=== PATIENT | male | born 1950 | race Caucasian/White ===

== ENCOUNTER 2016-10-25 10:23 | Emergency (ER) | payer BC ==
[~2016-10-25] VITALS: Ht 175.3 cm; Wt 100.0 kg
[~2016-10-25 10:23] MED LIST: ATV1 PO; DILT-119 PO; GABA-112 PO; HYDR25TA4 PO; HYDR5TAB27 PO; LEFL20TA PO; LSN5 PO; MELO7.5T5 PO; PRED-301 PO; RXC5 PO; SILO8CAP PO; TRAM-10 PO
[2016-10-25 10:28] VITALS: TEMP 36.8; Ht 175.3 cm; Wt 100.0 kg
[2016-10-25] MEDS ORDERED: GABA-113 PO (10:49)
[2016-10-25] MEDS ORDERED: TYLOTC500 PO (10:49)
[2016-10-25] MEDS ORDERED: DILT120C68 PO (10:49)
[2016-10-25] MEDS ORDERED: ASPI325T45 PO (10:50)
[2016-10-25] MEDS ORDERED: ONDANSETRON INJ 2 MG/ML 2 ML VIAL IV PRN (11:45)
[2016-10-25] MEDS ORDERED: SODIUM CHLORIDE 0.9% 1000ML 1,000 ML IV ONE (11:45)
[2016-10-25] MEDS ORDERED: MoRPHine SULFATE 10 MG/ML CARP/VIAL IV PRN (11:45)
[2016-10-25 11:56] LABS: HEMATOCRIT 37.1 % (42-52); MEAN CELL VOLUME 91.6 fL (80-100); MEAN CORPUSCULAR HEMOGLOBIN 29.1 pg (25-34); MEAN CORPUSCULAR HGB CONC 31.8 g/dl (32-36); MEAN PLATELET VOLUME 9.1 fL (7.4-10.4); PLATELET COUNT 322 K/uL (130-400); RED BLOOD COUNT 4.05 M/uL (4.7-6.1); WHITE BLOOD COUNT 14.03 K/uL (4.8-10.8)
[2016-10-25 12:04] LABS: ALT/SGPT 20 U/L (12-78); AST/SGOT 10 U/L (15-37); BLOOD UREA NITROGEN 21 mg/dl (7-18); BUN/CREATININE RATIO 22.3 (10-20); CALCIUM 9.4 mg/dl (8.5-10.1); CARBON DIOXIDE 25 mmol/L (21-32); CHLORIDE 108 mmol/L (98-107); CREATININE 0.96 mg/dl (0.60-1.40); GLUCOSE 105 mg/dl (70-99); SODIUM 142 mmol/L (136-145)
[2016-10-25 12:09] LABS: ALB/GLOB RATIO 1.1 (0.9-2); ALKALINE PHOSPHATASE 138 U/L (45-117)
[2016-10-25 12:18] LABS: BASO % 0.3 %; BASO ABS # 0.04 K/uL (0-0.2); COMPLETE YES; EOS % 0.4 %; IG% 0.3 %; LYMPH % 6.1 %; LYMPH ABS # 0.86 K/uL (1.2-3.4); MONO % 4.8 %; NEUT % 88.1 %
--- NOTE | 2016-10-25 12:19 | EMERGENCY ROOM VISIT NOTE ---
History Report prepared by Jes: Sue Carrazna Under the Supervision of: Dr. Clive Case M.D. First contact with patient: 11:38 Chief Complaint: PAIN (GENERALIZED) Stated Complaint: BODY PAIN History of Present Illness The patient is a 66 year old male who presents to the Emergency Room with complaints of worsening pain all over his body starting two days ago. He rates his pain as a 5/10 in severity. He states that he came to the ED because the pain worsened over night. He complains of pain in his legs, lower back, and shoulders. The patient states that he has a history of blood clots and isn't sure if the pain feels the same as before. The patient states that originally he thought he was coming down with the flu. He complains of a cough that produces mucous, chills, and nausea. He denies any fever. The patient states that he has been taking two Tylenol and a Tramadol for pain with no relief. He states that he not currently taking Coumadin or any other blood thinners. He does note that he takes an Aspirin daily. He reports that he had a left knee replacement a month ago and back surgery 11 months ago . He also notes that he has a history of arthritis. Source of History: patient Onset: two days ago Position: other (global) Symptom Intensity: 5/10 Quality: other (global) Timing: worsening Associated Symptoms: + chills, + cough, + nausea, No fevers Review of Systems All systems have been listed, reviewed, and are negative other than those previously mentioned. Please see Additional Medical History Sheet. Past Medical & Surgical Medical Problems: (1) DVT (deep venous thrombosis) (2) Lumbar stenosis with neurogenic claudication (3) Pulmonary embolism Family History Cancer Heart disease Social History Smoking Status: Never Smoker Alcohol Use: none Drug Use: none Marital Status: Housing Status: lives with family Occupation Status: employed Current/Historical Medications Scheduled Diltiazem Hcl Ext Rel (Tiazac), 120 MG PO DAILY Gabapentin (Neurontin), 300 MG PO TID Hydrochlorothiazide (Hctz), 25 MG PO QAM Leflunomide (Arava), 20 MG PO QAM Lisinopril (Lisinopril), 5 MG PO QAM Meloxicam (Mobic), 7.5 MG PO QAM Prednisone (Prednisone), 2.5 MG PO QAM Silodosin (Rapaflo), 8 MG PO QAM Sulfa/Trimethoprim (Bactrim Ds 800MG/160MG), 1 TAB PO BID Scheduled PRN Acetaminophen (Tylenol), 1,000 MG PO UD PRN for Pain Aspirin (Aspirin), 325 MG PO UD PRN for Pain Oxycodone Immediate Rel Tab (Roxicodone Ir), 1-2 TAB PO Q4H PRN for Severe Pain Tramadol (Ultram), 50 MG PO Q4H PRN for Pain Allergies Coded Allergies: No Known Allergies (Unverified , 10/25/16) Physical Exam Vital Signs Date Time Temp Pulse Resp B/P Pulse Ox O2 Delivery O2 Flow Rate FiO2 10/25/16 14:30 101 18 140/70 98 10/25/16 13:52 92 18 157/86 97 Room Air 10/25/16 12:19 88 18 143/90 95 10/25/16 10:28 36.8 81 18 134/77 97 Room Air Physical Exam GENERAL: Patient awake, alert, oriented x 3. Patient follows commands. Patient does not appear toxic. Patient is adequately hydrated and well- nourished. Appears in moderate distress. SKIN: No erythema, pallor, cyanosis or rash HEENT: Normal head, pupils equal, reactive to light and accommodation. Ears normal. Oral cavity and posterior pharynx appear normal. Patient has a small scratch on his nose. Neck: Without adenopathy, no neck vein distention. LUNGS: Clear to auscultation. No wheezes, no rales, no rhonchi. HEART: No murmurs. No gallops. No rubs ABDOMEN: No masses, no rebound, no hepatomegaly or splenomegaly. EXTREMITIES: No signs of trauma. No pedal or pretibial edema. No calf or thigh tenderness. Healing left knee surgery incision without signs of infection , decreased range of motion compared to a few days ago. NEUROLOGIC: Cranial nerves II-XII within normal limits. No gross motor sensory function deficits. Medical Decision & Procedures ER Provider Diagnostic Interpretation: Radiology results as stated below per my review and radiologist interpretation: LEFT LOWER EXTREMITY VENOUS DOPPLER HISTORY: Left leg swelling. COMPARISON STUDY: None. FINDINGS: There is normal compressibility, flow, and augmentation within the left lower extremity deep venous system. A 5.8 x 4.8 x 2.5 cm complex popliteal cyst. IMPRESSION: No DVT within the left lower extremity. Electronically signed by: Kevin Payne M.D. 10/25/2016 1:34 PM Dictated Date/Time: 10/25/2016 1:34 PM CHEST 2 VIEWS ROUTINE HISTORY: cough chills COMPARISON: Chest 12/06/2015. FINDINGS: The lungs are clear. Cardiac silhouette is borderline enlarged. No pleural effusions. No pneumothorax. IMPRESSION: No significant change compared to the prior study. No acute process. Electronically signed by: Kevin Payne M.D. 10/25/2016 12:56 PM Dictated Date/Time: 10/25/2016 12:54 PM Laboratory Results 10/25/16 11:00 Red Blood Count 4.05, Mean Corpuscular Volume 91.6, Mean Corpuscular Hemoglobin 29.1, Mean Corpuscular Hemoglobin Concent 31.8, Mean Platelet Volume 9.1, Neutrophils (%) (Auto) 88.1, Lymphocytes (%) (Auto) 6.1, Monocytes (%) (Auto) 4.8, Eosinophils (%) (Auto) 0.4, Basophils (%) (Auto) 0.3, Neutrophils # (Auto) 12.36, Lymphocytes # (Auto) 0.86, Monocytes # (Auto) 0.67, Eosinophils # (Auto) 0.06, Basophils # (Auto) 0.04 10/25/16 11:00 Test 10/25/16 11:00 10/25/16 11:06 10/25/16 11:55 10/25/16 12:08 White Blood Count 14.03 K/uL (4.8-10.8) Red Blood Count 4.05 M/uL (4.7-6.1) Hemoglobin 11.8 g/dL (14.0-18.0) Hematocrit 37.1 % (42-52) Mean Corpuscular Volume 91.6 fL (80-100) Mean Corpuscular Hemoglobin 29.1 pg (25-34) Mean Corpuscular Hemoglobin Concent 31.8 g/dl (32-36) Platelet Count 322 K/uL (130-400) Mean Platelet Volume 9.1 fL (7.4-10.4) Neutrophils (%) (Auto) 88.1 % Lymphocytes (%) (Auto) 6.1 % Monocytes (%) (Auto) 4.8 % Eosinophils (%) (Auto) 0.4 % Basophils (%) (Auto) 0.3 % Neutrophils # (Auto) 12.36 K/uL (1.4-6.5) Lymphocytes # (Auto) 0.86 K/uL (1.2-3.4) Monocytes # (Auto) 0.67 K/uL (0.11-0.59) Eosinophils # (Auto) 0.06 K/uL (0-0.5) Basophils # (Auto) 0.04 K/uL (0-0.2) RDW Standard Deviation 51.8 fL (36.4-46.3) RDW Coefficient of Variation 15.3 % (11.5-14.5) Immature Granulocyte % (Auto) 0.3 % Immature Granulocyte # (Auto) 0.04 K/uL (0.00-0.02) Anion Gap 9.0 mmol/L (3-11) Est Creatinine Clear Calc Drug Dose 90.6 ml/min Estimated GFR () 96.4 Estimated GFR (Non- 83.2 BUN/Creatinine Ratio 22.3 (10-20) Calcium Level 9.4 mg/dl (8.5-10.1) Total Bilirubin 0.7 mg/dl (0.2-1) Aspartate Amino Transf (AST/SGOT) 10 U/L (15-37) Alanine Aminotransferase (ALT/SGPT) 20 U/L (12-78) Alkaline Phosphatase 138 U/L (45-117) Troponin I < 0.015 ng/ml (0-0.045) Total Protein 7.2 gm/dl (6.4-8.2) Albumin 3.8 gm/dl (3.4-5.0) Globulin 3.4 gm/dl (2.5-4.0) Albumin/Globulin Ratio 1.1 (0.9-2) Influenza Type A Antigen Neg for Influ A (NEG) Influenza Type B Antigen Neg for Influ B (NEG) Bedside D-Dimer > 450 ng/mlFEU (0-450) Bedside Lactic Acid Venous 1.53 mmol/L (0.90-1.70) Test 10/25/16 12:10 Urine Color YELLOW Urine Appearance CLEAR (CLEAR) Urine pH 7.5 (4.5-7.5) Urine Specific Decker 1.020 (1.000-1.030) Urine Protein NEG (NEG) Urine Glucose (UA) NEG (NEG) Urine Ketones TRACE (NEG) Urine Occult Blood NEG (NEG) Urine Nitrite NEG (NEG) Urine Bilirubin NEG (NEG) Urine Urobilinogen NEG (NEG) Urine Leukocyte Esterase MODERATE (NEG) Urine WBC (Auto) >30 /hpf (0-5) Urine RBC (Auto) 0-4 /hpf (0-4) Urine Hyaline Casts (Auto) 10-30 /lpf (0-5) Urine Epithelial Cells (Auto) 0-5 /lpf (0-5) Urine Bacteria (Auto) 1+ (NEG) Laboratory results as stated above per my review. Medications Administered Medications (Trade) Dose Ordered Sig/Alf Route Start Time Stop Time Status Last Admin Dose Admin Ondansetron HCl (Zofran Inj) 4 mg PRN PRN IV 10/25/16 11:45 10/25/16 14:45 DC 10/25/16 12:21 4 MG Morphine Sulfate 8 mg 8 mg Q1H PRN IV 10/25/16 11:45 10/25/16 14:45 DC 10/25/16 12:23 8 MG Sodium Chloride (Nss 1000ml) 1,000 ml @ 1,000 mls/hr Q1H ONCE IV 10/25/16 11:45 10/25/16 12:44 DC 10/25/16 12:21 1,000 MLS/HR ECG Indication: back/shoulder pain Rate (beats per minute): 87 Rhythm: normal sinus Findings: nonspecific-ST abn, PAC ED Course 1139: Past medical records reviewed. The patient was evaluated in room A12B. A complete history and physical examination was performed. 1145: Ordered NSS 1000 ml @ 1000 mls/hr IV, Morphine Sulfate Inj 8 mg PRN IV pain, Zofran Inj 4 mg PRN IV nausea. 1357: Upon reevaluation, the patient appeared to have improvement of his symptoms. I discussed today's findings with the patient. He verbalized agreement of the treatment plan. The patient was discharged home. 1416: Multiple past prescriptions are noted. Medical Decision Differential diagnoses include influenza, other viral infections, pneumonia, sepsis, septic joint, deep vein thrombosis Multiple labs, urinalysis and imaging were obtained. Patient does not appear to have a DVT in his leg. Patient's symptoms are most prominent in his lower extremities. He has no pulmonary symptoms. The patient has had frequent urinary tract infections in the past without being symptomatic. I believe that he has another urinary tract infection now. His white count was also slightly elevated. Lactic acid is not elevated. D-dimer was elevated but he has no pulmonary symptoms. I do not believe he requires a CT of his chest. The patient be started on Bactrim. He is also given a small prescription for hydrocodone. The patient is to follow-up with his family physician and urologist. Impression Primary Impression: Urinary tract infection Scribe Attestation The scribe's documentation has been prepared under my direction and personally reviewed by me in its entirety. I confirm that the note above accurately reflects all work, treatment, procedures, and medical decision making performed by me. Departure Information Dispostion Home / Self-Care Prescriptions Oxycodone Immediate Rel Tab (ROXICODONE IR) 5 Mg Tab 1-2 TAB PO Q4H Y for Severe Pain, #20 TAB Prov: Clive Case M.D. 10/25/16 Sulfa/Trimethoprim (Bactrim Ds 800MG/160MG) Tab 1 TAB PO BID, #20 TAB Prov: Clive Case M.D. 10/25/16 Referrals Dc Chin M.D. (PCP) Kana Story M.D. Forms HOME CARE DOCUMENTATION FORM, IMPORTANT VISIT INFORMATION Patient Instructions My [facility] [place] [employer] Additional Instructions One Bactrim twice a day for 10 days. 1-2 hydrocodone every 4 hours as needed for severe pain. Do not drive or operate machinery while taking hydrocodone. Drink extra fluids. Follow-up with your family physician and urologist within the next 2 weeks. Continue all of your other current medications as prescribed.
[2016-10-25 12:28] LABS: URINE APPEARANCE CLEAR (CLEAR); URINE BILIRUBIN NEG (NEG); URINE COLOR YELLOW; URINE EPITHELIAL CELL AUTO 0-5 /lpf (0-5); URINE NITRITE NEG (NEG); URINE PH 7.5 (4.5-7.5); UROBILINOGEN NEG (NEG); ZZUR CULT IF INDIC CLEAN CATCH YES
[2016-10-25 12:30] LABS: MANUAL MICROSCOPIC REQUIRED? NO; REVIEW REQ? NO; SULFASALICYLIC ACID NEG (NEG)
--- NOTE | 2016-10-25 12:58 | DIAGNOSTIC IMAGING REPORT ---
CHEST 2 VIEWS ROUTINE HISTORY: cough chills COMPARISON: Chest 12/06/2015. FINDINGS: The lungs are clear. Cardiac silhouette is borderline enlarged. No pleural effusions. No pneumothorax. IMPRESSION: No significant change compared to the prior study. No acute process. Electronically signed by: Kevin Payne M.D. 10/25/2016 12:56 PM Dictated Date/Time: 10/25/2016 12:54 PM
--- NOTE | 2016-10-25 13:37 | DIAGNOSTIC IMAGING REPORT ---
LEFT LOWER EXTREMITY VENOUS DOPPLER HISTORY: Left leg swelling. COMPARISON STUDY: None. FINDINGS: There is normal compressibility, flow, and augmentation within the left lower extremity deep venous system. A 5.8 x 4.8 x 2.5 cm complex popliteal cyst. IMPRESSION: No DVT within the left lower extremity. Electronically signed by: Kevin Panye M.D. 10/25/2016 1:34 PM Dictated Date/Time: 10/25/2016 1:34 PM
[2016-10-25] MEDS ORDERED: SULF800T23 PO (14:12)
[2016-10-25] MEDS ORDERED: OXYC1TAB3 PO (14:12)
[2016-10-25 14:30] VITALS: BP 140/70; PULSE 101; O2SAT 98
--- NOTE | 2016-10-27 18:17 | Pharmacy Progress Note ---
ED Pharmacist Culture FollowUp Date of Service: Oct 27, 2016. Called patient regarding urine culture with Enterococcus faecalis. Counseled to stop Bactrim. Prescription for amoxicillin 875 mg po BID x7 days called to [facility] at the patient's request. Case discussed with Dr. Case, who is the prescribing provider.
[2017-02-11] MEDS ORDERED: CIPR1TAB11 PO (15:10)
[2017-02-11] MEDS ORDERED: FERR1TAB61 PO (15:10)
[2017-02-11] MEDS ORDERED: DILT120C68 PO (15:10)
[2017-02-11] MEDS ORDERED: HYDR200T5 PO (15:10)
[2017-02-11] MEDS ORDERED: NF1420 PO (15:10)
[2017-02-11] MEDS ORDERED: ASPI81TA28 PO (15:10)
== END 2016-10-25 14:31 | disposition home or self-care (01) ==
LOC: C.EDB 10:25 → C.EDA 14:31
DX: N39.0 Urinary tract infection, site not specified (principal); M19.90 Unspecified osteoarthritis, unspecified site; Z86.718 Personal history of other venous thrombosis and embolism; M48.06 Spinal stenosis, lumbar region; Z86.711 Personal history of pulmonary embolism; Z96.652 Presence of left artificial knee joint; Z80.9 Family history of malignant neoplasm, unspecified; Z82.49 Family history of ischemic heart disease and other diseases of the circulatory system; Z79.82 Long term (current) use of aspirin; Z79.899 Other long term (current) drug therapy; Z79.52 Long term (current) use of systemic steroids

== ENCOUNTER 2016-10-29 11:17 | Inpatient (IN) | payer BC ==
[~2016-10-29] VITALS: Ht 175.3 cm; Wt 89.9 kg
[~2016-10-29 11:17] MED LIST changes: +ASPI325T45 PO; -ATV1 PO; -DILT-119 PO; +DILT120C68 PO; -GABA-112 PO; +GABA-113 PO; -HYDR5TAB27 PO; +OXYC1TAB3 PO; -RXC5 PO; +SULF800T23 PO; +TYLOTC500 PO
[2016-10-29] MEDS ORDERED: SODIUM CHLORIDE 0.9% 1000ML 1,000 ML IV STA ×2 (12:17→14:19)
[2016-10-29] MEDS ORDERED: MoRPHine SULFATE 4 MG/ML 1 ML CARP\\VIAL IV STA (12:17)
--- NOTE | 2016-10-29 12:21 | EMERGENCY ROOM VISIT NOTE ---
History Report prepared by Jes: Nico Sewell Under the Supervision of: Dr. Val Churchill D.O. First contact with patient: 12:03 Chief Complaint: ILLNESS Stated Complaint: BODY PAIN, TEMP SPIKING, UTI, COUGH History of Present Illness The patient is a 66 year old male who presents to the Emergency Room with complaints of a persistent illness that started 6 days ago. Per the patient's , the patient started having a productive cough last week, with generalized pain. The patient's pain was so bad that he came to the ED here 4 days ago. It was determined that the patient had a UTI, and was put on Bactrim. However, the patient's antibiotic was changed 3 days ago to Amoxicillin after his culture grew out something different. The patient notes that the antibiotic has not been helping. He had a left knee replacement a month ago, and had a UTI before the knee replacement. He has a history of frequent UTI's, and had 2 of them last year. The patient says that his knee surgery rehab was going well until this illness started. He notes that the knee is a bit more red and swollen than normal. The patient, in addition to the productive cough, has been nauseous and dry heaving. His generalized pain goes from his low back, down to his left knee. The patient states that his phlegm does not have much of a color. His generalized pain has gone down a bit this week, but the patient continues to not eat, with minimal appetite. Last night, the patient's states that the patient had a fever of 101.6. The patient continues to occasional urge incontinence, and the urine is noted to be a bit darker than normal. Last night , the patient's adds that last night the patient was not himself, and his color was not right. He denies any shortness of breath, chest pain, runny nose, sore throat, vomiting, or bowel problems. He has a history of kidney stones, but has not had one in a while. He also has a history of a blood clot in his lung. He has no history of pneumonia. The patient does not take any blood thinners. He does not drink alcohol or use tobacco products. Source of History: patient, spouse/significant other Onset: 6 days ago Position: other (global - illness) Timing: other (persistent) Associated Symptoms: + back pain, + cough, + fevers, + nausea, + urinary symptoms (no control of bladder), No SOB, No chest pain, No sorethroat, No vomiting Note: Associated symptoms: Left knee pain, swelling, redness. Dry heaving. Generalized pain. Not himself last night, delirious. Minimal appetite. Denies runny nose, bowel problems. Review of Systems See HPI for pertinent positives & negatives. A total of 10 systems reviewed and were otherwise negative. Past Medical & Surgical Medical Problems: (1) DVT (deep venous thrombosis) (2) Lumbar stenosis with neurogenic claudication (3) Pulmonary embolism Family History Cancer Heart disease Social History Smoking Status: Never Smoker Alcohol Use: none Drug Use: none Marital Status: Housing Status: lives with family Occupation Status: employed Current/Historical Medications Scheduled Diltiazem Hcl Ext Rel (Tiazac), 120 MG PO DAILY Gabapentin (Neurontin), 300 MG PO TID Hydrochlorothiazide (Hctz), 25 MG PO QAM Leflunomide (Arava), 20 MG PO QAM Lisinopril (Lisinopril), 5 MG PO QAM Meloxicam (Mobic), 7.5 MG PO QAM Prednisone (Prednisone), 2.5 MG PO QAM Silodosin (Rapaflo), 8 MG PO QAM Sulfa/Trimethoprim (Bactrim Ds 800MG/160MG), 1 TAB PO BID Scheduled PRN Acetaminophen (Tylenol), 1,000 MG PO UD PRN for Pain Aspirin (Aspirin), 325 MG PO UD PRN for Pain Oxycodone Immediate Rel Tab (Roxicodone Ir), 1-2 TAB PO Q4H PRN for Severe Pain Tramadol (Ultram), 50 MG PO Q4H PRN for Pain Allergies Coded Allergies: No Known Allergies (Unverified , 10/29/16) Physical Exam Vital Signs Date Time Temp Pulse Resp B/P Pulse Ox O2 Delivery O2 Flow Rate FiO2 10/29/16 15:37 77 18 121/74 97 Room Air 10/29/16 14:21 69 14 131/68 96 Room Air 10/29/16 13:37 74 16 105/59 98 Room Air 10/29/16 11:40 36.7 74 18 95/58 99 Room Air Physical Exam GENERAL: alert, well appearing, well nourished, no distress, non-toxic EYE EXAM: normal conjunctiva, PERRL and EOM's grossly intact OROPHARYNX: no exudate, no erythema, lips, buccal mucosa, and tongue normal and mucous membranes are moist NECK: supple, no nuchal rigidity, no adenopathy, non-tender LUNGS: Clear to auscultation. Normal chest wall mechanics HEART: no murmurs, S1 normal and S2 normal ABDOMEN: abdomen soft, non-tender, normo-active bowel sounds, no masses, no rebound or guarding. BACK: Back is symmetrical on inspection and there is no deformity, no midline tenderness, no CVA tenderness. SKIN: no rashes and no bruising UPPER EXTREMITIES: upper extremities are grossly normal. LOWER EXTREMITIES: Mildly edematous left knee, no effusion. Well-healed vertical midline incision left knee with surrounding erythema and warmth, no drainage, no discharge, no bleeding. Slightly decreased range of motion of left knee with pain. NEURO EXAM: Normal sensorium, cranial nerves II-XII grossly intact, normal speech, no gross weakness of arms, no gross weakness of legs. No drift. Oriented. Gross sensation intact. Medical Decision & Procedures ER Provider Diagnostic Interpretation: CT:Per my review, radiologist interpretation. CT SCAN OF THE ABDOMEN AND PELVIS WITHOUT IV CONTRAST CLINICAL HISTORY: Generalized abdominal pain. Urinary tract infection. COMPARISON STUDY: Renal ultrasound dated 11/25/2010. TECHNIQUE: CT scan of the abdomen and pelvis is performed from the lung bases to the proximal femora. Images are reviewed in the axial, sagittal, and coronal planes. IV contrast was not administered for this examination as per the referring clinician. Automated dose control exposure was utilized. FINDINGS: Lung bases: The heart is enlarged and there is trace pericardial effusion. There is diminished attenuation of the cardiac blood pool as compared to the myocardium suggesting anemia. There is bibasilar scarring versus atelectasis. No airspace consolidation or pleural effusion is seen. A small hiatal hernia is identified. Liver: The unenhanced liver is normal in size, contour, and attenuation. There are scattered calcified hepatic granulomas. There is no intrahepatic biliary ductal dilatation. Gallbladder: Unremarkable. Spleen: The spleen is mildly enlarged measuring 14 cm in length. Pancreas: The unenhanced pancreas is moderately atrophic and grossly unremarkable. Adrenal glands: Unremarkable. Kidneys: The unenhanced kidneys demonstrate mild cortical atrophy. Large parapelvic cysts are suggested bilaterally, left greater than right. There is no clear evidence of hydronephrosis. There are numerous bilateral nonobstructing renal calculi. There are at least 10 nonobstructing calculi in the left measuring up to 10 mm. There are at least 6 stones on the right measuring up to 5 mm. Scattered subcentimeter cortical hypodensities also likely represent cysts but are too small for definitive characterization. Abdominal vasculature: The abdominal aorta is normal in course and caliber. Bowel: The small bowel and colon are normal in course and caliber. The appendix is well-visualized and normal. Peritoneum: There is no intraperitoneal free air or abdominal ascites. Lymphadenopathy: None. Pelvic viscera: The prostate gland is enlarged and heterogeneous, measuring 4.7 cm in transverse diameter. There is median lobe hypertrophy. The bladder wall appears mildly thickened and trabeculated suggesting chronic outlet obstruction. Skeletal structures: The skeletal structures are osteopenic. There is moderate to advanced lumbar sacral spondylosis. There are postoperative changes from L2 -S1 spinal fusion with iliac bolt placement. No lytic or blastic lesions are seen. IMPRESSION: 1. There are no acute infectious or inflammatory findings in the abdomen or pelvis. 2. There are numerous bilateral nonobstructing renal calculi. No ureteral stone is seen. 3. Numerous parapelvic cysts are suggested bilaterally, left greater than right. There is no clear evidence of hydronephrosis. 4. Prostatomegaly with evidence of chronic bladder outlet obstruction. 5. Mild hepatomegaly. 6. Cardiomegaly. 7. Additional findings as above. Electronically signed by: Monroe Resendiz M.D. 10/29/2016 3:14 PM Dictated Date/Time: 10/29/2016 3:06 PM CHEST CTA for PULMONARY ARTERIES CT DOSE: 1879.10 mGy.cm HISTORY: Cough. Fever. Postop. TECHNIQUE: Multiaxial CT images of the chest were performed following the intravenous administration of contrast to evaluate the pulmonary arteries. Maximal intensity projection images were also obtained. COMPARISON STUDY: Chest CTA 05/05/2013. FINDINGS: Normal caliber thoracic aorta with no evidence for dissection. The heart is mildly enlarged. No pleural or pericardial effusions. Trace mucoid material within the upper trachea. No pneumothorax. No focal lung consolidations to suggest pneumonia. Linear densities within the right midlung zone favor atelectasis are scarring. No fractures within the visualized osseous structures. Calcifications within the liver, unchanged. Bilateral nephrolithiasis. Multiple peripelvic renal cysts. Normal adrenal glands. No mediastinal or hilar lymphadenopathy. IMPRESSION: 1. No evidence for pulmonary embolus. 2. Mild cardiomegaly. 3. No focal lung consolidations to suggest pneumonia. 4. Bilateral nephrolithiasis. Electronically signed by: Kevin Payne M.D. 10/29/2016 3:14 PM Dictated Date/Time: 10/29/2016 3:05 PM Laboratory Results 10/29/16 12:33 Red Blood Count 3.13, Mean Corpuscular Volume 89.1, Mean Corpuscular Hemoglobin 30.0, Mean Corpuscular Hemoglobin Concent 33.7, Mean Platelet Volume 9.5, Neutrophils (%) (Auto) 85.8, Lymphocytes (%) (Auto) 8.7, Monocytes (%) (Auto) 3.9, Eosinophils (%) (Auto) 0.4, Basophils (%) (Auto) 0.2, Neutrophils # (Auto) 8.99, Lymphocytes # (Auto) 0.91, Monocytes # (Auto) 0.41, Eosinophils # (Auto) 0.04, Basophils # (Auto) 0.02 10/29/16 12:33 Test 10/29/16 12:33 10/29/16 15:05 White Blood Count 10.47 K/uL (4.8-10.8) Red Blood Count 3.13 M/uL (4.7-6.1) Hemoglobin 9.4 g/dL (14.0-18.0) Hematocrit 27.9 % (42-52) Mean Corpuscular Volume 89.1 fL (80-100) Mean Corpuscular Hemoglobin 30.0 pg (25-34) Mean Corpuscular Hemoglobin Concent 33.7 g/dl (32-36) Platelet Count 272 K/uL (130-400) Mean Platelet Volume 9.5 fL (7.4-10.4) Neutrophils (%) (Auto) 85.8 % Lymphocytes (%) (Auto) 8.7 % Monocytes (%) (Auto) 3.9 % Eosinophils (%) (Auto) 0.4 % Basophils (%) (Auto) 0.2 % Neutrophils # (Auto) 8.99 K/uL (1.4-6.5) Lymphocytes # (Auto) 0.91 K/uL (1.2-3.4) Monocytes # (Auto) 0.41 K/uL (0.11-0.59) Eosinophils # (Auto) 0.04 K/uL (0-0.5) Basophils # (Auto) 0.02 K/uL (0-0.2) RDW Standard Deviation 51.6 fL (36.4-46.3) RDW Coefficient of Variation 15.8 % (11.5-14.5) Immature Granulocyte % (Auto) 1.0 % Immature Granulocyte # (Auto) 0.10 K/uL (0.00-0.02) Echinocytes 1+ Erythrocyte Sedimentation Rate 79 mm/hr (0-14) Anion Gap 7.0 mmol/L (3-11) Est Creatinine Clear Calc Drug Dose 43.8 ml/min Estimated GFR () 42.2 Estimated GFR (Non- 36.4 BUN/Creatinine Ratio 21.6 (10-20) Lactic Acid Level 1.5 mmol/L (0.4-2.0) Calcium Level 9.4 mg/dl (8.5-10.1) Total Bilirubin 0.6 mg/dl (0.2-1) Aspartate Amino Transf (AST/SGOT) 33 U/L (15-37) Alanine Aminotransferase (ALT/SGPT) 34 U/L (12-78) Alkaline Phosphatase 165 U/L (45-117) C-Reactive Protein 28.60 mg/dl (0-0.29) Total Protein 7.8 gm/dl (6.4-8.2) Albumin 3.0 gm/dl (3.4-5.0) Globulin 4.8 gm/dl (2.5-4.0) Albumin/Globulin Ratio 0.6 (0.9-2) Lipase 98 U/L (73-393) Chemistry Specimen Hemolysis Urine Color YELLOW Urine Appearance CLOUDY (CLEAR) Urine pH 5.0 (4.5-7.5) Urine Specific [place] 1.018 (1.000-1.030) Urine Protein TRACE (NEG) Urine Glucose (UA) NEG (NEG) Urine Ketones NEG (NEG) Urine Occult Blood 3+ (NEG) Urine Nitrite NEG (NEG) Urine Bilirubin NEG (NEG) Urine Urobilinogen NEG (NEG) Urine Leukocyte Esterase MODERATE (NEG) Laboratory results per my review. Medications Administered Medications (Trade) Dose Ordered Sig/Alf Route Start Time Stop Time Status Last Admin Dose Admin Sodium Chloride (Nss 1000ml) 1,000 ml @ 250 mls/hr Q4H STAT IV 10/29/16 12:17 10/29/16 16:16 DC 10/29/16 12:31 250 MLS/HR Morphine Sulfate (MoRPHine SULFATE INJ) 4 mg NOW STAT IV 10/29/16 12:17 10/29/16 12:19 DC 10/29/16 12:32 4 MG Vancomycin HCl 1 gm 1 gm NOW STAT IV 10/29/16 12:23 10/29/16 12:26 DC 10/29/16 12:45 1 GM Pantoprazole Sodium 40 mg/ Syringe 10 ml @ 5 mls/min NOW ONCE IV 10/29/16 13:15 10/29/16 13:16 DC 10/29/16 13:35 5 MLS/MIN Sodium Chloride (Nss 1000ml) 1,000 ml @ 250 mls/hr Q4H STAT IV 10/29/16 14:19 10/29/16 18:18 10/29/16 14:12 250 MLS/HR ECG Indication: nausea Rate (beats per minute): 71 Rhythm: normal sinus Findings: no acute ischemic change, no ectopy, other (normal axis and normal intervals) ED Course 1204: The patient was evaluated in room C8. A complete history and physical exam was performed. 1217: Ordered Morphine Sulfate Inj 4 mg IV, NSS 1000 ml @ 250 mls/hr IV. 1220: Review of EMR with last visit, urine culture reviewed and sensitive to all antibiotics tested. 1223: Ordered Vancomycin 1gm/270ml Nss 1 gm IV. 1315: Ordered Pantoprazole Sodium 40 mg/Syringe 10 ml @ 5 mls/min IV. 1419: Ordered NSS 1000 ml @ 250 mls/hr IV. 1527: I reevaluated the patient and he is sitting up in bed. The patient verbally expressed understanding and agreement of the treatment plan. The patient will be evaluated for further treatment. 1528: I discussed the patient with Dr. Marty Su customer experience specialist - he will evaluate the patient for further treatment. Medical Decision Differential diagnosis include but is not limited to: cellulitis, septic arthritis, hardware infection, failed outpatient treatment, pyelonephritis or bacteremia, sepsis, kidney failure, electrolyte abnormalities. No fever or significant leukocytosis here, however concern given recent persistence of fevers despite outpatient treatment for UTI. Culture results reviewed and patient pansensitive. Given concurrent appearance of likely cellulitis at recent left knee incision, attempted to utilize a single antibiotic for coverage of both. Patient still able to perform range of motion testing of the left knee, and I have a lower suspicion at this time for a septic arthritis or infected hardware. Patient otherwise with generalized symptoms, and at risk for evolution of bacteremia/sepsis. Patient in for continued monitoring, continued IV hydration given clinical dehydration and elevation of creatinine. Mild anemia also noted, no recent bleeding and none noted on imaging. Patient not anticoagulated at this time. No other findings to suggest infected kidney stone or pyelonephritis. Doubt other cardiac or pulmonary etiology. Patient improved here with IV fluids, vital signs stable and initial mild hypotension improved with IV fluids. Pain controlled in no recurrent vomiting in the emergency room. Patient aware of all results and agreeable with plan for admission as discussed with hospitalist. They're agreeable with evaluation at presentation. Consults Time Called: 1525 Consulting Physician: Dr. Marty Su customer experience specialist Returned Call: 1525 I discussed the patient with Dr. Marty Su customer experience specialist - he will evaluate the patient for further treatment. Impression Primary Impression: Failure of outpatient treatment Additional Impressions: Cellulitis of left knee Acute renal failure (ARF) Anemia Dehydration Hyponatremia Scribe Attestation The scribe's documentation has been prepared under my direction and personally reviewed by me in its entirety. I confirm that the note above accurately reflects all work, treatment, procedures, and medical decision making performed by me. Departure Information Dispostion Being Evaluated By Hospitalist Dc Aponte M.D. (PCP) Patient Instructions My [facility] Problem Qualifiers Additional Impressions: Acute renal failure (ARF) Acute renal failure type: unspecified Qualified Codes: N17.9 - Acute kidney failure, unspecified Anemia Anemia type: unspecified type Qualified Codes: D64.9 - Anemia, unspecified
[2016-10-29] MEDS ORDERED: VANCOMYCIN 1GM/270ML NSS IV STA (12:23)
[2016-10-29] MEDS ORDERED: PANTOprazole INJ 40 MG in SYRINGE 0 ML IV ONE (13:15)
[2016-10-29 13:18] LABS: HEMATOCRIT 27.9 % (42-52); MEAN CELL VOLUME 89.1 fL (80-100); MEAN CORPUSCULAR HGB CONC 33.7 g/dl (32-36); MEAN PLATELET VOLUME 9.5 fL (7.4-10.4); PLATELET COUNT 272 K/uL (130-400); RED BLOOD COUNT 3.13 M/uL (4.7-6.1); WHITE BLOOD COUNT 10.47 K/uL (4.8-10.8)
[2016-10-29 13:25] LABS: BASO % 0.2 %; BASO ABS # 0.02 K/uL (0-0.2); COMPLETE YES; ECHINOCYTES 1+; EOS % 0.4 %; LYMPH % 8.7 %; LYMPH ABS # 0.91 K/uL (1.2-3.4); MONO % 3.9 %; NEUT % 85.8 %
[2016-10-29 13:34] LABS: ALB/GLOB RATIO 0.6 (0.9-2); BUN/CREATININE RATIO 21.6 (10-20); C-REACTIVE PROTEIN 28.6 mg/dl (0-0.29); CALCIUM 9.4 mg/dl (8.5-10.1); CREATININE 1.9 mg/dl (0.60-1.40); POTASSIUM 3.5 mmol/L (3.5-5.1)
[2016-10-29] MEDS ORDERED: OPTIRAY 320 IV PRN (15:15)
--- NOTE | 2016-10-29 15:15 | DIAGNOSTIC IMAGING REPORT ---
CT SCAN OF THE ABDOMEN AND PELVIS WITHOUT IV CONTRAST CLINICAL HISTORY: Generalized abdominal pain. Urinary tract infection. COMPARISON STUDY: Renal ultrasound dated 11/25/2010. TECHNIQUE: CT scan of the abdomen and pelvis is performed from the lung bases to the proximal femora. Images are reviewed in the axial, sagittal, and coronal planes. IV contrast was not administered for this examination as per the referring clinician. Automated dose control exposure was utilized. FINDINGS: Lung bases: The heart is enlarged and there is trace pericardial effusion. There is diminished attenuation of the cardiac blood pool as compared to the myocardium suggesting anemia. There is bibasilar scarring versus atelectasis. No airspace consolidation or pleural effusion is seen. A small hiatal hernia is identified. Liver: The unenhanced liver is normal in size, contour, and attenuation. There are scattered calcified hepatic granulomas. There is no intrahepatic biliary ductal dilatation. Gallbladder: Unremarkable. Spleen: The spleen is mildly enlarged measuring 14 cm in length. Pancreas: The unenhanced pancreas is moderately atrophic and grossly unremarkable. Adrenal glands: Unremarkable. Kidneys: The unenhanced kidneys demonstrate mild cortical atrophy. Large parapelvic cysts are suggested bilaterally, left greater than right. There is no clear evidence of hydronephrosis. There are numerous bilateral nonobstructing renal calculi. There are at least 10 nonobstructing calculi in the left measuring up to 10 mm. There are at least 6 stones on the right measuring up to 5 mm. Scattered subcentimeter cortical hypodensities also likely represent cysts but are too small for definitive characterization. Abdominal vasculature: The abdominal aorta is normal in course and caliber. Bowel: The small bowel and colon are normal in course and caliber. The appendix is well-visualized and normal. Peritoneum: There is no intraperitoneal free air or abdominal ascites. Lymphadenopathy: None. Pelvic viscera: The prostate gland is enlarged and heterogeneous, measuring 4.7 cm in transverse diameter. There is median lobe hypertrophy. The bladder wall appears mildly thickened and trabeculated suggesting chronic outlet obstruction. Skeletal structures: The skeletal structures are osteopenic. There is moderate to advanced lumbar sacral spondylosis. There are postoperative changes from L2 -S1 spinal fusion with iliac bolt placement. No lytic or blastic lesions are seen. IMPRESSION: 1. There are no acute infectious or inflammatory findings in the abdomen or pelvis. 2. There are numerous bilateral nonobstructing renal calculi. No ureteral stone is seen. 3. Numerous parapelvic cysts are suggested bilaterally, left greater than right. There is no clear evidence of hydronephrosis. 4. Prostatomegaly with evidence of chronic bladder outlet obstruction. 5. Mild hepatomegaly. 6. Cardiomegaly. 7. Additional findings as above. Electronically signed by: Monroe Resendiz M.D. 10/29/2016 3:14 PM Dictated Date/Time: 10/29/2016 3:06 PM
--- NOTE | 2016-10-29 15:15 | DIAGNOSTIC IMAGING REPORT ---
CHEST CTA for PULMONARY ARTERIES CT DOSE: 1879.10 mGy.cm HISTORY: Cough. Fever. Postop. TECHNIQUE: Multiaxial CT images of the chest were performed following the intravenous administration of contrast to evaluate the pulmonary arteries. Maximal intensity projection images were also obtained. COMPARISON STUDY: Chest CTA 05/05/2013. FINDINGS: Normal caliber thoracic aorta with no evidence for dissection. The heart is mildly enlarged. No pleural or pericardial effusions. Trace mucoid material within the upper trachea. No pneumothorax. No focal lung consolidations to suggest pneumonia. Linear densities within the right midlung zone favor atelectasis are scarring. No fractures within the visualized osseous structures. Calcifications within the liver, unchanged. Bilateral nephrolithiasis. Multiple peripelvic renal cysts. Normal adrenal glands. No mediastinal or hilar lymphadenopathy. IMPRESSION: 1. No evidence for pulmonary embolus. 2. Mild cardiomegaly. 3. No focal lung consolidations to suggest pneumonia. 4. Bilateral nephrolithiasis. Electronically signed by: Kevin Payne M.D. 10/29/2016 3:14 PM Dictated Date/Time: 10/29/2016 3:05 PM
[2016-10-29 15:55] LABS: URINE APPEARANCE CLOUDY (CLEAR); URINE BILIRUBIN NEG (NEG); URINE COLOR YELLOW; URINE EPITHELIAL CELL AUTO 20-30 /lpf (0-5); URINE NITRITE NEG (NEG); URINE SPECIFIC GRAVITY 1.018 (1.000-1.030); UROBILINOGEN NEG (NEG); ZZUR CULT IF INDIC CLEAN CATCH YES
[2016-10-29 15:58] LABS: MANUAL MICROSCOPIC REQUIRED? NO; REVIEW REQ? YES
--- NOTE | 2016-10-29 15:59 | History and Physical ---
History & Physical Date & Time of Service: Oct 29, 2016 at 15:41 Chief Complaint: Body Pain, Temp Spiking, Uti, Cough Primary Care Physician: Dc Chin M.D. History of Present Illness Source: patient, spouse 66yo male with recently diagnosed UTI on Wednesday of this past weekend who presents with concerns of ongoing infection and feeling poorly. The patient reports that last Wednesday he developed cough, myalgias, fatigue, chills, and anorexia. He also developed very mild left knee pain at that time. His symptoms persisted throughout the weekend and on Wednesday he was seen in our ER, told he had UTI, and sent home with bactrim. On Wednesday his antibiotics were changed from bactrim to amoxicillin after he was discovered to have enterococcus in the urine. He has been taking the latter since Wednesday AM. He continues to feel poorly despite the amoxicillin. He has had urinary incontinence, back pain (low back, particularly the left side ), ongoing poor appetite, etc. Has had ongoing fatigue and weakness. With respect to his left knee it has become more painful since Wednesday and now he has redness over the knee joint. The latter started in the last 48 hours. He has no prior history of gout. The knee had been feeling overall very good since the knee was replaced about 1 month ago. Last pm had fever to 101.6. Past Medical/Surgical History PMH: 1. HTN 2. kidney stones 3. right LE DVT with PE - following achilles tendon repair 4. rheumatoid arthritis - takes chronic prednisone for 6 years PSH: 1. carpal tunnel release, right 2. achilles tendon repair, right 3. left TKR - [facility], 09/2016 4. left ankle surgery (arthroscopic) 5. left elbow staph aureus infection requiring I/D 6. 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[employer] ) Immunizations History of Influenza Vaccine: No History of Tetanus Vaccine?: No History of Pneumococcal: No History of Hepatitis B Vaccine: No Allergies Coded Allergies: No Known Allergies (Unverified , 10/29/16) Home Medications Scheduled Diltiazem Hcl Ext Rel (Tiazac), 120 MG PO DAILY Gabapentin (Neurontin), 300 MG PO TID Hydrochlorothiazide (Hctz), 25 MG PO QAM Leflunomide (Arava), 20 MG PO QAM Lisinopril (Lisinopril), 5 MG PO QAM Meloxicam (Mobic), 7.5 MG PO QAM Prednisone (Prednisone), 2.5 MG PO QAM Silodosin (Rapaflo), 8 MG PO QAM Sulfa/Trimethoprim (Bactrim Ds 800MG/160MG), 1 TAB PO BID Scheduled PRN Acetaminophen (Tylenol), 1,000 MG PO UD PRN for Pain Aspirin (Aspirin), 325 MG PO UD PRN for Pain Oxycodone Immediate Rel Tab (Roxicodone Ir), 1-2 TAB PO Q4H PRN for Severe Pain Tramadol (Ultram), 50 MG PO Q4H PRN for Pain Review of Systems Constitutional: + chills, + fatigue, + fever (101.6), + weakness ENT: No nasal symptoms, No sore throat, No trouble swallowing Respiratory: + cough, No dyspnea on exertion, No shortness of breath, No sputum Cardiovascular: + edema (left ankle), No PND, No chest pain, No orthopnea Abdomen: + nausea, No GI bleeding, No diarrhea, No pain, No vomiting Musculoskeletal: + joint pain (left knee since Wednesday; right knee pain - chronic) Genitourinary - Male: + urinary incontinence, No dysuria, No hematuria Neurologic: + numbness/tingling (feet - occasional) Psychiatric: No anxiety, No depression symptoms Endocrine: + fatigue Hematologic / Lymphatic: No abnormal bleeding/bruising Integumentary: + rash Physical Exam Vital Signs Date Time Temp Pulse Resp B/P Pulse Ox O2 Delivery O2 Flow Rate FiO2 10/29/16 14:21 69 14 131/68 96 Room Air 10/29/16 13:37 74 16 105/59 98 Room Air 10/29/16 11:40 36.7 74 18 95/58 99 Room Air General Appearance: no apparent distress (he does have modest distress, however , any time he moves the left leg it causes pain), + pertinent finding (ill- appearing but nontoxic) Head: normocephalic, atraumatic Eyes: PERRL ENT: hearing grossly normal, TMs normal, + pertinent finding (MM dry) Neck: supple, no adenopathy, thyroid normal, no JVD Respiratory/Chest: lungs clear, no respiratory distress, no accessory muscle use Cardiovascular: regular rate, rhythm, no gallop, no murmur, normal peripheral pulses Abdomen/GI: normal bowel sounds, non tender, soft, no organomegaly, + abnormal rectal exam (prostate enlarged, boggy, tender, no nodules) Back: normal inspection, no CVA tenderness Extremities/Musculoskelatal: + pertinent finding (left knee - effusion present , warm to touch, tender to touch, erythema present on anterior aspect of knee extending inferiorly along the tibia; with passive ROM he has pain in the joint ; incision is clean) Neurologic/Psych: no motor/sensory deficits, alert, normal reflexes, oriented x 3 Skin: + pertinent finding (no generalized rash but erythema over the left knee as noted above) Lymphatic: no adenopathy (cervical ) Diagnostics Laboratory Results Results Past 24 Hours Test 10/29/16 12:33 10/29/16 15:05 Range/Units White Blood Count 10.47 4.8-10.8 K/uL Red Blood Count 3.13 4.7-6.1 M/uL Hemoglobin 9.4 14.0-18.0 g/dL Hematocrit 27.9 42-52 % Mean Corpuscular Volume 89.1 80-100 fL Mean Corpuscular Hemoglobin 30.0 25-34 pg Mean Corpuscular Hemoglobin Concent 33.7 32-36 g/dl Platelet Count 272 130-400 K/uL Mean Platelet Volume 9.5 7.4-10.4 fL Neutrophils (%) (Auto) 85.8 % Lymphocytes (%) (Auto) 8.7 % Monocytes (%) (Auto) 3.9 % Eosinophils (%) (Auto) 0.4 % Basophils (%) (Auto) 0.2 % Neutrophils # (Auto) 8.99 1.4-6.5 K/uL Lymphocytes # (Auto) 0.91 1.2-3.4 K/uL Monocytes # (Auto) 0.41 0.11-0.59 K/uL Eosinophils # (Auto) 0.04 0-0.5 K/uL Basophils # (Auto) 0.02 0-0.2 K/uL RDW Standard Deviation 51.6 36.4-46.3 fL RDW Coefficient of Variation 15.8 11.5-14.5 % Immature Granulocyte % (Auto) 1.0 % Immature Granulocyte # (Auto) 0.10 0.00-0.02 K/uL Echinocytes 1+ Erythrocyte Sedimentation Rate 79 0-14 mm/hr Sodium Level 130 136-145 mmol/L Potassium Level 3.5 3.5-5.1 mmol/L Chloride Level 96 98-107 mmol/L Carbon Dioxide Level 27 21-32 mmol/L Anion Gap 7.0 3-11 mmol/L Blood Urea Nitrogen 41 7-18 mg/dl Creatinine 1.90 0.60-1.40 mg/dl Est Creatinine Clear Calc Drug Dose 43.8 ml/min Estimated GFR () 42.2 Estimated GFR (Non- 36.4 BUN/Creatinine Ratio 21.6 10-20 Random Glucose 124 70-99 mg/dl Lactic Acid Level 1.5 0.4-2.0 mmol/L Calcium Level 9.4 8.5-10.1 mg/dl Total Bilirubin 0.6 0.2-1 mg/dl Aspartate Amino Transf (AST/SGOT) 33 15-37 U/L Alanine Aminotransferase (ALT/SGPT) 34 12-78 U/L Alkaline Phosphatase 165 45-117 U/L C-Reactive Protein 28.60 0-0.29 mg/dl Total Protein 7.8 6.4-8.2 gm/dl Albumin 3.0 3.4-5.0 gm/dl Globulin 4.8 2.5-4.0 gm/dl Albumin/Globulin Ratio 0.6 0.9-2 Lipase 98 73-393 U/L Chemistry Specimen Hemolysis Microbiology Results 10/29/16 Blood Culture, Received Pending 10/29/16 Blood Culture, Received Pending Diagnostic Radiology CT abd/pelvis - IMPRESSION: 1. There are no acute infectious or inflammatory findings in the abdomen or pelvis. 2. There are numerous bilateral nonobstructing renal calculi. No ureteral stone is seen. 3. Numerous parapelvic cysts are suggested bilaterally, left greater than right. There is no clear evidence of hydronephrosis. 4. Prostatomegaly with evidence of chronic bladder outlet obstruction. 5. Mild hepatomegaly. 6. Cardiomegaly. 7. Additional findings as above. CTA chest - no PE, no pneumonia. EKG NSR, VOLTAGE CRITERIA FOR LVH (LEAD 1, LARGE R WAVE), Nonspecific ST changes III , AVF. Impression Assessment and Plan 66yo male with h/o RA on chronic prednisone, recent left-sided TKR at [facility] in [place], HTN, BPH, and enterococcal UTI who presented today with ongoing fatigue, anorexia, worsening left knee pain and swelling/redness, along with fever to 101 last evening. 1. sepsis 2nd to suspected septic left knee and UTI - * I spoke with Dr. Cristopher Segal from orthopedics who kindly performed a diagnostic arthrocentesis on the left knee * Cell counts have not returned but there was gross pus on the arthrocentesis * he has been given IV vancomycin and ceftriaxone for the suspected infected knee * I also spoke with Dr. Trell Schneider, orthopedics in [place], who performed the original TKR about 1 month ago * he graciously accepted Mr. Starr back to [facility] for ongoing management of the infected left knee with likely wash-out tomorrow * blood cx's have been sent and are pending * urine cx has been sent and is pending * of note - urine culture from this past Wednesday showed mitchell-sensitive enterococcus 2. enterococcal UTI with prostatitis - IV vancomycin will suffice for this. Will need at least 2+ weeks of antibiotics due to the prostatitis. 3. acute renal failure/acute kidney injury - 2nd to #1. Cannot rule out that bactrim played a role but much less likely. He received 2 fluid boluses in the ER; will give NS at 200cc/hr and repeat BMP in am. Hold NSAIDs. Hold LUC. 4. hyponatremia - 2nd to severe dehydration in the setting of sepsis. NS hydration with repeat BMP in am. 5. anemia - on 10/25/16 the hemoglobin was above 11 and today it is 9.4. He has had no obvious GI bleeding. It is possible that the hemoglobin of 11 was spurious, OR today's value reflects acute blood loss from multiple blood draws OR occult GI bleeding. Either way he needs repeat CBC in am for stability. 6. RA on chronic prednisone and arava - due to his sepsis and steroid dependency will give stress dose steroids with hydrocortisone IV. Gave 50mg in the ER, and will continue 50mg q12h IV. 7. BPH - continue alpha dima if BP will allow. 8. HTN - hold LUC due to low-normal BP and acute renal failure. Hold diltiazem & HCTZ. 9. DVT proph - in light of recent TKR he is at high risk of DVT (and he has had VTE in the past). heparin 5000 q12h for now. 10. FEN - NS at 200cc/hr. NPO after MN for potential surgery on left knee tomorrow. BMP am. 11. Pain control - dilaudid IV prn. Patient informed of need to transfer to [facility] in [place] due to septic knee. Level of Care Telemetry Resuscitation Status FULL RESUSCITATION VTE Prophylaxis Risk Level: High Given or contraindicated: Unfractionated heparin SQ Note total time about 100 minutes including H/P, coordinating care with orthopedics, etc. Additional Copies To Dc Chin M.D.; Kana Schneider, DO
[2016-10-29] MEDS ORDERED: HYDROCORTISONE SOD SUCCINATE 100 MG/2 ML VIAL IV STA (16:18)
[2016-10-29] MEDS ORDERED: SODIUM CHLORIDE 0.9% 1000ML 1,000 ML IV SCH (16:25)
[2016-10-29] MEDS ORDERED: NITROGLYCERIN 0.4 MG SL PER TAB CHARGE SL PRN (16:30)
[2016-10-29] MEDS ORDERED: ACETAMINOPHEN 325 MG TAB PO PRN (16:30)
[2016-10-29] MEDS ORDERED: ALUMINUM/MAGNESIUM/SIMETH (MAALOX MAX) 30 ML UDC PO PRN (16:30)
[2016-10-29] MEDS ORDERED: ONDANSETRON INJ 2 MG/ML 2 ML VIAL IV PRN (16:30)
[2016-10-29] MEDS ORDERED: MAGNESIUM HYDROXIDE SUSP 30 ML UDC PO PRN (16:30)
[2016-10-29] MEDS ORDERED: POLYETHYLENE (MIRALAX) 17 GM PACK PO PRN (16:30)
[2016-10-29] MEDS ORDERED: HYDROmorphone INJ 0.5 MG/0.5 ML SYR IV PRN (16:45)
[2016-10-29 17:30] LABS: INR 1.1 (0.9-1.1); PROTHROMBIN TIME (PATIENT) 11.9 SECONDS (9.0-12.0)
[2016-10-29 18:25] VITALS: BP 137/70; PULSE 80; TEMP 37.3; O2SAT 98; Ht 175.3 cm; Wt 89.9 kg
[2016-10-29] MEDS ORDERED: BENZOCAINE/TETRACAIN/BUTAM CAN 200 APPLN/20 GM CAN EXT PRN (18:30)
[2016-10-29 18:55] VITALS: BP 145/79; PULSE 81; TEMP 37.5; O2SAT 96
[2016-10-29] MEDS ORDERED: CEFTRIAXONE SOD INJ 2,000 MG in DEXTROSE 5% 50ML 50 ML IV SCH (20:00)
--- NOTE | 2016-10-29 20:42 | Discharge Summary ---
Discharge Summary Date of Service Oct 29, 2016. Discharge Summary Admission Date: Oct 29, 2016 at 16:33 Discharge Date: Oct 29, 2016 Discharge Disposition: Acute care facility ([facility] ) Principal Diagnosis: sepsis 2nd to septic left knee and UTI Problems/Secondary Diagnoses: 1. enterococcal UTI with prostatitis 2. BPH 3. acute renal failure with Creatinine 1.9 4. hyponatremia 5. HTN 6. rheumatoid arthritis on chronic prednisone 7. anemia - discharge hemoglobin 9.4 8. kidney stones 9. h/o DVT and PE 10. h/o MRSA infection of left elbow s/p surgery 11. left TKR - [facility] - 09/2016 Immunizations: Have You Had Influenza Vaccine: No History of Tetanus Vaccine?: No History of Pneumococcal: No History of Hepatitis B Vaccine: No Procedures: 1. arthrocentesis, left knee - Cristopher Segal MD 2. CT abd/pelvis: IMPRESSION: 1. There are no acute infectious or inflammatory findings in the abdomen or pelvis. 2. There are numerous bilateral nonobstructing renal calculi. No ureteral stone is seen. 3. Numerous parapelvic cysts are suggested bilaterally, left greater than right. There is no clear evidence of hydronephrosis. 4. Prostatomegaly with evidence of chronic bladder outlet obstruction. 5. Mild hepatomegaly. 6. Cardiomegaly. 3. CTA chest - no PE. Consultations: orthopedics - Cristopher Segal MD Discharge Exam Physical Exam: General Appearance: no apparent distress ENT: pharynx normal Neck: no JVD Respiratory/Chest: lungs clear, no respiratory distress, no accessory muscle use Cardiovascular: regular rate, rhythm, no gallop, no murmur, normal peripheral pulses Abdomen / GI: normal bowel sounds, non tender, soft, no organomegaly, + abnormal rectal exam (prostate enlarged, boggy, tender c/w prostatitis) Extremities: + pedal edema (trace, left ankle), + pertinent finding (left knee - mild-moderate effusion, warmth with overlying erythema; passive/active ROM causes pain/tenderness in the joint; some of the erythema tracks onto the tibia medially) Neurologic/Psychiatric: alert, oriented x 3 Skin: no rash, + pertinent finding (erythema over left knee) Hospital Course HISTORY OF PRESENT ILLNESS: 66yo male with recently diagnosed UTI at [facility] on Wednesday of this past weekend who presents with concerns of ongoing infection and feeling poorly. The patient reports that last Wednesday he developed cough, myalgias, fatigue, chills, and anorexia. He also developed very mild left knee pain at that time. His symptoms persisted throughout the weekend and on Wednesday he was seen in our ER, told he had UTI, and sent home with bactrim. On Wednesday his antibiotics were changed from bactrim to amoxicillin after he was discovered to have enterococcus in the urine. He has been taking the latter since Wednesday. He continues to feel poorly despite the amoxicillin. He has had urinary incontinence, back pain (low back, particularly the left side ), ongoing poor appetite, etc. Has had ongoing fatigue and weakness. With respect to his left knee it has become more painful since Wednesday and now he has redness over the knee joint. The latter started in the last 48 hours. He has no prior history of gout. The knee had been feeling overall very good since the knee was replaced about 1 month ago. Wednesday of last week was a marked change in how the knee felt. Last pm had fever to 101.6. HOSPITAL COURSE: At time of ER presentation the patient was mildly hypotensive with systolic BP in the 90s. Following fluid resuscitation his BP improved nicely into the 120s and 130s and he remained normotensive for the remainder of his short stay. Pertinent labs included a creatinine of 1.9, sodium of 130, hemoglobin of 9.4, and markedly elevated inflammatory markers including ESR of 79 and CRP of 28. The source of his sepsis was thought to be the left knee as well as the urine. Urine again appeared dirty on u/a and his KEILA revealed prostatitis. Blood cultures were sent, and he was started on IV vancomycin and ceftriaxone. Dr. Cristopher Segal from orthopedics was consulted who performed a diagnostic arthrocentesis on the left knee. Although cell counts and gram stain have not returned prior to the patient's transfer to [facility] the synovial fluid was grossly purulent. Culture of the synovial fluid is pending. Dr. Kana Schneider, orthopedics at [facility] who performed Mr. Starr's original left TKR, was contacted regarding the concern of septic left knee. Dr. Schneider has graciously accepted the patient back to [place] for ongoing care. With respect to the acute renal failure I suspect this issue is secondary to the patient's sepsis. He was also on multiple nephrotoxic agents at home including an NSAID and LUC. He was hydrated and will need serial BMPs at [place] to ensure normalization of the creatinine. In light of the patient's sepsis and his chronic steroid dependency he was given stress doses of IV hydrocortisone. This should be continued at [place] as the patient will likely be undergoing additional surgery on the knee. All blood pressure medications including LUC, HCTZ, and diltiazem were held due to the patient's acute renal failure and low-normal blood pressure. Lastly, the patient had evidence of anemia while here. On 10/25/16 the hemoglobin was above 11 and on 10/29/16 it was 9.4. He has had no obvious GI bleeding. It is possible that the hemoglobin of 11 was spurious OR today's value could reflect acute blood loss from multiple blood draws OR occult GI bleeding. Either way he needs repeat CBC at [place] for stability. Our records show that his baseline hemoglobin tends to be about 9-10. Current Inpatient Medications Medications (Trade) Dose Ordered Sig/Alf Route Start Time Stop Time Status Last Admin Dose Admin Ioversol (Optiray 320) 100 ml UD PRN IV 10/29/16 15:15 11/02/16 15:14 Heparin Sodium (Porcine) 5000 unit 5,000 unit Q12 SQ 10/29/16 21:00 11/28/16 20:59 Sodium Chloride (Nss 1000ml) 1,000 ml @ 200 mls/hr Q5H IV 10/29/16 16:25 11/28/16 16:24 Acetaminophen (Tylenol Tab) 650 mg Q4H PRN PO 10/29/16 16:30 11/28/16 16:29 Al Hydrox/Mg Hydrox/Simethicone (Maalox Max Susp) 15 ml Q4H PRN PO 10/29/16 16:30 11/28/16 16:29 Magnesium Hydroxide (Milk Of Magnesia Susp) 30 ml Q12H PRN PO 10/29/16 16:30 11/28/16 16:29 Ondansetron HCl (Zofran Inj) 4 mg Q6H PRN IV 10/29/16 16:30 11/28/16 16:29 Nitroglycerin (Nitrostat Tab) 0.4 mg UD PRN SL 10/29/16 16:30 11/28/16 16:29 Polyethylene (Miralax Powder Packet) 17 gm DAILY PRN PO 10/29/16 16:30 11/28/16 16:29 Gabapentin (Neurontin Cap) 300 mg BID PO 10/29/16 21:00 11/28/16 20:59 Leflunomide (Arava) 20 mg QAM PO 10/30/16 09:00 11/29/16 08:59 Tamsulosin HCl 0.4 mg 0.4 mg QAM PO 10/30/16 09:00 11/29/16 08:59 Daptomycin 550 mg/ Sodium Chloride 61 ml @ 100 mls/hr DAILY IV 10/30/16 09:00 12/11/16 08:59 Hydrocortisone Sodium Succinate/ Syringe (Solu-Cortef IV/ Syringe) 1 ml @ 4 mls/min Q12@0600,1800 IV 10/30/16 06:00 11/29/16 05:59 Hydromorphone HCl 0.5 mg 0.5 mg Q3H PRN IV 10/29/16 16:45 11/12/16 16:44 Ceftriaxone Sodium/Dextrose (Rocephin Inj/D5 50ml) 70 ml @ 100 mls/hr Q24H IV 10/29/16 20:00 12/10/16 19:59 Benzocaine/ Butamben/ Tetracaine HCl (Cetacaine Can) 1 appln ONE PRN EXT 10/29/16 18:30 11/28/16 18:29 Last 24 Hours Test 10/29/16 12:33 10/29/16 15:05 10/29/16 17:13 10/29/16 19:39 White Blood Count 10.47 K/uL Red Blood Count 3.13 M/uL Hemoglobin 9.4 g/dL Hematocrit 27.9 % Mean Corpuscular Volume 89.1 fL Mean Corpuscular Hemoglobin 30.0 pg Mean Corpuscular Hemoglobin Concent 33.7 g/dl Platelet Count 272 K/uL Mean Platelet Volume 9.5 fL Neutrophils (%) (Auto) 85.8 % Lymphocytes (%) (Auto) 8.7 % Monocytes (%) (Auto) 3.9 % Eosinophils (%) (Auto) 0.4 % Basophils (%) (Auto) 0.2 % Neutrophils # (Auto) 8.99 K/uL Lymphocytes # (Auto) 0.91 K/uL Monocytes # (Auto) 0.41 K/uL Eosinophils # (Auto) 0.04 K/uL Basophils # (Auto) 0.02 K/uL RDW Standard Deviation 51.6 fL RDW Coefficient of Variation 15.8 % Immature Granulocyte % (Auto) 1.0 % Immature Granulocyte # (Auto) 0.10 K/uL Echinocytes 1+ Erythrocyte Sedimentation Rate 79 mm/hr Sodium Level 130 mmol/L Potassium Level 3.5 mmol/L Chloride Level 96 mmol/L Carbon Dioxide Level 27 mmol/L Anion Gap 7.0 mmol/L Blood Urea Nitrogen 41 mg/dl Creatinine 1.90 mg/dl Est Creatinine Clear Calc Drug Dose 43.8 ml/min Estimated GFR () 42.2 Estimated GFR (Non- 36.4 BUN/Creatinine Ratio 21.6 Random Glucose 124 mg/dl Lactic Acid Level 1.5 mmol/L Calcium Level 9.4 mg/dl Total Bilirubin 0.6 mg/dl Aspartate Amino Transf (AST/SGOT) 33 U/L Alanine Aminotransferase (ALT/SGPT) 34 U/L Alkaline Phosphatase 165 U/L C-Reactive Protein 28.60 mg/dl Total Protein 7.8 gm/dl Albumin 3.0 gm/dl Globulin 4.8 gm/dl Albumin/Globulin Ratio 0.6 Lipase 98 U/L Chemistry Specimen Hemolysis Urine Color YELLOW Urine Appearance CLOUDY Urine pH 5.0 Urine Specific [place] 1.018 Urine Protein TRACE Urine Glucose (UA) NEG Urine Ketones NEG Urine Occult Blood 3+ Urine Nitrite NEG Urine Bilirubin NEG Urine Urobilinogen NEG Urine Leukocyte Esterase MODERATE Urine WBC (Auto) 10-30 /hpf Urine RBC (Auto) 5-10 /hpf Urine Hyaline Casts (Auto) 5-10 /lpf Urine Epithelial Cells (Auto) 20-30 /lpf Urine Bacteria (Auto) NEG Urine Yeast (Auto) PRESENT Prothrombin Time 11.9 SECONDS Prothromb Time International Ratio 1.1 Total Time Spent: Greater than 30 minutes This includes examination of the patient, discharge planning, medication reconciliation, and communication with other providers. Discharge Instructions Please refer to the electronic Patient Visit Report (Discharge Instructions) for additional information. Follow-Up to be determined after treatment at [facility] Additional Copies To Dc Chin M.D.; Kana Schneider DO; Cristopher Segal M.D.
[2016-10-29] MEDS ORDERED: HEPARIN SOD 5000 UNIT/0.5 ML CARP SQ SCH (21:00)
[2016-10-29] MEDS ORDERED: GABAPENTIN 300 MG CAP PO SCH (21:00)
[2016-10-29 21:09] LABS: SYNOVIAL FLUID APPEARANCE TURBID; SYNOVIAL FLUID COLOR BROWN
--- NOTE | 2016-10-29 23:05 | OPERATIVE REPORT ---
DATE OF OPERATION: 10/29/2016 INDICATION: Painful total knee, concern for intraarticular infection. PROCEDURE: Right knee aspiration. INDICATIONS: The patient is a 66-year-old male who had previously undergone right total knee arthroplasty in September. He had increasing pain, swelling and erythema in the knee. There was concern for intraarticular infection and elected to proceed with an aspiration. Risks, benefits and alternatives to procedure were discussed with the patient and he wished to proceed. DESCRIPTION OF PROCEDURE: The patient was identified, laterality was confirmed. The site was sterilized with a combination of alcohol and Betadine, then aspirated the joint for about 20 mL of purulent material. A Band-Aid was then placed. He tolerated the procedure well. I attest to the content of the Intraoperative Record and any orders documented therein. Any exceptio ns are noted below.
--- NOTE | 2016-10-30 00:22 | ORTHOPEDIC CONSULTATION ---
DATE OF CONSULTATION: 10/29/2016 CHIEF COMPLAINT: Left knee pain. HISTORY OF PRESENT ILLNESS: The patient is a 66-year-old male patient originally of one of my partners, Dr. Schneider, who underwent left total knee arthroplasty about a month ago. He was doing quite well postoperatively. Pain was well controlled and he was quite pleased with the results. Unfortunately, developing increasing fevers. He was seen and evaluated in the Emergency Room, was diagnosed with a UTI. He had increasing pain and swelling in the knee, was started on oral antibiotics. It sounds like it was likely Bactrim. He had increasing pain and swelling in the knee. He re-presented to the Emergency Room. Erythema over the anterior aspect of the knee, no drainage from the wound, but difficulty in bearing weight and pain with range of motion. PAST MEDICAL HISTORY: Hypertension, kidney stones, right lower extremity DVT with PE following Achilles tendon repair, rheumatoid arthritis, takes chronic prednisone. PAST SURGICAL HISTORY: Carpal tunnel release, Achilles tendon repair right, left total knee replacement done at [place] in September 2016, arthroscopy of left ankle, staph infection in the left elbow requiring I\T\D in the past, lumbar surgery. FAMILY HISTORY: Noncontributory. SOCIAL HISTORY: Denies smoking, alcohol or drug use. ALLERGIES: No known drug allergies. MEDICATIONS: Diltiazem, Neurontin, hydrochlorothiazide, Rushing, lisinopril, Mobic, prednisone, Rapaflo, Bactrim, oxycodone. PHYSICAL EXAMINATION: GENERAL: Alert and oriented x3, no acute distress. Mood and affect normal. He is pleasant and cooperative with examination. VITAL SIGNS: Stable. HEENT: Atraumatic. CHEST: Clear. CARDIOVASCULAR: Regular rate and rhythm. ABDOMEN: Soft, nontender. EXTREMITIES: Examination of left knee, he has anterior incision consistent with a prior total knee arthroplasty, wound is healing. There is significant erythema from about the midpoint, distal around the knee, extending around the anterior aspect of the knee. He has a moderate effusion. Range of motion 0 to about 40 degrees of flexion. Examination of contralateral knee is unremarkable. LABORATORY DATA: White blood cell count 10.4, hemoglobin 9.4, platelets 272. CRP 28.6, sed rate 42. ASSESSMENT: Left knee status post total knee arthroplasty with intra-articular infection, septic arthritis. PLAN: I prepped in the lateral aspect of the knee and aspirated the knee and pulled alf pus out of the joint. I will be in discussion with Dr. Schneider as far as definitive surgical management and likely transfer to [facility] where he had his index procedure performed under the care of Dr. Schneider.
[2016-10-30] MEDS ORDERED: HYDROCORTISONE IV 50 MG in SYRINGE 0 ML IV SCH (06:00)
[2016-10-30] MEDS ORDERED: TAMSULOSIN HCL 0.4 MG CAP PO SCH (09:00)
[2016-10-30] MEDS ORDERED: LEFLUNOMIDE 10 MG TAB PO SCH (09:00)
[2016-10-30] MEDS ORDERED: DAPTOmycin IV 550 MG in SODIUM CHLORIDE 0.9% 50ML 50 ML IV SCH (09:00)
--- NOTE | 2016-11-01 09:04 | EDITING REQUIRED CODING QUERY ---
CODING QUERY To promote full compliance with coding requirements relating to patient care, provider participation is requested in all cases of christmas tree grader uncertainty. Please assist us with the question(s) below: Coding Question(s): Dr. Segal, Throughout the record, previous left TKA with septic left knee is documented. However, in the operative report, previous right TKA with right knee aspiration is documented. Please clarify the laterality of the condition and procedure: ( x ) Left ( ) Right Physician's Response(s): Thank you for you time, STELLA Wilkerson, HEAD OF STRATEGY
[2017-02-11] MEDS ORDERED: CIPR1TAB11 PO (15:10)
[2017-02-11] MEDS ORDERED: HYDR200T5 PO (15:10)
[2017-02-11] MEDS ORDERED: FERR1TAB61 PO (15:10)
[2017-02-11] MEDS ORDERED: DILT120C68 PO (15:10)
[2017-02-11] MEDS ORDERED: ASPI81TA28 PO (15:10)
[2017-02-11] MEDS ORDERED: NF1420 PO (15:10)
== END 2016-10-29 22:50 | disposition short-term general hospital (02) | DRG 559 ==
LOC: ENRESERVTM → ENRESERVDT → C.EDB 11:18 → C.2T 16:33
PROVIDERS: ADMIT Internal Medicine; ATTEND Internal Medicine
PROC: 0S9D3ZX Drainage of Left Knee Joint, Percutaneous Approach, Diagnostic (ICD-10-PCS; principal; 2016-10-29)
DX: T84.54XA Infection and inflammatory reaction due to internal left knee prosthesis, initial encounter (principal); A41.9 Sepsis, unspecified organism; N39.0 Urinary tract infection, site not specified; N17.9 Acute kidney failure, unspecified; E87.1 Hypo-osmolality and hyponatremia; M00.862 Arthritis due to other bacteria, left knee; Y79.2 Prosthetic and other implants, materials and accessory orthopedic devices associated with adverse incidents; B95.2 Enterococcus as the cause of diseases classified elsewhere; N41.9 Inflammatory disease of prostate, unspecified; N39.41 Urge incontinence; E86.0 Dehydration; N40.1 Benign prostatic hyperplasia with lower urinary tract symptoms; I10 Essential (primary) hypertension; M06.9 Rheumatoid arthritis, unspecified; D64.9 Anemia, unspecified; Z86.718 Personal history of other venous thrombosis and embolism; Z86.711 Personal history of pulmonary embolism; Z86.14 Personal history of Methicillin resistant Staphylococcus aureus infection; Z96.652 Presence of left artificial knee joint; Z79.52 Long term (current) use of systemic steroids; Z79.1 Long term (current) use of non-steroidal anti-inflammatories (NSAID); Z79.891 Long term (current) use of opiate analgesic; Z79.899 Other long term (current) drug therapy

== ENCOUNTER → 2016-11-04 | Outpatient (CLI) | payer BC ==
[~2016-11-04] MED LIST changes: +ACET-1256 PO; +ACET-24 PO; +ASPI81TA28 PO; +CIPR1TAB11 PO; +DAPT500I IV; +FERR1TAB61 PO; +FRRS300 PO; +HYDR-4079 PO; +HYDR200T5 PO; +NF1420 PO; +PRED10TA PO; +RIFA300C34 PO; +RIVA1TAB PO; +RXC5 PO; +TZCSR180 PO; +VANC1INJ IV; +XRL20 PO
== END | disposition home or self-care (01) ==
LOC: C.LABSPEC 10:49
PROVIDERS: ATTEND Urology
DX: N40.1 Benign prostatic hyperplasia with lower urinary tract symptoms (principal)

== ENCOUNTER 2016-11-09 15:15 | Inpatient (IN) | payer BC ==
[~2016-11-09] VITALS: Ht 175.3 cm; Wt 85.4 kg
[~2016-11-09 15:15] MED LIST changes: -ACET-1256 PO; -ACET-24 PO; -ASPI81TA28 PO; -CIPR1TAB11 PO; -DAPT500I IV; -FERR1TAB61 PO; -FRRS300 PO; -HYDR-4079 PO; -HYDR200T5 PO; -NF1420 PO; -PRED10TA PO; -RIFA300C34 PO; -RIVA1TAB PO; -RXC5 PO; -TZCSR180 PO; -VANC1INJ IV; -XRL20 PO
[2016-11-09] MEDS ORDERED: SODIUM CHLORIDE 0.9% 1000ML 1,000 ML IV STA (16:56)
[2016-11-09] MEDS ORDERED: SODIUM CHLORIDE 0.9% 1000ML 500 ML IV STA (16:56)
[2016-11-09] MEDS ORDERED: ACET-1256 PO (17:12)
[2016-11-09] MEDS ORDERED: RIFA300C34 PO (17:15)
[2016-11-09] MEDS ORDERED: RIVA1TAB PO (17:17)
[2016-11-09] MEDS ORDERED: VANC1INJ IV (17:25)
--- NOTE | 2016-11-09 17:32 | DIAGNOSTIC IMAGING REPORT ---
CHEST ONE VIEW PORTABLE CLINICAL HISTORY: Evaluate Fever/Sepsis COMPARISON STUDY: 10/25/2016 FINDINGS: Placement of PICC catheter within the medial left subclavian vein near the juncture with the superior vena cava. The lungs are clear. Diaphragms smooth. IMPRESSION: No acute process. Electronically signed by: Jet Gardner M.D. 11/09/2016 5:30 PM Dictated Date/Time: 11/09/2016 5:30 PM
[2016-11-09] MEDS ORDERED: HYDR-4079 PO (17:40)
[2016-11-09 18:12] LABS: HEMATOCRIT 26.6 % (42-52); MEAN CELL VOLUME 90.2 fL (80-100); MEAN CORPUSCULAR HEMOGLOBIN 28.8 pg (25-34); MEAN PLATELET VOLUME 8.3 fL (7.4-10.4); PLATELET COUNT 321 K/uL (130-400); RED BLOOD COUNT 2.95 M/uL (4.7-6.1); WHITE BLOOD COUNT 4.84 K/uL (4.8-10.8)
[2016-11-09 18:21] LABS: INR 1.1 (0.9-1.1); PARTIAL THROMBOPLASTIN RATIO 1.4
[2016-11-09 18:28] LABS: BUN/CREATININE RATIO 16.8 (10-20); CALCIUM 8.7 mg/dl (8.5-10.1); CREATININE 1.1 mg/dl (0.60-1.40); POTASSIUM 3.4 mmol/L (3.5-5.1)
[2016-11-09 18:30] LABS: ALB/GLOB RATIO 0.5 (0.9-2); C-REACTIVE PROTEIN 7.39 mg/dl (0-0.29)
[2016-11-09 18:52] LABS: BASO % 0.8 %; BASO ABS # 0.04 K/uL (0-0.2); COMPLETE YES; EOS % 2.1 %; IG% 0.8 %; LYMPH % 20.7 %; MONO % 7.6 %
[2016-11-09] MEDS ORDERED: ACETAMINOPHEN 500 MG TAB PO STA (19:07)
[2016-11-09] MEDS ORDERED: MoRPHine SULFATE 4 MG/ML 1 ML CARP\\VIAL IV PRN (19:15)
--- NOTE | 2016-11-09 19:17 | EMERGENCY ROOM VISIT NOTE ---
History Report prepared by Jes: Evelin Jacob Under the Supervision of: Dr. Monroe Seaman M.D. First contact with patient: 16:48 Chief Complaint: PAIN (GENERALIZED) Stated Complaint: HEADACHE,NAUSEA,TEMP,BODY PAIN History of Present Illness The patient is a 66 year old male who presents to the Emergency Room with complaints of generalized joint aches starting a month ago and worsening about a week ago. The patient has a history of left knee surgery occurring on September 25. About a month ago, the patient was diagnosed with a left knee infection and a urinary tract infection. He had a second knee surgery on October 30 but only the knee cap was replaced. The patient is currently on Vancomycin and Rifampin. He reports his symptoms have worsened in the past week. He has fevers and chills every day. He denies any pain with urination but reports an increased urgency of urination. He has a history of arthritis but has been taken off of his prescribed medications. He reports persistent joint achiness and headaches. He reports a loss of appetite and a reduced fluid intake. The patient denies chest pain, shortness of breath, or any other complaints. Source of History: patient Onset: a month ago Position: other (global) Quality: other (joint aches) Timing: worsening Modifying Factors (Worsening): other (Vancomycin and Rifampin) Associated Symptoms: + chills, + fevers, + headache, No SOB, No chest pain Review of Systems See HPI for pertinent positives & negatives. A total of 10 systems reviewed and were otherwise negative. Past Medical & Surgical Medical Problems: (1) DVT (deep venous thrombosis) (2) Lumbar stenosis with neurogenic claudication (3) Pulmonary embolism (4) Sepsis Family History Cancer Heart disease Social History Smoking Status: Never Smoker Alcohol Use: none Drug Use: none Marital Status: Housing Status: lives with family Occupation Status: employed Current/Historical Medications Scheduled Diltiazem Hcl Ext Rel (Tiazac), 120 MG PO DAILY Gabapentin (Neurontin), 300 MG PO TID Hydrochlorothiazide (Hctz), 25 MG PO QAM Lisinopril (Lisinopril), 5 MG PO QAM Rifampin (Rifadin), 300 MG PO BID Rivaroxaban (Xarelto), 10 MG PO DAILY@1700 Silodosin (Rapaflo), 8 MG PO QPM Vancomycin HCl in Sodium Chlor (Vancomycin Hydrochloride/ 1.5-0.9 gm/500Ml-%), 250 ML IV Q12 Scheduled PRN Acetaminophen (Tylenol), 500 MG PO DAILY PRN for HEADACHE Hydrocodone/Acetaminophen 10MG/325MG ([place] 10MG/325MG), 1 TAB PO Q4H PRN for Pain Allergies Coded Allergies: No Known Allergies (Unverified , 10/29/16) Physical Exam Vital Signs Date Time Temp Pulse Resp B/P Pulse Ox O2 Delivery O2 Flow Rate FiO2 11/09/16 19:50 37.2 82 16 161/87 97 11/09/16 18:00 84 16 142/70 96 11/09/16 15:22 36.7 76 18 156/83 98 Room Air Physical Exam GENERAL: Patient is in no acute distress. HEENT: No acute trauma, normocephalic atraumatic, mucous membranes dry, no nasal congestion, no scleral icterus. NECK: No stridor, no adenopathy, no meningismus, trachea is midline. LUNGS: Clear to auscultation bilaterally, no wheeze, no rhonchi, breath sounds equal. HEART: Without murmurs gallops or rubs, regular rate and rhythm. ABDOMEN: Soft, nontender, bowel sounds positive, no hernias, no peritonitis. EXTREMITIES: Left lower extremity has sutures in place over the anterior knee consistent with left knee replacement surgery, wound vac is in place, he has some slight erythema to the wound edges, no alf cellulitis, no drainage. NEUROLOGIC: Oriented x 3, no acute motor or sensory deficits, no focal weakness. SKIN: No rash, no jaundice, no diaphoresis. Medical Decision & Procedures ER Provider Diagnostic Interpretation: X-ray results as stated below per interpretation by me and the radiologist: CHEST ONE VIEW PORTABLE CLINICAL HISTORY: Evaluate Fever/Sepsis COMPARISON STUDY: 10/25/2016 FINDINGS: Placement of PICC catheter within the medial left subclavian vein near the juncture with the superior vena cava. The lungs are clear. Diaphragms smooth. IMPRESSION: No acute process. Electronically signed by: Jet Gardner M.D. 11/09/2016 5:30 PM Dictated Date/Time: 11/09/2016 5:30 PM Laboratory Results 11/09/16 17:50 Red Blood Count 2.95, Mean Corpuscular Volume 90.2, Mean Corpuscular Hemoglobin 28.8, Mean Corpuscular Hemoglobin Concent 32.0, Mean Platelet Volume 8.3, Neutrophils (%) (Auto) 68.0, Lymphocytes (%) (Auto) 20.7, Monocytes (%) (Auto) 7.6, Eosinophils (%) (Auto) 2.1, Basophils (%) (Auto) 0.8, Neutrophils # (Auto) 3.29, Lymphocytes # (Auto) 1.00, Monocytes # (Auto) 0.37, Eosinophils # (Auto) 0.10, Basophils # (Auto) 0.04 11/09/16 17:50 Test 11/09/16 17:50 11/09/16 17:56 11/09/16 19:46 White Blood Count 4.84 K/uL (4.8-10.8) Red Blood Count 2.95 M/uL (4.7-6.1) Hemoglobin 8.5 g/dL (14.0-18.0) Hematocrit 26.6 % (42-52) Mean Corpuscular Volume 90.2 fL (80-100) Mean Corpuscular Hemoglobin 28.8 pg (25-34) Mean Corpuscular Hemoglobin Concent 32.0 g/dl (32-36) Platelet Count 321 K/uL (130-400) Mean Platelet Volume 8.3 fL (7.4-10.4) Neutrophils (%) (Auto) 68.0 % Lymphocytes (%) (Auto) 20.7 % Monocytes (%) (Auto) 7.6 % Eosinophils (%) (Auto) 2.1 % Basophils (%) (Auto) 0.8 % Neutrophils # (Auto) 3.29 K/uL (1.4-6.5) Lymphocytes # (Auto) 1.00 K/uL (1.2-3.4) Monocytes # (Auto) 0.37 K/uL (0.11-0.59) Eosinophils # (Auto) 0.10 K/uL (0-0.5) Basophils # (Auto) 0.04 K/uL (0-0.2) RDW Standard Deviation 50.7 fL (36.4-46.3) RDW Coefficient of Variation 15.4 % (11.5-14.5) Immature Granulocyte % (Auto) 0.8 % Immature Granulocyte # (Auto) 0.04 K/uL (0.00-0.02) Red Blood Cell Morphology Unremarkable Erythrocyte Sedimentation Rate 56 mm/hr (0-14) Prothrombin Time 12.0 SECONDS (9.0-12.0) Prothromb Time International Ratio 1.1 (0.9-1.1) Activated Partial Thromboplast Time 36.6 SECONDS (21.0-31.0) Partial Thromboplastin Ratio 1.4 Anion Gap 7.0 mmol/L (3-11) Est Creatinine Clear Calc Drug Dose 75.7 ml/min Estimated GFR () 81.8 Estimated GFR (Non- 70.6 BUN/Creatinine Ratio 16.8 (10-20) Calcium Level 8.7 mg/dl (8.5-10.1) Total Bilirubin 0.4 mg/dl (0.2-1) Aspartate Amino Transf (AST/SGOT) 17 U/L (15-37) Alanine Aminotransferase (ALT/SGPT) 21 U/L (12-78) Alkaline Phosphatase 100 U/L (45-117) C-Reactive Protein 7.39 mg/dl (0-0.29) Total Protein 7.4 gm/dl (6.4-8.2) Albumin 2.6 gm/dl (3.4-5.0) Globulin 4.8 gm/dl (2.5-4.0) Albumin/Globulin Ratio 0.5 (0.9-2) Lactic Acid Level 1.0 mmol/L (0.4-2.0) Laboratory results reviewed by me. Medications Administered Medications (Trade) Dose Ordered Sig/Alf Route Start Time Stop Time Status Last Admin Dose Admin Sodium Chloride 500 ml @ 999 mls/hr Q31M STAT IV 11/09/16 16:56 11/09/16 17:26 DC 11/09/16 18:18 999 MLS/HR Sodium Chloride (Nss 1000ml) 1,000 ml @ 200 mls/hr Q5H STAT IV 11/09/16 16:56 11/09/16 21:55 11/09/16 18:18 200 MLS/HR Acetaminophen (Tylenol Tab) 1,000 mg NOW STAT PO 11/09/16 19:07 11/09/16 19:08 DC 11/09/16 19:24 1,000 MG Morphine Sulfate 4 mg 4 mg Q15M PRN IV 11/09/16 19:15 11/23/16 19:14 11/09/16 19:25 4 MG Ceftriaxone Sodium/Dextrose (Rocephin Inj/D5 50ml) 70 ml @ 100 mls/hr ONE STAT IV 11/09/16 19:23 11/09/16 20:04 11/09/16 19:47 100 MLS/HR ED Course 1648: The patient was evaluated in room C12B. A complete history and physical exam was performed. 1656: Sodium Chloride 1000 ml @ 200 mls/hr IV, Sodium Chloride 500 ml @ 999 mls/ hr IV 1708: I discussed the patient's case with Dr. Magana, infectious disease specialist with [facility]. She will follow up with the patient in the hospital but for now it is an orthopedics case. 174: I discussed the patient's case with Dr. Stokes, orthopedic surgeon with [facility]. He recommended further evaluation under the hospitalist service. 190: Tylenol Tab 1000 mg PO 1910: Upon reexamination the patient is resting comfortably. I discussed results and treatment plan with the patient. He verbalizes agreement and understanding. The patient will be evaluated for further management. 1914: Morphine Sulfate 4 mg IV 1919: I discussed the patient's case with Dr. Melo, resident with [facility] covering for the [facility]. 1922: Ceftriaxone Sodium 2000 mg/Dextrose 70 ml @ 100 mls/hr IV Medical Decision Differential diagnosis includes but is not limited to Failed outpatient treatment, UTI, pneumonia, persistent knee infection, cellulitis, dehydration, medication reaction. There is no leukocytosis. The patient is anemic and this is a hemoglobin drop for him. Sedimentation rate and CRP are both elevated consistent with his ongoing infection. There was no significant electrolyte abnormality or kidney failure. There was no hepatitis. No coagulopathy. Chest x-ray does not show pneumonia or CHF. Lactic acid level was not elevated making sepsis less likely. Left knee does appear to be healing. No gross cellulitis or gross drainage noted on exam. The wound VAC was in place. The patient presents for worsening of his situation despite oral rifampin and IV vancomycin. He just feels in general worse. He's had a headache, he has had aches and chills, he's had fever, he feels he has lost his appetite, he feels dehydrated. Instead of feeling better on his medications, he feels worse. I did review the patient's culture results. He should have coverage with ceftriaxone. A dose of IV ceftriaxone was given. I spoke to infectious disease, I talked with orthopedics. I spoke with the pharmacist in the emergency room. I talked to the patient at length as well as case management. Admission/observation is warranted for further care and treatment. The patient is failing outpatient therapy. The patient received IV saline, oral Tylenol, he was given IV morphine during his ER stay. Consults Time Called: 170 Consulting Physician: Dr. Magana, infectious disease specialist with [facility] Returned Call: 170 I discussed the patient's case with Dr. Magana, infectious disease specialist with [facility]. She will follow up with the patient in the hospital but for now it is an orthopedics case. Additional Consults: Time Called: 174 Consulted Physician: Dr. Stokes, orthopedic surgeon with [facility] Returned Call: 174 Additional Comments: I discussed the patient's case with Dr. Stokes, orthopedic surgeon with [facility]. He recommended further evaluation under the hospitalist service. Time Called: 175 Consulted Physician: Dr. Melo, resident with [facility] Returned Call: 1920 Additional Comments: I discussed the patient's case with Dr. Melo, resident with [facility] covering for the [facility]. Impression Primary Impression: Infection of left knee Additional Impressions: Weakness Dehydration Failure of outpatient treatment Scribe Attestation The scribe's documentation has been prepared under my direction and personally reviewed by me in its entirety. I confirm that the note above accurately reflects all work, treatment, procedures, and medical decision making performed by me. Departure Information Dispostion Being Evaluated By Hospitalist Referrals Dc Chin M.D. (PCP) Patient Instructions [facility] Problem Qualifiers
[2016-11-09] MEDS ORDERED: CEFTRIAXONE SOD INJ 2,000 MG in DEXTROSE 5% 50ML 50 ML IV STA (19:23)
--- NOTE | 2016-11-09 19:39 | Pharmacy Progress Note ---
ED Pharmacist Progress Note Date of Service: November 09, 2016. Assessment * Patient on vancomycin and rifampin * Per patient, receives vancomycin via home infusion service, who last dropped off doses on . Patient reports receiving doses at 0800, 2000 daily with no missed doses. Last dose 11/09 at 0800 per patient * Will obtain "trough" level at 1930 to determine if current dosing is adequate. If not, this may help to explain why the patient is not doing better. * [facility] knee aspirate from 10/29/16 with MSSA (vancomycin SAMRA of 2). * Patient signed release of information - received additional culture result via fax confirming the above from [facility] * Vancomycin is not the best antibiotic for MSSA, especially with an SAMRA of 2. Therefore, independent of level, suggest switching to a beta-lactam antibiotic like ceftriaxone or cefazolin Recommendation * Vancomycin "trough" level at 1930 today * Switch from vancomycin to either ceftriaxone or cefazolin
[2016-11-09] MEDS ORDERED: ACETAMINOPHEN 325 MG TAB PO PRN ×2 (20:15→22:15)
[2016-11-09 20:51] VITALS: BP 161/87; PULSE 82; TEMP 37.2; O2SAT 97; Ht 175.3 cm; Wt 85.4 kg
[2016-11-09 21:04] VITALS: O2SAT 95
--- NOTE | 2016-11-09 21:20 | History and Physical ---
History & Physical Date & Time of Service: November 09, 2016 at 20:40 Chief Complaint: Headache,Nausea,Temp,Body Pain Primary Care Physician: Dc Chin M.D. History of Present Illness Source: patient, family ( at bedside), clinic records, hospital records Mr Allred is a 66 year old male with rheumatoid arthritis (under Dr Loo in [place]) who present to the ER feeling generally unwell with headache, fevers/ chills, body aches, nausea, no appetite, poor sleep, nocturia (3-4 times/night) , no energy and lower back pain. This has been getting progressively worse since discharged from [facility]. His recent history started 1 week prior to his TKA when he was diagnosed with a UTI, unknown culture result or antibiotic treatment at that time. He then underwent left TKA in September at [facility], [place] performed by Dr Schneider. He did well post operatively approximately 1 month after this operation. He was off of his rheumatoid arthritis medications for 2 weeks prior and 2 weeks after the operation. He usually takes prednisone (2.5-5mg), leflunomide and meloxicam and is managed by Dr Loo in [place]. He then developed a cough, general fatigue, myalgias and seen in the ER on October 25; diagnosed with UTI and d/c on Bactrim 10 day course. He notes having very mild knee pain at that time. He was changed to amoxicillin after pansensitive enterococcus faecalis grew from urine culture. He continued to feel poorly despite amoxicillin and returned to the ER on when he was admitted and subsequently transferred to [facility] [place] due to redness over the knee joint with increasing pain and swelling. Aspiration of the joint and subsequent operation cultures grew MSSA resistant to erythromycin and clindamycin. He was taken back to the operating room for I&D and polyethylene change on 30 October. He was treated and d/c on vancomycin (SAMRA 2) and rifampicin (SAMRA <=1). Past Medical/Surgical History Past Medical History: Hypertension Kidney Stones Right lower extremity DVT with PE following achilles tendon repair Rheumatoid Arthritis on chronic steroids BPH Hx MRSA infection of left elbow s/p surgery Hx MOHIT Past Surgical History: Carpal tunnel release Right Achilles tendon repair Left total knee replacement in September 2016 with subsequent I&D and polyethylene change on 30 October. Family History Cancer Heart disease Social History Smoking Status: Never Smoker Drug Use: none Marital Status: Housing status: lives with family Occupational Status: employed Immunizations History of Influenza Vaccine: No History of Tetanus Vaccine?: No History of Pneumococcal: No History of Hepatitis B Vaccine: No Multi-Drug Resistant Organisms History of MDRO: Yes Type of MDRO: MRSA Allergies Coded Allergies: No Known Allergies (Unverified , 10/29/16) Home Medications Scheduled Diltiazem Hcl Ext Rel (Tiazac), 120 MG PO DAILY Gabapentin (Neurontin), 300 MG PO TID Hydrochlorothiazide (Hctz), 25 MG PO QAM Lisinopril (Lisinopril), 5 MG PO QAM Rifampin (Rifadin), 300 MG PO BID Rivaroxaban (Xarelto), 10 MG PO DAILY@1700 Silodosin (Rapaflo), 8 MG PO QPM Vancomycin HCl in Sodium Chlor (Vancomycin Hydrochloride/ 1.5-0.9 gm/500Ml-%), 250 ML IV Q12 Scheduled PRN Acetaminophen (Tylenol), 500 MG PO DAILY PRN for HEADACHE Hydrocodone/Acetaminophen 10MG/325MG ([place] 10MG/325MG), 1 TAB PO Q4H PRN for Pain Physical Exam Vital Signs Date Time Temp Pulse Resp B/P Pulse Ox O2 Delivery O2 Flow Rate FiO2 11/09/16 19:50 37.2 82 16 161/87 97 11/09/16 18:00 84 16 142/70 96 11/09/16 15:22 36.7 76 18 156/83 98 Room Air General Appearance: + mild distress (generally fatigued), + obese Head: normocephalic, atraumatic Eyes: normal inspection, PERRL, EOMI ENT: normal ENT inspection, hearing grossly normal Neck: supple, no JVD, trachea midline Respiratory/Chest: chest non-tender, lungs clear, normal breath sounds, no respiratory distress, no accessory muscle use Cardiovascular: regular rate, rhythm, no JVD, no murmur Abdomen/GI: normal bowel sounds, non tender, soft Back: no CVA tenderness Extremities/Musculoskelatal: normal capillary refill, + inflammation (joint swellings in hands), + pedal edema (trace on left side), + pertinent finding ( left knee has surgical clipd in place, non painful limited ROM, does not appear infected, surgical drain in place) Neurologic/Psych: no motor/sensory deficits, alert, normal mood/affect, oriented x 3 Skin: normal color, warm/dry, no rash Diagnostics Laboratory Results Results Past 24 Hours Test 11/09/16 17:50 11/09/16 17:56 11/09/16 19:46 Range/Units White Blood Count 4.84 4.8-10.8 K/uL Red Blood Count 2.95 4.7-6.1 M/uL Hemoglobin 8.5 14.0-18.0 g/dL Hematocrit 26.6 42-52 % Mean Corpuscular Volume 90.2 80-100 fL Mean Corpuscular Hemoglobin 28.8 25-34 pg Mean Corpuscular Hemoglobin Concent 32.0 32-36 g/dl Platelet Count 321 130-400 K/uL Mean Platelet Volume 8.3 7.4-10.4 fL Neutrophils (%) (Auto) 68.0 % Lymphocytes (%) (Auto) 20.7 % Monocytes (%) (Auto) 7.6 % Eosinophils (%) (Auto) 2.1 % Basophils (%) (Auto) 0.8 % Neutrophils # (Auto) 3.29 1.4-6.5 K/uL Lymphocytes # (Auto) 1.00 1.2-3.4 K/uL Monocytes # (Auto) 0.37 0.11-0.59 K/uL Eosinophils # (Auto) 0.10 0-0.5 K/uL Basophils # (Auto) 0.04 0-0.2 K/uL RDW Standard Deviation 50.7 36.4-46.3 fL RDW Coefficient of Variation 15.4 11.5-14.5 % Immature Granulocyte % (Auto) 0.8 % Immature Granulocyte # (Auto) 0.04 0.00-0.02 K/uL Red Blood Cell Morphology Unremarkable Erythrocyte Sedimentation Rate 56 0-14 mm/hr Prothrombin Time 12.0 9.0-12.0 SECONDS Prothromb Time International Ratio 1.1 0.9-1.1 Activated Partial Thromboplast Time 36.6 21.0-31.0 SECONDS Partial Thromboplastin Ratio 1.4 Sodium Level 140 136-145 mmol/L Potassium Level 3.4 3.5-5.1 mmol/L Chloride Level 106 98-107 mmol/L Carbon Dioxide Level 27 21-32 mmol/L Anion Gap 7.0 3-11 mmol/L Blood Urea Nitrogen 18 7-18 mg/dl Creatinine 1.10 0.60-1.40 mg/dl Est Creatinine Clear Calc Drug Dose 75.7 ml/min Estimated GFR () 81.8 Estimated GFR (Non- 70.6 BUN/Creatinine Ratio 16.8 10-20 Random Glucose 91 70-99 mg/dl Calcium Level 8.7 8.5-10.1 mg/dl Total Bilirubin 0.4 0.2-1 mg/dl Aspartate Amino Transf (AST/SGOT) 17 15-37 U/L Alanine Aminotransferase (ALT/SGPT) 21 12-78 U/L Alkaline Phosphatase 100 45-117 U/L C-Reactive Protein 7.39 0-0.29 mg/dl Total Protein 7.4 6.4-8.2 gm/dl Albumin 2.6 3.4-5.0 gm/dl Globulin 4.8 2.5-4.0 gm/dl Albumin/Globulin Ratio 0.5 0.9-2 Lactic Acid Level 1.0 0.4-2.0 mmol/L Vancomycin Level Trough 22.3 SEE COMMENT mcg/ml Microbiology Results 11/09/16 Blood Culture, Received Pending 11/09/16 Blood Culture, Received Pending Diagnostic Radiology CHEST ONE VIEW PORTABLE CLINICAL HISTORY: Evaluate Fever/Sepsis COMPARISON STUDY: 10/25/2016 FINDINGS: Placement of PICC catheter within the medial left subclavian vein near the juncture with the superior vena cava. The lungs are clear. Diaphragms smooth. IMPRESSION: No acute process. Electronically signed by: Jet Gardner M.D. 11/09/2016 5:30 PM Dictated Date/Time: 11/09/2016 5:30 PM Impression Assessment and Plan 66 year old with generalized symptoms of feeling unwell and ongoing fevers after repeat knee joint replacement Generalized myalgias, weakness, nausea - suspect this more likely related to rheumatoid disease rather than ongoing infection - start prednisone; low dose due to concurrent infection at 10mg daily. - Will get PICC line cultures Prostatitis - suspected given ongoing symptoms with UTI, will switch his Rapaflo to tamsulosin as per formulary - PSA added to labs - UA + micro +/- culture - Blood cultures - Consult urology (patient of Dr Sandoval) - Consult ID regarding antibiotics - Switched to ceftriaxone and Bactrim overnight given current sensitivities of enterococcus and MSSA Headache - likely dehydration related and will rehydrate with IV fluids - morphine and acetaminophen for pain Septic knee - currently does not appear infected - Consult ortho regarding drain management - Consult ID regarding antibiotics - switched to ceftriaxone and Bactrim as above. Diarrhea - not watery stool therefore will hold off c. diff testing at present - fecal occult blood due to anemia Anemia - likely related to recent operations and RA - treat RA as above with prednisone - monitor - iron studies in the morning as may need replacement Code - Full VTE prophylaxis - will continue xarelto 10 mg as his o/p DVT prophylaxis Disposition - admit to med/surg. will need PT/OT Level of Care Med/Surg Resuscitation Status FULL RESUSCITATION VTE Prophylaxis VTE Risk Assessment Done? Y/N: Yes Risk Level: High Given or contraindicated: Other Anticoagulation (xarelto) Resident Tracking Resident Involvement: Resident Care Provided Care Provided: [facility] Medicine Assessment and Plan Attending Addendum: I have physically seen and examined this patient, have directed their medical care, have supervised the medical residents activities, and agree with the H&P as noted above, with the following changes: NONE
[2016-11-09 21:28] VITALS: BP 163/85; PULSE 72; TEMP 37.4; O2SAT 96
[2016-11-09] MEDS: SODIUM CHLORIDE 0.9% 1000ML 1,000 ML IV SCH (21:53)
[2016-11-09] MEDS: RIVAROXABAN 10 MG TAB PO SCH (21:54)
[2016-11-09] MEDS: GABAPENTIN 300 MG CAP PO SCH (21:54)
[2016-11-09 22:10] LABS: URINE APPEARANCE CLOUDY (CLEAR); URINE BILIRUBIN NEG (NEG); URINE COLOR DK YELLOW; URINE EPITHELIAL CELL AUTO 20-30 /lpf (0-5); URINE NITRITE NEG (NEG); URINE SPECIFIC GRAVITY 1.019 (1.000-1.030); UROBILINOGEN NEG (NEG); ZZUR CULT IF INDIC CLEAN CATCH YES
[2016-11-09 22:11] LABS: MANUAL MICROSCOPIC REQUIRED? NO; REVIEW REQ? NO
[2016-11-09] MEDS: HYDROCODONE/ACETAMI 10/325 TAB PO PRN (22:29)
[2016-11-09 23:00] VITALS: BP 147/85; PULSE 79; TEMP 37.3; O2SAT 96
[2016-11-10] VITALS (10 sets, daily range): BP systolic 104–186; BP diastolic 69–97; PULSE 77–93; TEMP 36.8–37.1; O2SAT 96–97
[2016-11-10 00:24] LABS: HEMATOCRIT 23.4 % (42-52)
[2016-11-10] MEDS: SODIUM CHLORIDE 0.9% 1000ML 1,000 ML IV SCH (05:03)
[2016-11-10] MEDS: HYDROCODONE/ACETAMI 10/325 TAB PO PRN ×4 (05:03→21:03)
[2016-11-10 07:44] LABS: HEMATOCRIT 24.8 % (42-52); MEAN CELL VOLUME 91.2 fL (80-100); MEAN CORPUSCULAR HGB CONC 31.9 g/dl (32-36); MEAN PLATELET VOLUME 8.1 fL (7.4-10.4); PLATELET COUNT 253 K/uL (130-400); RED BLOOD COUNT 2.72 M/uL (4.7-6.1); WHITE BLOOD COUNT 3.33 K/uL (4.8-10.8)
[2016-11-10 08:06] LABS: BASO % 1.5 %; BASO ABS # 0.05 K/uL (0-0.2); COMPLETE YES; EOS % 2.1 %; IG% 0.6 %; LYMPH % 23.7 %; LYMPH ABS # 0.79 K/uL (1.2-3.4); MONO % 12.6 %; NEUT % 59.5 %
[2016-11-10 08:12] LABS: BUN/CREATININE RATIO 15.7 (10-20); CREATININE 0.96 mg/dl (0.60-1.40); POTASSIUM 3.7 mmol/L (3.5-5.1)
[2016-11-10 08:26] LABS: ALB/GLOB RATIO 0.5 (0.9-2); FERRITIN 337.6 ng/ml (8.0-388.0); THYROID STIMULATING HORMONE 0.998 uIu/ml (0.300-4.500)
--- NOTE | 2016-11-10 08:30 | Urology Consultation ---
History General Date of Service: November 10, 2016. Chief Complaint: feves, chills, weakness, back pain Primary Care Physician: Dc Chin M.D. Pt seen a urologist before?: Yes (Dr. Story) If yes, why?: BPH, recurrent UTI, stones History of Present Illness 66 yo male admitted with several days of f/c, weakness, and lower back pain. He is s/p TKA in September, which then became infected ~2 weeks ago, and he had an I&D at [facility] around 10 days ago. He has been on IV abx since that time, and was to complete a 6 week course of IV abx. The pt is also noted to have recurrent UTIs since his TKA in September as well. He most recently saw Dr. Story for this issue on 11-04. UC&S from that day was negative, but he was on IV abx at the time. He has a hx of BPH and stones as well. CT scan from October showing multiple bilateral renal stones. Also noted to have a hx of RA, and RA medications were discontinued after TKA. consulted for ? prostatitis. He has been afebrile since admission. White count is 3.33 this morning. Cr is 0.96. Blood and urine cultures pending. Currently on Bactrim DS. He denies any dysuria, hematuria, or abdominal pain this morning. Denies penile , scrotal, or rectal pain as well. He does report his back pain has improved since admission. Laboratory Last 24 Hours Test 11/09/16 17:50 11/09/16 17:56 11/09/16 19:46 11/09/16 21:27 White Blood Count 4.84 K/uL Red Blood Count 2.95 M/uL Hemoglobin 8.5 g/dL Hematocrit 26.6 % Mean Corpuscular Volume 90.2 fL Mean Corpuscular Hemoglobin 28.8 pg Mean Corpuscular Hemoglobin Concent 32.0 g/dl Platelet Count 321 K/uL Mean Platelet Volume 8.3 fL Neutrophils (%) (Auto) 68.0 % Lymphocytes (%) (Auto) 20.7 % Monocytes (%) (Auto) 7.6 % Eosinophils (%) (Auto) 2.1 % Basophils (%) (Auto) 0.8 % Neutrophils # (Auto) 3.29 K/uL Lymphocytes # (Auto) 1.00 K/uL Monocytes # (Auto) 0.37 K/uL Eosinophils # (Auto) 0.10 K/uL Basophils # (Auto) 0.04 K/uL RDW Standard Deviation 50.7 fL RDW Coefficient of Variation 15.4 % Immature Granulocyte % (Auto) 0.8 % Immature Granulocyte # (Auto) 0.04 K/uL Red Blood Cell Morphology Unremarkable Erythrocyte Sedimentation Rate 56 mm/hr Prothrombin Time 12.0 SECONDS Prothromb Time International Ratio 1.1 Activated Partial Thromboplast Time 36.6 SECONDS Partial Thromboplastin Ratio 1.4 Sodium Level 140 mmol/L Potassium Level 3.4 mmol/L Chloride Level 106 mmol/L Carbon Dioxide Level 27 mmol/L Anion Gap 7.0 mmol/L Blood Urea Nitrogen 18 mg/dl Creatinine 1.10 mg/dl Est Creatinine Clear Calc Drug Dose 75.7 ml/min Estimated GFR () 81.8 Estimated GFR (Non- 70.6 BUN/Creatinine Ratio 16.8 Random Glucose 91 mg/dl Calcium Level 8.7 mg/dl Total Bilirubin 0.4 mg/dl Aspartate Amino Transf (AST/SGOT) 17 U/L Alanine Aminotransferase (ALT/SGPT) 21 U/L Alkaline Phosphatase 100 U/L C-Reactive Protein 7.39 mg/dl Total Protein 7.4 gm/dl Albumin 2.6 gm/dl Globulin 4.8 gm/dl Albumin/Globulin Ratio 0.5 Prostate Specific Antigen 1.720 ng/ml Lactic Acid Level 1.0 mmol/L Vancomycin Level Trough 22.3 mcg/ml Urine Color DK YELLOW Urine Appearance CLOUDY Urine pH 5.0 Urine Specific [place] 1.019 Urine Protein NEG Urine Glucose (UA) NEG Urine Ketones NEG Urine Occult Blood TRACE Urine Nitrite NEG Urine Bilirubin NEG Urine Urobilinogen NEG Urine Leukocyte Esterase TRACE Urine WBC (Auto) 10-30 /hpf Urine RBC (Auto) 5-10 /hpf Urine Hyaline Casts (Auto) 5-10 /lpf Urine Epithelial Cells (Auto) 20-30 /lpf Urine Bacteria (Auto) NEG Test 11/10/16 00:20 11/10/16 07:31 Hemoglobin 7.7 g/dL 7.9 g/dL Hematocrit 23.4 % 24.8 % White Blood Count 3.33 K/uL Red Blood Count 2.72 M/uL Mean Corpuscular Volume 91.2 fL Mean Corpuscular Hemoglobin 29.0 pg Mean Corpuscular Hemoglobin Concent 31.9 g/dl Platelet Count 253 K/uL Mean Platelet Volume 8.1 fL Neutrophils (%) (Auto) 59.5 % Lymphocytes (%) (Auto) 23.7 % Monocytes (%) (Auto) 12.6 % Eosinophils (%) (Auto) 2.1 % Basophils (%) (Auto) 1.5 % Neutrophils # (Auto) 1.98 K/uL Lymphocytes # (Auto) 0.79 K/uL Monocytes # (Auto) 0.42 K/uL Eosinophils # (Auto) 0.07 K/uL Basophils # (Auto) 0.05 K/uL RDW Standard Deviation 52.0 fL RDW Coefficient of Variation 15.5 % Immature Granulocyte % (Auto) 0.6 % Immature Granulocyte # (Auto) 0.02 K/uL Red Blood Cell Morphology Unremarkable Sodium Level 141 mmol/L Potassium Level 3.7 mmol/L Chloride Level 108 mmol/L Carbon Dioxide Level 25 mmol/L Anion Gap 8.0 mmol/L Blood Urea Nitrogen 15 mg/dl Creatinine 0.96 mg/dl Est Creatinine Clear Calc Drug Dose 86.7 ml/min Estimated GFR () 96.4 Estimated GFR (Non- 83.2 BUN/Creatinine Ratio 15.7 Random Glucose 81 mg/dl Alanine Aminotransferase (ALT/SGPT) 18 U/L Albumin 2.1 gm/dl Problem List Medical Problems: (1) Acute renal failure (ARF) Status: Acute (2) Anemia Status: Acute (3) Cellulitis of left knee Status: Acute (4) Dehydration Status: Acute (5) Dehydration Status: Acute (6) Failure of outpatient treatment Status: Acute (7) Failure of outpatient treatment Status: Acute (8) Hyponatremia Status: Acute (9) Infection of prosthetic left knee joint Status: Acute (10) Urinary tract infection Status: Acute (11) Weakness Status: Acute Past History BPH, deep vein thrombosis, hypertension, kidney stones, pulmonary embolism, rheumatoid arthritis, urinary tract infection, other (MRSA, MOHIT) Past Surgical History: orthopedic surgery (carpal tunnel release, achilles tendon rupture repair, elbow surgery), TKR (September 2016 and I&D for infected joint post-op) Family History Cancer Heart disease Social History Hx Tobacco Use In Past Year?: No Smoking: non-smoker Alcohol: never Drug use: none Marital status: Housing status: lives with family Occupation status: employed Immunizations History of Influenza Vaccine: No History of Tetanus Vaccine?: No History of Pneumococcal: No History of Hepatitis B Vaccine: No History of MDRO Yes Type of MDRO: MRSA Allergies Coded Allergies: No Known Allergies (Unverified , 10/29/16) Medications Home Medications: Home Meds and Scripts Medications Dose Route/Sig Max Daily Dose Days Date Category Dose Instructions [place] 10MG/325MG (Acetaminophen/Hydrocodone Bitart) Tab 1 Tab PO Q4H PRN 11/09/16 Reported PRN PAIN Vancomycin Hydrochloride/ 1.5-0.9 gm/500Ml-% (Vancomycin HCl in Sodium Chlor) 1 Inj Inj 250 Ml IV Q12 11/09/16 Reported VANCOMYCIN ( VANCOMYCIN ADV VIAL) 1.5GM, SODIUM CHLORIDE 0.9% (LVP NSS) 500ML Xarelto (Rivaroxaban) 10 Mg Tab 10 Mg PO DAILY@1700 11/09/16 Reported Rifadin (Rifampin) 300 Mg Cap 300 Mg PO BID 11/09/16 Reported Tylenol (Acetaminophen) 500 Mg Tab 500 Mg PO DAILY PRN 11/09/16 Reported Neurontin (Gabapentin) 300 Mg Cap 300 Mg PO TID 10/25/16 Reported Tiazac (Diltiazem HCl) 120 Mg Capcr 120 Mg PO DAILY 10/25/16 Reported Rapaflo (Silodosin) 8 Mg Cap 8 Mg PO QPM 90 12/06/15 Reported Hctz (Hydrochlorothiazide) 25 Mg Tab 25 Mg PO QAM 12/06/15 Reported Lisinopril 5 Mg Tab 5 Mg PO QAM 12/06/15 Reported Inpatient Medications: Current Inpatient Medications Medications (Trade) Dose Ordered Sig/Alf Route Start Time Stop Time Status Last Admin Dose Admin Acetaminophen (Tylenol Tab) 650 mg Q4H PRN PO 11/09/16 20:15 12/09/16 20:14 Prednisone (PredniSONE TAB) 10 mg QAM PO 11/10/16 09:00 12/10/16 08:59 Diltiazem HCl (TIAzac CAP) 120 mg DAILY PO 11/10/16 09:00 12/10/16 08:59 Gabapentin (Neurontin Cap) 300 mg TID PO 11/09/16 21:00 12/09/16 20:59 11/09/16 21:54 300 MG Hydrochlorothiazide (Hydrochlorothiazide Tab) 25 mg QAM PO 11/10/16 09:00 12/10/16 08:59 Rivaroxaban (Xarelto Tab) 10 mg DAILY@1700 PO 11/10/16 17:00 12/10/16 16:59 11/09/16 21:54 10 MG Trimethoprim/ Sulfamethoxazole 1 tab 1 tab Q12 PO 11/10/16 09:00 11/20/16 08:59 Sodium Chloride (Nss 1000ml) 1,000 ml @ 125 mls/hr Q8H IV 11/09/16 21:30 12/09/16 21:29 11/10/16 05:03 125 MLS/HR Acetaminophen/ Hydrocodone Bitart ([place] 10/325 Tab) 1 tab Q4H PRN PO 11/09/16 22:15 11/23/16 22:14 11/10/16 05:03 1 TAB Heparin Sodium (Porcine) (Heparin 10 Unit/ ml 5 ml Flush) 5 ml PRN PRN FLUSH 11/10/16 04:30 12/10/16 04:29 Review of Systems Review of Systems Constitutional: No chills, No fever Eyes: No double vision Neurological: No dizzy Endocrine: No excessive thirst Gastrointestinal: No abdominal pain, No nausea, No vomiting Cardiovascular: No chest pain Respiratory: No shortness of breath Skin: No rash Musculoskeletal: + back pain, + see HPI Male : No blood in urine, No painful urination Physical Exam Vital Signs: Vital Signs Past 12 Hours Date Time Temp Pulse Resp B/P Pulse Ox O2 Delivery O2 Flow Rate FiO2 11/10/16 07:25 37.1 85 16 186/97 96 Room Air 11/10/16 03:20 36.9 93 16 104/69 96 Room Air 11/09/16 23:00 37.3 79 16 147/85 96 Room Air 11/09/16 21:30 Room Air 11/09/16 21:28 37.4 72 18 163/85 96 Room Air 11/09/16 21:04 37.2 70 16 132/76 95 11/09/16 20:51 37.2 82 16 161/87 97 Room Air Physical Exam: General Appearance: no apparent distress Eyes: bilateral eyes normal inspection ENT: hearing grossly normal Neck: no JVD Respiratory/Chest: no respiratory distress, no accessory muscle use Cardiovascular: no JVD Extremities: normal inspection Neurologic/Psychiatric: alert, normal mood/affect, oriented x 3 Skin: normal color Assessment & Plan Assessment & Plan A/P: Recurrent UTI, BPH, nephrolithiasis ? Prostatitis. KEILA deferred today in the setting of ? sepsis. Pt with multiple symptoms ? r/t infected joint, and/or recurrent UTI, and/or RA flare. Will await culture results and input from ID. Will check a KUB to ensure he is not passing a stone that is contributing to his issues. Will also check PVRs qshift to ensure his bladder is emptying well and not contributing to recurrent UTIs. Thanks for the consult. Will continue to follow along with primary service at this time.
[2016-11-10] MEDS: DILTIAZEM HCL 120 MG EXT REL CAP PO SCH (08:31)
[2016-11-10] MEDS: GABAPENTIN 300 MG CAP PO SCH ×3 (08:31→21:03)
[2016-11-10] MEDS ORDERED: SULFAMETHOXAZOLE/TRIMETHOPRIM DS 800/160MG TAB PO SCH (09:00)
[2016-11-10] MEDS ORDERED: HYDROCHLOROTHIAZIDE 25 MG TAB PO SCH (09:00)
--- NOTE | 2016-11-10 09:37 | DIAGNOSTIC IMAGING REPORT ---
KUB HISTORY: bilateral renal stones, back pain COMPARISON: Abdomen and pelvis CT 10/29/2016. FINDINGS: The bowel gas pattern is unremarkable. There are no dilated loops of small bowel to suggest an obstruction. Multiple bilateral renal calculi are again noted. Dominant stone within the lower pole of the left kidney measures 8 mm. No ureteral calculi identified. Calcifications in the deep pelvis likely represent phleboliths. Lumbar sacral posterior spinal fusion is again noted. No pneumoperitoneum or pneumatosis. IMPRESSION: Bilateral nephrolithiasis, unchanged. No ureteral calculi identified. Electronically signed by: Kevin Payne M.D. 11/10/2016 9:35 AM Dictated Date/Time: 11/10/2016 9:33 AM
[2016-11-10 10:36] LABS: CALCIUM 8.1 mg/dl (8.5-10.1)
[2016-11-10] MEDS ORDERED: HydrALAZINE HCL 20 MG/ML VIAL ONE (10:53)
[2016-11-10] MEDS ORDERED: HydrALAZINE HCL 20 MG/ML VIAL IV. PRN (11:00)
--- NOTE | 2016-11-10 12:35 | Medical Consult ---
Consultation Date of Consultation: November 10, 2016. Attending Physician: Bradly Vaughn M.D. Reason for Consultation: Infected left knee, prostatitis History of Present Illness Patient is a 66-year-old male presented to the emergency department with complaints of generalized aches, fever, sweats, chills, and nausea. The patient has recent history of a left septic TKA which he had an I and D completed on last week. The patient initially had his TKA completed on 2016. On 10/30/2016 the patient has his I and D and was found to have MSSA growing from the knee joint. He was placed on vancomycin and rifampin and discharged home with 6 weeks of IV antibiotics via left upper extremity PICC line. The patient has had loss of appetite as well. The patient was also recently diagnosed with an Enterococcus UTI on 10/25/2016. The enterococcus was pansensitive in nature. He was treated with p.o. amoxicillin at that time. Since current admission, the patient did have blood and urine cultures completed. Urine culture is currently showing no growth. His white blood count admission was 4.84. His ESR was noted be 56 which is was improved from his previous ESR on 10/29 79. The patient's creatinine was 0.96 today. He is currently not on any antibiotic therapy. He has been afebrile. I did discuss patient with GIUSEPPE Vanegas as well. Patient does also still have a surgical drain in place from which he continues to drain purulent/bloody drainage. Past Medical/Surgical History Medical Problems: (1) Acute renal failure (ARF) Status: Acute (2) Anemia Status: Acute (3) Cellulitis of left knee Status: Acute (4) Dehydration Status: Acute (5) Dehydration Status: Acute (6) Failure of outpatient treatment Status: Acute (7) Failure of outpatient treatment Status: Acute (8) Hyponatremia Status: Acute (9) Infection of prosthetic left knee joint Status: Acute (10) Urinary tract infection Status: Acute (11) Weakness Status: Acute Medical Problems: (1) DVT (deep venous thrombosis) (2) Lumbar stenosis with neurogenic claudication (3) Prostatitis (4) Pulmonary embolism (5) Sepsis Family History Cancer Heart disease Noncontributory Social History Smoking Status: Never Smoker Drug Use: none Marital Status: Housing Status: lives with family Occupation Status: employed Allergies Coded Allergies: No Known Allergies (Unverified , 10/29/16) Home Medications Reported Home Medications Medications Dose Route/Sig Max Daily Dose Days Date Category Dose Instructions [place] 10MG/325MG (Acetaminophen/Hydrocodone Bitart) Tab 1 Tab PO Q4H PRN 11/09/16 Reported PRN PAIN Vancomycin Hydrochloride/ 1.5-0.9 gm/500Ml-% (Vancomycin HCl in Sodium Chlor) 1 Inj Inj 250 Ml IV Q12 11/09/16 Reported VANCOMYCIN ( VANCOMYCIN ADV VIAL) 1.5GM, SODIUM CHLORIDE 0.9% (LVP NSS) 500ML Xarelto (Rivaroxaban) 10 Mg Tab 10 Mg PO DAILY@1700 11/09/16 Reported Rifadin (Rifampin) 300 Mg Cap 300 Mg PO BID 11/09/16 Reported Tylenol (Acetaminophen) 500 Mg Tab 500 Mg PO DAILY PRN 11/09/16 Reported Neurontin (Gabapentin) 300 Mg Cap 300 Mg PO TID 10/25/16 Reported Tiazac (Diltiazem HCl) 120 Mg Capcr 120 Mg PO DAILY 10/25/16 Reported Rapaflo (Silodosin) 8 Mg Cap 8 Mg PO QPM 90 12/06/15 Reported Hctz (Hydrochlorothiazide) 25 Mg Tab 25 Mg PO QAM 12/06/15 Reported Lisinopril 5 Mg Tab 5 Mg PO QAM 12/06/15 Reported Current Inpatient Medications Current Inpatient Medications Medications (Trade) Dose Ordered Sig/Alf Route Start Time Stop Time Status Last Admin Dose Admin Acetaminophen (Tylenol Tab) 650 mg Q4H PRN PO 11/09/16 20:15 12/09/16 20:14 Diltiazem HCl (TIAzac CAP) 120 mg DAILY PO 11/10/16 09:00 12/10/16 08:59 11/10/16 08:31 120 MG Gabapentin (Neurontin Cap) 300 mg TID PO 11/09/16 21:00 12/09/16 20:59 11/10/16 08:31 300 MG Rivaroxaban (Xarelto Tab) 10 mg DAILY@1700 PO 11/10/16 17:00 12/10/16 16:59 11/09/16 21:54 10 MG Acetaminophen/ Hydrocodone Bitart ([place] 10/325 Tab) 1 tab Q4H PRN PO 11/09/16 22:15 11/23/16 22:14 11/10/16 11:50 1 TAB Heparin Sodium (Porcine) (Heparin 10 Unit/ ml 5 ml Flush) 5 ml PRN PRN FLUSH 11/10/16 04:30 12/10/16 04:29 11/10/16 11:43 5 ML Hydralazine HCl 10 mg 10 mg Q6H PRN IV. 11/10/16 11:00 12/10/16 10:59 Hydrocortisone Sodium Succinate/ Syringe (Solu-Cortef IV/ Syringe) 0.5 ml @ 4 mls/min Q8H IV 11/10/16 13:00 12/10/16 11:44 Ferrous Sulfate (Feosol Tab) 325 mg BIDM PO 11/10/16 17:45 12/10/16 17:44 Review of Systems Constitutional: + chills, + fatigue, + sweats Eyes: No worsening of vision ENT: No hearing loss Respiratory: No cough, No shortness of breath Cardiovascular: No chest pain, No palpitations Abdomen: + diarrhea (PREPPER- now subsiding), + pain (right sided/flank) Musculoskeletal: + joint pain (left knee- improving) Genitourinary - Male: + urinary urgency, No dysuria, No hematuria, No urinary frequency, No urinary hesitancy Integumentary: No itch, No rash Physical Exam Date Time Temp Pulse Resp B/P Pulse Ox O2 Delivery O2 Flow Rate FiO2 11/10/16 12:28 163/85 11/10/16 11:06 37.1 85 16 96 11/10/16 10:55 175/88 11/10/16 08:35 Room Air 11/10/16 08:20 171/89 11/10/16 07:25 37.1 85 16 186/97 96 Room Air 11/10/16 03:20 36.9 93 16 104/69 96 Room Air 11/09/16 23:00 37.3 79 16 147/85 96 Room Air 11/09/16 21:30 Room Air 11/09/16 21:28 37.4 72 18 163/85 96 Room Air 11/09/16 21:04 37.2 70 16 132/76 95 11/09/16 20:51 37.2 82 16 161/87 97 Room Air 11/09/16 19:50 37.2 82 16 161/87 97 11/09/16 18:00 84 16 142/70 96 11/09/16 15:22 36.7 76 18 156/83 98 Room Air General Appearance: WD/WN, no apparent distress Head: normocephalic, atraumatic Eyes: normal inspection, sclerae normal ENT: hearing grossly normal Neck: supple, trachea midline Respiratory/Chest: chest non-tender, lungs clear, normal breath sounds, no respiratory distress, no accessory muscle use Cardiovascular: regular rate, rhythm, no murmur Abdomen/GI: normal bowel sounds, non tender, soft Back: normal inspection Extremities/Musculoskelatal: + pertinent finding (left knee with mild edema, healing surgical incicion, surgical drain in place with purulent appearing/ bloody drainage) Neurologic/Psych: alert, normal mood/affect, oriented x 3 Skin: normal color, warm/dry, no rash Laboratory Results Item Value Date Time Blood Culture Received 11/10/16 0740 Blood Pending Urine Culture - Preliminary Resulted 11/09/16 2127 Urine , Clean Catch NO GROWTH - LESS THAN 1,000 COLONIES/... Blood Culture Received 11/09/16 1756 Blood Pending Blood Culture Received 11/09/16 1750 Blood Pending Last 24 Hours Test 11/09/16 17:50 11/09/16 17:56 11/09/16 19:46 11/09/16 21:27 White Blood Count 4.84 K/uL Red Blood Count 2.95 M/uL Hemoglobin 8.5 g/dL Hematocrit 26.6 % Mean Corpuscular Volume 90.2 fL Mean Corpuscular Hemoglobin 28.8 pg Mean Corpuscular Hemoglobin Concent 32.0 g/dl Platelet Count 321 K/uL Mean Platelet Volume 8.3 fL Neutrophils (%) (Auto) 68.0 % Lymphocytes (%) (Auto) 20.7 % Monocytes (%) (Auto) 7.6 % Eosinophils (%) (Auto) 2.1 % Basophils (%) (Auto) 0.8 % Neutrophils # (Auto) 3.29 K/uL Lymphocytes # (Auto) 1.00 K/uL Monocytes # (Auto) 0.37 K/uL Eosinophils # (Auto) 0.10 K/uL Basophils # (Auto) 0.04 K/uL RDW Standard Deviation 50.7 fL RDW Coefficient of Variation 15.4 % Immature Granulocyte % (Auto) 0.8 % Immature Granulocyte # (Auto) 0.04 K/uL Red Blood Cell Morphology Unremarkable Erythrocyte Sedimentation Rate 56 mm/hr Prothrombin Time 12.0 SECONDS Prothromb Time International Ratio 1.1 Activated Partial Thromboplast Time 36.6 SECONDS Partial Thromboplastin Ratio 1.4 Sodium Level 140 mmol/L Potassium Level 3.4 mmol/L Chloride Level 106 mmol/L Carbon Dioxide Level 27 mmol/L Anion Gap 7.0 mmol/L Blood Urea Nitrogen 18 mg/dl Creatinine 1.10 mg/dl Est Creatinine Clear Calc Drug Dose 75.7 ml/min Estimated GFR () 81.8 Estimated GFR (Non- 70.6 BUN/Creatinine Ratio 16.8 Random Glucose 91 mg/dl Calcium Level 8.7 mg/dl Total Bilirubin 0.4 mg/dl Aspartate Amino Transf (AST/SGOT) 17 U/L Alanine Aminotransferase (ALT/SGPT) 21 U/L Alkaline Phosphatase 100 U/L C-Reactive Protein 7.39 mg/dl Total Protein 7.4 gm/dl Albumin 2.6 gm/dl Globulin 4.8 gm/dl Albumin/Globulin Ratio 0.5 Prostate Specific Antigen 1.720 ng/ml Lactic Acid Level 1.0 mmol/L Vancomycin Level Trough 22.3 mcg/ml Urine Color DK YELLOW Urine Appearance CLOUDY Urine pH 5.0 Urine Specific [place] 1.019 Urine Protein NEG Urine Glucose (UA) NEG Urine Ketones NEG Urine Occult Blood TRACE Urine Nitrite NEG Urine Bilirubin NEG Urine Urobilinogen NEG Urine Leukocyte Esterase TRACE Urine WBC (Auto) 10-30 /hpf Urine RBC (Auto) 5-10 /hpf Urine Hyaline Casts (Auto) 5-10 /lpf Urine Epithelial Cells (Auto) 20-30 /lpf Urine Bacteria (Auto) NEG Test 11/10/16 00:20 11/10/16 07:31 11/10/16 11:38 Hemoglobin 7.7 g/dL 7.9 g/dL Hematocrit 23.4 % 24.8 % White Blood Count 3.33 K/uL Red Blood Count 2.72 M/uL Mean Corpuscular Volume 91.2 fL Mean Corpuscular Hemoglobin 29.0 pg Mean Corpuscular Hemoglobin Concent 31.9 g/dl Platelet Count 253 K/uL Mean Platelet Volume 8.1 fL Neutrophils (%) (Auto) 59.5 % Lymphocytes (%) (Auto) 23.7 % Monocytes (%) (Auto) 12.6 % Eosinophils (%) (Auto) 2.1 % Basophils (%) (Auto) 1.5 % Neutrophils # (Auto) 1.98 K/uL Lymphocytes # (Auto) 0.79 K/uL Monocytes # (Auto) 0.42 K/uL Eosinophils # (Auto) 0.07 K/uL Basophils # (Auto) 0.05 K/uL RDW Standard Deviation 52.0 fL RDW Coefficient of Variation 15.5 % Immature Granulocyte % (Auto) 0.6 % Immature Granulocyte # (Auto) 0.02 K/uL Red Blood Cell Morphology Unremarkable Sodium Level 141 mmol/L Potassium Level 3.7 mmol/L Chloride Level 108 mmol/L Carbon Dioxide Level 25 mmol/L Anion Gap 8.0 mmol/L Blood Urea Nitrogen 15 mg/dl Creatinine 0.96 mg/dl Est Creatinine Clear Calc Drug Dose 86.7 ml/min Estimated GFR () 96.4 Estimated GFR (Non- 83.2 BUN/Creatinine Ratio 15.7 Random Glucose 81 mg/dl Calcium Level 8.1 mg/dl Iron Level 25 mcg/dl Total Iron Binding Capacity 162 mcg/dl Ferritin 337.6 ng/ml Total Bilirubin 0.2 mg/dl Aspartate Amino Transf (AST/SGOT) 16 U/L Alanine Aminotransferase (ALT/SGPT) 18 U/L Alkaline Phosphatase 80 U/L Total Protein 6.0 gm/dl Albumin 2.1 gm/dl Globulin 3.9 gm/dl Albumin/Globulin Ratio 0.5 Thyroid Stimulating Hormone (TSH) 0.998 uIu/ml Assessment & Plan Patient with septic left TKA with MSSA (s/p I & D last week) with recent history of Enterococcal UTI as well. Patient is currently not on any antibiotic therapy. Will start IV Daptomycin to cover both MSSA and Enterococcus pending culture results. Patient's Vancomycin SAMRA was 2 for MSSA. Pending blood cultures , patient may need repeat I & D of the left knee with continued purulent drainage, but surrounding area looks good. Will await orthopedic recommendations and blood cultures. Will continue off of Rifampin due to concerns of acute flu-like syndrome potentially related to the medication. We will follow. PROVIDER ADDENDUM: Patient examined and reviewed with Ms. Monroy. Agree with above assessment.
--- NOTE | 2016-11-10 13:10 | CONSULTATION REPORT ---
DATE OF CONSULTATION: 11/10/2016 HISTORY OF PRESENT ILLNESS: The patient presents after having undergone total knee arthroplasty at [facility] in mid September and subsequently had a urinary tract infection, became septic and infection of his left total knee arthroplasty, underwent a washout, poly change by Dr. Schneider, subsequently presented here with dehydration and sepsis. Today, the patient relates having no complaints of pain about his knee. His knee incision is completely benign. His drain is still in position and place is still draining which was placed on the 30 of October. Plan at this point is for continued intravenous antibiotics and infectious disease consult. Will leave drain in place. I have also discussed this case with Dr. Schneider. Will follow along as needed. ASSESSMENT: Status post total knee arthroplasty, status post infected total knee arthroplasty with poly change and continued dehydration, sepsis. PLAN: For medical management, continued infectious disease, antibiotics and follow along. PAU
--- NOTE | 2016-11-10 13:32 | Hospitalist Progress Note ---
Hospitalist Progress Note Date of Service November 10, 2016. (Brittney Almaguer PA-C) Subjective Pt evaluation today including: conversation w/ patient, conversation w/ family , physical exam, chart review, lab review, review of studies, conversation w/ dynamics ax consultant, review of inpatient medication list Patient says that he feels 50% better and he did when he first got to the hospital. He is still complaining of a dull, mild headache. He continues to feel intermittent chills and body aches. He is complaining of pain in the left knee. He has not been taking his pain medication since he got to the hospital. He denies any nausea. His stools have been loose. He denies any blood. He denies any lightheadedness or dizziness. No chest pain or pressure. No dyspnea. Additional Comments: 6 system review negative. Please see pertinent positives in the history of present illness section. (Brittney Almaguer PA-C) Objective Vital Signs Date Time Temp Pulse Resp B/P Pulse Ox O2 Delivery O2 Flow Rate FiO2 11/10/16 12:28 163/85 11/10/16 11:06 37.1 85 16 96 11/10/16 10:55 175/88 11/10/16 08:35 Room Air 11/10/16 08:20 171/89 11/10/16 07:25 37.1 85 16 186/97 96 Room Air 11/10/16 03:20 36.9 93 16 104/69 96 Room Air 11/09/16 23:00 37.3 79 16 147/85 96 Room Air 11/09/16 21:30 Room Air 11/09/16 21:28 37.4 72 18 163/85 96 Room Air 11/09/16 21:04 37.2 70 16 132/76 95 11/09/16 20:51 37.2 82 16 161/87 97 Room Air 11/09/16 19:50 37.2 82 16 161/87 97 11/09/16 18:00 84 16 142/70 96 11/09/16 15:22 36.7 76 18 156/83 98 Room Air (Brittney Almaguer PA-C) Physical Exam General Appearance: no apparent distress Eyes: EOMI ENT: + pertinent finding (oral mucosa dry) Neck: no JVD Respiratory/Chest: lungs clear Cardiovascular: regular rate, rhythm Abdomen: normal bowel sounds, non tender, soft Extremities: no pedal edema, + pertinent finding (incision over the left knee is intact. There is some mild diffuse swelling noted. No significant erythema. Drain in place draining purulent fluid.) Neurologic/Psychiatric: no motor/sensory deficits, oriented x 3 Skin: warm/dry (Brittney Almaguer PA-C) Laboratory Results 11/10/16 07:31 Red Blood Count 2.72, Mean Corpuscular Volume 91.2, Mean Corpuscular Hemoglobin 29.0, Mean Corpuscular Hemoglobin Concent 31.9, Mean Platelet Volume 8.1, Neutrophils (%) (Auto) 59.5, Lymphocytes (%) (Auto) 23.7, Monocytes (%) (Auto) 12.6, Eosinophils (%) (Auto) 2.1, Basophils (%) (Auto) 1.5, Neutrophils # (Auto ) 1.98, Lymphocytes # (Auto) 0.79, Monocytes # (Auto) 0.42, Eosinophils # (Auto ) 0.07, Basophils # (Auto) 0.05 11/10/16 07:31 Test 11/09/16 17:50 11/09/16 17:56 11/09/16 19:46 11/09/16 21:27 Erythrocyte Sedimentation Rate 56 mm/hr (0-14) Prothrombin Time 12.0 SECONDS (9.0-12.0) Prothromb Time International Ratio 1.1 (0.9-1.1) Activated Partial Thromboplast Time 36.6 SECONDS (21.0-31.0) Partial Thromboplastin Ratio 1.4 C-Reactive Protein 7.39 mg/dl (0-0.29) Prostate Specific Antigen 1.720 ng/ml (0.000-4.000) Lactic Acid Level 1.0 mmol/L (0.4-2.0) Vancomycin Level Trough 22.3 mcg/ml (SEE COMMENT) Urine Color DK YELLOW Urine Appearance CLOUDY (CLEAR) Urine pH 5.0 (4.5-7.5) Urine Specific [place] 1.019 (1.000-1.030) Urine Protein NEG (NEG) Urine Glucose (UA) NEG (NEG) Urine Ketones NEG (NEG) Urine Occult Blood TRACE (NEG) Urine Nitrite NEG (NEG) Urine Bilirubin NEG (NEG) Urine Urobilinogen NEG (NEG) Urine Leukocyte Esterase TRACE (NEG) Urine WBC (Auto) 10-30 /hpf (0-5) Urine RBC (Auto) 5-10 /hpf (0-4) Urine Hyaline Casts (Auto) 5-10 /lpf (0-5) Urine Epithelial Cells (Auto) 20-30 /lpf (0-5) Urine Bacteria (Auto) NEG (NEG) Test 11/10/16 07:31 11/10/16 11:38 White Blood Count 3.33 K/uL (4.8-10.8) Red Blood Count 2.72 M/uL (4.7-6.1) Hemoglobin 7.9 g/dL (14.0-18.0) Hematocrit 24.8 % (42-52) Mean Corpuscular Volume 91.2 fL (80-100) Mean Corpuscular Hemoglobin 29.0 pg (25-34) Mean Corpuscular Hemoglobin Concent 31.9 g/dl (32-36) Platelet Count 253 K/uL (130-400) Mean Platelet Volume 8.1 fL (7.4-10.4) Neutrophils (%) (Auto) 59.5 % Lymphocytes (%) (Auto) 23.7 % Monocytes (%) (Auto) 12.6 % Eosinophils (%) (Auto) 2.1 % Basophils (%) (Auto) 1.5 % Neutrophils # (Auto) 1.98 K/uL (1.4-6.5) Lymphocytes # (Auto) 0.79 K/uL (1.2-3.4) Monocytes # (Auto) 0.42 K/uL (0.11-0.59) Eosinophils # (Auto) 0.07 K/uL (0-0.5) Basophils # (Auto) 0.05 K/uL (0-0.2) RDW Standard Deviation 52.0 fL (36.4-46.3) RDW Coefficient of Variation 15.5 % (11.5-14.5) Immature Granulocyte % (Auto) 0.6 % Immature Granulocyte # (Auto) 0.02 K/uL (0.00-0.02) Red Blood Cell Morphology Unremarkable Anion Gap 8.0 mmol/L (3-11) Est Creatinine Clear Calc Drug Dose 86.7 ml/min Estimated GFR () 96.4 Estimated GFR (Non- 83.2 BUN/Creatinine Ratio 15.7 (10-20) Calcium Level 8.1 mg/dl (8.5-10.1) Iron Level 25 mcg/dl (35-175) Total Iron Binding Capacity 162 mcg/dl (250-450) Ferritin 337.6 ng/ml (8.0-388.0) Total Bilirubin 0.2 mg/dl (0.2-1) Aspartate Amino Transf (AST/SGOT) 16 U/L (15-37) Alanine Aminotransferase (ALT/SGPT) 18 U/L (12-78) Alkaline Phosphatase 80 U/L (45-117) Total Protein 6.0 gm/dl (6.4-8.2) Albumin 2.1 gm/dl (3.4-5.0) Globulin 3.9 gm/dl (2.5-4.0) Albumin/Globulin Ratio 0.5 (0.9-2) Thyroid Stimulating Hormone (TSH) 0.998 uIu/ml (0.300-4.500) Vitamin B12 Level 529 pg/mL (211-911) Folate 14.73 ng/mL (>5.38) Last 24 Hours Test 11/09/16 17:50 11/09/16 17:56 11/09/16 19:46 11/09/16 21:27 White Blood Count 4.84 K/uL Red Blood Count 2.95 M/uL Hemoglobin 8.5 g/dL Hematocrit 26.6 % Mean Corpuscular Volume 90.2 fL Mean Corpuscular Hemoglobin 28.8 pg Mean Corpuscular Hemoglobin Concent 32.0 g/dl Platelet Count 321 K/uL Mean Platelet Volume 8.3 fL Neutrophils (%) (Auto) 68.0 % Lymphocytes (%) (Auto) 20.7 % Monocytes (%) (Auto) 7.6 % Eosinophils (%) (Auto) 2.1 % Basophils (%) (Auto) 0.8 % Neutrophils # (Auto) 3.29 K/uL Lymphocytes # (Auto) 1.00 K/uL Monocytes # (Auto) 0.37 K/uL Eosinophils # (Auto) 0.10 K/uL Basophils # (Auto) 0.04 K/uL RDW Standard Deviation 50.7 fL RDW Coefficient of Variation 15.4 % Immature Granulocyte % (Auto) 0.8 % Immature Granulocyte # (Auto) 0.04 K/uL Red Blood Cell Morphology Unremarkable Erythrocyte Sedimentation Rate 56 mm/hr Prothrombin Time 12.0 SECONDS Prothromb Time International Ratio 1.1 Activated Partial Thromboplast Time 36.6 SECONDS Partial Thromboplastin Ratio 1.4 Sodium Level 140 mmol/L Potassium Level 3.4 mmol/L Chloride Level 106 mmol/L Carbon Dioxide Level 27 mmol/L Anion Gap 7.0 mmol/L Blood Urea Nitrogen 18 mg/dl Creatinine 1.10 mg/dl Est Creatinine Clear Calc Drug Dose 75.7 ml/min Estimated GFR () 81.8 Estimated GFR (Non- 70.6 BUN/Creatinine Ratio 16.8 Random Glucose 91 mg/dl Calcium Level 8.7 mg/dl Total Bilirubin 0.4 mg/dl Aspartate Amino Transf (AST/SGOT) 17 U/L Alanine Aminotransferase (ALT/SGPT) 21 U/L Alkaline Phosphatase 100 U/L C-Reactive Protein 7.39 mg/dl Total Protein 7.4 gm/dl Albumin 2.6 gm/dl Globulin 4.8 gm/dl Albumin/Globulin Ratio 0.5 Prostate Specific Antigen 1.720 ng/ml Lactic Acid Level 1.0 mmol/L Vancomycin Level Trough 22.3 mcg/ml Urine Color DK YELLOW Urine Appearance CLOUDY Urine pH 5.0 Urine Specific [place] 1.019 Urine Protein NEG Urine Glucose (UA) NEG Urine Ketones NEG Urine Occult Blood TRACE Urine Nitrite NEG Urine Bilirubin NEG Urine Urobilinogen NEG Urine Leukocyte Esterase TRACE Urine WBC (Auto) 10-30 /hpf Urine RBC (Auto) 5-10 /hpf Urine Hyaline Casts (Auto) 5-10 /lpf Urine Epithelial Cells (Auto) 20-30 /lpf Urine Bacteria (Auto) NEG Test 11/10/16 00:20 11/10/16 07:31 11/10/16 11:38 Hemoglobin 7.7 g/dL 7.9 g/dL Hematocrit 23.4 % 24.8 % White Blood Count 3.33 K/uL Red Blood Count 2.72 M/uL Mean Corpuscular Volume 91.2 fL Mean Corpuscular Hemoglobin 29.0 pg Mean Corpuscular Hemoglobin Concent 31.9 g/dl Platelet Count 253 K/uL Mean Platelet Volume 8.1 fL Neutrophils (%) (Auto) 59.5 % Lymphocytes (%) (Auto) 23.7 % Monocytes (%) (Auto) 12.6 % Eosinophils (%) (Auto) 2.1 % Basophils (%) (Auto) 1.5 % Neutrophils # (Auto) 1.98 K/uL Lymphocytes # (Auto) 0.79 K/uL Monocytes # (Auto) 0.42 K/uL Eosinophils # (Auto) 0.07 K/uL Basophils # (Auto) 0.05 K/uL RDW Standard Deviation 52.0 fL RDW Coefficient of Variation 15.5 % Immature Granulocyte % (Auto) 0.6 % Immature Granulocyte # (Auto) 0.02 K/uL Red Blood Cell Morphology Unremarkable Sodium Level 141 mmol/L Potassium Level 3.7 mmol/L Chloride Level 108 mmol/L Carbon Dioxide Level 25 mmol/L Anion Gap 8.0 mmol/L Blood Urea Nitrogen 15 mg/dl Creatinine 0.96 mg/dl Est Creatinine Clear Calc Drug Dose 86.7 ml/min Estimated GFR () 96.4 Estimated GFR (Non- 83.2 BUN/Creatinine Ratio 15.7 Random Glucose 81 mg/dl Calcium Level 8.1 mg/dl Iron Level 25 mcg/dl Total Iron Binding Capacity 162 mcg/dl Ferritin 337.6 ng/ml Total Bilirubin 0.2 mg/dl Aspartate Amino Transf (AST/SGOT) 16 U/L Alanine Aminotransferase (ALT/SGPT) 18 U/L Alkaline Phosphatase 80 U/L Total Protein 6.0 gm/dl Albumin 2.1 gm/dl Globulin 3.9 gm/dl Albumin/Globulin Ratio 0.5 Thyroid Stimulating Hormone (TSH) 0.998 uIu/ml Vitamin B12 Level 529 pg/mL Folate 14.73 ng/mL (Brittney Almaguer, PA-C) Assessment and Plan This patient is an unfortunate 66-year-old male that presents to the emergency department with complaints of fever, malaise, generalized body aches and headache. Malaise, body aches and fever-known septic L knee s/p revision/washout on 10/30 and drain placement--knee isn't red but pretty swollen -was on Vanco and Rifampin per PICC line upon d/c from [facility] on November 02 -cultures from here grew MSSA prior to being transferred to [place] -resend culture of fluid in drain -ID consult appreciated. Start Daptomycin, which should also cover pt's UTI -orthopedic consult placed-->still draining purulent fluid. Was told by orthopedic doctor at [place] that they could pull the drain when drainage is < 30 cc/24 hr. Given the swelling, I'd be hesitant to do that, but we will defer to orthopedics for this Anemia-probable component of iron deficiency in addition to chronic Dz. Baseline ~ 9-9.5 -Begin Ferrous sulfate 325 mg po BID -fecal occult blood pending (especially since pt is on Xarelto) -f/u Vit B12, folate UTI-grew out E. faecalis on 10/25 -following with urology for frequent UTIs -Daptomycin should be adequate coverage -Plan is for cystoscopy and likely prophylactic ABX when he finishes his IV ABX for septic knee -Pt also has a hx of kidney stones-->KUB nephrolithiasis, no ureteral stones noted -urology following BPH -on Rapaflo at home that was changed to Flomax while in house Hx RA-on chronic steroids that have been on hold for recent surgery -Stress dose steroids now-->hydrocortisone 25 mg IV q 8 hr Hx PE/DVT -Continue Xarelto ?Hx of A fib--never had cardiac workup per daughter. Likely paroxysmal -reviewed old EKGs-->some with a fib -Transfer to tele for cardiac monitoring for one night -check echo -already on Xarelto -seems to be rate controlled with diltiazem ER 120 mg daily DVT prophylaxis -Xarelto -TEDS, SCDs CODE STATUS -LEVEL I FULL CODE (Brittney Almaguer, PAGetC) Attending Attestation: Pt seen/examined, chart reviewed, care plan d/w TIBURCIO Almaguer. I agree w/ the page components of her documentation. Pt feeling better today. Improved appetite. More energy. Less headache. Denies sob. Tele stable with no PAF. VSS no fever BPs mildly high gen - pale but NAD mouth - MM slightly dry heart - RRR lungs - CTA b/l abd - soft, NT ext - left knee drain in place, mild swelling/effusion left knee; no ankle edema b/l; pulses 2+ b/l A/P: 1. septic arthritis in the setting of recent left TKR - 2nd to MSSA - s/p washout w/ placement of drain at [facility] - defer abx to ID defer other management to ortho blood cx's from his brief admission when this issue was discovered were negative and repeat blood cx's this admission also negative 2. chronic steroid dependency for RA - following his washout of the left knee at [place] his prednisone therapy was stopped abruptly and when he was d/c home he was asked to stop the prednisone. I believe he suffered an adrenal crisis once the prednisone was stopped leading to this admission (fatigue, weakness, dehydration, etc) He has improved very nicely with fluids and stress dose steroids. 3. anemia of chronic disease +/- fe def - fe replacement and serial cbc. 4. recent UTI/prostatitis - due to enterococcus - clinically resolved; remains on alpha dima; daptomycin should clear any remaining prostatitis. 5. recent PAF - echo with structurally normal heart and no valve disease. no PAF while here. CHADs is a 1. improving nicely Celestine Fergusno MD (Celestine Ferguson MD)
[2016-11-10] MEDS: HYDROCORTISONE IV 25 MG in SYRINGE 0 ML IV SCH ×2 (14:29→21:04)
[2016-11-10] MEDS: DAPTOmycin IV 550 MG in SODIUM CHLORIDE 0.9% 50ML 50 ML IV SCH (14:29)
--- NOTE | 2016-11-10 15:04 | ECHOCARDIOGRAM REPORT ---
*NOTICE TO RECEIVING DEMOCRAT AGENCY This information is strictly Confidential and protected under [place] law. [place] law prohibits you from making any further disclosure of this information unless further disclosure is expressly permitted by the written consent of the person to whom it pertains or is authorized by law. A general authorization for the release of medical or other information is not sufficient for this purpose. Hospital accepts no responsibility if the information is made available to any other person, INCLUDING THE PATIENT. Interpretation Summary * Name: JENSEN CONTI Study Date: 11/10/2016 01:21 PM BP: 163/85 mmHg * Patient Location: C.2E\S\E202\S\1 HR: 85 * : 1950 (M/d/yyyy) Gender: Male Height: 69 in * Age: 66 yrs Ethnicity: CA Weight: 200 lb * Ordering Physician: Brittney Almaguer * Referring Physician: Self, Referred * Performed By: Mini Gary RDCS * * Reason For Study: Atrial fibrillation * BSA: 2.1 m2 * -- Conclusions -- * There is borderline concentric left ventricular hypertrophy. * Left ventricular systolic function is normal. * Grade I diastolic dysfunction, (abnormal relaxation pattern). * Right ventricular systolic pressure is normal. Procedure Details * A complete two-dimensional transthoracic echocardiogram was performed (2D, M-mode, Doppler and color flow Doppler). Left Ventricle * The left ventricle is normal in size. * There is borderline concentric left ventricular hypertrophy. * Ejection Fraction = >70 %. * Left ventricular systolic function is normal. * Grade I diastolic dysfunction, (abnormal relaxation pattern). Right Ventricle * The right ventricle is normal in size and function. Atria * The left atrial size is normal. * Right atrial size is normal. Mitral Valve * The mitral valve is grossly normal. * Significant mitral regurgitation is absent. Tricuspid Valve * The tricuspid valve is not well visualized. * There is trace tricuspid regurgitation. * Right ventricular systolic pressure is normal. Aortic Valve * The aortic valve is not well visualized. * No hemodynamically significant valvular aortic stenosis. * There is no significant aortic regurgitation. Great Vessels * The aortic root is normal size. Pericardium/Pleural * There is no pericardial effusion. Great Vessels * Normal inferior vena cava diameter and respiratory variation suggests normal central venous pressure. MMode 2D Measurements and Calculations IVSd 1.1 cm LVIDd 4.8 cm LVIDs 2.8 cm LVPWd 1.3 cm IVS/LVPW 0.90 FS 41.8 % EDV(Teich) 110.1 ml ESV(Teich) 30.1 ml EF(Teich) 72.6 % EDV(cubed) 114.0 ml ESV(cubed) 22.5 ml EF(cubed) 80.3 % LV mass(C)d 221.3 grams LV mass(C)dI 107.1 grams/m\S\2 CO(Teich) 8.0 l/min CI(Teich) 3.9 l/min/m\S\2 SV(Teich) 79.9 ml SI(Teich) 38.7 ml/m\S\2 CO(cubed) 9.1 l/min CI(cubed) 4.4 l/min/m\S\2 SV(cubed) 91.5 ml SI(cubed) 44.3 ml/m\S\2 Ao root diam 3.5 cm Ao root area 9.4 cm\S\2 ACS 2.2 cm LA dimension 3.7 cm asc Aorta Diam 3.3 cm LA/Ao 1.1 LVOT diam 2.0 cm LVOT area 3.0 cm\S\2 LVAd ap4 31.0 cm\S\2 LVLd ap4 7.9 cm EDV(MOD-sp4) 103.0 ml LVAs ap4 15.7 cm\S\2 LVLs ap4 6.6 cm ESV(MOD-sp4) 31.3 ml EF(MOD-sp4) 69.6 % LVAd ap2 29.9 cm\S\2 LVLd ap2 8.9 cm EDV(MOD-sp2) 83.1 ml LVAs ap2 13.7 cm\S\2 LVLs ap2 6.8 cm ESV(MOD-sp2) 23.7 ml EF(MOD-sp2) 71.5 % CO(MOD-sp4) 7.2 l/min CI(MOD-sp4) 3.5 l/min/m\S\2 SV(MOD-sp4) 71.7 ml SI(MOD-sp4) 34.7 ml/m\S\2 CO(MOD-sp2) 5.9 l/min CI(MOD-sp2) 2.9 l/min/m\S\2 SV(MOD-sp2) 59.4 ml SI(MOD-sp2) 28.8 ml/m\S\2 Doppler Measurements and Calculations MV E max karri 116.3 cm/sec MV A max karri 107.1 cm/sec MV E/A 1.1 MV dec time 0.21 sec Ao V2 max 187.0 cm/sec Ao max PG 14.0 mmHg Ao max PG (full) 4.2 mmHg JEFRY(V,A) 2.5 cm\S\2 JEFRY(V,D) 2.5 cm\S\2 LV V1 max PG 9.8 mmHg LV V1 max 156.8 cm/sec PA V2 max 106.6 cm/sec PA max PG 4.6 mmHg PA acc slope 499.7 cm/sec\S\2 PA acc time 0.12 sec PA pr(Accel) 24.3 mmHg
[2016-11-10] MEDS: FERROUS SULFATE 325 MG TAB PO SCH (16:37)
[2016-11-10] MEDS: RIVAROXABAN 10 MG TAB PO SCH (16:37)
[2016-11-11 03:25] VITALS: BP 161/92; PULSE 84; TEMP 36.8; O2SAT 97
[2016-11-11] MEDS: HYDROCORTISONE IV 25 MG in SYRINGE 0 ML IV SCH ×3 (05:04→20:47)
[2016-11-11 05:52] LABS: BASO % 1.2 %; BASO ABS # 0.05 K/uL (0-0.2); EOS % 1.2 %; HEMATOCRIT 24.2 % (42-52); IG% 0.2 %; LYMPH % 30.1 %; LYMPH ABS # 1.25 K/uL (1.2-3.4); MEAN CELL VOLUME 90.3 fL (80-100); MEAN CORPUSCULAR HEMOGLOBIN 29.5 pg (25-34); MEAN CORPUSCULAR HGB CONC 32.6 g/dl (32-36); MEAN PLATELET VOLUME 8.6 fL (7.4-10.4); NEUT % 59.3 %; PLATELET COUNT 279 K/uL (130-400); RED BLOOD COUNT 2.68 M/uL (4.7-6.1); WHITE BLOOD COUNT 4.15 K/uL (4.8-10.8)
[2016-11-11 06:27] LABS: BUN/CREATININE RATIO 15.6 (10-20); CALCIUM 8.3 mg/dl (8.5-10.1); CREATININE 1.1 mg/dl (0.60-1.40); POTASSIUM 3.2 mmol/L (3.5-5.1)
[2016-11-11 06:52] LABS: COMPLETE YES
[2016-11-11] MEDS ORDERED: POTASSIUM CHLORIDE 10 MEQ TABCR PO STA (07:42)
[2016-11-11] MEDS: FERROUS SULFATE 325 MG TAB PO SCH ×3 (07:47→16:44)
[2016-11-11] MEDS: HYDROCODONE/ACETAMI 10/325 TAB PO PRN ×3 (07:47→21:05)
[2016-11-11] MEDS: GABAPENTIN 300 MG CAP PO SCH ×3 (07:48→20:47)
[2016-11-11] MEDS: DILTIAZEM HCL 120 MG EXT REL CAP PO SCH (07:48)
[2016-11-11] MEDS ORDERED: POTASSIUM CHLR 10 MEQ / WTR 10 MEQ in PREMIXED WATER 100 ML IV SCH (08:00)
--- NOTE | 2016-11-11 08:12 | Progress Note ---
Subjective Date of Service: November 11, 2016. Subjective Pt evaluation today including: conversation w/ patient, chart review, lab review Voiding: no voiding problems 66 yo male with recurrent UTI and infected TKA. Feeling better today since stopping the Rifampin. ? flu-like response to the abx. Denies dysuria or hematuria today. Voiding well, but says he has not been receiving his Rapaflo while inpatient. Problem List Medical Problems: (1) Acute renal failure (ARF) Status: Acute (2) Anemia Status: Acute (3) Cellulitis of left knee Status: Acute (4) Dehydration Status: Acute (5) Dehydration Status: Acute (6) Failure of outpatient treatment Status: Acute (7) Failure of outpatient treatment Status: Acute (8) Hyponatremia Status: Acute (9) Infection of prosthetic left knee joint Status: Acute (10) Urinary tract infection Status: Acute (11) Weakness Status: Acute Review of Systems Constitutional: No chills, No fever Respiratory: No shortness of breath Cardiac: No chest pain Abdomen: No nausea, No pain, No vomiting Male : No dysuria, No hematuria, No slowing stream Heme: No abnormal bleeding/bruising Objective Vital Signs Date Time Temp Pulse Resp B/P Pulse Ox O2 Delivery O2 Flow Rate FiO2 11/11/16 04:00 Room Air 11/11/16 03:25 36.8 84 17 161/92 97 Room Air 11/10/16 23:59 Room Air 11/10/16 23:46 37.0 83 17 139/88 96 Room Air 11/10/16 20:00 Room Air 11/10/16 19:43 36.8 77 18 157/88 97 11/10/16 16:00 Room Air 11/10/16 15:49 36.8 83 19 154/83 97 Room Air 11/10/16 13:00 36.8 89 160/95 96 Room Air 11/10/16 12:28 163/85 11/10/16 12:00 Room Air 11/10/16 11:06 37.1 85 16 96 11/10/16 10:55 175/88 11/10/16 08:35 Room Air 11/10/16 08:20 171/89 Physical Exam General Appearance: no apparent distress Eyes: normal inspection ENT: hearing grossly normal Neck: no JVD Respiratory/Chest: no respiratory distress, no accessory muscle use Cardiovascular: no JVD Extremities: normal inspection Neurologic/Psychiatric: alert, normal mood/affect, oriented x 3 Skin: normal color Laboratory Results Last 24 Hours Test 11/10/16 11:38 11/10/16 11:49 11/11/16 05:40 Vitamin B12 Level 529 pg/mL Folate 14.73 ng/mL Stool Occult Blood NEGATIVE White Blood Count 4.15 K/uL Red Blood Count 2.68 M/uL Hemoglobin 7.9 g/dL Hematocrit 24.2 % Mean Corpuscular Volume 90.3 fL Mean Corpuscular Hemoglobin 29.5 pg Mean Corpuscular Hemoglobin Concent 32.6 g/dl Platelet Count 279 K/uL Mean Platelet Volume 8.6 fL Neutrophils (%) (Auto) 59.3 % Lymphocytes (%) (Auto) 30.1 % Monocytes (%) (Auto) 8.0 % Eosinophils (%) (Auto) 1.2 % Basophils (%) (Auto) 1.2 % Neutrophils # (Auto) 2.46 K/uL Lymphocytes # (Auto) 1.25 K/uL Monocytes # (Auto) 0.33 K/uL Eosinophils # (Auto) 0.05 K/uL Basophils # (Auto) 0.05 K/uL RDW Standard Deviation 50.7 fL RDW Coefficient of Variation 15.3 % Immature Granulocyte % (Auto) 0.2 % Immature Granulocyte # (Auto) 0.01 K/uL Red Blood Cell Morphology Unremarkable Sodium Level 142 mmol/L Potassium Level 3.2 mmol/L Chloride Level 109 mmol/L Carbon Dioxide Level 26 mmol/L Anion Gap 7.0 mmol/L Blood Urea Nitrogen 17 mg/dl Creatinine 1.10 mg/dl Est Creatinine Clear Calc Drug Dose 75.7 ml/min Estimated GFR () 81.8 Estimated GFR (Non- 70.6 BUN/Creatinine Ratio 15.6 Random Glucose 85 mg/dl Calcium Level 8.3 mg/dl Assessment and Plan A/P: Recurrent UTI AFVSS. Symptoms improving. Cultures preliminarily negative. Appreciate ID input. Management of UTI and infected TKA per ID. KUB negative for ureteral stones. Will start tamsulosin in place of Rapaflo while inpatient per formulary. Will keep outpatient cysto as scheduled with Dr. Story in December. Will continue to follow along with primary service.
[2016-11-11 08:42] VITALS: BP_SYST 155; PULSE 85; TEMP 36.7; O2SAT 97
[2016-11-11 10:20] VITALS: BP 155/92; PULSE 85; TEMP 36.7; O2SAT 97
[2016-11-11 10:40] VITALS: BP 169/88; PULSE 79; TEMP 36.9; O2SAT 96
[2016-11-11 10:51] VITALS: BP 165/87
--- NOTE | 2016-11-11 11:26 | Hospitalist Progress Note ---
Hospitalist Progress Note Date of Service November 11, 2016. (Brittney Almaguer PA-C) Subjective Pt evaluation today including: conversation w/ patient, conversation w/ family , physical exam, chart review, lab review, review of studies, conversation w/ consultant in ergonomics and safety, review of inpatient medication list Patient reports feeling almost completely better. Denies any further fever, body aches, chills or urinary symptoms. Headache is very mild. Hydrocodone is helping with the knee pain. Denies any nausea. Tolerating a diet. Additional Comments: 6 system review negative. Please see pertinent positives in the history of present illness section. (Brittney Almaguer PA-C) Objective Vital Signs Date Time Temp Pulse Resp B/P Pulse Ox O2 Delivery O2 Flow Rate FiO2 11/11/16 10:51 165/87 11/11/16 10:40 36.9 79 17 169/88 96 Room Air 11/11/16 10:20 36.7 85 16 97 11/11/16 08:42 36.7 85 16 155/ 97 Room Air 11/11/16 08:00 Room Air 11/11/16 04:00 Room Air 11/11/16 03:25 36.8 84 17 161/92 97 Room Air 11/10/16 23:59 Room Air 11/10/16 23:46 37.0 83 17 139/88 96 Room Air 11/10/16 20:00 Room Air 11/10/16 19:43 36.8 77 18 157/88 97 11/10/16 16:00 Room Air 11/10/16 15:49 36.8 83 19 154/83 97 Room Air 11/10/16 13:00 36.8 89 160/95 96 Room Air 11/10/16 12:28 163/85 11/10/16 12:00 Room Air (Brittney Almaguer PA-C) Physical Exam General Appearance: no apparent distress Eyes: EOMI Neck: no JVD Respiratory/Chest: lungs clear Cardiovascular: regular rate, rhythm, no murmur Abdomen: normal bowel sounds, non tender, soft Extremities: + pertinent finding (trace pitting edema in the left lower extremity. Edema noted around the left knee. Incision is intact. Drainage appears slightly more clear today.) Neurologic/Psychiatric: no motor/sensory deficits, oriented x 3 Skin: warm/dry (Brittney Almaguer PA-C) Laboratory Results 11/11/16 05:40 Red Blood Count 2.68, Mean Corpuscular Volume 90.3, Mean Corpuscular Hemoglobin 29.5, Mean Corpuscular Hemoglobin Concent 32.6, Mean Platelet Volume 8.6, Neutrophils (%) (Auto) 59.3, Lymphocytes (%) (Auto) 30.1, Monocytes (%) (Auto) 8.0, Eosinophils (%) (Auto) 1.2, Basophils (%) (Auto) 1.2, Neutrophils # (Auto) 2.46, Lymphocytes # (Auto) 1.25, Monocytes # (Auto) 0.33, Eosinophils # (Auto) 0.05, Basophils # (Auto) 0.05 11/11/16 05:40 Test 11/10/16 11:38 11/10/16 11:49 11/11/16 05:40 Vitamin B12 Level 529 pg/mL (211-911) Folate 14.73 ng/mL (>5.38) Stool Occult Blood NEGATIVE (NEGATIVE) White Blood Count 4.15 K/uL (4.8-10.8) Red Blood Count 2.68 M/uL (4.7-6.1) Hemoglobin 7.9 g/dL (14.0-18.0) Hematocrit 24.2 % (42-52) Mean Corpuscular Volume 90.3 fL (80-100) Mean Corpuscular Hemoglobin 29.5 pg (25-34) Mean Corpuscular Hemoglobin Concent 32.6 g/dl (32-36) Platelet Count 279 K/uL (130-400) Mean Platelet Volume 8.6 fL (7.4-10.4) Neutrophils (%) (Auto) 59.3 % Lymphocytes (%) (Auto) 30.1 % Monocytes (%) (Auto) 8.0 % Eosinophils (%) (Auto) 1.2 % Basophils (%) (Auto) 1.2 % Neutrophils # (Auto) 2.46 K/uL (1.4-6.5) Lymphocytes # (Auto) 1.25 K/uL (1.2-3.4) Monocytes # (Auto) 0.33 K/uL (0.11-0.59) Eosinophils # (Auto) 0.05 K/uL (0-0.5) Basophils # (Auto) 0.05 K/uL (0-0.2) RDW Standard Deviation 50.7 fL (36.4-46.3) RDW Coefficient of Variation 15.3 % (11.5-14.5) Immature Granulocyte % (Auto) 0.2 % Immature Granulocyte # (Auto) 0.01 K/uL (0.00-0.02) Red Blood Cell Morphology Unremarkable Anion Gap 7.0 mmol/L (3-11) Est Creatinine Clear Calc Drug Dose 75.7 ml/min Estimated GFR () 81.8 Estimated GFR (Non- 70.6 BUN/Creatinine Ratio 15.6 (10-20) Calcium Level 8.3 mg/dl (8.5-10.1) Last 24 Hours Test 11/10/16 11:38 11/10/16 11:49 11/11/16 05:40 Vitamin B12 Level 529 pg/mL Folate 14.73 ng/mL Stool Occult Blood NEGATIVE White Blood Count 4.15 K/uL Red Blood Count 2.68 M/uL Hemoglobin 7.9 g/dL Hematocrit 24.2 % Mean Corpuscular Volume 90.3 fL Mean Corpuscular Hemoglobin 29.5 pg Mean Corpuscular Hemoglobin Concent 32.6 g/dl Platelet Count 279 K/uL Mean Platelet Volume 8.6 fL Neutrophils (%) (Auto) 59.3 % Lymphocytes (%) (Auto) 30.1 % Monocytes (%) (Auto) 8.0 % Eosinophils (%) (Auto) 1.2 % Basophils (%) (Auto) 1.2 % Neutrophils # (Auto) 2.46 K/uL Lymphocytes # (Auto) 1.25 K/uL Monocytes # (Auto) 0.33 K/uL Eosinophils # (Auto) 0.05 K/uL Basophils # (Auto) 0.05 K/uL RDW Standard Deviation 50.7 fL RDW Coefficient of Variation 15.3 % Immature Granulocyte % (Auto) 0.2 % Immature Granulocyte # (Auto) 0.01 K/uL Red Blood Cell Morphology Unremarkable Sodium Level 142 mmol/L Potassium Level 3.2 mmol/L Chloride Level 109 mmol/L Carbon Dioxide Level 26 mmol/L Anion Gap 7.0 mmol/L Blood Urea Nitrogen 17 mg/dl Creatinine 1.10 mg/dl Est Creatinine Clear Calc Drug Dose 75.7 ml/min Estimated GFR () 81.8 Estimated GFR (Non- 70.6 BUN/Creatinine Ratio 15.6 Random Glucose 85 mg/dl Calcium Level 8.3 mg/dl (Brittney Almaguer PAGetC) Assessment and Plan This patient is an unfortunate 66-year-old male that presents to the emergency department with complaints of fever, malaise, generalized body aches and headache. Malaise, body aches and fever-known septic L knee s/p revision/washout on 10/30 and drain placement-afebrile and feeling better today -was on Vanco and Rifampin per PICC line upon d/c from [facility] on November 02 -cultures from here grew MSSA prior to being transferred to [place] -Prelim Blood cx neg -Awaiting repeat cultures from the drain -Continue daptomycin per ID -Orthopedic follow-up with Dr. Arriaza at [facility]--> no further recommendations by orthopedics -Leave drain in place Anemia-probable component of iron deficiency in addition to chronic Dz. Baseline ~ 9-9.5 -Hgb holding at 7.9 -FOB neg -Vit B12 and folate WNL UTI-grew out E. 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 -echo grade 1 diastolic dysfunction. EF 70% -Continue Xarelto and diltiazem 120 mg po BID -No significant events overnight on the monitor--> stable for transfer off telemetry DVT prophylaxis -Xarelto -TEDS, SCDs CODE STATUS -LEVEL I FULL CODE DISPO -PT/OT eval-->home with HHC? (Brittney Almaguer, RAISA) Attending Attestation: Pt seen/examined, chart reviewed, care plan d/w PA Brittney Almaguer. I agree w/ the page components of her documentation. Pt feels back to baseline. Feels "really good". Denies any complaints. Appetite improved; ambulating well; chills resolved; just mild headache only ( but this too is improved). VSS no fever BPs mildly high gen - pale but NAD mouth - MMM heart - RRR lungs - CTA b/l abd - soft, NT ext - left knee drain in place, sutures intact; no erythema; mild effusion only ; passive ROM causes no pain A/P: 1. septic arthritis in the setting of recent left TKR - 2nd to MSSA - s/p washout w/ placement of drain at [facility] - defer abx to ID defer other management to ortho (drain to be d/c today) blood cx's from his brief admission when this issue was discovered were negative and repeat blood cx's this admission also negative plan - 6 weeks of IV daptomycin daily via PICC followed by orals 2. chronic steroid dependency for RA - following his washout of the left knee at [facility] his prednisone therapy was stopped abruptly and when he was d/c home he was asked to stop the prednisone. I believe he suffered an adrenal crisis once the prednisone was stopped leading to this admission (fatigue, weakness, dehydration, etc) He has improved very nicely with fluids and stress dose steroids while here. Stop IV hydrocortisone tomorrow and change back to oral prednisone on 11/12/16. Would then wean over 5-7 days. He typically takes 2.5-5mg daily on a chronic basis for his RA. RA is not in exacerbation at this time. 3. anemia of chronic disease +/- fe def - fe replacement and serial cbc. 4. recent UTI/prostatitis - due to enterococcus - clinically resolved; remains on alpha dima; daptomycin should clear any remaining prostatitis. 5. recent PAF - echo with structurally normal heart and no valve disease. no PAF while here. CHADs is a 1. Had a lengthy discussion today with his and him Re: what the CHADs means, indications for anticoagulation, etc. Although CHADs is only a 1 (for HTN), he is already on xarelto for DVT proph for the TKR, and has had previous VTE event. I recommended we simply increase the xarelto to 20mg daily for anticoagulation for the PAF and he can decide following this hospital stay whether to stay on chronic anticoagulation. They were satisfied w/ this approach. 6. HTN - increase diltiazem to 180mg daily. can likely d/c on 11/12/16 after home health is set up Celestine Ferguson MD (Celestine Ferguson MD)
[2016-11-11] MEDS: DAPTOmycin IV 550 MG in SODIUM CHLORIDE 0.9% 50ML 50 ML IV SCH (13:34)
[2016-11-11 15:40] VITALS: BP 161/83; PULSE 79; TEMP 37; O2SAT 97
--- NOTE | 2016-11-11 16:10 | Orthopedic Progress Note ---
Orthopedic Progress Note Date of Service November 11, 2016. Subjective Reports: feeling well, Denies: complaints Additional Notes: Continues to feel better. No new complaints. Discussed case with Dr Schneider. Plan to remove drain today. Objective calves soft nontender, N/V intact, incision C/D/I, A&O x3, toes mobile, hemovac drainage (50ml) Date Time Temp Pulse Resp B/P Pulse Ox O2 Delivery O2 Flow Rate FiO2 11/11/16 15:40 37.0 79 20 161/83 97 Room Air 11/11/16 10:51 165/87 11/11/16 10:45 Room Air 11/11/16 10:40 36.9 79 17 169/88 96 Room Air 11/11/16 10:20 36.7 85 16 97 11/11/16 08:42 36.7 85 16 155/ 97 Room Air 11/11/16 08:00 Room Air 11/11/16 04:00 Room Air 11/11/16 03:25 36.8 84 17 161/92 97 Room Air 11/10/16 23:59 Room Air 11/10/16 23:46 37.0 83 17 139/88 96 Room Air 11/10/16 20:00 Room Air 11/10/16 19:43 36.8 77 18 157/88 97 Laboratory Results 24 Hours: Test 11/11/16 05:40 White Blood Count 4.15 K/uL Red Blood Count 2.68 M/uL Hemoglobin 7.9 g/dL Hematocrit 24.2 % Mean Corpuscular Volume 90.3 fL Mean Corpuscular Hemoglobin 29.5 pg Mean Corpuscular Hemoglobin Concent 32.6 g/dl Platelet Count 279 K/uL Mean Platelet Volume 8.6 fL Neutrophils (%) (Auto) 59.3 % Lymphocytes (%) (Auto) 30.1 % Monocytes (%) (Auto) 8.0 % Eosinophils (%) (Auto) 1.2 % Basophils (%) (Auto) 1.2 % Neutrophils # (Auto) 2.46 K/uL Lymphocytes # (Auto) 1.25 K/uL Monocytes # (Auto) 0.33 K/uL Eosinophils # (Auto) 0.05 K/uL Basophils # (Auto) 0.05 K/uL Assessment & Plan Assessment: s/p I&D with Poly Change Left TKA 12 days ago Plan: DC drain today Continue ambulation and PT/OT Antibx as per Med Service Follow up with Dr Schneider after dc for suture removal
--- NOTE | 2016-11-11 16:21 | Infectious Disease Progress Nt ---
Progress Note Date of Service November 11, 2016. Subjective Pt evaluation today including: conversation w/ patient, physical exam, chart review, lab review, review of studies, review of inpatient medication list Patient appears to be feeling much improved today. His blood cultures and urine cultures continue to show no growth. He did have another culture taken from the drain fluid from his left knee. Patient is tolerating IV daptomycin well. He did have an echocardiogram completed which showed borderline left ventricular hypertrophy & grade 1 diastolic dysfunction. His white blood cell count today was 4.15, and his hemoglobin was 7.9. His creatinine was stable 1.10. He states that his pain level is under control today. He continues to have some very mild urinary urgency and frequency. All Other Systems: Reviewed and Negative Medications Current Inpatient Medications Medications (Trade) Dose Ordered Sig/Alf Route Start Time Stop Time Status Last Admin Dose Admin Acetaminophen (Tylenol Tab) 650 mg Q4H PRN PO 11/09/16 20:15 12/09/16 20:14 Diltiazem HCl (TIAzac CAP) 120 mg DAILY PO 11/10/16 09:00 12/10/16 08:59 11/11/16 07:48 120 MG Gabapentin (Neurontin Cap) 300 mg TID PO 11/09/16 21:00 12/09/16 20:59 11/11/16 13:32 300 MG Rivaroxaban (Xarelto Tab) 10 mg DAILY@1700 PO 11/10/16 17:00 12/10/16 16:59 11/10/16 16:37 10 MG Acetaminophen/ Hydrocodone Bitart (Elton 10/325 Tab) 1 tab Q4H PRN PO 11/09/16 22:15 11/23/16 22:14 11/11/16 07:47 1 TAB Heparin Sodium (Porcine) (Heparin 10 Unit/ ml 5 ml Flush) 5 ml PRN PRN FLUSH 11/10/16 04:30 12/10/16 04:29 11/11/16 14:38 5 ML Hydralazine HCl 10 mg 10 mg Q6H PRN IV. 11/10/16 11:00 12/10/16 10:59 Hydrocortisone Sodium Succinate/ Syringe (Solu-Cortef IV/ Syringe) 0.5 ml @ 4 mls/min Q8H IV 11/10/16 13:00 12/10/16 11:44 11/11/16 13:31 4 MLS/MIN Ferrous Sulfate 325 mg 325 mg BIDM PO 11/10/16 16:45 12/10/16 17:44 11/11/16 07:47 325 MG Daptomycin/Sodium Chloride (Cubicin IV/Nss 50ml) 61 ml @ 100 mls/hr DAILY@1400 IV 11/10/16 14:00 12/22/16 13:59 11/11/16 13:34 100 MLS/HR Tamsulosin HCl (Flomax Cap) 0.4 mg HS PO 11/11/16 21:00 12/11/16 20:59 Objective Vital Signs Date Time Temp Pulse Resp B/P Pulse Ox O2 Delivery O2 Flow Rate FiO2 11/11/16 15:40 37.0 79 20 161/83 97 Room Air 11/11/16 10:51 165/87 11/11/16 10:45 Room Air 11/11/16 10:40 36.9 79 17 169/88 96 Room Air 11/11/16 10:20 36.7 85 16 97 11/11/16 08:42 36.7 85 16 155/ 97 Room Air 11/11/16 08:00 Room Air 11/11/16 04:00 Room Air 11/11/16 03:25 36.8 84 17 161/92 97 Room Air 11/10/16 23:59 Room Air 11/10/16 23:46 37.0 83 17 139/88 96 Room Air 11/10/16 20:00 Room Air 11/10/16 19:43 36.8 77 18 157/88 97 Physical Exam General Appearance: WD/WN, no apparent distress Eyes: normal inspection, sclerae normal ENT: hearing grossly normal Neck: supple, trachea midline Respiratory/Chest: chest non-tender, lungs clear, normal breath sounds, no respiratory distress, no accessory muscle use Cardiovascular: regular rate, rhythm, no murmur Abdomen: normal bowel sounds, non tender, soft Extremities: + pertinent finding (Left knee with dressing in place. Drain appears to have some bloody/cloudy drainage today.) Neurologic/Psychiatric: alert, normal mood/affect Skin: normal color, warm/dry, no rash Laboratory Results Item Value Date Time Gram Stain - Final Resulted 11/11/16 1005 Joint Fluid/Space (Synovial) Knee Left Blood Culture Received 11/10/16 0740 Blood Pending Urine Culture - Final Complete 11/09/16 2127 Urine , Clean Catch NO GROWTH - LESS THAN 1,000 COLONIES/ML Blood Culture - Preliminary Resulted 11/09/16 1756 Blood NO GROWTH TO DATE. Blood Culture - Preliminary Resulted 11/09/16 1750 Blood NO GROWTH TO DATE. Last 24 Hours Test 11/11/16 05:40 White Blood Count 4.15 K/uL Red Blood Count 2.68 M/uL Hemoglobin 7.9 g/dL Hematocrit 24.2 % Mean Corpuscular Volume 90.3 fL Mean Corpuscular Hemoglobin 29.5 pg Mean Corpuscular Hemoglobin Concent 32.6 g/dl Platelet Count 279 K/uL Mean Platelet Volume 8.6 fL Neutrophils (%) (Auto) 59.3 % Lymphocytes (%) (Auto) 30.1 % Monocytes (%) (Auto) 8.0 % Eosinophils (%) (Auto) 1.2 % Basophils (%) (Auto) 1.2 % Neutrophils # (Auto) 2.46 K/uL Lymphocytes # (Auto) 1.25 K/uL Monocytes # (Auto) 0.33 K/uL Eosinophils # (Auto) 0.05 K/uL Basophils # (Auto) 0.05 K/uL RDW Standard Deviation 50.7 fL RDW Coefficient of Variation 15.3 % Immature Granulocyte % (Auto) 0.2 % Immature Granulocyte # (Auto) 0.01 K/uL Red Blood Cell Morphology Unremarkable Sodium Level 142 mmol/L Potassium Level 3.2 mmol/L Chloride Level 109 mmol/L Carbon Dioxide Level 26 mmol/L Anion Gap 7.0 mmol/L Blood Urea Nitrogen 17 mg/dl Creatinine 1.10 mg/dl Est Creatinine Clear Calc Drug Dose 75.7 ml/min Estimated GFR () 81.8 Estimated GFR (Non- 70.6 BUN/Creatinine Ratio 15.6 Random Glucose 85 mg/dl Calcium Level 8.3 mg/dl Assessment and Plan Patient with septic left TKA with MSSA (s/p I & D last week) with recent history of Enterococcal UTI as well. Patient is currently on IV daptomycin therapy. Recommend continuing IV daptomycin for outpatient use and for completion of his prior 6 weeks of IV antibiotic therapy. The patient likely will need extended oral antibiotic therapy following IV antibiotics. He has however much improved today, and I feel that the patient is okay for discharge from an ID perspective. He can follow-up with Infectious Disease as an outpatient well. Thank you. PROVIDER ADDENDUM:Pt. reviewed with Ms. Monroy. Agree with above assessment.
[2016-11-11] MEDS: RIVAROXABAN 10 MG TAB PO SCH (16:45)
[2016-11-11] MEDS ORDERED: TAMSULOSIN HCL 0.4 MG CAP PO SCH (21:00)
[2016-11-12 00:06] VITALS: BP 157/85; PULSE 79; TEMP 37; O2SAT 97
[2016-11-12] MEDS: HYDROCORTISONE IV 25 MG in SYRINGE 0 ML IV SCH ×2 (05:46→12:45)
[2016-11-12 06:09] LABS: BASO % 1.1 %; BASO ABS # 0.05 K/uL (0-0.2); EOS % 1.5 %; HEMATOCRIT 24.9 % (42-52); IG% 0.4 %; LYMPH % 30.4 %; LYMPH ABS # 1.43 K/uL (1.2-3.4); MEAN CELL VOLUME 90.5 fL (80-100); MEAN CORPUSCULAR HEMOGLOBIN 28.4 pg (25-34); MEAN CORPUSCULAR HGB CONC 31.3 g/dl (32-36); MEAN PLATELET VOLUME 8.9 fL (7.4-10.4); MONO % 6.8 %; NEUT % 59.8 %; PLATELET COUNT 297 K/uL (130-400); RED BLOOD COUNT 2.75 M/uL (4.7-6.1); WHITE BLOOD COUNT 4.71 K/uL (4.8-10.8)
[2016-11-12 06:33] LABS: COMPLETE YES
[2016-11-12 06:41] LABS: BUN/CREATININE RATIO 21.1 (10-20); CREATININE 0.94 mg/dl (0.60-1.40); MAGNESIUM 1.9 mg/dl (1.8-2.4); POTASSIUM 3.6 mmol/L (3.5-5.1)
[2016-11-12 06:56] LABS: CALCIUM 8.4 mg/dl (8.5-10.1)
[2016-11-12 07:05] VITALS: BP 164/88; PULSE 82; TEMP 37; O2SAT 96
[2016-11-12] MEDS: HYDROCODONE/ACETAMI 10/325 TAB PO PRN ×2 (07:30→13:58)
--- NOTE | 2016-11-12 07:53 | Progress Note ---
Subjective Date of Service: November 12, 2016. Subjective Pt evaluation today including: conversation w/ patient, chart review, lab review Voiding: no voiding problems Pt reports he feels improved today. Denies pain. Blood and urine cultures negative. He reports nocturia 4x overnight, but says he did not sleep well. Reports occasional urgency. Denies dysuria or hematuria. Tamsulosin started last evening to replace his Rapaflo he normally takes at home. Problem List Medical Problems: (1) Acute renal failure (ARF) Status: Acute (2) Anemia Status: Acute (3) Cellulitis of left knee Status: Acute (4) Dehydration Status: Acute (5) Dehydration Status: Acute (6) Failure of outpatient treatment Status: Acute (7) Failure of outpatient treatment Status: Acute (8) Hyponatremia Status: Acute (9) Infection of prosthetic left knee joint Status: Acute (10) Urinary tract infection Status: Acute (11) Weakness Status: Acute Review of Systems Constitutional: No chills, No fever Respiratory: No shortness of breath Cardiac: No chest pain Abdomen: No nausea, No pain, No vomiting Male : No dysuria, No hematuria Heme: No abnormal bleeding/bruising Objective Vital Signs Date Time Temp Pulse Resp B/P Pulse Ox O2 Delivery O2 Flow Rate FiO2 11/12/16 00:20 Room Air 11/12/16 00:06 37.0 79 18 157/85 97 Room Air 11/11/16 15:40 37.0 79 20 161/83 97 Room Air 11/11/16 15:30 Room Air 11/11/16 10:51 165/87 11/11/16 10:45 Room Air 11/11/16 10:40 36.9 79 17 169/88 96 Room Air 11/11/16 10:20 36.7 85 16 97 11/11/16 08:42 36.7 85 16 155/ 97 Room Air 11/11/16 08:00 Room Air Physical Exam General Appearance: no apparent distress Eyes: normal inspection ENT: hearing grossly normal Neck: no JVD Respiratory/Chest: no respiratory distress, no accessory muscle use Cardiovascular: no JVD Extremities: normal inspection Neurologic/Psychiatric: alert, normal mood/affect, oriented x 3 Skin: normal color Laboratory Results Last 24 Hours Test 11/12/16 05:50 White Blood Count 4.71 K/uL Red Blood Count 2.75 M/uL Hemoglobin 7.8 g/dL Hematocrit 24.9 % Mean Corpuscular Volume 90.5 fL Mean Corpuscular Hemoglobin 28.4 pg Mean Corpuscular Hemoglobin Concent 31.3 g/dl Platelet Count 297 K/uL Mean Platelet Volume 8.9 fL Neutrophils (%) (Auto) 59.8 % Lymphocytes (%) (Auto) 30.4 % Monocytes (%) (Auto) 6.8 % Eosinophils (%) (Auto) 1.5 % Basophils (%) (Auto) 1.1 % Neutrophils # (Auto) 2.82 K/uL Lymphocytes # (Auto) 1.43 K/uL Monocytes # (Auto) 0.32 K/uL Eosinophils # (Auto) 0.07 K/uL Basophils # (Auto) 0.05 K/uL RDW Standard Deviation 50.6 fL RDW Coefficient of Variation 15.3 % Immature Granulocyte % (Auto) 0.4 % Immature Granulocyte # (Auto) 0.02 K/uL Red Blood Cell Morphology Unremarkable Sodium Level 142 mmol/L Potassium Level 3.6 mmol/L Chloride Level 109 mmol/L Carbon Dioxide Level 26 mmol/L Anion Gap 7.0 mmol/L Blood Urea Nitrogen 20 mg/dl Creatinine 0.94 mg/dl Est Creatinine Clear Calc Drug Dose 86.0 ml/min Estimated GFR () 98.9 Estimated GFR (Non- 85.3 BUN/Creatinine Ratio 21.1 Random Glucose 84 mg/dl Calcium Level 8.4 mg/dl Magnesium Level 1.9 mg/dl Assessment and Plan A/P: Recurrent UTI AFVSS. Symptoms improving. Cultures negative. Appreciate ID input. Management of UTI and infected TKA per ID. Pt to continue IV Daptomycin as outpatient and then transition to oral abx. KUB negative for ureteral stones. Renal stones noted. Consider outpatient ESWL once joint infection has adequately resolved. Continue tamsulosin in place of Rapaflo while inpatient per formulary. Continue Rapaflo once home. Will keep outpatient cysto as scheduled with Dr. Story in December. No further management at this time. Pt OK for d/c home from perspective. Recall PRN issues.
[2016-11-12] MEDS ORDERED: DILTIAZEM HCL (TIAzac) 180 MG CAPCR PO SCH (09:00)
[2016-11-12] MEDS: GABAPENTIN 300 MG CAP PO SCH ×2 (09:08→13:52)
[2016-11-12] MEDS: FERROUS SULFATE 325 MG TAB PO SCH (09:08)
[2016-11-12 09:10] VITALS: BP 152/77; PULSE 80
[2016-11-12] MEDS ORDERED: FRRS300 PO (10:34)
[2016-11-12] MEDS ORDERED: HYDR-4079 PO (10:34)
[2016-11-12] MEDS ORDERED: DAPT500I IV (10:34)
[2016-11-12] MEDS ORDERED: PRED10TA PO (10:34)
--- NOTE | 2016-11-12 10:52 | Discharge Instructions ---
Discharge Instructions Date of Service November 12, 2016. Admission Reason for Admission: Dehydration, Infection Of Prosthetic L Knee Joint, Discharge Discharge Diagnosis / Problem: septic joint, fever Discharge Goals Goal(s): Improve function, Therapeutic intervention Activity Recommendations Activity Limitations: resume your previous activity weightbearing on Left leg as tolerated . Instructions / Follow-Up Instructions / Follow-Up You have been treated in the hospital for possible sepsis due to your infected knee. Blood cultures have been negative. You were treated with IV antibiotics and steroids You also were put on a surveillance monitor. It is likely that you have paroxysmal A fib however we did not see it on the monitor here. Your echocardiogram was unremarkable You were also noted to be anemic and started on an iron supplement. Between the iron and narcotic pain meds, YOU WILL BE CONSTIPATED. Please take an over the counter stool softener (likely colace) twice daily. (hold for diarrhea) Due to the infection, we have increased your steroids. Dr. Chin can make further adjustments to your prednisone as needed Please follow up with the following as scheduled: -Dr. Schneider, orthopedics -Dr. Story, urology -Dr. Pabon, infectious disease Please have a repeat CBC drawn on Wednesday, November 16 Please also follow up with your primary care physician next week Call your doctor or return to the emergency department if you have any of the following symptoms: -Fever of 101F or greater -increased swelling, pain or redness of the knee -Persistent vomiting - Persistent diarrhea -Lethargy -Chest pain -Shortness of breath -severe dizziness -weakness on one side of your body Current Hospital Diet Patient's current hospital diet: Regular Diet Discharge Diet Recommended Diet: AHA Diet (Heart Healthy) Pending Studies Studies pending at discharge: no Medical Emergencies . Who to Call and When: Medical Emergencies: If at any time you feel your situation is an emergency, please call 911 immediately. . Non-Emergent Contact Non-Emergency issues call your: Primary Care Provider . . "Provider Documentation" section prepared by Brittney Almaguer. . VTE Core Measure Inpt VTE Proph given/why not?: Other Anticoagulation (xarelto)
--- NOTE | 2016-11-12 11:16 | Discharge Summary ---
Discharge Summary Date of Service November 12, 2016. Discharge Summary Admission Date: November 09, 2016 at 20:35 Discharge Date: November 12, 2016 Discharge Disposition: Home Principal Diagnosis: fever, septic knee Problems/Secondary Diagnoses: PAF RA HTN PE/DVT anemia Immunizations: Have You Had Influenza Vaccine: No History of Tetanus Vaccine?: No History of Pneumococcal: No History of Hepatitis B Vaccine: No Procedures: echo Left Ventricle * The left ventricle is normal in size. * There is borderline concentric left ventricular hypertrophy. * Ejection Fraction = >70 %. * Left ventricular systolic function is normal. * Grade I diastolic dysfunction, (abnormal relaxation pattern). Consultations: urology orthopedics ID Medication Reconciliation New Medications: Daptomycin (Daptomycin) 500 Mg Inj 550 MG IV DAILY for 28 Days, #28 DOSE Prednisone Tab (Prednisone) 10 Mg Tab 10 MG PO UD, #31 TAB 4 tabs x 2 days 3 tabs x 2 days 2 tabs x 2 days 1 tab x 2 days 1/2 tab daily Ferrous Sulfate (Ferrous Sulfate) 325 Mg Tab 325 MG PO BIDM for 30 Days, #60 TAB Continued Medications: Diltiazem Hcl Ext Rel (Tiazac) 120 Mg Capcr 120 MG PO DAILY, CAP Gabapentin (Neurontin) 300 Mg Cap 300 MG PO TID, CAP Hydrochlorothiazide (Hctz) 25 Mg Tab 25 MG PO QAM, TAB Hydrocodone/Acetaminophen 10MG/325MG ([place] 10MG/325MG) Tab 1 TAB PO Q4H PRN for Pain for 3 Days, #24 TAB (This prescription has been renewed) PRN PAIN Lisinopril (Lisinopril) 5 Mg Tab 5 MG PO QAM Rivaroxaban (Xarelto) 10 Mg Tab 10 MG PO DAILY@1700, TAB Silodosin (Rapaflo) 8 Mg Cap 8 MG PO QPM for 90 Days, CAP Discontinued Medications: Acetaminophen (Tylenol) 500 Mg Tab 500 MG PO DAILY PRN for HEADACHE, TAB Rifampin (Rifadin) 300 Mg Cap 300 MG PO BID, CAP Vancomycin HCl in Sodium Chlor (Vancomycin Hydrochloride/ 1.5-0.9 gm/500Ml-%) 1 Inj Inj 250 ML IV Q12 VANCOMYCIN ( VANCOMYCIN ADV VIAL) 1.5GM, SODIUM CHLORIDE 0.9% (LVP NSS) 500ML Referrals At Discharge Follow up Referrals: Infectious Disease - Within 2 Weeks with Justin Pabon MD Physician Referral - Within 1 Week with Dc Chin M.D. Urologist Referral - Within 2 Weeks with Kana Story M.D. Discharge Exam Patient reports feeling well today. Denies any significant pain or swelling in the knee. Denies any fever or chills. He did have a mild headache when he first woke up, but relates it to his sleeping position. It has dissipated. Review of Systems: Constitutional: No fever Respiratory: No cough, No shortness of breath Cardiovascular: No chest pain Abdomen: No diarrhea, No nausea Endocrine: No fatigue Physical Exam: General Appearance: no apparent distress Eyes: EOMI Neck: no JVD Respiratory/Chest: lungs clear Cardiovascular: regular rate, rhythm Abdomen / GI: normal bowel sounds, non tender, soft Extremities: + pertinent finding (trace pitting edema in the left lower extremity. Incision is clean, dry and intact. No significant redness noted. Mild swelling is unchanged.) Neurologic/Psychiatric: no motor/sensory deficits, oriented x 3 Skin: warm/dry Hospital Course This patient is an unfortunate 66-year-old male that presented to the emergency department with complaints of fever, malaise, generalized body aches and headache. Recent infected L TKA Malaise, body aches and fever-known septic L knee s/p revision/washout on 10/30 and drain placement -was on Vanco and Rifampin per PICC line upon d/c from [facility], [place] on November 02 -cultures from here grew MSSA prior to being transferred to [place] -ABX changed to daptomycin per ID -Blood cx negative -repeat cx from knee drain-no organisms, many polys -orthopedics consulted. Pulled drain on 11/12 Anemia-probable component of iron deficiency in addition to chronic Dz. Baseline ~ 9-9.5 -Hgb now 7.8 -FOB neg -started on Iron -repeat CBC next week UTI-grew out E. faecalis on 10/25 -following with urology for frequent UTIs -Continue daptomycin-which is adequate coverage per sensitivities -Plan is for cystoscopy and likely prophylactic ABX when he finishes his IV ABX for septic knee -Pt also has a hx of kidney stones-->KUB nephrolithiasis, no ureteral stones noted -urology following. Follow up scheduled BPH -on Rapaflo at home that was changed to Flomax while in house Hx RA-on chronic steroids that have been discontinued because of infection--> probably a lot of his symptoms are related to adrenal insufficiency from chronic steroid use -Given stress dose hydrocortisone 25 mg IV q 8 hr-->prednisone taper upon d/c Hx PE/DVT -Continue Xarelto ?Hx of A fib--never had cardiac workup per daughter. -monitored on tele 24 hrs-no a fib -echo grade 1 diastolic dysfunction. EF 70% -Continue Xarelto and diltiazem 120 mg po BID -likely parox a fib DVT prophylaxis -Xarelto -TEDS, SCDs CODE STATUS -LEVEL I FULL CODE DISPO -PT/OT eval-->home with [facility] Total Time Spent: Greater than 30 minutes This includes examination of the patient, discharge planning, medication reconciliation, and communication with other providers. Discharge Instructions Please refer to the electronic Patient Visit Report (Discharge Instructions) for additional information. Follow-Up PCP urology ortho ID Additional Copies To Justin Pabon MD; Dc Chin M.D.; Kana Story M.D.
[2016-11-12] MEDS: DAPTOmycin IV 550 MG in SODIUM CHLORIDE 0.9% 50ML 50 ML IV SCH (13:51)
[2016-11-12 14:01] VITALS: BP 152/77; PULSE 80; TEMP 37; O2SAT 96
[2016-11-12] MEDS ORDERED: XRL20 PO (14:50)
[2016-11-12] MEDS ORDERED: TZCSR180 PO (14:50)
[2016-11-12 15:19] VITALS: BP 163/86; PULSE 76; TEMP 37.2; O2SAT 97
[2016-11-12] MEDS ORDERED: RIVAROXABAN 20 MG TAB PO SCH (17:00)
[2017-02-11] MEDS ORDERED: HYDR200T5 PO (15:10)
[2017-02-11] MEDS ORDERED: CIPR1TAB11 PO (15:10)
[2017-02-11] MEDS ORDERED: FERR1TAB61 PO (15:10)
[2017-02-11] MEDS ORDERED: DILT120C68 PO (15:10)
[2017-02-11] MEDS ORDERED: NF1420 PO (15:10)
[2017-02-11] MEDS ORDERED: ASPI81TA28 PO (15:10)
== END 2016-11-12 17:31 | disposition home health service (06) | DRG 549 ==
LOC: ENRESERVTM → ENRESERVDT → C.EDB 15:16 → C.MSW 20:35 → C.2E 11-10 13:08 → C.MSW 11-11 08:50
PROVIDERS: ADMIT Hospitalist; ATTEND Internal Medicine
DX: M00.862 Arthritis due to other bacteria, left knee (principal); E27.40 Unspecified adrenocortical insufficiency; B95.61 Methicillin susceptible Staphylococcus aureus infection as the cause of diseases classified elsewhere; T38.0X5A Adverse effect of glucocorticoids and synthetic analogues, initial encounter; D50.9 Iron deficiency anemia, unspecified; E86.0 Dehydration; M54.5 Low back pain; M06.9 Rheumatoid arthritis, unspecified; D63.8 Anemia in other chronic diseases classified elsewhere; N40.0 Benign prostatic hyperplasia without lower urinary tract symptoms; I10 Essential (primary) hypertension; I48.0 Paroxysmal atrial fibrillation; E66.9 Obesity, unspecified; Z51.81 Encounter for therapeutic drug level monitoring; Z79.899 Other long term (current) drug therapy; Z79.01 Long term (current) use of anticoagulants; Z96.652 Presence of left artificial knee joint; Z86.19 Personal history of other infectious and parasitic diseases; Z86.14 Personal history of Methicillin resistant Staphylococcus aureus infection; Z87.440 Personal history of urinary (tract) infections; Z87.442 Personal history of urinary calculi; Z86.718 Personal history of other venous thrombosis and embolism; Z86.711 Personal history of pulmonary embolism; Z68.27 Body mass index [BMI] 27.0-27.9, adult; Z82.49 Family history of ischemic heart disease and other diseases of the circulatory system

== ENCOUNTER → 2017-01-11 | Outpatient (CLI) | payer BC ==
[~2017-01-11] MED LIST changes: +ACET-24 PO; -ASPI325T45 PO; +ASPI81TA28 PO; +CIPR1TAB11 PO; +DAPT500I IV; +FERR1TAB61 PO; +FRRS300 PO; +HYDR-4079 PO; +HYDR200T5 PO; -LEFL20TA PO; -MELO7.5T5 PO; +NF1420 PO; -OXYC1TAB3 PO; -PRED-301 PO; +PRED10TA PO; +RXC5 PO; -SULF800T23 PO; -TRAM-10 PO; -TYLOTC500 PO; +TZCSR180 PO; +XRL20 PO
== END | disposition home or self-care (01) ==
LOC: C.LABSPEC 10:48
PROVIDERS: ATTEND Nurse Practitioner Family
DX: R35.0 Frequency of micturition (principal); N39.0 Urinary tract infection, site not specified

== ENCOUNTER 2017-03-01 09:46 | Inpatient (IN) | payer BC ==
--- NOTE | 2017-02-11 15:51 | PAT Medication Instructions ---
Service Date Feb 11, 2017. Current Home Medication List Aspirin (Aspirin Ec), 81 MG PO BID Cefadroxil (Cefadroxil), 1 GM PO BID Ciprofloxacin Tab (Cipro), 500 MG PO BID Diltiazem Hcl Ext Rel (Tiazac), 120 MG PO QAM Ferrous Sulfate (Iron), 1 TAB PO BID Gabapentin (Neurontin), 300 MG PO TID Hydrochlorothiazide (Hctz), 25 MG PO QAM Hydroxychloroquine Sulfate (Plaquenil), 1 TAB PO BID Lisinopril (Lisinopril), 10 MG PO QAM Silodosin (Rapaflo), 8 MG PO QPM Medication Instructions For Your Scheduled Surgery - Hold the following medications the morning of surgery: Hydrochlorothiazide (Hctz), 25 MG PO QAM Lisinopril (Lisinopril), 10 MG PO QAM Ferrous Sulfate (Iron), 1 TAB PO BID - Take the following medications the morning of surgery with a sip of water OTHERWISE NOTHING TO EAT OR DRINK AFTER MIDNIGHT: Diltiazem Hcl Ext Rel (Tiazac), 120 MG PO QAM Gabapentin (Neurontin), 300 MG PO TID Aspirin (Aspirin Ec), 81 MG PO BID (okay to continue per surgeon) Hydroxychloroquine Sulfate (Plaquenil), 1 TAB PO BID Cefadroxil (Cefadroxil), 1 GM PO BID - Take the following medications as scheduled the night before surgery: Silodosin (Rapaflo), 8 MG PO QPM Gabapentin (Neurontin), 300 MG PO TID Aspirin (Aspirin Ec), 81 MG PO BID (okay to continue per surgeon) Ferrous Sulfate (Iron), 1 TAB PO BID Hydroxychloroquine Sulfate (Plaquenil), 1 TAB PO BID Cefadroxil (Cefadroxil), 1 GM PO BID If you have any questions please call us at [phone] or [phone] or [phone]
[2017-02-11 16:23] LABS: BASO % 0.4 %; BASO ABS # 0.03 K/uL (0-0.2); COMPLETE YES; EOS % 1.5 %; HEMATOCRIT 33.3 % (42-52); IG% 0.3 %; LYMPH % 19.8 %; LYMPH ABS # 1.42 K/uL (1.2-3.4); MEAN CELL VOLUME 85.6 fL (80-100); MEAN CORPUSCULAR HEMOGLOBIN 27.5 pg (25-34); MEAN CORPUSCULAR HGB CONC 32.1 g/dl (32-36); MEAN PLATELET VOLUME 8.8 fL (7.4-10.4); MONO % 6.4 %; NEUT % 71.6 %; PLATELET COUNT 329 K/uL (130-400); RED BLOOD COUNT 3.89 M/uL (4.7-6.1); WHITE BLOOD COUNT 7.18 K/uL (4.8-10.8)
[2017-02-11 16:30] LABS: BUN/CREATININE RATIO 18.6 (10-20); CALCIUM 9.3 mg/dl (8.5-10.1); CREATININE 0.97 mg/dl (0.60-1.40); POTASSIUM 3.9 mmol/L (3.5-5.1)
[2017-02-11 16:32] LABS: ALB/GLOB RATIO 0.9 (0.9-2)
[2017-02-11 16:35] LABS: PARTIAL THROMBOPLASTIN RATIO 1.1; PROTHROMBIN TIME (PATIENT) 11.2 SECONDS (9.0-12.0)
--- NOTE | 2017-02-27 17:12 | History and Physical ---
History & Physical Date Feb 27, 2017. Chief Complaint RIGHT KNEE PAIN History of Present Illness The patient is a 66 year old male with complaints of right knee pain for about 2 years. he has known hx of Rheumatoid arthritis, takes RA meds, has had mulltiple injections and even arthroscopic surgery with no relief. He has a hx of PE and DVT in past. Also has hx of chronic UTIs and has hx of left tka, developed infection and now doing very well. Hes ready for right tka. Past Medical/Surgical History Medical Problems: (1) DVT (deep venous thrombosis) (2) Lumbar stenosis with neurogenic claudication (3) Prostatitis (4) Pulmonary embolism (5) Sepsis Additional History Hepatic Disease: No Endocrine Disorder: No Kidney Disease: No Hypertension: Yes Heart Disease: No Bleeding Tendencies: No Infectious Diseases: No Other: hx of left tka infection. and DVT. Allergies Coded Allergies: No Known Allergies (Unverified , 02/11/17) Home Medications Scheduled Aspirin (Aspirin Ec), 81 MG PO BID Cefadroxil (Cefadroxil), 1 GM PO BID Diltiazem Hcl Ext Rel (Tiazac), 120 MG PO QAM Ferrous Sulfate (Iron), 1 TAB PO BID Gabapentin (Neurontin), 300 MG PO TID Hydrochlorothiazide (Hctz), 25 MG PO QAM Hydroxychloroquine Sulfate (Plaquenil), 1 TAB PO BID Lisinopril (Lisinopril), 10 MG PO QAM Silodosin (Rapaflo), 8 MG PO QPM Physical Examination Skin: warm/dry, no rash Eyes: normal inspection, EOMI, sclerae normal ENT: normal ENT inspection, pharynx normal Head: normocephalic, atraumatic Neck: supple, no adenopathy, trachea midline Respiratory/Chest: lungs clear, normal breath sounds, no respiratory distress Cardiovascular: regular rate, rhythm, no edema, no murmur Abdomen / GI: normal bowel sounds, non tender Back: normal inspection Extremities: + pertinent finding (pain and deformity right knee . ) Neurologic/Psych: no motor/sensory deficits, alert, normal reflexes, oriented x 3 Diagnosis RHEUMATOID ARTHRITIS RIGHT KNEE Plan of Treatment PLAN IS FOR ADMISSON AND RIGHT TKA. HE WILL BE ON XARELTO FOR DVT PROPHYLAXIS AND ON AN ORAL ABX THROUGHOUT THE DURATION OF HIS RECOVERY SECONDARY TO CHRONIC UTIS AND HX OF LEFT TKA INFECTION.
[2017-03-01] VITALS (7 sets, daily range): BP systolic 112–129; BP diastolic 64–85; PULSE 64–77; TEMP 36.6–36.9; O2SAT 95–99; Ht 172.7 cm; Wt 89.4 kg
[~2017-03-01] VITALS: Ht 172.7 cm; Wt 89.4 kg
[2017-03-01] MEDS: TRANEXAMIC ACID INJ 1,000 MG in SODIUM CHLORIDE 0.9% 100ML 100 ML IV SCH ×2 (06:30→11:50)
[~2017-03-01 09:46] MED LIST changes: -ACET-24 PO; +ACETAMINOPHEN 500 MG TAB PO SCH; +BUPIVACAINE 0.25% 30 ML VIAL ONE; +BUPIVACAINE 0.5 % 5 MG/1 ML PF 10ML VIAL ONE; +CEFAZOLIN 2000 MG/60 ML D5W 60 ML IV SCH; -CIPR1TAB11 PO; +CIPROFLOXACIN 500 MG TAB PO SCH; +CeleBREX 200 MG CAP PO SCH; -DAPT500I IV; +DEXAMETHASONE 4 MG TAB PO SCH; +EpINEphrine INJ 1MG/ML AMP 1 MG/ML AMP ONE; +FAMOTIDINE 20 MG TAB PO SCH; -FRRS300 PO; -HYDR-4079 PO; +LACTATED RINGER'S 1000ML IV SCH; +METOCLOPRAMIDE HCL 10 MG TAB PO SCH; -PRED10TA PO; +ROPIVACAINE 5MG/ML 30 ML 150 MG, BUPIVACAINE/EPINEPHR 0.5% MPF 30 ML, KETOROLAC TROMETH... INFIL SCH; -RXC5 PO; -TZCSR180 PO; -XRL20 PO
[2017-03-01] MEDS ORDERED: LIDOCAINE HCL 2% 2 ML VIAL (20MG/ML) ONE (10:16)
[2017-03-01] MEDS ORDERED: MIDAZOLAM HCL 1 MG/ML 2ML VIAL ONE (10:16)
[2017-03-01] MEDS ORDERED: PROPOFOL IV EMULSION 10 MG/ML 20 ML VIAL IV ONE (10:16)
[2017-03-01] MEDS ORDERED: ATROPINE SULFATE 0.1 MG/ML 5ML SYR IV PRN (10:45)
[2017-03-01] MEDS ORDERED: EpHEDrine SULFATE INJ 50 MG/ML AMP IV PRN (10:45)
[2017-03-01] MEDS ORDERED: ONDANSETRON INJ 2 MG/ML 2 ML VIAL IV PRN ×2 (10:45→13:30)
[2017-03-01] MEDS ORDERED: LABETALOL HCL IV 5 MG/ML 20ML IV PRN (10:45)
[2017-03-01] MEDS ORDERED: PHENYLEPHRINE 100MCG/ML 5ML SYR IV PRN (10:45)
[2017-03-01] MEDS ORDERED: FENTANYL CITRATE INJ 50 MCG/1 ML 2 ML VIAL IV PRN (10:45)
[2017-03-01] MEDS ORDERED: FLUMAZENIL 0.1 MG/1 ML 10 ML VIAL IV PRN (10:45)
[2017-03-01] MEDS ORDERED: NALOXONE HCL 0.4 MG/1 ML VIAL/CARP IV PRN (10:45)
[2017-03-01] MEDS ORDERED: MEPERIDINE HCL 25 MG/ML CARP IV PRN (10:45)
[2017-03-01] MEDS ORDERED: HYDROmorphone INJ 2 MG/ML SYR/VIAL IV PRN (10:45)
--- NOTE | 2017-03-01 11:06 | History & Physical Bridge Note ---
H&P Re-Evaluation Bridge Note: I have examined the patient, reviewed the History & Physical and in the interval since the performance of the History & Physical I have noted the following changes of clinical significance: No changes noted
[2017-03-01] MEDS ORDERED: ORTHO JOINT ANESTHETIC ONE (11:17)
[2017-03-01] MEDS ORDERED: BACITRACIN 50000 UNIT VIAL ONE (11:17)
[2017-03-01] MEDS ORDERED: POVIDONE-IODINE OP SOLN 30 ML BTL ONE (11:17)
[2017-03-01] MEDS ORDERED: CIPR1TAB11 PO (11:18)
[2017-03-01] MEDS ORDERED: EpHEDrine SULFATE 50MG/5ML SYR ONE (12:35)
[2017-03-01] MEDS ORDERED: PHENYLEPHRINE 100MCG/ML 5ML SYR ONE (12:35)
[2017-03-01] MEDS ORDERED: MAGNESIUM HYDROXIDE SUSP 30 ML UDC PO PRN (13:30)
[2017-03-01] MEDS ORDERED: ZOLPIDEM TARTRATE 5 MG TAB PO PRN (13:30)
[2017-03-01] MEDS ORDERED: BISACODYL 10 MG SUPP PR PRN (13:30)
[2017-03-01] MEDS ORDERED: SOD PHOSPHATE/SOD BIPHOSPHATE ENEMA 132 ML BTL PR PRN (13:30)
[2017-03-01] MEDS ORDERED: ALUMINUM/MAGNESIUM/SIMETH (MAALOX MAX) 30 ML UDC PO PRN (13:30)
--- NOTE | 2017-03-01 13:36 | [facility] Operative Report ---
Operative Report Operative Date Mar 01, 2017. Pre-Operative Diagnosis Rheumatoid Arthritis Right Knee Post-Operative Diagnosis Rheumatoid Arthritis Right Knee Procedure(s) Performed Right Total Knee Arthroplasty Surgeon Dr. Schneider Alarm Service Technician Surgeon(s) TIBURCIO Ramirez Estimated Blood Loss 30 ml Findings As above Specimens A. Right Knee Bone and Tissue Complication(s) None Description of Procedure IMPLANTS USED: Hanna triathlon posterior stabilized size 5 cemented femoral component, a size 4 universal base plate, a size 10 PS insert with size 38 all polyethylene patella (For a Ryann knee) INDICATIONS: pleasant male who has unfortunately failed all forms of conservative measures. Therefore, they have decided to undergo elective surgical intervention. All risks and benefits of the surgery were discussed with the patient and the family in entirety. PROCEDURE: The patient was brought to the operating room and properly identified by myself, anesthesia, and staff. Patient was given a spinal anesthesia and placed on the operating table in the supine position. The leg was then prepped and draped in usual sterile fashion. We made a standard midline approach over the patella and dissected down through the subcutaneous tissue to identify the capsule and performed a medial capsulotomy with the patella everted and the knee flexed. We then removed the spurs from around the femur and proximal tibia. I then put in a pilot plant research technician hole in the femur, put the IM cutting guide into place in approximately 5 degrees of valgus, and then the distal femoral cut was made. The femur measure to be a size 5. This was then put into place. We made the appropriate cuts and then placed a retractor behind the proximal tibia to retract anteriorly. We then placed the extramedullary cutting guide in place, made sure we had the appropriate varus and valgus alignment and appropriate slope, and the proximal tibia cut was made. It measured to be a size 4. A size 4 guide was then put in place. We used the tibial punch then put the trial components into place. We had very good range of motion, excellent stability, and excellent patella tracking. We removed the trial components and irrigated the wound. We impacted the components in place using antibiotic cement. All excess cement was removed. We then irrigated the wound once more. We closed the capsule with 0 PDS suture , deep dermis with 2-0 Vicryl, and finally the skin with patsy. A sterile dressing was applied. The patient was taken to the recovery room in stable condition. Due to the complex nature of the procedure, the entire surgery was performed with the operational assistance of [the (RAISA)]. The recruitment and outreach assistant was under direct supervision, was involved in the actual performance of all aspects of the surgical procedure including hemostasis, tissue retraction and incision, instrument management, patient positioning, and wound closure. I attest to the content of the Intraoperative Record and any orders documented therein. Any exceptions are noted below.
--- NOTE | 2017-03-01 14:43 | Anesthesiology Progress Note ---
Anesthesia Post Op Note Date & Time Mar 01, 2017 at 14:43 Vital Signs Pain Intensity: 0 Vital Signs Past 12 Hours Date Time Temp Pulse Resp B/P (MAP) Pulse Ox O2 Delivery O2 Flow Rate FiO2 03/01/17 14:40 36.6 85 18 114/65 98 Nasal Cannula 2 03/01/17 14:30 80 16 118/63 98 Nasal Cannula 2 03/01/17 14:20 79 17 114/61 97 Nasal Cannula 2 03/01/17 14:10 82 18 109/59 98 Nasal Cannula 2 03/01/17 14:00 79 16 114/62 98 Nasal Cannula 2 03/01/17 13:50 36.8 81 18 114/64 99 Nasal Cannula 4 03/01/17 11:00 36.6 64 18 123/85 99 Room Air Notes Mental Status: alert / awake / arousable, participated in evaluation Pt Amnestic to Procedure: Yes Nausea / Vomiting: adequately controlled Pain: adequately controlled Airway Patency, RR, SpO2: stable & adequate BP & HR: stable & adequate Hydration State: stable & adequate Neuraxial Anesthesia: was administered, sensory block is resolving Anesthetic Complications: no major complications apparent
[2017-03-01] MEDS: SODIUM CHLORIDE 0.9% 1000ML 1,000 ML IV SCH ×2 (16:40→23:51)
[2017-03-01] MEDS: OXYCODONE HCL IR 5 MG TAB (IMMEDIATE RELEASE) PO PRN (20:46)
[2017-03-01] MEDS: FERROUS SULFATE 325 MG TAB PO SCH (20:48)
[2017-03-01] MEDS: GABAPENTIN 300 MG CAP PO SCH (20:48)
[2017-03-01] MEDS: DOCUSATE SODIUM 100 MG CAP PO SCH (20:48)
[2017-03-01] MEDS: CEFAZOLIN IV 2,000 MG in DEXTROSE 5% 50ML 50 ML IV SCH (20:49)
[2017-03-01] MEDS ORDERED: CEFADROXIL 1 GM PO SCH (21:00)
[2017-03-01] MEDS ORDERED: NON-FORMULARY MEDICATION (Silodosin (Rapaflo) 8 MG) PO SCH (21:00)
[2017-03-01] MEDS: ACETAMINOPHEN 500 MG TAB PO SCH (21:37)
[2017-03-01] MEDS ORDERED: NURSING VERBAL MED ORDER ONE (22:15)
[2017-03-01] MEDS ORDERED: CIPROFLOXACIN 500 MG TAB PO ONE (22:30)
[2017-03-02] MEDS: OXYCODONE HCL IR 5 MG TAB (IMMEDIATE RELEASE) PO PRN ×5 (00:53→23:46)
[2017-03-02 03:16] VITALS: BP 113/64; PULSE 62; TEMP 36.7; O2SAT 96
[2017-03-02] MEDS: CEFAZOLIN IV 2,000 MG in DEXTROSE 5% 50ML 50 ML IV SCH (03:30)
[2017-03-02] MEDS: ACETAMINOPHEN 500 MG TAB PO SCH ×3 (05:44→21:53)
[2017-03-02 05:56] LABS: HEMATOCRIT 29.1 % (42-52); MEAN CELL VOLUME 82.4 fL (80-100); MEAN CORPUSCULAR HEMOGLOBIN 27.2 pg (25-34); MEAN PLATELET VOLUME 8.8 fL (7.4-10.4); PLATELET COUNT 298 K/uL (130-400); RED BLOOD COUNT 3.53 M/uL (4.7-6.1); WHITE BLOOD COUNT 13.13 K/uL (4.8-10.8)
[2017-03-02] MEDS ORDERED: LACTATED RINGER'S 1000ML 1,000 ML IV SCH (06:00)
[2017-03-02] MEDS ORDERED: LACTATED RINGER'S 1000ML 500 ML IV ONE (06:00)
[2017-03-02 06:51] VITALS: BP 127/63; PULSE 61; TEMP 36.5; O2SAT 98
[2017-03-02] MEDS ORDERED: DEXAMETHASONE INJ 10 MG in SYRINGE 0 ML IV SCH (07:30)
--- NOTE | 2017-03-02 07:55 | Orthopedic Progress Note ---
Orthopedic Progress Note Date of Service Mar 02, 2017. Subjective Post OP Day: 1 Reports: feeling well, pain controlled w PO medications, Denies: complaints, chest pain, SOB, nausea / vomiting, light headedness, calf pain Objective calves soft nontender, N/V intact, capillary refill less than 2 sec., dressing C /D/I, A&O x3, toes mobile, hemovac drainage (200/150cc) Date Time Temp Pulse Resp B/P (MAP) Pulse Ox O2 Delivery O2 Flow Rate FiO2 03/02/17 06:51 36.5 61 18 127/63 (84) 98 Room Air 03/02/17 03:16 36.7 62 18 113/64 (80) 96 Room Air 03/02/17 00:00 Room Air 03/01/17 22:52 36.9 72 18 112/64 (80) 95 Room Air 03/01/17 19:00 36.7 69 16 127/67 (87) 98 Nasal Cannula 2.0 03/01/17 17:45 36.6 72 18 127/70 (89) 98 Nasal Cannula 2.0 03/01/17 16:45 36.6 68 16 113/69 (84) 99 Nasal Cannula 2.0 03/01/17 16:15 36.7 71 18 120/68 (85) 97 Nasal Cannula 2.0 03/01/17 15:45 99 Nasal Cannula 2.0 03/01/17 15:45 36.7 77 16 129/69 (89) 97 Nasal Cannula 2.0 03/01/17 15:45 Nasal Cannula 2.0 03/01/17 15:30 82 19 121/57 99 Nasal Cannula 2 03/01/17 15:15 82 17 121/66 99 Nasal Cannula 2 03/01/17 15:00 80 18 111/62 98 Nasal Cannula 2 03/01/17 14:50 76 16 109/62 98 Nasal Cannula 2 03/01/17 14:40 36.6 85 18 114/65 98 Nasal Cannula 2 03/01/17 14:30 80 16 118/63 98 Nasal Cannula 2 03/01/17 14:20 79 17 114/61 97 Nasal Cannula 2 03/01/17 14:10 82 18 109/59 98 Nasal Cannula 2 03/01/17 14:00 79 16 114/62 98 Nasal Cannula 2 03/01/17 13:50 36.8 81 18 114/64 99 Nasal Cannula 4 03/01/17 11:00 36.6 64 18 123/85 99 Room Air Laboratory Results 24 Hours: Test 03/02/17 05:44 Hematocrit 29.1 % Hemoglobin 9.6 g/dL Assessment & Plan Assessment: POD #1 Right TKA Plan: DVT prophylaxis - xarelto Discharge - Home H/H PT/OT Inhouse Planning Pain Management: Oxy IR DVT Prophylaxis: TEDs, SCDs, Xarelto Discharge Planning Discharge Planning: home with home health Pain Management: Oxy IR DVT Prophylaxis: Xarelto Therapy: Physical Therapy
[2017-03-02] MEDS: DOCUSATE SODIUM 100 MG CAP PO SCH ×2 (08:31→21:52)
[2017-03-02] MEDS: RIVAROXABAN 20 MG TAB PO SCH (08:32)
[2017-03-02] MEDS: FERROUS SULFATE 325 MG TAB PO SCH ×2 (08:32→21:52)
[2017-03-02] MEDS: DILTIAZEM HCL 120 MG EXT REL CAP PO SCH (08:32)
[2017-03-02] MEDS: GABAPENTIN 300 MG CAP PO SCH ×3 (08:32→21:52)
[2017-03-02] MEDS: LISINOPRIL 5 MG TAB PO SCH (08:33)
[2017-03-02] MEDS: HYDROCHLOROTHIAZIDE 25 MG TAB PO SCH (08:33)
[2017-03-02] MEDS: CIPROFLOXACIN 500 MG TAB PO SCH ×2 (08:49→21:52)
[2017-03-02] MEDS: SODIUM CHLORIDE 0.9% 1000ML 1,000 ML IV SCH (08:51)
[2017-03-02 11:11] VITALS: BP 158/83; PULSE 67; TEMP 36.4; O2SAT 99
[2017-03-02 15:13] VITALS: BP 166/80; PULSE 54; TEMP 36.6; O2SAT 100
[2017-03-02] MEDS ORDERED: XRL20 PO (17:25)
[2017-03-02] MEDS ORDERED: RXC5 PO (17:25)
[2017-03-02] MEDS ORDERED: ACET-24 PO (17:25)
--- NOTE | 2017-03-02 17:31 | Discharge Instructions ---
Discharge Instructions Date of Service Mar 02, 2017. Admission Reason for Admission: Right Knee Osteoarthritis Discharge Discharge Diagnosis / Problem: Right Knee Djd Discharge Goals Goal(s): Decrease discomfort, Improve function Activity Recommendations Activity Limitations: per Instructions/Follow-up section Weightbearing Status: Right weightbearing (as tolerated) . Instructions / Follow-Up Instructions / Follow-Up YOUR NEW KNEE: DO'S AND DON'TS This is an instruction sheet for you to follow once discharged after your new knee replacement. We tried our best to include all common questions and concerns following surgery. DO - Get up and walk several times daily. This is important for muscle recovery and also helps prevent blood clots. Walking is encouraged as long as the muscles are not becoming too sore. DO - Find a comfortable sleeping position. You may sleep on your side or you're back. You may not need to place a pillow between your legs, however, some find this more comfortable. DO - TAKE YOUR PAIN MEDS as Prescribed, If you're having pain but aren't taking your pain pills, there isn't much more we can do for you! DO - Use your walker/cane until you feel you can ambulate safely without it. This may take days or weeks depending on your lifestyle. DO - Wait until you're completely comfortable using your cane before driving a vehicle. You should be able to react quickly with your operative leg. If you had right knee replacement you may want to wait a week or two. If you haven't left knee replacement you may drive as soon as you feel comfortable. 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 Should lay flat so your leg is higher than your heart with 3 to 4 pillows. This will significantly help with swelling. DO - Apply ice to the knee for the first few weeks after returning home. Use ice on Knee, calf, thigh, anywhere on your way back is sore. After that, most people find moist heat to be more beneficial. DO - Take a shower! You were permitted to shower after surgery. Use only mild soap and water when cleaning your incisions. Silverlon dressing usually removed after seven days, it is water resistant. DON"T - Be alarmed if you pain in your upper thigh area. This is most likely from the [place] it will use during surgery. DON"T - Be afraid to take pain medications. Pain management is a very important part of your recovery. Initially, take pain medicine as prescribed by your doctor. In time you will need less medication to be comfortable. DON"T - Wait until you are out of medication to request a refill. Be sure to allow at least 24 hours for a new prescription. The new [place] law does not allow for us to call in narcotics of any type anymore. You will have to come to your office for a live prescription. You will not be able to get Narcotic pills over the weekend. It is a good idea to check with the pharmacy before picking up medications. DON"T - Get discouraged if you were not getting better "fast enough". You will continue to see improvements for up to a year!! The office can be reached at [phone]. The answering service can be reached at [phone]. If you're experiencing an emergency go to the ER or call 911. Dr. Schneider Total Knee Replacement Discharge Instructions Silverlon dressing stays on for seven days. It must be changed if it is soaked . This can be replaced with gauze and an LUC Wrap. Otherwise if not soaked, it stays on for 7 days. Patients my shower after 2 days if the Silverlon is on because it is waterproof, but not Spa proof. If the silver one had to be removed then patient should wait 5 days to shower. Quick showers, not Spa Time! After 7 days, please wipe wound with gauze and peroxide once daily. ICE and ELEVATE constantly. If a drain is in place, it is removed when less than 10cc for 2 consecutive 8 hr shifts in a day. Do not go to the ER to remove drain. Any qualified home nurse or therapist can remove the drain. IF ONESIMO/PREVENA device in place, please see the instruction sheet. Also, every Home Nursing Agency, Home PT, and Rehab is aware how this works. If your home nurse or therapist says they don't know want this is, have them call you [facility] or the manager cardiology right away, it is meant to protect and help your incision heal faster. Please read the Do's and Don'ts sheet. This paper and the Do's and Don'ts are the most important. The rest of your paperwork from hospital is redundant and or confusing. This is the info I want you to take to heart. I typically give you 5 prescriptions. Some are Eprescribed to your pharmacy already. They are: 1. Oxycodone or some form of a narcotic pain pill. Please take. Most important. 2. Coumadin / Lovenox / Xarelto as per your ore crushing dust collector. 3. Tylenol 4. Zofran-this is for nausea, take if you need. 5. Celebrex-helps with inflammation, if not covered by insurance, then use ibuprofen 600 mg, 2 to 3 times a day. If any problems or concerns, please call [facility] (Or Milvia Steel if she is your coordinator) FIRST. DO not go to the ER unless directed by your U Physician or it's an absolute emergency. Our phone numbers are located all throughout the your [employer] packet. Current Hospital Diet Patient's current hospital diet: Regular Diet Discharge Diet Recommended Diet: Regular Diet Procedures Procedures Performed: Right Total Knee Arthroplasty Pending Studies Studies pending at discharge: no Medical Emergencies . Who to Call and When: Medical Emergencies: If at any time you feel your situation is an emergency, please call 911 immediately. . Non-Emergent Contact Non-Emergency issues call your: Surgeon Call Non-Emergent contact if: temperature is above 101.5, your pain is not controlled, your pain is worsening, wound has increased drainage, wound has increased redness . "Provider Documentation" section prepared by Adonis Garza. . VTE Core Measure Inpt VTE Proph given/why not?: Other Anticoagulation, T.E.D. Stockings, SCD's [place] Drug Monitoring Program Search Results: patient reviewed within database, no issues identified
[2017-03-02 20:03] VITALS: BP 146/73; PULSE 57; TEMP 36.6; O2SAT 99
[2017-03-02] MEDS: CEPHALEXIN MONOHYDRATE 500 MG CAP PO SCH (21:55)
[2017-03-02 23:09] VITALS: BP 146/76; PULSE 64; TEMP 36.8; O2SAT 98
[2017-03-03] MEDS: ACETAMINOPHEN 500 MG TAB PO SCH ×2 (05:40→15:42)
[2017-03-03 07:18] VITALS: BP 166/82; PULSE 64; TEMP 37; O2SAT 96
[2017-03-03] MEDS: OXYCODONE HCL IR 5 MG TAB (IMMEDIATE RELEASE) PO PRN ×3 (07:20→16:53)
--- NOTE | 2017-03-03 08:04 | Orthopedic Progress Note ---
Orthopedic Progress Note Date of Service Mar 03, 2017. Subjective Post OP Day: 2 Reports: feeling well, Denies: chest pain, SOB, nausea / vomiting, light headedness, calf pain Objective calves soft nontender, N/V intact, dressing C/D/I (PREVENA), A&O x3, toes mobile Date Time Temp Pulse Resp B/P (MAP) Pulse Ox O2 Delivery O2 Flow Rate FiO2 03/03/17 07:20 Room Air 03/03/17 07:18 37.0 64 18 166/82 (110) 96 Room Air 03/03/17 00:00 Room Air 03/02/17 23:09 36.8 64 16 146/76 (99) 98 Room Air 03/02/17 20:03 36.6 57 18 146/73 (97) 99 Room Air 03/02/17 17:10 Room Air 03/02/17 15:13 36.6 54 18 166/80 (108) 100 Room Air 03/02/17 11:11 36.4 67 19 158/83 (108) 99 Room Air Assessment & Plan Assessment: POD #2 Right TKA Plan: DVT prophylaxis - xarelto Discharge - Home H/H PT/OT Inhouse Planning Pain Management: Oxy IR DVT Prophylaxis: TEDs, SCDs, Xarelto Discharge Planning Discharge Planning: home with home health Pain Management: Oxy IR DVT Prophylaxis: Xarelto Therapy: Physical Therapy
[2017-03-03 08:14] VITALS: BP 166/82; PULSE 64; TEMP 37; O2SAT 96
[2017-03-03 08:24] VITALS: BP 154/83; PULSE 57
[2017-03-03] MEDS: GABAPENTIN 300 MG CAP PO SCH ×2 (08:25→15:42)
[2017-03-03] MEDS: HYDROCHLOROTHIAZIDE 25 MG TAB PO SCH (08:25)
[2017-03-03] MEDS: CIPROFLOXACIN 500 MG TAB PO SCH (08:25)
[2017-03-03] MEDS: DILTIAZEM HCL 120 MG EXT REL CAP PO SCH (08:26)
[2017-03-03] MEDS: RIVAROXABAN 20 MG TAB PO SCH (08:26)
[2017-03-03] MEDS: CEPHALEXIN MONOHYDRATE 500 MG CAP PO SCH ×2 (08:26→12:32)
[2017-03-03] MEDS: LISINOPRIL 5 MG TAB PO SCH (08:26)
[2017-03-03] MEDS: DOCUSATE SODIUM 100 MG CAP PO SCH (08:52)
[2017-03-03] MEDS: FERROUS SULFATE 325 MG TAB PO SCH (08:52)
--- NOTE | 2017-03-09 08:45 | DISCHARGE SUMMARY ---
DISCHARGE DIAGNOSIS: Degenerative joint disease, right knee. SECONDARY DIAGNOSIS: None. CONSULTS: None. COMPLICATIONS: None. PROCEDURE: The patient underwent a right total knee arthroplasty by Dr. Schneider on 03/01/2017. BRIEF HISTORY: Please see previously dictated history and physical. HOSPITAL SUMMARY: The patient was admitted on the above day for the above procedure. Procedure went without complication. Postop day 1, the patient was feeling well without complaints. Denied chest pain or shortness of breath. Vital signs were stable. He was afebrile. Dressing was clean, dry and intact. He was neurovascularly intact. Calves were soft and nontender. Hemovac drained 200 and 150 mL. Hemoglobin was 9.6. The patient began physical therapy per protocol. He was on Xarelto for DVT prophylaxis. Postop day 2, the patient continued to improve. He denied chest pain or shortness of breath. Vital signs were stable. He was afebrile. Prevena dressing was clean, dry and intact. He was neurovascularly intact. Calves are soft and nontender. The patient began physical therapy per protocol. He was discharged to home later that day in stable condition. For further review please see the chart. Lab, x-ray data and discharge instructions as per chart.
== END 2017-03-03 17:30 | disposition home health service (06) | DRG 470 ==
LOC: C.ACU 09:46 → C.3E 11:00 → ENRESERV 14:51 → CANRESERV 14:51 → ENRESERV 15:11 → EDBEDREQ 15:16
PROVIDERS: ADMIT Orthopaedic Surgery; ATTEND Orthopaedic Surgery
PROC: 0SRC0J9 Replacement of Right Knee Joint with Synthetic Substitute, Cemented, Open Approach (ICD-10-PCS; principal; 2017-03-01 11:30)
DX: M17.11 Unilateral primary osteoarthritis, right knee (principal); I48.91 Unspecified atrial fibrillation; D64.9 Anemia, unspecified; E66.9 Obesity, unspecified; N40.0 Benign prostatic hyperplasia without lower urinary tract symptoms; I10 Essential (primary) hypertension; R20.0 Anesthesia of skin; M06.9 Rheumatoid arthritis, unspecified; Z86.718 Personal history of other venous thrombosis and embolism; Z87.39 Personal history of other diseases of the musculoskeletal system and connective tissue; Z79.82 Long term (current) use of aspirin; Z68.30 Body mass index [BMI] 30.0-30.9, adult; Z86.711 Personal history of pulmonary embolism; Z79.899 Other long term (current) drug therapy

== ENCOUNTER → 2017-07-06 | Outpatient (CLI) | payer BC ==
[~2017-07-06] MED LIST changes: +ACET-24 PO; -ACETAMINOPHEN 500 MG TAB PO SCH; -BUPIVACAINE 0.25% 30 ML VIAL ONE; -BUPIVACAINE 0.5 % 5 MG/1 ML PF 10ML VIAL ONE; -CEFAZOLIN 2000 MG/60 ML D5W 60 ML IV SCH; +CIPR1TAB11 PO; -CIPROFLOXACIN 500 MG TAB PO SCH; -CeleBREX 200 MG CAP PO SCH; -DEXAMETHASONE 4 MG TAB PO SCH; -EpINEphrine INJ 1MG/ML AMP 1 MG/ML AMP ONE; -FAMOTIDINE 20 MG TAB PO SCH; -HYDR200T5 PO; -LACTATED RINGER'S 1000ML IV SCH; +LISI-730 PO; -LSN5 PO; -METOCLOPRAMIDE HCL 10 MG TAB PO SCH; -ROPIVACAINE 5MG/ML 30 ML 150 MG, BUPIVACAINE/EPINEPHR 0.5% MPF 30 ML, KETOROLAC TROMETH... INFIL SCH; +RXC5 PO; +XRL20 PO
[2017-07-06 17:38] LABS: BASO % 0.6 %; BASO ABS # 0.04 K/uL (0-0.2); EOS % 2.4 %; EOS ABS # 0.15 K/uL (0-0.5); HEMATOCRIT 37.9 % (42-52); HEMOGLOBIN 12.6 g/dL (14.0-18.0); IG# 0.03 K/uL (0.00-0.02); LYMPH % 22.8 %; LYMPH ABS # 1.45 K/uL (1.2-3.4); MEAN CELL VOLUME 87.9 fL (80-100); MEAN CORPUSCULAR HEMOGLOBIN 29.2 pg (25-34); MEAN CORPUSCULAR HGB CONC 33.2 g/dl (32-36); MEAN PLATELET VOLUME 9.3 fL (7.4-10.4); MONO % 9.4 %; NEUT % 64.3 %; PLATELET COUNT 235 K/uL (130-400); RED CELL DISTRIBUTION WIDTH CV 15.7 % (11.5-14.5); RED CELL DISTRIBUTION WIDTH SD 50.3 fL (36.4-46.3); WHITE BLOOD COUNT 6.37 K/uL (4.8-10.8)
[2017-07-06 18:17] LABS: ALBUMIN 4.1 gm/dl (3.4-5.0); ALT/SGPT 24 U/L (12-78); AST/SGOT 19 U/L (15-37); BLOOD UREA NITROGEN 23 mg/dl (7-18); CARBON DIOXIDE 29 mmol/L (21-32); CREATININE 0.89 mg/dl (0.60-1.40); GLUCOSE 94 mg/dl (70-99); POTASSIUM 3.5 mmol/L (3.5-5.1); SODIUM 137 mmol/L (136-145)
[2017-07-06 18:19] LABS: ALKALINE PHOSPHATASE 124 U/L (45-117); TOTAL PROTEIN 7.5 gm/dl (6.4-8.2)
== END | disposition home or self-care (01) ==
LOC: C.LAB1850 17:04
PROVIDERS: ATTEND Internal Medicine Infectious Disease
DX: M00.9 Pyogenic arthritis, unspecified (principal)

== ENCOUNTER → 2017-08-23 | Outpatient (CLI) | payer BC ==
[~2017-08-23] MED LIST changes: -LISI-730 PO; +LSN5 PO
== END | disposition home or self-care (01) ==
LOC: C.LABSPEC 10:26
PROVIDERS: ATTEND Urology
DX: N39.0 Urinary tract infection, site not specified (principal)

== ENCOUNTER 2021-08-21 08:28 | Observation (INO) ==
--- NOTE | 2021-08-19 10:44 | Anesthesiology Consultation ---
Date of Service August 19, 2021 Assessment & Plan (1) Encounter for pre-operative examination: Chart Review Chart Review: Acceptable Risk for Surgery (pending preop Covid testing results ) and Patient NOT seen in Pre Admission Testing Per nursing assessment 08/13/2021, patient denies any recent travel. No known Covid infection in the past 90 days. Patient is not vaccinated for Covid. No known Covid positive exposures or Covid related symptoms. Preop Covid testing 08/19/21= results pending Cysto, left ureteronephroscopy 01/30/21= Done under [facility] with LMA #5.0- Classic. Atraumatic. History Surgery Operation Date: 08/21/21 10:00 Proposed Procedures p Transurethral Resection Prostate - Jhon Story MD Height/Weight Height: 5 ft 8 in Weight: 86.183 kg Allergies Allergy/AdvReac Type Severity Reaction Status Date / Time No Known Allergies Allergy Verified 08/13/21 12:07 Medications Home Medications Medication Instructions Recorded Confirmed Last Taken diltiazem HCl 120 mg 120 mg PO QAM cap 04/04/19 08/13/21 04/28/21 capsule,extended release 24 hr hydrochlorothiazide 25 mg tablet 25 mg PO QAM tab 04/04/19 08/13/21 04/28/21 lisinopril 10 mg tablet 10 mg PO QAM #30 tab 04/04/19 08/13/21 04/28/21 calcium carb,cit ER 600 mg-vit D3 1 tab PO QAM 02/01/20 08/13/21 04/28/21 12.5 mcg (500 unit) tablet,ext.rel (Citracal-D3 Slow Release) leflunomide 20 mg tablet (Arava) 20 mg PO QAM 02/01/20 08/13/21 04/28/21 Lactobacills gasseri-Bifidobac 1 cap PO DAILY 04/28/21 08/13/21 04/28/21 bifidum,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 (Biosceptre) pregabalin 100 mg capsule (Lyrica) 100 mg PO TID #270 cap 08/11/21 08/13/21 Unknown rivaroxaban 20 mg tablet (Xarelto) 20 mg PO QAM 08/11/21 08/13/21 Unknown alfuzosin 10 mg tablet,extended 10 mg PO QPM 08/13/21 08/13/21 Unknown release 24 hr ampicillin 500 mg capsule 500 mg PO QID 3 Days #12 cap 08/13/21 Unknown upadacitinib 15 mg tablet,extended 15 mg PO QAM 08/13/21 08/13/21 Unknown release 24 hr (Rinvoq) Past Medical History Medical History Atrial fibrillation Initial episode in setting of acute illness (2016) -- recurrence 06/2021 - started on xarelto -- 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 Now on Xarelto for a fib Hypertension Kidney stones hx On anticoagulant therapy Peripheral neuropathy Rheumatoid arthritis Past Family History Family History Other No family history of adverse response to anesthesia Past Surgical History Surgical History History of back surgery History of carpal tunnel surgery of right wrist History of colonoscopy History of cystoscopy with stone basketing for kidney stones History of elbow surgery left History of esophagogastroduodenoscopy (EGD) [place] [facility] [place] of Mohs micrographic surgery for skin cancer History of revision of total replacement of left knee joint History of total knee replacement bilateral S/P Achilles tendon repair right Social History Smoking Status: Never smoker tobacco type: cigarettes Do You Dip or Chew Tobacco: No (quit) Hx Alcohol Use: No Hx Substance Use: No substance use type: does not use Lab Results Anesthesia Preop Results Results Anesthesia Widget: WBC 4.71 K/uL (4.8-10.8) L 08/11/21 Hgb 12.5 g/dL (14.0-18.0) L 08/11/21 Hct 37.5 % (42-52) L 08/11/21 Plt 268 K/uL (130-400) 08/11/21 Na 139 mmol/L (136-145) 08/11/21 K 3.5 mmol/L (3.5-5.1) 08/11/21 Cl 105 mmol/L (98-107) 08/11/21 CO2 30 mmol/L (21-32) 08/11/21 BUN 25 mg/dl (6-23) H 08/11/21 Creat 0.91 mg/dl (0.6-1.4) 08/11/21 Glucose Level 86 mg/dl (70-99(Fasting)) 08/11/21 Testing Laboratory Results 08/11/21= URINE CULTURE: Enterococcus faecalis Electrocardiogram Date: 08/11/21 SR with premature supraventricular complexes. Nonspecific T wave abnormality. When compared to EKG from January 30, 2021- inverted T waves have replaced nonspecific T wave abnormality in inferior leads, nonspecific T wave abnormality, improved in lateral leads per cardio. (Discussed with Dr. Santana- EKG does have mild baseline artifact- inverted T wave seen in lead III (nonspecific in other inferior leads)- patient can proceed as scheduled) Chest X-Ray Date: 08/19/21 Findings: + NAD and + cardiomegaly FINDINGS: PA and lateral chest radiographs are compared to study dated 01/29/2020. The heart is enlarged. The pulmonary vasculature is noncongested. C hronic interstitial thickening is similar to previous. The lungs and pleural spaces are otherwise clear. There is no pneumothorax. The skeletal structures are osteopenic. The bony thorax appears intact. Degenerative change is noted in the shoulders and thoracic spine.
[~2021-08-21 08:28] MED LIST changes: -ACET-24 PO; -ASPI81TA28 PO; -CIPR1TAB11 PO; -DILT120C68 PO; -FERR1TAB61 PO; -GABA-113 PO; -HYDR25TA4 PO; +LR 15ML/HR IV SCH; -LSN5 PO; -NF1420 PO; -RXC5 PO; -SILO8CAP PO; +VANCOMYCIN HCL 1,000 MG/270 ML BAG IV SCH; -XRL20 PO
[2021-08-21] MEDS ORDERED: LABETALOL HCL IV 5 MG/ML 20ML IV PRN (08:40)
[2021-08-21] MEDS ORDERED: HYDROmorphone INJ 1 MG/ML SYRINGE IV PRN (08:40)
[2021-08-21] MEDS ORDERED: fentaNYL citrate 100 MCG/2 ML VIAL IV PRN (08:40)
[2021-08-21] MEDS ORDERED: ePHEDrine sulfate 50 MG/ML AMP IV PRN (08:40)
[2021-08-21] MEDS ORDERED: ONDANSETRON INJ 2 MG/ML 2 ML VIAL IV PRN (08:40)
[2021-08-21] MEDS ORDERED: MEPERIDINE HCL 25 MG/ML CARP/VIAL IV PRN (08:40)
[2021-08-21] MEDS ORDERED: ATROPINE SULFATE 0.1 MG/ML 10ML SYR IV PRN (08:40)
[2021-08-21] MEDS ORDERED: PHENYLEPHRINE 100MCG/ML 5ML SYR IV PRN (08:40)
[2021-08-21] MEDS ORDERED: LIDOCAINE 2% 2 ML VIAL/AMP(20MG/ML) INFIL ONE (08:59)
[2021-08-21] MEDS ORDERED: ONDANSETRON INJ 2 MG/ML 2 ML VIAL ONE (08:59)
[2021-08-21] MEDS ORDERED: PROPOFOL IV EMULSION 10 MG/ML 20 ML VIAL IV ONE (08:59)
[2021-08-21] MEDS ORDERED: fentaNYL citrate 100 MCG/2 ML VIAL ONE (08:59)
--- NOTE | 2021-08-21 09:23 | History & Physical Bridge Note ---
Date of Service August 21, 2021 History & Physical Bridge Note I have examined the patient, reviewed the History & Physical and in the interval since the performance of the History & Physical I have noted the following changes of clinical significance: no changes noted
[2021-08-21] MEDS ORDERED: PHENYLEPHRINE 100MCG/ML 5ML SYR ONE (10:07)
--- NOTE | 2021-08-21 10:57 | Operative Report ---
PG Post Operative Report Pre & Post Diagnosis Operation Date: 08/21/21 09:45 Pre-Op Diagnosis: Benign Prostatic Hyperplasia without Urinary Obstruction Post-Op Diagnosis: Benign Prostatic Hyperplasia without Urinary Obstruction I identified the patient and participated in the time-out.: Yes Procedure Operation Date: 08/21/21 09:45 Actual Procedures p Transurethral Resection Prostate(Not Applicable) - Jhon Story MD Surgeon Kana Story MD Clinical Laboratory Service Teacher none Estimated Blood Loss 0 Findings Consistent with Post-Op Diagnosis Specimens none Description of Procedure The patient was identified in the preoperative holding area, appropriate informed consents were reviewed and completed and the patient was transferred to the operative suite. Upon arrival, appropriate antibiotics and anesthesia were administered and the patient was placed in dorsal lithotomy position and prepped and draped in sterile fashion. To begin the case I passed a 27 Slovenian resectoscope with 30 degree lens and visual obturator. Inspection revealed a healthy-appearing urethra without any strictures. His prostate is notably enlarged with a high bladder neck and substantial lateral lobe hypertrophy. His bladder is heavily trabeculated with ureteral orifices in orthotopic position. He has stones within the dependent portion of the bladderall small and round in appearance. The stones were irrigated out of the bladder immediately. After my inspection I exchanged the visual obturator for a resecting element using a button electrode. I began by incising the bladder neck at five and 7:00 and then resecting the intervening tissue between the two incisions. I proceeded to resect the left lateral wall followed by the right lateral wall. He had some redundant anterior tissue which I gently trimmed. Apical tissue was then resected. Hemostasis was excellent throughout and the prostatic fossa was widely patent at the conclusion of the case. I ensured all stone debris and irrigated out of the bladder and there was no tissue within the bladder either. I then removed the scope and placed a 22 Slovenian Castorena catheter without difficulty. There were no complications and he was reversed of anesthesia and taken to the recovery room in stable condition. I attest to the content of the Intraoperative Record and any orders documented therein. Any exceptions are noted below.
[2021-08-21 11:36] LABS: Basophils # (auto) 0.02 K/uL (0-0.2); Basophils % (auto) 0.5 %; Eosinophils # (auto) 0.06 K/uL (0-0.5); Eosinophils % (auto) 1.4 %; Hematocrit (blood only) 34.6 % (42-52); Hemoglobin 11.6 g/dL (14.0-18.0); Immature Granulocytes # (auto) 0.01 K/uL (0.00-0.02); Immature Granulocytes % (auto) 0.2 %; Lymphocytes # (auto) 0.52 K/uL (1.2-3.4); Lymphocytes % (auto) 12.6 %; Mean Corpuscular Hemoglobin 31.4 pg (25-34); Mean Corpuscular Volume 93.8 fL (80-100); Mean Platelet Volume 9.4 fL (7.4-10.4); Monocytes # (auto) 0.18 K/uL (0.11-0.59); Monocytes % (auto) 4.3 %; Neutrophils # (auto) 3.35 K/uL (1.4-6.5); Platelet Count 198 K/uL (130-400); RDW Coefficient of Variation 14.7 % (11.5-14.5); RDW Standard Deviation 50.1 fL (36.4-46.3); Red Blood Count 3.69 M/uL (4.7-6.1); White Blood Count 4.14 K/uL (4.8-10.8)
--- NOTE | 2021-08-21 11:38 | Anesthesiology Progress Note ---
Date of Service August 21, 2021 Anesthesia Post Procedure Vital Signs Vital Signs: Temp Pulse Pulse Resp BP Pulse Ox 08/21/21 11:30 57 L 12 104/69 97 08/21/21 11:20 36.5 C 64 16 95/63 L 96 08/21/21 11:10 58 L 14 113/57 L 100 08/21/21 11:00 59 L 16 108/60 99 08/21/21 10:54 36.2 C L 62 18 99/68 L 99 08/21/21 09:01 36.7 C 91 H 18 118/75 97 Transfer of Care Handoff Completed per policy Notes Mental Status: alert / awake / arousable Patient Amnestic to Procedure: Yes Nausea / Vomiting: adequately controlled Pain: adequately controlled Airway Patency, RR, SpO2: stable & adequate BP & HR: stable & adequate Hydration State: stable & adequate Anesthetic Complications: no major complications apparent and Pt Satisfied with anesthetic care Notes: The patient is awake and comfortable.
[2021-08-21 11:49] LABS: Mean Corpuscular Hgb Conc 33.5 g/dL (32-36)
[2021-08-21 12:01] LABS: BUN Creatinine Ratio 25.6 (10-20); Calcium 8.6 mg/dl (8.5-10.1); Creatinine Clr Calc Pharmacy 92.1 ml/min; Est GFR (African American) 105.3 ml/min; Est GFR (Non-African American) 90.9 ml/min; Potassium 3.9 mmol/L (3.5-5.1)
[2021-08-21] MEDS: LACTATED RINGER'S 1,000 ML IV SCH (12:15)
[2021-08-21] MEDS ORDERED: ACETAMINOPHEN 325 MG TAB PO PRN (12:15)
[2021-08-21] MEDS ORDERED: oxyCODONE HCL IR 5 MG TAB (IMMEDIATE RELEASE) PO PRN (12:15)
[2021-08-21] MEDS ORDERED: VANCOMYCIN CONSULT ACTIVE PRN (12:15)
--- NOTE | 2021-08-21 14:20 | Pharmacy Report ---
Pharmacy Abx Dose Short Note - Date of Service August 21, 2021 - Assessment & Plan Assessment 70 year old M receiving vancomycin for treatment of E. faecalis cUTI s/p TURP procedure 08/21/21 h/o recurrent E. faecalis UTIs Plan Vancomycin * Patient received 1000 mg IV pre-op * Start 1250 mg (14.5 mg/kg) IV every 12 hours * Predicted to achieve AUC at goal of 400 - 600 mg/L.hr * Trough level will be ordered if continued beyond 48 hours Pharmacy will continue to follow and will adjust dose/frequency as necessary. Thank you.
[2021-08-21] MEDS: PREGABALIN 100 MG CAP PO SCH ×2 (14:59→21:10)
[2021-08-21] MEDS: HYDROcodone/ACETAMINOPHEN 10/325 TAB PO PRN ×2 (14:59→21:10)
[2021-08-21] MEDS: VANCOMYCIN HCL 1,250 MG in SODIUM CHLORIDE 0.9% 250 ML IV SCH (17:56)
[2021-08-22] MEDS: LACTATED RINGER'S 1,000 ML IV SCH (00:27)
[2021-08-22] MEDS: VANCOMYCIN HCL 1,250 MG in SODIUM CHLORIDE 0.9% 250 ML IV SCH (06:10)
[2021-08-22 06:19] LABS: Albumin Globulin Ratio 1.6 (0.9-2); Albumin Level 3.6 gm/dl (3.4-5.0); BUN Creatinine Ratio 29.8 (10-20); Bilirubin,Total 0.5 mg/dl (0.2-1.0); Calcium 8.4 mg/dl (8.5-10.1); Creatinine Clr Calc Pharmacy 89.9 ml/min; Est GFR (African American) 104.3 ml/min; Globulin 2.2 gm/dl (2.5-4.0); Total Protein 5.8 gm/dl (6.0-8.3)
[2021-08-22] MEDS ORDERED: dilTIAZem HCL 120 MG CAPCR PO SCH (09:00)
[2021-08-22] MEDS ORDERED: hydroCHLOROthiazide 25 MG TAB PO SCH (09:00)
[2021-08-22] MEDS ORDERED: lisinopril 10 MG TAB PO SCH (09:00)
[2021-08-22] MEDS ORDERED: ADVANCED PROBIOTIC 1250 MG CAPSULE PO SCH (09:00)
[2021-08-22] MEDS ORDERED: CALCIUM 600MG + VIT D 400 IU TAB PO SCH (09:00)
[2021-08-22] MEDS: PREGABALIN 100 MG CAP PO SCH (09:15)
--- NOTE | 2021-08-22 09:39 | Urology Progress Note ---
Date of Service August 22, 2021 Assessment & Plan (1) BPH loc w/o ur obs/LUTS: Plan: - Pt POD#1 s/p TURP with Dr. Story - Patient progressing clinically as expected. - Afebrile overnight. - Lab work reviewed - Creatinine 0.84, WBC 4.14, Hgb 11.6 - Minimal pain. - Continue regular diet. - Encourage ambulation. - Discontinue Castorena catheter this AM and monitor for void. - Will reassess later this morning, anticipate discharge home today if continues to progress. Admission and Anticipated Discharge Date Admission Date: August 21, 2021 Supervising Physician Co-Signing Physician Notes doing great voiding feeling well d/c home now will finish ampicillin as previously prescribed stop alfuzosin can restart xarelto tomorrow night Subjective Pt examined at bedside this AM. Awake, resting in bed on arrival. No acute events overnight. No fevers. Overall feeling good post procedure. Castorena catheter intact, draining clear yellow urine. Tolerating diet, no nausea or vomiting. Ambulating without issue. Minimal pain. Review of Systems Constitutional: as per Subjective / HPI Gastrointestinal: as per Subjective / HPI Genitourinary: + as per Subjective / HPI Physical Exam Constitutional: well developed and well nourished; no acute distress and not ill appearing Respiratory: normal respiratory effort and able to speak in complete sentences; no labored breathing and no audible wheezes Gastrointestinal (Abdomen): Inspection/Auscultation: abdomen normal to inspection; abdomen not distended Musculoskeletal: Head/Neck/Chest: normocephalic Skin: No visible rashes or lesions to exposed skin areas Neurologic: moves all extremities and awake Psychiatric: Orientation: alert, oriented x 3 and cooperative Genitourinary: Castorena catheter intact, draining clear yellow urine Results & Data ([facility]) Vital Signs (Past 12 Hours) Vital Signs Temp Pulse Pulse Resp BP Pulse Ox 08/22/21 07:45 36.5 C 55 L 15 119/69 96 08/22/21 04:00 36.6 C 68 17 119/66 97 08/21/21 22:52 36.5 C 57 L 17 122/73 96 PG Care Time/CCT Total # of Minutes Spent Total Time Spent with Patient: Total time spent is greater than 50% in coordination of care (as documented) at patient's floor/unit and/or counseling patient: Coding Level of Care Code 56096 Subseq Hosp Care Lvl 2 Diagnoses BPH loc w/o ur obs/LUTS N40.0
--- NOTE | 2021-08-22 13:53 | Discharge Summary ---
Date of Service August 22, 2021 Admission HPI Per Admitting Provider 70yo M with BPH with lower urinary tract symptoms admitted for Transurethral Resection Prostate with Dr. Story. Admission Exam Per Admitting Provider Constitutional well developed and well nourished Neck neck nontender Respiratory normal respiratory effort; no respiratory distress and does not use accessory muscles Cardiovascular Rate/Rhythm: regular rate Vessels: radial pulses present Extremities: no edema Gastrointestinal (Abdomen) Inspection/Auscultation: abdomen normal to inspection Percussion/Palpation: abdomen soft; abdomen nontender and no guarding Musculoskeletal Head/Neck/Chest: normocephalic and head atraumatic Extremities: extremities normal to inspection Skin no rashes and no lesions Trauma: no evidence of skin trauma Neurologic awake; not obtunded Speech / Cognition: normal speech Motor/Sensory: no tremor Psychiatric Orientation: alert and oriented x 3 Genitourinary no CVA tenderness Lymphatic no lymphadenopathy Principal Diagnosis Benign Prostatic Hyperplasia without Urinary Obstruction Discharge Exam Constitutional: well developed and well nourished; no acute distress and not ill appearing Respiratory: normal respiratory effort and able to speak in complete sentences; no labored breathing and no audible wheezes Gastrointestinal (Abdomen): Inspection/Auscultation: abdomen normal to inspection; abdomen not distended Musculoskeletal: Head/Neck/Chest: normocephalic Skin: No visible rashes or lesions to exposed skin areas Neurologic: moves all extremities and awake Psychiatric: Orientation: alert, oriented x 3 and cooperative Genitourinary: Castorena catheter intact, draining clear yellow urine Discharge Data Allergies Allergy/AdvReac Type Severity Reaction Status Date / Time No Known Allergies Allergy Verified 08/21/21 08:51 Procedures Performed Operation Date: 08/21/21 09:45 Actual Procedures p Transurethral Resection Prostate(Not Applicable) - Jhon Story MD Hospital Course (1) BPH w urinary obs/LUTS: - Pt POD#1 s/p TURP with Dr. Story - Patient progressed as expected. - No acute issues postoperatively. - Afebrile overnight. - Lab work reviewed - Creatinine 0.84, WBC 4.14, Hgb 11.6 - Minimal pain. - Tolerating regular diet. - Ambulating without issue. - Castorena catheter removed POD #1. Patient voiding without difficulty after catheter removal. - Expected clinical course reviewed with patient, he verbalized understanding. All questions answered. - Postoperative follow-up appointment in place. - Stable for discharge home. - Pt to complete antibiotics as previously prescribed and can restart Xarelto in 1 day. Total Time Total Time Spent Total Time Spent (In Minutes): 15 Discharge Plan Discharge Items Patient Disposition: Home - Self-Care Reason For Visit: BPH/UTI Discharge Diagnosis: BPH/UTI Activity: Per Instructions section Non-emergency contact: Surgeon and Urologist Call non-emergency contact if: you have any medication questions, your pain is not controlled, your pain is worsening and you have a fever Follow-up/Referrals: Jhon Story MD [Physician] - 09/24/21 8:30 am Dc Chin [Primary Care Provider] - Diet: Regular Addtl Attending Provider Instructions: Please take all medications as prescribed and keep all follow-ups as scheduled. Please call our office at [phone] with any questions, concerns or need to reschedule appointments for any reason. We are happy to assist you. Complete ampicillin as previously prescribed. You can restart Xarelto tomorrow night (08/23). Tips for your recovery at home: Dont be alarmed by brownish or reddish blood or clots in your urine. This is a result of the procedure. This may occur off and on for weeks to months after the procedure but should continue to improve. Drink plenty of fluids during the day (enough to keep your urine very light colored). This will help keep a healthy flow of urine. Do not lift >25 lbs until your followup Avoid constipation. Please use a stool softener (Colace) for the first two weeks after your procedure Be sure to finish the antibiotics as prescribed. If you go home with a catheter, please wash tubing where it enters your body twice daily with mild soap (Dove or Dial). Once your catheter is removed, expect some blood in your urine and some burning when you urinate. You should have an appointment to have this removed, if you do not please call our office to arrange. When to call [facility] at [phone]: Your urine contains heavy blood clots You are constantly leaking urine Fever of 101F or higher, chills, nausea, or vomiting Your pain is not relieved with medication Pending Studies at Discharge: No Stand-Alone Forms: [facility], Smoking Cessation Medications and DC Order Prescriptions: Continued ampicillin 500 mg capsule 500 mg PO QID 3 Days Qty: 12 RF: 0 Xarelto 20 mg tablet 20 mg PO QAM RF: 0 pregabalin [Lyrica] 100 mg capsule 100 mg PO TID Qty: 270 RF: 3 hydrochlorothiazide 25 mg tablet 25 mg PO QAM RF: 0 diltiazem HCl 120 mg capsule,extended release 24hr 120 mg PO QAM RF: 0 lisinopril 10 mg tablet 10 mg PO QAM Qty: 30 RF: 0 leflunomide [Arava] 20 mg Tablet 20 mg PO QAM RF: 0 calcium carb and citrate-vitD3 [Citracal-D3 Slow Release] 600 mg calcium- 500 unit Tablet Extended Release 1 tab PO QAM RF: 0 [facility] 1.5 billion cell Capsule 1 cap PO DAILY RF: 0 Rinvoq 15 mg tablet extended release 24 hr 15 mg PO QAM RF: 0 Discontinued alfuzosin 10 mg tablet extended release 24 hr 10 mg PO QPM RF: 0 Discharge Orders: Discharge Order (Routine); Ordered 08/22/21 Ordered By: Jhon Story Admission Data Admit Date/Time: 08/21/21 10:55 Attending Provider: Jhon Story Admit Provider: Jhon Story Primary Care Provider: Dc Chin Other Interventions: Discharge Summary Assessment (RN) Last Done: 08/22/21 10:50 Coding Level of Care Code D/C DAY MANAGEMENT <30 MINS Diagnoses BPH w urinary obs/LUTS N40.1; N13.8
[2021-08-23] MEDS ORDERED: VANCOMYCIN HCL 1,000 MG in SODIUM CHLORIDE 0.9% 250 ML IV SCH (06:00)
== END 2021-08-22 13:02 | disposition home or self-care (01) ==
LOC: ASU 08:28 → 3E 08:28

== ENCOUNTER 2021-09-26 20:27 | Observation (INO) ==
--- NOTE | 2021-09-26 22:19 | Urology Consultation ---
Date of Consultation September 26, 2021 Assessment & Plan (1) Hematuria: As this is the patient's second visit to the emergency department today and the fact that he lives greater than 1 hour from the hospital he prefers to be observed which I think is a reasonable plan. I discussed with treating emergency room physician and he is planning on having the hospitalist admit the patient. We recommend proceeding as follows: Maintain the three-way Castorena catheter that has been placed in the emergency department -As the Castorena catheter appears patent and I not see any blood clots I do feel continuous bladder irrigation is required at this time The patient's Castorena catheter does become clogged attempts at manual irrigation at the bedside can be employed by the nursing staff If the patient's Castorena catheter becomes clogged repeatedly continuous bladder irrigation may be an option Recommend continue patient on Cipro as it appeared he had a urinary tract infection on urinalysis performed earlier today Would be preferable to hold the patient's Xarelto for the present time until his hematuria clears History of Present Illness Reason for Consultation: Hematuria History of Present Illness This is a 70-year-old male who underwent transurethral resection of the prostate by Dr. Story on 08/21/2021. Patient was kept in the hospital overnight and his Castorena catheter was removed and he was able to void. Patient was most recently seen by Dr. Story in the office on 09/24/2021 at which time the patient was noted be doing well with a good urine stream and minimal residual urine. Patient presented to the emergency department earlier today secondary to urinary retention. Patient notes that prior to his visit he began to pee some blood passing some small blood clots. He presented to the emergency department where he had a Castorena catheter placed which was irrigated and found to be patent with gross hematuria however the patient was deemed stable for discharge home. Patient represented to [facility] emergency department later the same day as his Castorena catheter became clogged again. The patient notes that when his Castorena catheter became clogged he did feel as though his bladder was full. He does note that when his catheter is irrigated the sensation goes away and he feels more comfortable with does admit to some burning around the catheter site. It is nowhere the mention that the patient notes that he does take Xarelto and has resumed this medication since his urologic procedure. In the emergency department earlier today the patient did have labs and imaging. I independently reviewed these and it showed his white blood cell count is 4.5. His hemoglobin and hematocrit were 13.0 and 38.0. Platelet count is noted to be within the normal range. Chemistry profile showed sodium and potassium are both normal. His BUN and creatinine were also within the normal range. Urinalysis did show turbid urine with 3+ blood. His urinalysis was positive for nitrite and also showed 3+ leukocyte esterase. 10-30 white blood cells per high-power field were noted. It is nowhere the mention that the patient has been taking Cipro. Since arrival to the emergency department for his second visit he did have the previously placed Castorena catheter removed and he has had a larger three-way Castorena catheter placed. This was irrigated by the nurse at bedside and found to be patent of Marquis-Aid colored urine. At time of my interview with the patient there were no visible clots in the Castorena catheter was patent. At the time of interview the patient noted that he was much more comfortable and he was in no distress. Allergies Allergy/AdvReac Type Severity Reaction Status Date / Time No Known Allergies Allergy Verified 09/26/21 13:23 Home Medications Medication Instructions Recorded Confirmed Type diltiazem HCl 120 mg 120 mg PO QAM cap 04/04/19 09/26/21 History capsule,extended release 24 hr hydrochlorothiazide 25 mg tablet 25 mg PO QAM tab 04/04/19 09/26/21 History lisinopril 10 mg tablet 10 mg PO QAM #30 tab 04/04/19 09/26/21 History calcium carb,cit ER 600 mg-vit D3 1 tab PO QAM 02/01/20 09/26/21 History 12.5 mcg (500 unit) tablet,ext.rel (Citracal-D3 Slow Release) leflunomide 20 mg tablet (Arava) 20 mg PO QAM 02/01/20 09/26/21 History Lactobacills gasseri-Bifidobac 1 cap PO DAILY 04/28/21 09/26/21 History bifidum,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 ([employer]) pregabalin 100 mg capsule (Lyrica) 100 mg PO TID #270 cap 08/11/21 09/26/21 Rx rivaroxaban 20 mg tablet (Xarelto) 20 mg PO QAM 08/11/21 09/26/21 History upadacitinib 15 mg tablet,extended 15 mg PO QAM 08/13/21 09/26/21 History release 24 hr (Rinvoq) ciprofloxacin HCl 500 mg tablet 500 mg PO BID #14 tab 09/26/21 09/26/21 Rx Patient History Medical History Atrial fibrillation Initial episode in setting of acute illness (2016) -- recurrence 06/2021 - started on xarelto -- 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 Now on Xarelto for a fib Hypertension Kidney stones hx On anticoagulant therapy Peripheral neuropathy Rheumatoid arthritis Surgical History History of back surgery History of carpal tunnel surgery of right wrist History of colonoscopy History of cystoscopy with stone basketing for kidney stones History of elbow surgery left History of esophagogastroduodenoscopy (EGD) History of lithotripsy ESWL (02/2020 - [facility] [place]) History of Mohs micrographic surgery for skin cancer History of revision of total replacement of left knee joint History of total knee replacement bilateral S/P Achilles tendon repair right Family History Other No family history of adverse response to anesthesia Social History Smoking Status: Never smoker Second Hand Exposure: No; Hx Alcohol Use: No Hx Substance Use: No Preferred Language: Iraqi Communication Ability: Effective Pillow Agent Required: No Beliefs That Will Affect Care: None Current Living Situation: Spouse Feels Safe at Home: Yes Assistive Devices: None Review of Systems Constitutional: no fever and no chills Eyes: no diplopia Ear, Nose, Mouth, Throat: no ear pain Respiratory: no cough and no dyspnea Cardiovascular: no chest pain Gastrointestinal: no abdominal pain Genitourinary: + as per Subjective / HPI Musculoskeletal: no back pain Integumentary: no rash Neurologic: no localized weakness Physical Exam Constitutional: well developed and well nourished; no acute distress Eyes: no conjunctival abnormality ENMT: Ears: no hearing impairment Neck: trachea midline Respiratory: normal respiratory effort; no respiratory distress and no labored breathing Cardiovascular: Rate/Rhythm: regular rate and regular rhythm Gastrointestinal (Abdomen): Abdomen is soft and nondistended. There is no pain with palpation in the suprapubic region Musculoskeletal: No calf tenderness Skin: no rashes Neurologic: moves all extremities Psychiatric: A+Ox3, euthymic affect Results & Data ([facility]) Vital Signs (Past 12 Hours) Vital Signs Temp Pulse Resp BP Pulse Ox 09/26/21 20:29 36.8 C 85 18 144/85 H 99 PG Care Time/CCT Total # of Minutes Spent Total Time Spent with Patient: Total time spent is greater than 50% in coordination of care (as documented) at patient's floor/unit and/or counseling patient: Coding Level of Care Code 19488 Inpt Consult Level 5 Diagnoses Hematuria R31.9 Hematuria type: unspecified type (1) Hematuria Hematuria type: unspecified type Qualified Code(s): R31.9 - Hematuria, unspecified
[2021-09-26] MEDS ORDERED: AMOXICILLIN 500 MG CAP PO STA (22:21)
--- NOTE | 2021-09-26 22:53 | History & Physical Report ---
Date of Service September 26, 2021 Assessment & Plan (1) Hematuria: Plan: s/p TURP performed on 08/21/21. Patient with hematuria. Mcdonald placed earlier today in the ER, ongoing hematuria with clots, malfunction of Mcdonald. Mcdonald has since been replaced, 20 [place], patient passing hematuria, minimal clots -Observation to medical -Maintain mcdonald catheter -Flush manually as needed -If large amount of clot or frequent flushing required will consider CBI -Urology consultation appreciated -Monitor CBC -Tylenol/Hydrocodone as needed for pain (2) Acute UTI (urinary tract infection): Plan: Patient afebrile, HD stable, non-toxic in appearance. UA from earlier today suggestive of infection. Culture pending Urine culture from 08/11/21 with enterococcus faecalis, pansensitive -Continue Amoxicillin 500mg po TID (3) BPH w urinary obs/LUTS: Plan: s/p TURP -Hematuria as above (4) Rheumatoid arthritis: Plan: Chronic. Well controlled with medications -Continue Leflunomide -Patient may take home Rinvoq (5) Atrial fibrillation: Plan: Rate controlled. Patient anticoagulated on Xarelto -Continue Diltiazem 120mg po daily -Hold Xarelto in setting of acute bleed (6) Chronic back pain: Plan: Chronic. Well controlled with home medication -Continue Lyrica 100mg po TID -Hydrocodone TID as needed (confirmed in PDMP and added to home list) -Colace/Miralax PRN (7) Hypertension: Plan: Blood pressure well controlled -Continue HCTZ 25mg po daily -Continue Lisinopril 10mg po qAM -Monitor Plan: F/E/N - LR at 125mL/hr x 2 liters, electrolytes WNL, Regular diet as tolerated Ppx - SCDs, NADIYA stockings Code - Full per discussion with patient Dispo - Observation to medical History of Present Illness Chief Complaint: hematuria Primary Care Provider: Dc Chin Curt Starr is a 70yo male with history of atrial fibrillation on Xarelto anticoagulation, GERD, HTN and RA. History of BPH s/p TURP performed on 08/21/[address] Story. Procedure well tolerated, no complications identified. Patient reports some intermittent hematuria immediately following the procedure as expected. He was seen in followup on 09/24/21 and was doing well. Patient presented to the ER on 09/26/21 with complaint of dysuria, penile pain and hematuria. Mcdonald was placed in the ER which drained bloody urine, provided symptomatic improvement. Patient was discharged home with Mcdonald in place, prescription for Cipro for presumed infection. He returns this evening with complaint of leaking around the catheter. He passed a lot of clots at home then had some urinary retention and decreased output followed by leaking around the mcdonald. In the ER, nursing was unable to irrigate the Mcdonald. His catheter was replaced by 20French with passage of multiple large clots. He feels improved. Patient evaluated by Urology. Observation recommended. ER Course: Amoxicillin Allergies Allergy/AdvReac Type Severity Reaction Status Date / Time No Known Allergies Allergy Verified 09/26/21 13:23 Home Medications Medication Instructions Recorded Confirmed Type diltiazem HCl 120 mg 120 mg PO QAM cap 04/04/19 09/26/21 History capsule,extended release 24 hr hydrochlorothiazide 25 mg tablet 25 mg PO QAM tab 04/04/19 09/26/21 History lisinopril 10 mg tablet 10 mg PO QAM #30 tab 04/04/19 09/26/21 History calcium carb,cit ER 600 mg-vit D3 1 tab PO QAM 02/01/20 09/26/21 History 12.5 mcg (500 unit) tablet,ext.rel (Citracal-D3 Slow Release) leflunomide 20 mg tablet (Arava) 20 mg PO QAM 02/01/20 09/26/21 History Lactobacills gasseri-Bifidobac 1 cap PO DAILY 04/28/21 09/26/21 History bifidum,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 ([employer]) pregabalin 100 mg capsule (Lyrica) 100 mg PO TID #270 cap 08/11/21 09/26/21 Rx rivaroxaban 20 mg tablet (Xarelto) 20 mg PO QAM 08/11/21 09/26/21 History upadacitinib 15 mg tablet,extended 15 mg PO QAM 08/13/21 09/26/21 History release 24 hr (Rinvoq) ciprofloxacin HCl 500 mg tablet 500 mg PO BID #14 tab 09/26/21 09/26/21 Rx hydrocodone 5 mg-acetaminophen 325 1 tab PO TID PRN 09/27/21 09/27/21 History mg tablet Past Med/Surg History Medical History (Updated 09/27/21 @ 01:41 by Balbina Hernandez DO) Atrial fibrillation Initial episode in setting of acute illness (2016) -- recurrence 06/2021 - started on xarelto -- 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 Now on Xarelto for a fib Hypertension Kidney stones hx On anticoagulant therapy Peripheral neuropathy Rheumatoid arthritis Surgical History History of back surgery History of carpal tunnel surgery of right wrist History of colonoscopy History of cystoscopy with stone basketing for kidney stones History of elbow surgery left History of esophagogastroduodenoscopy (EGD) History of lithotripsy ESW[place] (02/2020 - [facility] [place] History of Mohs micrographic surgery for skin cancer History of revision of total replacement of left knee joint History of total knee replacement bilateral S/P Achilles tendon repair right Family History Other No family history of adverse response to anesthesia Social History Smoking Status: Never smoker Second Hand Exposure: No; Hx Alcohol Use: No Hx Substance Use: No Preferred Language: [place] Communication Ability: Effective Aeronautical Drafter Required: No Beliefs That Will Affect Care: None Current Living Situation: Spouse Other Information That Helps Us Care for You: No Feels Safe at Home: Yes Safety Concerns: Feels Safe At This Time Assistive Devices: Glasses Review of Systems Review of Systems: All systems reviewed & are unremarkable except as noted in HPI & below Physical Exam Physical Exam: General: patient resting comfortably, NAD, non-toxic in appearance, AA&O x 4 Skin: warm, dry, intact, no rashes or lesions HEENT: NC/AT, PERRL, EOMI, anicteric sclera, conjunctiva without injection, external ear normal to inspection and nontender, nares patent, moist mucus membranes, dentition intact, no oropharyngeal lesions, neck supple, trachea midline, no LAD, no thyromegaly, no JVD Heart: +S1/S2, regular, no m/r/g Lungs: equal air entry bilaterally, no rales/rhonchi/wheezes Abd: +BS, soft, NT/ND, no masses/organomegaly/ascites, Mcdonald in place with hematuria, small amount of clot in the bag Ext: warm, 2+ pulses in UE/LE bilaterally, no clubbing/cyanosis or edema Neuro: nonfocal, patient AA&O x 4, speech intact, no facial droop, moving all extremities on command with equal strength 5/5 Results & Data Results & Data ([facility]) Vital Signs (Past 12 Hours) Vital Signs Temp Pulse Resp BP Pulse Ox 09/26/21 20:29 36.8 C 85 18 144/85 H 99 Laboratory Results Laboratory Results WBC 7.63 K/uL (4.8-10.8) 09/26/21 23:21 RBC 4.12 M/uL (4.7-6.1) L 09/26/21 23:21 Hgb 12.9 g/dL (14.0-18.0) L 09/26/21 23:21 Hct 37.3 % (42-52) L 09/26/21 23:21 MCV 90.5 fL (80-100) 09/26/21 23:21 MCH 31.3 pg (25-34) 09/26/21 23:21 MCHC 34.6 g/dL (32-36) 09/26/21 23:21 RDW Std Deviation 50.0 fL (36.4-46.3) H 09/26/21 23:21 RDW Coeff of Flora 15.1 % (11.5-14.5) H 09/26/21 23:21 Plt Count 269 K/uL (130-400) 09/26/21 23:21 MPV 9.6 fL (7.4-10.4) 09/26/21 23:21 Immature Gran % (Auto) 0.3 % 09/26/21 23:21 Neut % (Auto) 75.4 % 09/26/21 23:21 Lymph % (Auto) 16.0 % 09/26/21 23:21 [place] % (Auto) 7.3 % 09/26/21 23:21 Eos % (Auto) 0.7 % 09/26/21 23:21 Baso % (Auto) 0.3 % 09/26/21 23:21 Neut # (Auto) 5.76 K/uL (1.4-6.5) 09/26/21 23:21 Lymph # (Auto) 1.22 K/uL (1.2-3.4) 09/26/21 23:21 [place] # (Auto) 0.56 K/uL (0.11-0.59) 09/26/21 23:21 Eos # (Auto) 0.05 K/uL (0-0.5) 09/26/21 23:21 Baso # (Auto) 0.02 K/uL (0-0.2) 09/26/21 23:21 Immature Gran # (Auto) 0.02 K/uL (0.00-0.02) 09/26/21 23:21 Sodium 139 mmol/L (136-145) 09/26/21 23:21 Potassium 3.6 mmol/L (3.5-5.1) 09/26/21 23:21 Chloride 105 mmol/L (98-107) 09/26/21 23:21 Carbon Dioxide 26 mmol/L (21-32) 09/26/21 23:21 Anion Gap 8 (3-11) 09/26/21 23:21 BUN 16 mg/dl (6-23) 09/26/21 23:21 Creatinine 0.80 mg/dl (0.6-1.4) 09/26/21 23: Est Cr Clr Drug Dosing 92.1 ml/min 09/26/21 23:21 Est GFR ( Amer) 106.4 ml/min 09/26/21 23:21 Est GFR (Non-Af Amer) 91.8 ml/min 09/26/21 23:21 BUN/Creatinine Ratio 20.0 (10-20) 09/26/21 23:21 Glucose 91 mg/dl (70-99(Fasting)) 09/26/21 23:21 Calcium 9.1 mg/dl (8.5-10.1) 09/26/21 23:21 Total Bilirubin 0.6 mg/dl (0.2-1.0) 09/26/21 23:21 AST 21 U/L (13-39) 09/26/21 23:21 ALT 19 U/L (7-52) 09/26/21 23:21 Alkaline Phosphatase 83 U/L (34-104) 09/26/21 23:21 Total Protein 6.5 gm/dl (6.0-8.3) 09/26/21 23:21 Albumin 4.1 gm/dl (3.4-5.0) 09/26/21 23:21 Globulin 2.4 gm/dl (2.5-4.0) L 09/26/21 23:21 Albumin/Globulin Ratio 1.7 (0.9-2) 09/26/21 23:21 SARS-CoV-2, RNA, NAAT NEGATIVE (NEGATIVE) 09/26/21 23:21 Code Status & VTE Plan VTE Prophylaxis Plan VTE Prophylaxis will be ordered: Yes PG Care Time/CCT Total # of Minutes Spent Total Time Spent with Patient: Total time spent is greater than 50% in coordination of care (as documented) at patient's floor/unit and/or counseling patient: Coding Level of Care Code INT OBSERVATION CARE 70M LVL 3 Diagnoses Hematuria R31.9 Acute UTI (urinary tract infection) N39.0 BPH w urinary obs/LUTS N40.1; N13.8 Rheumatoid arthritis M06.9 Atrial fibrillation I48.91 Chronic back pain M54.9; G89.29 Hypertension I10
[2021-09-26] MEDS ORDERED: HYDROCODONE/ACETAMOPHEN 5/325MG TAB PO STA (22:58)
[2021-09-26] MEDS ORDERED: PREGABALIN 100 MG CAP PO SCH (23:00)
[2021-09-26 23:32] LABS: Basophils # (auto) 0.02 K/uL (0-0.2); Basophils % (auto) 0.3 %; Eosinophils # (auto) 0.05 K/uL (0-0.5); Eosinophils % (auto) 0.7 %; Hematocrit (blood only) 37.3 % (42-52); Hemoglobin 12.9 g/dL (14.0-18.0); Immature Granulocytes # (auto) 0.02 K/uL (0.00-0.02); Immature Granulocytes % (auto) 0.3 %; Lymphocytes # (auto) 1.22 K/uL (1.2-3.4); Mean Corpuscular Hemoglobin 31.3 pg (25-34); Mean Corpuscular Hgb Conc 34.6 g/dL (32-36); Mean Corpuscular Volume 90.5 fL (80-100); Mean Platelet Volume 9.6 fL (7.4-10.4); Monocytes # (auto) 0.56 K/uL (0.11-0.59); Monocytes % (auto) 7.3 %; Neutrophils # (auto) 5.76 K/uL (1.4-6.5); Neutrophils % (auto) 75.4 %; Platelet Count 269 K/uL (130-400); RDW Coefficient of Variation 15.1 % (11.5-14.5); Red Blood Count 4.12 M/uL (4.7-6.1); White Blood Count 7.63 K/uL (4.8-10.8)
--- NOTE | 2021-09-26 23:42 | Emergency Department Note ---
Impression & Plan Malfunction of Castorena catheter, Hematuria, Acute UTI (urinary tract infection) ED Provider Note INFORMANT: Patient ED PROVIDER(S): Jose Ho MD CHIEF COMPLAINT: Leaking Castorena catheter PLAN: Disposition: Admitted Condition: Good Outpatient prescription management: none Referral: None MEDICAL DECISION MAKING: Patient presented because of leaking around his Castorena catheter. He had been diagnosed with a UTI and urinary retention today. He was doing well after discharge however the catheter bag was noted to have a lot of blood and clots in it. He then had leaking around the catheter and the bag was not filling. He denies any significant discomfort. His catheter was unable to be irrigated by nursing. At that point a 20 Amharic Castorena catheter was placed in lieu of the 18 Amharic clogged catheter. He was irrigated. Multiple large clots were removed. The leaking around the catheter resolved. I did discuss his microbiology history with the pharmacist and he has multiple cultures that revealed a sensitive Enterococcus. Amoxicillin was recommended. First dose given in the ER. CBC and chemistry panel were unremarkable. Patient was very uncomfortable about going home given the catheter problem and his distance from the hospital. The patient was evaluated by Yohannes Shah PA-C for urology. He recommended frequent bladder irrigations and as needed due to possibility of clogging secondary to blood clots. Consultation was made with Dr. Balbina Hernandez of the [facility] service. Patient was evaluated in the ER for further management. Triage Nursing notes reviewed and agree them. Vital Signs: reviewed and remarkable for no significant abnormalities Differential diagnosis: Catheter malfunction, obstruction, dehydration, urinary tract infection, urinary retention, acute kidney injury, as well as other pathologies. Diagnostics interpreted by me: ECG: none Cardiac Monitoring: none Imaging studies: Deferred HPI: The patient is a 70 year old male who presents to the Emergency Room with complaints of leaking around his catheter. This started today after discharge from the ER and is worsening. The patient also notes the following associated symptoms, dysuria, hematuria with blood clots noted in his Castorena bag. The patient has found no relieving factors. Current pain is rated as 6/10. Pt denies LOC, headache, fevers, chills, diaphoresis, visual changes, neck pain, chest pain, breathing difficulties, nausea, vomiting, abdominal pain, back pain, melena, hematochezia, numbness, weakness, lymphadenopathy, rash, or other complaints. ROS: See above HPI for pertinent positives & negatives. A total of 10 systems re viewed and were otherwise negative. PAST MEDICAL HISTORY:See Below , UTI, BPH, anticoagulated PAST SURGICAL HISTORY:See Below, TURP FAMILY HISTORY:See Below SOCIAL HISTORY:See Below, HOME MEDICATIONS:See Below ALLERGIES:See Below VITALS:See Below PHYSICAL EXAMINATION: GENERAL: Awake, alert, well-appearing, in no distress HENT: Normocephalic, atraumatic. Oropharynx unremarkable. EYES: Normal conjunctiva. Sclera non-icteric. NECK: Inspection normal. Non-tender. Supple. No nuchal rigidity. FROM. No masses. RESPIRATORY: Clear to auscultation. No wheezes. No rales. Normal respiratory effort. CARDIAC: Normal rate. Normal rhythm. No murmurs. No rubs. Extremities warm and well perfused. Pulses equal. No JVD. GI: Soft, non-distended. No tenderness to palpation. No rebound or guarding. No masses. : Normal male. Castorena catheter in place, 18 Amharic. Some leakage around the catheter noted. There is bloody urine with clots noted. MUSCULOSKELETAL: Atraumatic. Chest examination reveals no tenderness. The back is symmetrical on inspection without obvious abnormality. There is no CVA tenderness to palpation. No joint edema. No edema. No discoloration. NEURO: Normal sensorium. No sensory or motor deficits noted. SKIN: No rash or jaundice noted. Jose Ho MD Past Med/Surg History Medical History Atrial fibrillation Initial episode in setting of acute illness (2016) -- recurrence 06/2021 - started on xarelto -- 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 Now on Xarelto for a fib Hypertension Kidney stones hx On anticoagulant therapy Peripheral neuropathy Rheumatoid arthritis Surgical History History of back surgery History of carpal tunnel surgery of right wrist History of colonoscopy History of cystoscopy with stone basketing for kidney stones History of elbow surgery left History of esophagogastroduodenoscopy (EGD) History of [place]otri[place] [facility] [place] History of Mohs micrographic surgery for skin cancer History of revision of total replacement of left knee joint History of total knee replacement bilateral S/P Achilles tendon repair right Family History Other No family history of adverse response to anesthesia Social History Smoking Status: Never smoker Second Hand Exposure: No; Hx Alcohol Use: No Hx Substance Use: No Preferred Language: Greek Communication Ability: Effective [employer] Supervisor Required: No Beliefs That Will Affect Care: None Current Living Situation: Spouse Feels Safe at Home: Yes Assistive Devices: None Allergies Allergies Allergy/AdvReac Type Severity Reaction Status Date / Time No Known Allergies Allergy Verified 09/26/21 13:23 Home Meds Home Medications Medication Instructions Recorded Confirmed diltiazem HCl 120 mg 120 mg PO QAM cap 04/04/19 09/26/21 capsule,extended release 24 hr hydrochlorothiazide 25 mg tablet 25 mg PO QAM tab 04/04/19 09/26/21 lisinopril 10 mg tablet 10 mg PO QAM #30 tab 04/04/19 09/26/21 calcium carb,cit ER 600 mg-vit D3 1 tab PO QAM 02/01/20 09/26/21 12.5 mcg (500 unit) tablet,ext.rel (Citracal-D3 Slow Release) leflunomide 20 mg tablet (Arava) 20 mg PO QAM 02/01/20 09/26/21 Lactobacills gasseri-Bifidobac 1 cap PO DAILY 04/28/21 09/26/21 bifidum,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 (Crowdrally) rivaroxaban 20 mg tablet (Xarelto) 20 mg PO QAM 08/11/21 09/26/21 upadacitinib 15 mg tablet,extended 15 mg PO QAM 08/13/21 09/26/21 release 24 hr (Rinvoq) Previous Rx's Medication Instructions Recorded pregabalin 100 mg capsule (Lyrica) 100 mg PO TID #270 cap 08/11/21 ciprofloxacin HCl 500 mg tablet 500 mg PO BID #14 tab 09/26/21 Results & Data (ED) Vital Signs Vital Signs - 24 hr 09/26/21 20:29 09/26/21 23:27 Temperature 36.8 C Temperature Source Temporal Artery Scan Pulse Rate 85 Pulse Rate [Finger] 55 L Respiratory Rate 18 18 Respiratory Effort / Characteristics Non-Labored Spontaneous Respiratory Depth Normal Respiratory Pattern Regular Blood Pressure 144/85 H Blood Pressure [Left Arm] 122/82 Blood Pressure Mean 104 Blood Pressure Mean [Left Arm] 95 Blood Pressure Position Sitting Pulse Oximetry 99 98 Oxygen Delivery Method Room Air Room Air Sepsis Recent Fever Within 48 Hours No Sepsis New/Unexplained Change in Mental Status No Sepsis Action Taken by Nursing No Action Required Laboratory Data Result diagrams: 09/26/21 23:21 09/26/21 23:21 Lab Results 09/26/21 09/26/21 09/26/21 Range/Units 23:21 23:21 23:21 WBC 7.63 (4.8-10.8) K/uL RBC 4.12 L (4.7-6.1) M/uL Hgb 12.9 L (14.0-18.0) g/dL Hct 37.3 L (42-52) % MCV 90.5 (80-100) fL MCH 31.3 (25-34) pg MCHC 34.6 (32-36) g/dL RDW Std Deviation 50.0 H (36.4-46.3) fL RDW Coeff of Flora 15.1 H (11.5-14.5) % Plt Count 269 (130-400) K/uL MPV 9.6 (7.4-10.4) fL Immature Gran % (Auto) 0.3 % Neut % (Auto) 75.4 % Lymph % (Auto) 16.0 % [place] % (Auto) 7.3 % Eos % (Auto) 0.7 % Baso % (Auto) 0.3 % Neut # (Auto) 5.76 (1.4-6.5) K/uL Lymph # (Auto) 1.22 (1.2-3.4) K/uL [place] # (Auto) 0.56 (0.11-0.59) K/uL Eos # (Auto) 0.05 (0-0.5) K/uL Baso # (Auto) 0.02 (0-0.2) K/uL Immature Gran # (Auto) 0.02 (0.00-0.02) K/uL Sodium 139 (136-145) mmol/L Potassium 3.6 (3.5-5.1) mmol/L Chloride 105 (98-107) mmol/L Carbon Dioxide 26 (21-32) mmol/L Anion Gap 8 (3-11) BUN 16 (6-23) mg/dl Creatinine 0.80 (0.6-1.4) mg/dl Est Cr Clr Drug Dosing 92.1 ml/min Est GFR ( Amer) 106.4 ml/min Est GFR (Non-Af Amer) 91.8 ml/min BUN/Creatinine Ratio 20.0 (10-20) Glucose 91 (70-99(Fasting)) mg/dl Calcium 9.1 (8.5-10.1) mg/dl Total Bilirubin 0.6 (0.2-1.0) mg/dl AST 21 (13-39) U/L ALT 19 (7-52) U/L Alkaline Phosphatase 83 (34-104) U/L Total Protein 6.5 (6.0-8.3) gm/dl Albumin 4.1 (3.4-5.0) gm/dl Globulin 2.4 L (2.5-4.0) gm/dl Albumin/Globulin Ratio 1.7 (0.9-2) SARS-CoV-2, RNA, NAAT NEGATIVE (NEGATIVE) Administered Medications Pregabalin (Pregabalin 100 Mg Cap) 100 mg PO BID JOAN Stop: 10/26/21 22:59 Last Admin: 09/26/21 23:20 Dose: 100 mg Documented by: [id number] Discontinued Medications Hydrocodone Bitart/Acetaminophen (Hydrocodone/Acetamophen 5/325mg Tab) 1 tab PO NOW STA Stop: 09/26/21 22:59 Last Admin: 09/26/21 23:20 Dose: 1 tab Documented by: [id number] Amoxicillin (Amoxicillin 500 Mg Cap) 500 mg PO NOW STA Stop: 09/26/21 22:22 Last Admin: 09/26/21 23:20 Dose: 500 mg Documented by: [id number] Discharge Plan Visit Data Chief Complaint: Catheter Replacement Stated Complaint: was here earlier, catheter is leaking ED Provider: Jose Ho Discharge Problem: Malfunction of Castorena catheter, Hematuria, Acute UTI (urinary tract infection) Discharge Instructions Interventions: ED Discharge Assessment Last Done: 09/26/21 23:59 Forms Stand Alone Forms: [facility] Prescriptions Prescriptions: No Action Xarelto 20 mg tablet 20 mg PO QAM RF: 0 pregabalin [Lyrica] 100 mg capsule 100 mg PO TID Qty: 270 RF: 3 hydrochlorothiazide 25 mg tablet 25 mg PO QAM RF: 0 diltiazem HCl 120 mg capsule,extended release 24hr 120 mg PO QAM RF: 0 lisinopril 10 mg tablet 10 mg PO QAM Qty: 30 RF: 0 leflunomide [Arava] 20 mg Tablet 20 mg PO QAM RF: 0 calcium carb and citrate-vitD3 [Citracal-D3 Slow Release] 600 mg calcium- 500 unit Tablet Extended Release 1 tab PO QAM RF: 0 Crowdrally 1.5 billion cell Capsule 1 cap PO DAILY RF: 0 Rinvoq 15 mg tablet extended release 24 hr 15 mg PO QAM RF: 0 ciprofloxacin HCl 500 mg tablet 500 mg PO BID Qty: 14 RF: 0 Referrals Referrals: Dc Chin [Primary Care Provider] -
[2021-09-26 23:50] LABS: Albumin Globulin Ratio 1.7 (0.9-2); Albumin Level 4.1 gm/dl (3.4-5.0); Bilirubin,Total 0.6 mg/dl (0.2-1.0); Calcium 9.1 mg/dl (8.5-10.1); Creatinine Clr Calc Pharmacy 92.1 ml/min; Est GFR (African American) 106.4 ml/min; Est GFR (Non-African American) 91.8 ml/min; Globulin 2.4 gm/dl (2.5-4.0); Potassium 3.6 mmol/L (3.5-5.1); Total Protein 6.5 gm/dl (6.0-8.3)
[2021-09-27] MEDS ORDERED: ACETAMINOPHEN 325 MG TAB PO PRN (00:19)
[2021-09-27] MEDS ORDERED: ONDANSETRON INJ 2 MG/ML 2 ML VIAL IV PRN (00:19)
[2021-09-27] MEDS ORDERED: DOCUSATE SODIUM 100 MG CAP PO PRN (01:42)
[2021-09-27] MEDS ORDERED: POLYETHYLENE (MIRALAX) 17 GM PACK PO PRN (01:42)
[2021-09-27] MEDS: LACTATED RINGER'S 1,000 ML IV SCH ×2 (01:58→08:40)
[2021-09-27 08:01] LABS: Basophils # (auto) 0.01 K/uL (0-0.2); Basophils % (auto) 0.2 %; Eosinophils # (auto) 0.08 K/uL (0-0.5); Eosinophils % (auto) 1.3 %; Hematocrit (blood only) 35.4 % (42-52); Lymphocytes # (auto) 0.65 K/uL (1.2-3.4); Lymphocytes % (auto) 10.5 %; Mean Corpuscular Hemoglobin 31.1 pg (25-34); Mean Corpuscular Hgb Conc 33.9 g/dL (32-36); Mean Corpuscular Volume 91.7 fL (80-100); Mean Platelet Volume 9.6 fL (7.4-10.4); Monocytes # (auto) 0.52 K/uL (0.11-0.59); Monocytes % (auto) 8.4 %; Neutrophils # (auto) 4.95 K/uL (1.4-6.5); Neutrophils % (auto) 79.6 %; Platelet Count 225 K/uL (130-400); RDW Coefficient of Variation 15.4 % (11.5-14.5); RDW Standard Deviation 51.7 fL (36.4-46.3); Red Blood Count 3.86 M/uL (4.7-6.1); White Blood Count 6.21 K/uL (4.8-10.8)
[2021-09-27] MEDS: dilTIAZem HCL 120 MG CAPCR PO SCH (08:31)
[2021-09-27] MEDS: LEFLUNOMIDE 10 MG TAB PO SCH (08:31)
[2021-09-27] MEDS: lisinopril 10 MG TAB PO SCH (08:31)
[2021-09-27] MEDS: AMOXICILLIN 500 MG CAP PO SCH ×3 (08:32→20:41)
[2021-09-27] MEDS: hydroCHLOROthiazide 25 MG TAB PO SCH (08:32)
--- NOTE | 2021-09-27 08:34 | Hospitalist Progress Note ---
Date of Service September 27, 2021 Assessment & Plan (1) Hematuria: Plan: s/p TURP performed on 08/21/21. Doing well, then presented to ER w/ hematuria AM 09/26 and mcdonald placed and sent home on Cipro PO (got dose 500mg while in ER) --> Came back in evening with ongoing hematuria with clots, malfunction of Mcdonald. Mcdonald has since been replaced, 20 Syriac, patient passing hematuria, minimal clots Xarelto on hold (for afib) Mcdonald to remain in place at present time Hgb 13--> 12.9 --> 12.0 on AM labs, although less blood in tubing this afternoon and clearing up Flush manually as needed -- RN has been manually manipulating and improvement in tubing, some small amt of sediment If large amount of clot or frequent flushing required will consider CBI but can hold off for now Urology consulted -- appreciate assistance Monitor urine culture --> Hx enterococcus on all priors, pansensitive. On amoxicillin TID Discussed with Urology given recs for Cipro, better bioavailability, but could continue the amoxicillin if no fevers/improvement and will do such given none re ported and patient feeling better Pain control as needed Defer management of mcdonald at discharge to Urology, however suspect would continue this. ?discharge tomorrow, patient states he has an appointment already scheduled for Wednesday with Urology but has not seen them yet today (2) Acute UTI (urinary tract infection): Plan: Patient afebrile, HD stable, non-toxic in appearance. UA from earlier today suggestive of infection. Culture pending -- monitor Urine culture from 08/11/21 with enterococcus faecalis, pansensitive Continue Amoxicillin 500mg po TID for now, switch to Cipro if becomes febrile or WBC elevated/worsens (3) BPH w urinary obs/LUTS: Plan: s/p TURP Hematuria as above (4) Rheumatoid arthritis: Plan: Chronic. Well controlled with medications Continue Leflunomide, home Rinvoq (5) Atrial fibrillation: Plan: Rate controlled. Patient anticoagulated on Xarelto, however placed on hold in setting of acute bleed Continue Diltiazem 120mg po daily (6) Chronic back pain: Plan: Chronic. Well controlled with home medication Continue Lyrica 100mg po TID Hydrocodone TID as needed (confirmed in PDMP and added to home list) Colace/Miralax PRN (7) Hypertension: Plan: BP controlled Continued on HCTZ 25, lisinopril 10mg daily Cr stable 0.75 Monitor Plan: F/E/N - LR at 125mL/hr x 2 liters, electrolytes WNL, Regular diet as tolerated Ppx - SCDs, NADIYA stockings Observation overnight given travels 1 hour, if stable can d/c in AM Admission and Anticipated Discharge Date Admission Date: September 26, 2021 Supervising Physician Co-Signing Physician Notes PA Supervision Note: I did not personally see or examine the patient today, but I verified all page points of TIBURCIO Blood's assessment and plan with the following exceptions/additions: None Subjective Patient evaluated this afternoon Doing well RN manually manipulated catheter, clearing in tubing. less clots, some sediment Patient denies fever/chills, chest pain, shortness of breath. No abdominal pain. SOme penile discomfort from catheter and wondering if this will need to remain in place at discharge. Discussed would think that's a high possibility but will check with Dr Prakash and get back to patient. He is anxious about d/c too early as lives an hour away and if issues to come back. Discussed will monitor overnight, discuss with Urology, and plan for discharge in AM if remains stable. Questions/concerns addressed at this time. Review of Systems Review of Systems: All systems reviewed & are unremarkable except as noted in HPI & below Physical Exam Physical Exam: General: WN/WD male resting comfortable in bed, NAD HEENT: eyes anicteric, pupils equal, trachea midline, mmm Resp: CTAB, no w/c/r, on room air CV: regular rate, rhythm, no m/r/g, no edema GI: +BS, soft, non-tender : mcdonald with diaz red urine in bag however clearer yellow urine in tubing with some sediment appreciated Neuro/Psych: AOx3, cooperative and pleasant, CN intact grossly Skin: warm, dry Results & Data Results & Data ([facility]) Vital Signs (Past 12 Hours) Vital Signs Temp Pulse Resp BP Pulse Ox 09/27/21 07:21 36.7 C 65 18 143/80 H 99 09/27/21 04:11 36.8 C 61 18 133/80 97 09/27/21 00:05 36.8 C 61 18 133/80 97 09/26/21 23:27 55 L 18 122/82 98 Laboratory Results 09/27/21 09/27/21 09/27/21 Range/Units 07:32 07:32 07:32 WBC 6.21 (4.8-10.8) K/uL RBC 3.86 L (4.7-6.1) M/uL Hgb 12.0 L (14.0-18.0) g/dL Hct 35.4 L (42-52) % MCV 91.7 (80-100) fL MCH 31.1 (25-34) pg MCHC 33.9 (32-36) g/dL RDW Std Deviation 51.7 H (36.4-46.3) fL RDW Coeff of Flora 15.4 H (11.5-14.5) % Plt Count 225 (130-400) K/uL MPV 9.6 (7.4-10.4) fL Immature Gran % (Auto) 0.0 % Neut % (Auto) 79.6 % Lymph % (Auto) 10.5 % [place] % (Auto) 8.4 % Eos % (Auto) 1.3 % Baso % (Auto) 0.2 % Neut # (Auto) 4.95 (1.4-6.5) K/uL Lymph # (Auto) 0.65 L (1.2-3.4) K/uL [place] # (Auto) 0.52 (0.11-0.59) K/uL Eos # (Auto) 0.08 (0-0.5) K/uL Baso # (Auto) 0.01 (0-0.2) K/uL Immature Gran # (Auto) 0.00 (0.00-0.02) K/uL Sodium 140 (136-145) mmol/L Potassium 3.6 (3.5-5.1) mmol/L Chloride 106 (98-107) mmol/L Carbon Dioxide 28 (21-32) mmol/L Anion Gap 6 (3-11) BUN 15 (6-23) mg/dl Creatinine 0.75 (0.6-1.4) mg/dl Est Cr Clr Drug Dosing 98.3 ml/min Est GFR ( Amer) 109.2 ml/min Est GFR (Non-Af Amer) 94.3 ml/min BUN/Creatinine Ratio 20.0 (10-20) Glucose 94 (70-99(Fasting)) mg/dl Calcium 8.9 (8.5-10.1) mg/dl Total Bilirubin (0.2-1.0) mg/dl AST (13-39) U/L ALT (7-52) U/L Alkaline Phosphatase (34-104) U/L Total Protein (6.0-8.3) gm/dl Albumin (3.4-5.0) gm/dl Globulin (2.5-4.0) gm/dl Albumin/Globulin Ratio (0.9-2) Hepatitis C Ab (EIA) Pending Hep C Ab Signal/Cutoff Pending SARS-CoV-2, RNA, NAAT (NEGATIVE) 09/26/21 09/26/21 09/26/21 Range/Units 23:21 23:21 23:21 WBC 7.63 (4.8-10.8) K/uL RBC 4.12 L (4.7-6.1) M/uL Hgb 12.9 L (14.0-18.0) g/dL Hct 37.3 L (42-52) % MCV 90.5 (80-100) fL MCH 31.3 (25-34) pg MCHC 34.6 (32-36) g/dL RDW Std Deviation 50.0 H (36.4-46.3) fL RDW Coeff of Flora 15.1 H (11.5-14.5) % Plt Count 269 (130-400) K/uL MPV 9.6 (7.4-10.4) fL Immature Gran % (Auto) 0.3 % Neut % (Auto) 75.4 % Lymph % (Auto) 16.0 % [place] % (Auto) 7.3 % Eos % (Auto) 0.7 % Baso % (Auto) 0.3 % Neut # (Auto) 5.76 (1.4-6.5) K/uL Lymph # (Auto) 1.22 (1.2-3.4) K/uL [place] # (Auto) 0.56 (0.11-0.59) K/uL Eos # (Auto) 0.05 (0-0.5) K/uL Baso # (Auto) 0.02 (0-0.2) K/uL Immature Gran # (Auto) 0.02 (0.00-0.02) K/uL Sodium 139 (136-145) mmol/L Potassium 3.6 (3.5-5.1) mmol/L Chloride 105 (98-107) mmol/L Carbon Dioxide 26 (21-32) mmol/L Anion Gap 8 (3-11) BUN 16 (6-23) mg/dl Creatinine 0.80 (0.6-1.4) mg/dl Est Cr Clr Drug Dosing 92.1 ml/min Est GFR ( Amer) 106.4 ml/min Est GFR (Non-Af Amer) 91.8 ml/min BUN/Creatinine Ratio 20.0 (10-20) Glucose 91 (70-99(Fasting)) mg/dl Calcium 9.1 (8.5-10.1) mg/dl Total Bilirubin 0.6 (0.2-1.0) mg/dl AST 21 (13-39) U/L ALT 19 (7-52) U/L Alkaline Phosphatase 83 (34-104) U/L Total Protein 6.5 (6.0-8.3) gm/dl Albumin 4.1 (3.4-5.0) gm/dl Globulin 2.4 L (2.5-4.0) gm/dl Albumin/Globulin Ratio 1.7 (0.9-2) Hepatitis C Ab (EIA) Hep C Ab Signal/Cutoff SARS-CoV-2, RNA, NAAT NEGATIVE (NEGATIVE) PG Care Time/CCT Total # of Minutes Spent Total Time Spent with Patient: Total time spent is greater than 50% in coordination of care (as documented) at patient's floor/unit and/or counseling patient: Coding Level of Care Code 22639 Subseq Obs Care Lvl 2 Diagnoses Hematuria R31.9 Acute UTI (urinary tract infection) N39.0 BPH w urinary obs/LUTS N40.1; N13.8 Rheumatoid arthritis M06.9 Atrial fibrillation I48.91 Chronic back pain M54.9; G89.29 Hypertension I10
[2021-09-27 08:37] LABS: Calcium 8.9 mg/dl (8.5-10.1); Creatinine Clr Calc Pharmacy 98.3 ml/min; Est GFR (African American) 109.2 ml/min; Est GFR (Non-African American) 94.3 ml/min; Potassium 3.6 mmol/L (3.5-5.1)
[2021-09-27] MEDS: PREGABALIN 100 MG CAP PO SCH ×3 (08:39→20:40)
[2021-09-27] MEDS: HYDROCODONE/ACETAMOPHEN 5/325MG TAB PO PRN (20:40)
[2021-09-28 07:29] LABS: Hematocrit (blood only) 35.3 % (42-52); Hemoglobin 11.9 g/dL (14.0-18.0); Mean Corpuscular Hgb Conc 33.7 g/dL (32-36); Mean Corpuscular Volume 91.9 fL (80-100); Mean Platelet Volume 9.6 fL (7.4-10.4); Platelet Count 198 K/uL (130-400); RDW Coefficient of Variation 15.4 % (11.5-14.5); RDW Standard Deviation 52.1 fL (36.4-46.3); Red Blood Count 3.84 M/uL (4.7-6.1); White Blood Count 4.67 K/uL (4.8-10.8)
[2021-09-28 07:48] LABS: BUN Creatinine Ratio 22.2 (10-20); Calcium 8.8 mg/dl (8.5-10.1); Est GFR (African American) 105.8 ml/min; Est GFR (Non-African American) 91.3 ml/min; Potassium 3.5 mmol/L (3.5-5.1)
--- NOTE | 2021-09-28 08:30 | Discharge Summary ---
Date of Service September 28, 2021 Admission HPI Per Admitting Provider Curt Starr is a 70yo male with history of atrial fibrillation on Xarelto anticoagulation, GERD, HTN and RA. History of BPH s/p TURP performed on 08/21/[address] Story. Procedure well tolerated, no complications identified. Patient reports some intermittent hematuria immediately following the procedure as expected. He was seen in followup on 09/24/21 and was doing well. Patient presented to the ER on 09/26/21 with complaint of dysuria, penile pain and hematuria. Mcdonald was placed in the ER which drained bloody urine, provided symptomatic improvement. Patient was discharged home with Mcdonald in place, p rescription for Cipro for presumed infection. He returns this evening with complaint of leaking around the catheter. He passed a lot of clots at home then had some urinary retention and decreased o utput followed by leaking around the mcdonald. In the ER, nursing was unable to irrigate the Mcdonald. His catheter was replaced by 20French with passage of multiple large clots. He feels improved. Patient evaluated by Urology. Observation recommended. ER Course: Amoxicillin Admission Exam Per Admitting Provider General: patient resting comfortably, NAD, non-toxic in appearance, AA&O x 4 Skin: warm, dry, intact, no rashes or lesions HEENT: NC/AT, PERRL, EOMI, anicteric sclera, conjunctiva without injection, external ear normal to inspection and nontender, nares patent, moist mucus membranes, dentition intact, no oropharyngeal lesions, neck supple, trachea midline, no LAD, no thyromegaly, no JVD Heart: +S1/S2, regular, no m/r/g Lungs: equal air entry bilaterally, no rales/rhonchi/wheezes Abd: +BS, soft, NT/ND, no masses/organomegaly/ascites, Mcdonald in place with hematuria, small amount of clot in the bag Ext: warm, 2+ pulses in UE/LE bilaterally, no clubbing/cyanosis or edema Neuro: nonfocal, patient AA&O x 4, speech intact, no facial droop, moving all extremities on command with equal strength 5/5 Principal Diagnosis Hematuria Discharge Exam General: WN/WD male resting comfortable in bed, NAD HEENT: eyes anicteric, pupils equal, trachea midline, mmm Resp: CTAB, no w/c/r, on room air CV: regular rate, rhythm, no m/r/g, no edema GI: +BS, soft, non-tender :no mcdonald, urinal with clear yellow urine present Neuro/Psych: AOx3, cooperative and pleasant, CN intact grossly Skin: warm, dry Discharge Data Allergies Allergy/AdvReac Type Severity Reaction Status Date / Time No Known Allergies Allergy Verified 09/26/21 13:23 Consultations 09/26/21 22:17 ED Decision to Admit Stat 09/27/21 00:19 Consult Urology Routine Hospital Course (1) Hematuria: s/p TURP performed on 08/21/21. Doing well, then presented to ER w/ hematuria AM 09/26 and mcdonald placed and sent home on Cipro PO (got dose 500mg while in ER) --> Came back in that evening with ongoing hematuria with clots, malfunction of Mcdonald. Mcdonald had since been replaced, 20 Turkmen, patient passing hematuria, minimal clots on admission Urology consulted, initially was to have mcdonald to remain in place but then was removed due to leaking Hgb 13--> 12.9 --> 12.0 on AM labs, although clear urine in tubing prior to removal and had been on continuous IVF Patient was then witnessed voiding in urinal after removal and observed to be clear yellow without issue Xarelto held - can resume tomorrow per urology but rec'd he wait 3 days, then resume Discussed with Urology, and as patient was given Cipro in ER that morning, could make urine cx falsely negative and rec'd Cipro for better penetration. Prior cx also sensitive. Sent rx for Cipro to complete 7 day course Has follow up with Urology tomorrow with Dr Story (2) Acute UTI (urinary tract infection): Patient afebrile, HD stable, non-toxic in appearance. UA from earlier today suggestive of infection. Culture NO GROWTH (got cipro PO earlier in day prior to cx) Urine culture from 08/11/21 with enterococcus faecalis, pansensitive Continued Amoxicillin 500mg po TID initially but given ongoing issues/discomfort did switch to Cipro and sent for 7 days as above (3) BPH w urinary obs/LUTS: s/p TURP (4) Rheumatoid arthritis: Chronic. Well controlled with medications Continued Leflunomide, home Rinvoq but to hold temporarily while completing antibiotics Also patient with possible celebrex at home? He is not sure. Discussed would NOT restart these if taking given bleeding/on xarelto (5) Atrial fibrillation: Rate controlled. Patient anticoagulated on Xarelto, however placed on hold in setting of acute bleed but to resume in couple days Continued Diltiazem 120mg po daily (6) Chronic back pain: Chronic. Well controlled with home medication Continued Lyrica 100mg po TID Hydrocodone TID as needed (confirmed in PDMP and added to home list) Colace/Miralax PRN, moved bowels prior to d/c (7) Hypertension: BP controlled Continued on HCTZ 25, lisinopril 10mg daily Cr stable Disposition-stable for discharge home Total Time Total Time Spent Total Time Spent (In Minutes): 40 Discharge Plan Discharge Items Patient Disposition: Home - Self-Care Reason For Visit: HEMATURIA Discharge Diagnosis: Hematuria, UTI Goals: You have been hospitalized for an acute medical problem. During your stay at [facility], we have made an effort to correct the problem that brought you to the hospital while keeping you as comfortable as possible. Medications were used to bring your condition under control and your discharge instructions will include directions for any medications you should take after leaving the hospital. Please make sure you see your Primary Care Provider as part of your follow up plan. Activity: As commented below Non-emergency contact: Primary Care Provider and Urologist Call non-emergency contact if: you have any medication questions, your symptoms worsen, your pain is not controlled and you have a fever Follow-up/Referrals: Jhon Story MD [Physician] - 09/29/21 Dc Chin [Primary Care Provider] - Diet: Heart Healthy Addtl Attending Provider Instructions: You have been hospitalized for hematuria and a mcdonald catheter was placed. You were given a dose of Cipro in the ER in the morning, which may have made the urine culture negative on analysis but given already on the amoxicillin we switched to the Ciprofloxacin 500mg by mouth twice daily as it has better penetration. You have 6.5 days left to complete course and a prescription has been sent. You should continue to hold your Xarelto for an additional 3 days and then can resume and monitor for any increased bleeding, but bleeding could have been from irritation/placement of the mcdonald but also due to infection, and that's why we are sending the antibiotics as chosen. You have follow up with Dr. Story tomorrow and should keep this appointment to monitor your progress. Please follow up with your PCP in the next 7-10 days to monitor your progress. Please return to the emergency department if any further issues voiding/increased pain, fever, or for any other symptoms concerning for you. It has been a pleasure being a part of the medical team providing for you while you have been in the hospital. Take care! Pending Studies at Discharge: No Stand-Alone Forms: My [facility] Medications and DC Order Prescriptions: Continued Xarelto 20 mg tablet 20 mg PO QAM RF: 0 pregabalin [Lyrica] 100 mg capsule 100 mg PO TID Qty: 270 RF: 3 hydrochlorothiazide 25 mg tablet 25 mg PO QAM RF: 0 diltiazem HCl 120 mg capsule,extended release 24hr 120 mg PO QAM RF: 0 lisinopril 10 mg tablet 10 mg PO QAM Qty: 30 RF: 0 leflunomide [Arava] 20 mg Tablet 20 mg PO QAM RF: 0 calcium carb and citrate-vitD3 [Citracal-D3 Slow Release] 600 mg calcium- 500 unit Tablet Extended Release 1 tab PO QAM RF: 0 Sitemasher 1.5 billion cell Capsule 1 cap PO DAILY RF: 0 Rinvoq 15 mg tablet extended release 24 hr 15 mg PO QAM RF: 0 hydrocodone-acetaminophen 5-325 mg tablet 1 tab PO TID PRN (Reason: Pain) RF: 0 ciprofloxacin HCl 500 mg tablet 500 mg PO BID Qty: 13 RF: 0 Discharge Orders: Discharge Order (Routine); Ordered 09/28/21 Ordered By: Leah Blood Admission Data Admit Date/Time: 09/26/21 22:52 Attending Provider: Gem Riley Admit Provider: Balbina Hernandez Primary Care Provider: Dc Chin Other Providers: Balbina Hernandez ; Jhon Story Other Interventions: Discharge Summary Assessment (RN) Last Done: 09/28/21 15:32 Supervising Physician Co-Signing Physician Notes PA Supervision Note: I personally saw and examined the patient. I verified all page points and agree with TIBURCIO Blood with the following exceptions and/or additions: S-patient feeling much better, urine is completely cleared of any gross hematuria. No abdominal pains. Feeling well and stable for discharge home O- Vitals reviewed Gen: AAOx3, NAD HEENT: Anicteric sclerae, EOMI CV: RRR no mgr nl S1S2 Pulm: CTAB no wcr Abd: +BS soft NT ND no masses or hernias Ext: No edema, 2+ DP pulses Skin: No rashes, warm/dry Neuro: Full strength throughout A/W-[id number]-bese-old male here with urinary retention, acute UTI, and gross hematuria Hematuria has cleared and Mcdonald catheter has been removed He is 1 month status post TURP Treat with Cipro for at least 7 days, can give more prolonged course if desired upon follow-up with urology Watch for urinary retention at home Stay off rheumatoid arthritis drugs while on antibiotics for UTI Coding Level of Care Code 87381 OBS Care - Discharge Diagnoses Hematuria R31.9 Acute UTI (urinary tract infection) N39.0 BPH w urinary obs/LUTS N40.1; N13.8 Rheumatoid arthritis M06.9 Atrial fibrillation I48.91 Chronic back pain M54.9; G89.29 Hypertension I10
[2021-09-28] MEDS ORDERED: CIPROFLOXACIN 500 MG TAB PO SCH (09:30)
[2021-09-28] MEDS: dilTIAZem HCL 120 MG CAPCR PO SCH (09:43)
[2021-09-28] MEDS: LEFLUNOMIDE 10 MG TAB PO SCH (09:43)
[2021-09-28] MEDS: hydroCHLOROthiazide 25 MG TAB PO SCH (09:43)
[2021-09-28] MEDS: lisinopril 10 MG TAB PO SCH (09:43)
[2021-09-28] MEDS: HYDROCODONE/ACETAMOPHEN 5/325MG TAB PO PRN (09:48)
[2021-09-28] MEDS: PREGABALIN 100 MG CAP PO SCH (09:48)
--- NOTE | 2021-09-28 10:43 | Urology Progress Note ---
Date of Service September 28, 2021 Assessment & Plan (1) Hematuria: (2) Acute UTI (urinary tract infection): (3) BPH w urinary obs/LUTS: Plan: s/p TURP Hematuria as above Plan: Catheter removed at bedside by nursing. Will monitor for spontaneous voiding. Patient nervous about restarting xarelto. Will hold for now. May be 3-4 hours until voiding. Plan to hydrate and monitor. If spontaneously voiding can plan to likely d/c today and followup as outpatient. Was having more discomfort and leakage with catheter in place. Had 3 way and may have had leaking from side port. NO considerable clots. Plan to continue with plans for outpatient followup. Admission and Anticipated Discharge Date Admission Date: September 26, 2021 Subjective Patient admitted with GH and retention approx 1 month after TURP with Dr. Story. Patient is afebrile. Has been undergoing supportive care with oral medications, IV medications, IV fluids, and oral intake. Is doing better without considerable increase in pain or major issues. Is anxious about leakage. On Xaralto and bleeding issue increased after starting. Was doing yard work and activity days prior to episode. Has not developed severe vomiting or other issues. Has not experienced fever or chills. Has been tolerating oral medications. Is tolerating fluids. Has noticed some frequency and urgency and now leakage around catheter. Has not had severe pain in the back and flank. Does have occasional burning and irritation. No severe episodes or major changes. Review of Systems Review of Systems: All systems reviewed & are unremarkable except as noted in HPI & below Physical Exam Physical Exam: General: Alert in no acute distress. HEENT: Normocephalic Atraumatic. Inspection normal. Cranial Nerves 2-12 Grossly intact. Normal inspection of face. Normal inspection of neck. Psychologic: Normal affect. Respiratory: Nonlabored. No use of accessory muscles. No tachypnea or dyspnea. Cardiovascular: No tachycardia Skin: Ethel and Dry. No rashes or visible lesions. Extremities/Lymphatics: No edema Abdomen: Soft Non-distended. No rebound or guarding. : mcdonald in place with clear light yellow urine in tubing. Very light pink in bag. Results & Data ([facility]) Vital Signs (Past 12 Hours) Vital Signs Temp Pulse Resp BP Pulse Ox 09/28/21 07:16 36.8 C 63 16 110/65 97 09/27/21 23:17 36.6 C 66 18 126/73 96 PG Care Time/CCT Total # of Minutes Spent Total Time Spent with Patient: Total time spent is greater than 50% in coordination of care (as documented) at patient's floor/unit and/or counseling patient: Coding Level of Care Code 11677 Subseq Hosp Care Lvl 2 Diagnoses Hematuria R31.9 Acute UTI (urinary tract infection) N39.0 BPH w urinary obs/LUTS N40.1; N13.8
== END 2021-09-28 16:29 | disposition home or self-care (01) ==
LOC: 3W 20:27 → ED 20:27 → SUATTDRO 22:52 → 3W 23:59

== ENCOUNTER 2022-11-12 08:56 | Inpatient (IN) ==
--- NOTE | 2022-09-17 09:40 | PAT Medication Instructions ---
Medication Instructions Date of Service September 17, 2022 Home Medications Medication Instructions Recorded ondansetron HCl 4 mg tablet 4 mg PO Q6H PRN nausea and 04/25/22 vomiting #10 tabs pregabalin 100 mg capsule (Lyrica) 100 mg PO TID #90 caps 08/31/22 amoxicillin 500 mg tablet 500 mg PO BID 7 days #14 tabs 09/12/22 Medication List: diltiazem HCl 120 mg capsule,extended release 24 hr 120 mg PO QAM hydrochlorothiazide 25 mg tablet 25 mg PO QAM lisinopril 10 mg tablet 10 mg PO QAM calcium carb,cit ER 600 mg-vit D3 12.5 mcg (500 unit) tablet,ext.rel (Citracal- D3 Slow Release) 1 tab PO BID leflunomide 20 mg tablet (Arava) 20 mg PO QAM Lactobacills gasseri-Bifidobac bifidum,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 ([employer]) 1 cap PO QAM upadacitinib 15 mg tablet,extended release 24 hr (Rinvoq) 15 mg PO QAM hydrocodone 5 mg-acetaminophen 325 mg tablet 1 tab PO TID PRN Pain apixaban 5 mg tablet (Eliquis) 5 mg PO BID ondansetron HCl 4 mg tablet 4 mg PO Q6H PRN nausea and vomiting pregabalin 100 mg capsule (Lyrica) 100 mg PO TID ASK your prescriber and surgeon apixaban 5 mg tablet (Eliquis) 5 mg PO BID DO NOT take the morning of surgery hydrochlorothiazide 25 mg tablet 25 mg PO QAM lisinopril 10 mg tablet 10 mg PO QAM calcium carb,cit ER 600 mg-vit D3 12.5 mcg (500 unit) tablet,ext.rel (Citracal- D3 Slow Release) 1 tab PO BID Lactobacills gasseri-Bifidobac bifidum,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 ([employer]) 1 cap PO QAM Take morning of surgery With a small sip of water, OTHERWISE NOTHING TO EAT OR DRINK AFTER MIDNIGHT: diltiazem HCl 120 mg capsule,extended release 24 hr 120 mg PO QAM pregabalin 100 mg capsule (Lyrica) 100 mg PO TID hydrocodone 5 mg-acetaminophen 325 mg tablet 1 tab PO TID PRN Pain (if needed) ondansetron HCl 4 mg tablet 4 mg PO Q6H PRN nausea and vomiting (if needed) Take evening before surgery pregabalin 100 mg capsule (Lyrica) 100 mg PO TID hydrocodone 5 mg-acetaminophen 325 mg tablet 1 tab PO TID PRN Pain (if needed) ondansetron HCl 4 mg tablet 4 mg PO Q6H PRN nausea and vomiting (if needed) Other Notes CHECK WITH PRESCRIBING PROVIDER: leflunomide 20 mg tablet (Arava) 20 mg PO QAM upadacitinib 15 mg tablet,extended release 24 hr (Rinvoq) 15 mg PO QAM If you have any questions please call us at [phone] or [phone] or [phone] or [phone]
--- NOTE | 2022-09-30 12:25 | Anesthesiology Consultation ---
Date of Service September 30, 2022 Assessment & Plan Chart Review Chart Review: Acceptable Risk for Surgery (pending 10/02/22 PCP clearance ) and Patient seen in Pre Admission Testing - Awaiting PCP clearance 10/02/22 -Recent Mohs procedure- has had sutures removed- small open area to crown of head and left moravian (bandaids in place). Did encourage patient to inform surgeon's office as well Per PAT appt on 09/30/22, patient denies any recent travel or large group activities. Pt tested Covid positive 09/22/22 with home test. Did inform PCP and had confirmation with PCR Covid positive test 09/22/22. Pt's had also recently tested Covid positive. Pt had mild cough which has since resolved. Pt will be 15 days from Covid positive test on DOS. Pt is NOT vaccinated for Covid. Due to 90 day protcol- patient will NOT need [facility] Covid test DOS (even with inpatient status). History Surgery Operation Date: 10/07/22 07:45 Proposed Procedures p T10-T12 Decompression with Possible Fusion, Spinal Cord Monitoring - Carlos A Gonzales DO Height/Weight Height: 5 ft 8 in Weight: 92.4 kg Allergies Allergy/AdvReac Type Severity Reaction Status Date / Time No Known Allergies Allergy Verified 09/17/22 07:35 Medications Home Medications Medication Instructions Recorded Confirmed Last Taken diltiazem HCl 120 mg 120 mg PO QAM 04/04/19 09/17/22 09/26/21 capsule,extended release 24 hr hydrochlorothiazide 25 mg tablet 25 mg PO QAM 04/04/19 09/17/22 09/26/21 lisinopril 10 mg tablet 10 mg PO QAM #30 tabs 04/04/19 09/17/22 09/26/21 calcium carb,cit ER 600 mg-vit D3 1 tab PO BID 02/01/20 09/17/22 09/26/21 12.5 mcg (500 unit) tablet,ext.rel (Citracal-D3 Slow Release) leflunomide 20 mg tablet (Arava) 20 mg PO QAM 02/01/20 09/17/22 09/26/21 Lactobacills gasseri-Bifidobac 1 cap PO QAM 04/28/21 09/17/22 09/26/21 bifidum,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 ([facility]) upadacitinib 15 mg tablet,extended 15 mg PO QAM 08/13/21 09/17/22 09/26/21 release 24 hr (Rinvoq) hydrocodone 5 mg-acetaminophen 325 1 tab PO TID PRN Pain 09/27/21 09/17/22 09/26/21 mg tablet apixaban 5 mg tablet (Eliquis) 5 mg PO BID 02/23/22 09/17/22 Unknown ondansetron HCl 4 mg tablet 4 mg PO Q6H PRN nausea and 04/25/22 09/17/22 Unknown vomiting #10 tabs pregabalin 100 mg capsule (Lyrica) 100 mg PO TID #90 caps 08/31/22 09/17/22 Unknown Past Medical History Medical History Atrial fibrillation Initial episode in setting of acute illness (2016), recurrence (06/2021) Follows with [facility]/Dr. Carter On Eliquis Barretts esophagus Follows GI routinely BCC (basal cell carcinoma) s/p excision /Mohns procdure BPH loc w/o ur obs/LUTS Chronic back pain Degenerative disc disease DVT (deep venous thrombosis) hx of right leg s/p achilles tendon repair 5+ yrs ago On Eliquis GERD (gastroesophageal reflux disease) controlled History of COVID-19 approximately 2 yrs ago > not hospitalized 09/22/22- mild cough- symptoms resolved Hx of squamous cell carcinoma of skin S/p excision Hx pulmonary embolism s/p achilles tendon surgery (5+ years ago) Hypertension Kidney stones hx Peripheral neuropathy Rheumatoid arthritis Follows with rheum Sleep apnea no device Exercise / Class Metabolic Activity II 4-5 Yardwork/Stairs/Walk up hill (one flight of stairs - no chest pain or SOB ) Past Family History Family History Daughter Slow to wake up after anesthesia Past Surgical History Surgical History H/O transurethral resection of prostate TURP (08/21/21): LMA#5 at [facility]. No issues noted per post-op anesthesia progress note. History of back surgery lumbar History of carpal tunnel release of both wrists History of colonoscopy History of cystoscopy with stone basketing for kidney stones History of elbow surgery left History of esophagogastroduodenoscopy (EGD) History of [place]otri[place] [facility] [place] History of Mohs micrographic surgery for skin cancer from head and left moravian History of revision of total replacement of left knee joint History of tooth extraction History of total knee replacement bilateral Hx of foot surgery left with hardware [place] [facility] [place] > still has some swelling present S/P Achilles tendon repair right Past Anesthesia History No Hx of Anesthesia Complications and No Family Hx of Anesthesia Complications (with exception to daughter- slow to wake ) Social History Smoking Status: Never smoker Do You Dip or Chew Tobacco: No (hx of quit 2012) Hx Alcohol Use: No Hx Substance Use: No substance use type: does not use Review of Systems Patient denies chest pain, shortness of breath, dyspnea on exertion, cough, whee zing, palpitations. No hx of seizures, stroke, [place]. No hx of blood transfusions Physical Exam Vital Signs VITALS BP 147/84 P 54 TEMP 98.0 SP02 99% RESP 16 Constitutional no acute distress ENMT Mouth: no TMJ clicking Thyromental Distance: > or= 3.5 Finger Breadths (3.5) Mallampati Class: III Neck + limited neck extension Respiratory normal respiratory effort; no respiratory distress Auscultation: lungs clear to auscultation bilaterally; no wheezes Cardiovascular Rate/Rhythm: regular rate and regular rhythm Heart Sounds: no murmur Vessels: no carotid bruit Occ extra beat Musculoskeletal Spine: + pain with cervical ROM Extremities: extremities normal to inspection Psychiatric Orientation: alert Lab Results Anesthesia Preop Results Results Anesthesia Widget: WBC 6.13 K/ul (4.8-10.8) 09/12/22 Hgb 14.1 g/dl (14.0-18.0) 09/12/22 Hct 39.9 % (42.0-52.0) L 09/12/22 Plt 259 K/uL (130-400) 09/12/22 Na 141 mmol/L (136-145) 09/12/22 K 3.6 mmol/L (3.5-5.1) 09/12/22 Cl 104 mmol/L (98-107) 09/12/22 CO2 30 mmol/L (21-32) 09/12/22 BUN 28 mg/dl (6-23) H 09/12/22 Creat 1.08 mg/dl (0.6-1.4) 09/12/22 Glucose Level 93 mg/dl (70-99(Fasting)) 09/12/22 PT 11.2 Seconds (9.0-12.0) 09/12/22 PTT 27.9 Seconds (21.0-31.0) 09/12/22 INR 1.1 (0.9-1.1) 09/12/22 Blood Type B Positive 09/30/22 Antibody Screen NEGATIVE 09/30/22 Testing Electrocardiogram Date: 09/30/22 Findings: + SB @ (52bpm) Nonspecific T wave abnormality Compared to EKG from Apr 25, 2022- SR has replaced a fib, vent rate had decreased by 59bpm, QRS axis shifted right, nonspecific T wave abnormality, improved in inferior leads, nonspecific T wave abnormality, worse in lateral leads per cardio Chest X-Ray Date: 09/30/22 Findings: + NAD FINDINGS: Moderate right hemidiaphragmatic elevation. Cardiac silhouette is mildly enlarged. No pneumothorax, pleural effusion, airspace consolidation or overt pulmonary edema. Degenerative changes of the shoulders and spine. Cervical Spine Date: 09/30/22 FINDINGS: The cervical spine is visualized from C1 through C7. There is no fracture. No subluxation. Moderate disc space narrowing at C3-C4 and C6-C7. Moderate to severe facet degenerative changes within the cervical spine. This has progressed. There is 2 mm of anterolisthesis of C4 on C5. This remains unchanged throughout flexion and extension. Prevertebral soft tissues and the atlantodens interval are intact. IMPRESSION: 1. Mild anterolisthesis of C4 on C5. This remains intact throughout flexion and extension. 2. The C1-C2 interval is maintained. 3. Progressive degenerative changes within the cervical spine.
[~2022-11-12 08:56] MED LIST changes: +ACETAMINOPHEN 500 MG TAB PO SCH; +CeleBREX 200 MG CAP PO SCH; +GABAPENTIN 300 MG CAP PO SCH; -VANCOMYCIN HCL 1,000 MG/270 ML BAG IV SCH; +ceFAZolin 2000MG 2,000 MG/15 ML SYR IV SCH
[2022-11-12] MEDS ORDERED: HYDROmorphone INJ 2 MG/ML SYR/VIAL IV PRN (10:05)
[2022-11-12] MEDS ORDERED: ATROPINE SULFATE 0.1 MG/ML 10ML SYR IV PRN (10:05)
[2022-11-12] MEDS ORDERED: ePHEDrine sulfate 50 MG/ML AMP IV PRN (10:05)
[2022-11-12] MEDS ORDERED: ONDANSETRON INJ 2 MG/ML 2 ML VIAL IV PRN ×2 (10:05→15:00)
[2022-11-12] MEDS ORDERED: fentaNYL citrate PF 100 MCG/2 ML VIAL ONE ×2 (10:47→13:13)
[2022-11-12] MEDS ORDERED: BUPIVACAINE/EPINEPHRINE 0.25% 1:200,000 30 ML VIAL ONE (10:48)
[2022-11-12] MEDS ORDERED: ceFAZolin 330 MG/ML 1 GM VIAL ONE (10:48)
--- NOTE | 2022-11-12 10:59 | History & Physical Report ---
Date of Service November 12, 2022 Assessment & Plan (1) Myelopathy concurrent with and due to spinal stenosis of thoracic region: Plan: decompression and fusion T10-T12 History of Present Illness Chief Complaint: back pain Primary Care Provider: Dc Chin back and leg weakness Allergies Allergy/AdvReac Type Severity Reaction Status Date / Time No Known Allergies Allergy Verified 11/12/22 09:22 Home Medications Medication Instructions Recorded Confirmed Type diltiazem HCl 120 mg 120 mg PO QAM 04/04/19 11/12/22 History capsule,extended release 24 hr hydrochlorothiazide 25 mg tablet 25 mg PO QAM 04/04/19 11/12/22 History lisinopril 10 mg tablet 10 mg PO QAM #30 tabs 04/04/19 11/12/22 History calcium carb,cit ER 600 mg-vit D3 1 tab PO BID 02/01/20 11/12/22 History 12.5 mcg (500 unit) tablet,ext.rel (Citracal-D3 Slow Release) leflunomide 20 mg tablet (Arava) 20 mg PO QAM 02/01/20 11/12/22 History Lactobacills gasseri-Bifidobac 1 cap PO QAM 04/28/21 11/12/22 History bifidum,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 (C[employer]) upadacitinib 15 mg tablet,extended 15 mg PO QAM 08/13/21 11/12/22 History release 24 hr (Rinvoq) hydrocodone 5 mg-acetaminophen 325 1 tab PO TID PRN Pain 09/27/21 11/12/22 History mg tablet apixaban 5 mg tablet (Eliquis) 5 mg PO BID 02/23/22 11/12/22 History ondansetron HCl 4 mg tablet 4 mg PO Q6H PRN nausea and 04/25/22 11/12/22 Rx vomiting #10 tabs pregabalin 100 mg capsule (Lyrica) 100 mg PO TID #90 caps 08/31/22 11/12/22 Rx Past Med/Surg History Medical History Atrial fibrillation Initial episode in setting of acute illness (2016), recurrence (06/2021) Follows with [facility]/Dr. Carter On Eliquis Barretts esophagus Follows GI routinely BCC (basal cell carcinoma) s/p excision /Mohns procdure BPH loc w/o ur obs/LUTS Chronic back pain Degenerative disc disease DVT (deep venous thrombosis) hx of right leg s/p achilles tendon repair 5+ yrs ago On Eliquis GERD (gastroesophageal reflux disease) controlled History of COVID-19 approximately 2 yrs ago > not hospitalized 09/22/22- mild cough- symptoms resolved Hx of squamous cell carcinoma of skin S/p excision Hx pulmonary embolism s/p achilles tendon surgery (5+ years ago) Hypertension Kidney stones hx Peripheral neuropathy Rheumatoid arthritis Follows with rheum Sleep apnea no device Surgical History H/O transurethral resection of prostate TURP (08/21/21): LMA#5 at [facility]. No issues noted per post-op anesthesia progress note. History of back surgery lumbar History of carpal tunnel release of both wrists History of colonoscopy History of cystoscopy with stone basketing for kidney stones History of elbow surgery left History of esophagogastroduodenoscopy (EGD) History of lithotripsy ESWL (02/2020 - [facility] [place]) History of Mohs micrographic surgery for skin cancer from head and left caodaism History of revision of total replacement of left knee joint History of tooth extraction History of total knee replacement bilateral Hx of foot surgery left with hardware at [facility] [place] > still has some swelling present S/P Achilles tendon repair right Family History Daughter Slow to wake up after anesthesia Social History Smoking Status: Never smoker Second Hand Exposure: No; Do You Dip or Chew Tobacco: No (hx of quit 2012); Tobacco Cessation Education Requested by Patient: No Hx Alcohol Use: No Hx Substance Use: No Preferred Language: Armenian Communication Ability: Effective [place] Head Required: No Beliefs That Will Affect Care: None Current Living Situation: Spouse Other Information That Helps Us Care for You: No Feels Safe at Home: Yes Safety Concerns: Feels Safe At This Time Assistive Devices: Glasses Physical Exam Physical Exam: alert and oriented heart regular lungs clear Results & Data Results & Data Vital Signs (Past 12 Hours) Vital Signs Temp Pulse Resp BP Pulse Ox O2 Del Method 11/12/22 09:25 Room Air 11/12/22 09:25 36.6 C 65 18 151/75 H 100 Room Air
[2022-11-12] MEDS ORDERED: FLOSEAL HEMOSTATIC MATRIX 10ML TOP ONE (12:10)
--- NOTE | 2022-11-12 13:09 | Operative Report ---
Post Operative Report Pre & Post Diagnosis Operation Date: 11/12/22 10:35 Pre-Op Diagnosis: Spondylsis with Myelopathy, Thoracic Region Post-Op Diagnosis: Spondylsis with Myelopathy, Thoracic Region I identified the patient and participated in the time-out.: Yes Procedure Operation Date: 11/12/22 10:35 Actual Procedures #1 thoracic decompression T9-T10, T10-11 and T10-11 T12. #2 posterior spinal fusion T10-T12. #3 placed posterior instrumentation T10-T12. #4 placement locally harvested morselized autograft from the posterior gutters. #5 placement of infuse collagen sponge from mass graft in the posterior gutters T9-T10 T12. Surgeon Carlos A Gonzales, High Density Press Operator Ellen Elizabeth Estimated Blood Loss 100 Findings Consistent with Post-Op Diagnosis Specimens None Indications This is a 72-year-old male well-known to me who presents with gross myelopathy and severe spinal stenosis is here for decompression and fusion. Description of Procedure Patient was met with identified informed consent obtained. Patient was then taken back to operative suite underwent a patient placed in a prone position on the [facility] top Jacob frame. All bony promises well-padded eyes inspected to ensure no external pressure placed upon the. This point the thoracic spine was prepped and draped in a sterile fashion. Sharp dissection with assisted Bovie cautery was involved down to and exposing the lamina and transverse processes of [id number]. Downs cephalad fashion complete laminectomy of T12 T11 T10 partial decompression of T9 was performed including medial facetectomies and foraminotomies addressing severe spinal stenosis. There is marked adherence of the bone and flaking directly to the dura. Pedicle screws were then placed in [id number] bilaterally with assistance of fluoroscopy and the proper sized sandy placed and locked into position. The transverse processes of T9-T10 T12 were then burred to subcortical bone infuse collagen sponge from mass graft locally harvested morselized autograft was placed in the posterior gutters. 15 round EDWIGE inserted. The incision was then closed with 1 Vicryl the fascia 2-0 Vicryl subcutaneously and 4 Monocryl for final skin closure. Steri-Strip sterile dressings placed. Patient awakened taken to PACU stable condition. Please note Ellen Elizabeth was present at the entire procedure and all the patient positioning complex portions of the surgery and final skin closure. Lastly spinal cord monitoring was utilized at the procedure no changes noted. I attest to the content of the Intraoperative Record and any orders documented therein. Any exceptions are noted below.
[2022-11-12] MEDS ORDERED: ROCURONIUM BROMIDE 10 MG/ML 5 ML VIAL IV ONE (13:40)
[2022-11-12] MEDS ORDERED: LIDOCAINE 2% 2 ML VIAL/AMP(20MG/ML) INFIL ONE (13:40)
[2022-11-12] MEDS ORDERED: DEXAMETHASONE SOD INJ 4 MG/ML VIAL ONE (13:40)
[2022-11-12] MEDS ORDERED: PROPOFOL IV EMULSION 10 MG/ML 20 ML VIAL IV ONE (13:40)
[2022-11-12] MEDS ORDERED: NEOSTIGMINE METHYLSULFATE 1 MG/ML 10ML VIAL ONE (13:40)
[2022-11-12] MEDS ORDERED: ePHEDrine sulfate 50 MG/ML SYR ONE (13:40)
[2022-11-12] MEDS ORDERED: GLYCOPYRROLATE 0.2 MG/ML VIAL ONE (13:40)
[2022-11-12] MEDS ORDERED: ONDANSETRON INJ 2 MG/ML 2 ML VIAL ONE (13:40)
[2022-11-12] MEDS: fentaNYL citrate PF 100 MCG/2 ML VIAL IV PRN ×2 (13:45→13:55)
--- NOTE | 2022-11-12 14:05 | Anesthesiology Progress Note ---
Date of Service November 12, 2022 Anesthesia Post Procedure Vital Signs Vital Signs: Temp Pulse Pulse Resp BP Pulse Ox O2 Del Method 11/12/22 13:55 58 L 14 131/78 99 Nasal Cannula 11/12/22 13:45 51 L 12 131/72 98 Nasal Cannula 11/12/22 13:35 67 14 136/78 98 Nasal Cannula 11/12/22 13:23 36.2 C L 74 20 128/76 100 Nasal Cannula 11/12/22 09:25 Room Air 11/12/22 09:25 36.6 C 65 18 151/75 H 100 Room Air O2 Flow Rate 11/12/22 13:55 3 11/12/22 13:45 3 11/12/22 13:35 3 11/12/22 13:23 3 11/12/22 09:25 11/12/22 09:25 Pain Intensity Left Foot: Pain Intensity: 3 Back: Pain Intensity: 4 Transfer of Care Handoff Completed per policy Notes Mental Status: alert / awake / arousable Patient Amnestic to Procedure: Yes Nausea / Vomiting: adequately controlled Pain: adequately controlled Airway Patency, RR, SpO2: stable & adequate BP & HR: stable & adequate Hydration State: stable & adequate Anesthetic Complications: no major complications apparent
--- NOTE | 2022-11-12 14:25 | Fluoroscopy Report ---
FL thoracic spine 2V CLINICAL HISTORY: T10-12 DFI COMPARISON STUDY: None. FLUOROSCOPY TIME: 52 seconds FLUOROSCOPY IMAGES: 2 Ka,r: 34.6 mGy FINDINGS: Posterior decompression and fusion within the lower thoracic spine, likely at the T10-T12 l evels. The exact levels are difficult to confirm due to the spot image. The hardware appears intact. IMPRESSION: Fluoroscopic assistance as above. ACT 112: Negative or not required by law. Electronically signed by: Kevin Payne M.D. 11/12/2022 2:23 PM
[2022-11-12] MEDS ORDERED: HYDROmorphone INJ 1 MG/ML SYRINGE IV PRN (15:00)
[2022-11-12] MEDS ORDERED: ACETAMINOPHEN 1,000 MG/100 ML VIAL IV PRN (15:00)
[2022-11-12] MEDS ORDERED: NALOXONE HCL 0.4 MG/1 ML VIAL/CARP IV PRN (15:00)
[2022-11-12] MEDS ORDERED: LORazepam 0.5 MG TAB PO PRN (15:00)
[2022-11-12] MEDS ORDERED: LACTATED RINGER'S 1,000 ML IV SCH (15:00)
[2022-11-12] MEDS ORDERED: oxyCODONE HCL IR 5 MG TAB (IMMEDIATE RELEASE) PO PRN (15:00)
[2022-11-12] MEDS ORDERED: METOCLOPRAMIDE HCL INJ 5 MG/ML 2 ML VIAL IV PRN (15:00)
[2022-11-12] MEDS ORDERED: DO NOT ADMINISTER PNEUMOCOCCAL VACCINE PRN (15:00)
[2022-11-12] MEDS ORDERED: diphenhydrAMINE Capsule 25 MG CAP PO PRN (15:00)
[2022-11-12] MEDS ORDERED: ONDANSETRON 4 MG OD TAB PO PRN (15:00)
[2022-11-12] MEDS ORDERED: ALUMINUM/MAGNESIUM SUSP 30 ML UDC PO PRN (15:00)
[2022-11-12] MEDS ORDERED: MAGNESIUM HYDROXIDE SUSP 30 ML UDC PO PRN (15:00)
[2022-11-12] MEDS ORDERED: hydrOXYzine HCl 25 MG TAB PO PRN (15:00)
[2022-11-12] MEDS ORDERED: PROMETHAZINE HCL 12.5 MG in SODIUM CHLORIDE 0.9% 50 ML IV PRN (15:00)
[2022-11-12] MEDS ORDERED: traMADol HCL 50 MG TABLET PO PRN (15:00)
[2022-11-12] MEDS ORDERED: FAMOTIDINE 20 MG TAB PO PRN (15:00)
[2022-11-12] MEDS ORDERED: DO NOT ADMINISTER FLU VACCINE PRN (15:00)
[2022-11-12] MEDS ORDERED: bisacodyL 10 MG SUPP PR PRN (15:00)
[2022-11-12] MEDS ORDERED: LORazepam 2 MG/1 ML VIAL IV PRN (15:00)
[2022-11-12] MEDS ORDERED: ACETAMINOPHEN 500 MG TAB PO PRN (15:00)
[2022-11-12] MEDS ORDERED: HYDROmorphone INJ 0.5 MG/0.5 ML SYR IV PRN (15:00)
[2022-11-12] MEDS ORDERED: SOD PHOSPHATE/SOD BIPHOSPHATE ENEMA 132 ML BTL PR PRN (15:00)
[2022-11-12] MEDS: PREGABALIN 100 MG CAP PO SCH ×2 (15:38→21:46)
--- NOTE | 2022-11-12 16:39 | Hospitalist Consultation ---
Date of Consultation November 12, 2022 Assessment & Plan (1) Myelopathy concurrent with and due to spinal stenosis of thoracic region: s/p thoracic decompression and fusion by Dr. Gonzales 11/12/22 - Acute/stable - low to mod risk - Pain control, dressing changes/drain management, activity as per primary service - Preop labs including cbc, cmp reviewed. Hgb 09/12/22 was 14.1. - VTE ppx will be covered with resumption of Eliquis 5mg BID, restart per primary orthopedic team when able from hemostasis stand point - Recommend utilization of incentive spirometer q1-2h wa for atelectasis/pna prevention - Recommend removal of mcdonald tomorrow (pod#1) (2) Atrial fibrillation: Chronic/stable - Currently examines in sinus with actually slightly bradycardic rate - Continue Diltiazem and resume Eliquis as noted above (3) Hypertension: Chronic/stable - Controlled on Diltiazem and Lisinopril (4) Rheumatoid arthritis: Chronic/stable - Controlled on Arava and Rinvoq - I would recommend holding Arava x 2 weeks post operatively due to possibility of delayed wound healing (5) BPH loc w/o ur obs/LUTS: Chronic/stable - s/p TURP 2021 - Recently treated for UTI and hematuria - Currently w/o symptoms, f/u with urology (6) Trauma of palate: Plan Thank you for allowing us to participate in the care of your patient. Plan as outlined above. No further recommendations presently, will follow. Plan has been d/w Dr. Melo who will also see and evaluate this patient, further orders will be implemented as warranted. Supervising Physician Co-Signing Physician Notes I personally saw and examined the patient. I verified all page points and agree with Lynnette Mehta PA-C with the following exceptions and/or additions: 72 year old male POD#0 thoracic decompression T9-T10, T10-11 and T10-11 T12 with posterior spinal fusion T10-T12 performed by Dr Gonzales. EBL 100ml. No change in symptoms post operatively with mainly numbness and weakness. Weakness he would only notice once moving which he hasn't done yet. No new radicular pains. Complaining of hoarse voice and difficulty swallowing post operatively. Notices pain on left upper palate. Not currently passing gas. Mcdonald cath in place O/E A&Ox3, mild left upper palate trauma (x3 areas few mm circumference each, HS RRR, no murmurs, Chest CTAB, Abdo SNT A/P Pain/VTE/Bowel management per primary orthopedic team - discussion when to restart Eliquis per primary orthopedic team, increased stroke risk the longer he is off this but day to day risk is small. HTN - hold placed on HCTZ if sBP <120. Palate trauma - check resolving hoarse voice and swallow difficulty in AM otherwise consider anesthesia consultation. Otherwise plan as above History of Present Illness Reason for Consultation: medical management Requesting Physician: Dr. Gonzales Attending Physician: Carlos A Gonzales, DO History of Present Illness Curt Starr is a 72 yo M with a pmhx of atrial fibrillation, htn, dvt/pe 5+ years ago, BPH, and GERD who was admitted under Dr. Gonzales's service for elective thoracic decompression and fusion due to spondylosis with myelopathy and chronic pain. He was taken to the OR today, he received general anesthesia. He tolerated the procedure well without any immediate complications. At the time of my assessment, he is currently resting back in his room on the med/surg unit. He notes no c/o chest pain, dyspnea, cough, fever/chills, headache, or gu symptoms. He is currently on Eliquis for afib. Has a prior h/o of PE/DVT 5+ years ago for which he completed anticoagulation. His last dose of Eliquis was Wednesday. He notes some mild pain at his surgical site, mainly with any subtle movement. Minimal relief with Tramadol. Does not want to take OxyIR, responds better to Hydrocodone, and requests that instead. Hospitalists have been asked to see in consult for post operative medical management. Allergies Allergy/AdvReac Type Severity Reaction Status Date / Time No Known Allergies Allergy Verified 11/12/22 09:22 Home Medications Medication Instructions Recorded Confirmed Type diltiazem HCl 120 mg 120 mg PO QAM 04/04/19 11/12/22 History capsule,extended release 24 hr hydrochlorothiazide 25 mg tablet 25 mg PO QAM 04/04/19 11/12/22 History lisinopril 10 mg tablet 10 mg PO QAM #30 tabs 04/04/19 11/12/22 History calcium carb,cit ER 600 mg-vit D3 1 tab PO BID 02/01/20 11/12/22 History 12.5 mcg (500 unit) tablet,ext.rel (Citracal-D3 Slow Release) leflunomide 20 mg tablet (Arava) 20 mg PO QAM 02/01/20 11/12/22 History Lactobacills gasseri-Bifidobac 1 cap PO QAM 04/28/21 11/12/22 History bifidum,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 ([employer]) upadacitinib 15 mg tablet,extended 15 mg PO QAM 08/13/21 11/12/22 History release 24 hr (Rinvoq) hydrocodone 5 mg-acetaminophen 325 1 tab PO TID PRN Pain 09/27/21 11/12/22 History mg tablet apixaban 5 mg tablet (Eliquis) 5 mg PO BID 02/23/22 11/12/22 History ondansetron HCl 4 mg tablet 4 mg PO Q6H PRN nausea and 04/25/22 11/12/22 Rx vomiting #10 tabs pregabalin 100 mg capsule (Lyrica) 100 mg PO TID #90 caps 08/31/22 11/12/22 Rx Patient History Medical History Atrial fibrillation Initial episode in setting of acute illness (2016), recurrence (06/2021) Follows with [facility]/Dr. Carter On Eliquis Barretts esophagus Follows GI routinely BCC (basal cell carcinoma) s/p excision /Mohns procdure BPH loc w/o ur obs/LUTS Chronic back pain Degenerative disc disease DVT (deep venous thrombosis) hx of right leg s/p achilles tendon repair 5+ yrs ago On Eliquis GERD (gastroesophageal reflux disease) controlled History of COVID-19 approximately 2 yrs ago > not hospitalized 09/22/22- mild cough- symptoms resolved Hx of squamous cell carcinoma of skin S/p excision Hx pulmonary embolism s/p achilles tendon surgery (5+ years ago) Hypertension Kidney stones hx Peripheral neuropathy Rheumatoid arthritis Follows with rheum Sleep apnea no device Surgical History H/O transurethral resection of prostate TURP (08/21/21): LMA#5 at [facility]. No issues noted per post-op anesthesia progress note. History of back surgery lumbar History of carpal tunnel release of both wrists History of colonoscopy History of cystoscopy with stone basketing for kidney stones History of elbow surgery left History of esophagogastroduodenoscopy (EGD) History of lithotripsy [place]SWL (02/2020 [place] [facility] [place] History of Mohs micrographic surgery for skin cancer from head and left spiritism History of revision of total replacement of left knee joint History of tooth extraction History of total knee replacement bilateral Hx of foot surgery [place] [facility] [place] > still has some swelling present S/P Achilles tendon repair right Family History Daughter Slow to wake up after anesthesia Social History Smoking Status: Never smoker Second Hand Exposure: No; Do You Dip or Chew Tobacco: No (hx of quit 2012); Tobacco Cessation Education Requested by Patient: No Hx Alcohol Use: No Hx Substance Use: No Preferred Language: Lithuanian Communication Ability: Effective Automotive Engineer Required: No Beliefs That Will Affect Care: None Current Living Situation: Spouse Other Information That Helps Us Care for You: No Feels Safe at Home: Yes Safety Concerns: Feels Safe At This Time Assistive Devices: Cane and Walker Physical Exam Physical Exam: GENERAL: 72 yo well-developed, well-nourished M. AAOx4. NAD. LUNGS: Clear to auscultation bilaterally. No W/R/R. CARDIOVASCULAR: Regular rate and rhythm. No M/G/R. No JVD. EXTREMITIES: No edema. Non-tender. Peripheral pulses +2/4. NEUROLOGIC: No focal neurological deficits. EDWIGE drain extending from back incision. Incision is dressed. Results & Data Results & Data Vital Signs (Past 12 Hours) Vital Signs Temp Pulse Pulse Pulse Resp BP BP 11/12/22 15:52 35.9 C L 54 L 18 131/72 11/12/22 15:15 36.3 C L 51 L 16 124/69 11/12/22 14:45 36.4 C L 58 L 16 138/73 11/12/22 15:18 11/12/22 14:30 36.3 C L 46 L 12 126/72 11/12/22 14:15 36.3 C L 48 L 12 117/63 11/12/22 14:05 36.3 C L 47 L 12 135/69 11/12/22 13:55 58 L 14 131/78 11/12/22 13:45 51 L 12 131/72 11/12/22 13:35 67 14 136/78 11/12/22 13:23 36.2 C L 74 20 128/76 11/12/22 09:25 11/12/22 09:25 36.6 C 65 18 151/75 H Pulse Ox O2 Del Method O2 Flow Rate 11/12/22 15:52 99 Room Air 11/12/22 15:15 95 Room Air 11/12/22 14:45 96 Room Air 11/12/22 15:18 Room Air 11/12/22 14:30 97 Nasal Cannula 2 11/12/22 14:15 98 Nasal Cannula 2 11/12/22 14:05 98 Nasal Cannula 2 11/12/22 13:55 99 Nasal Cannula 3 11/12/22 13:45 98 Nasal Cannula 3 11/12/22 13:35 98 Nasal Cannula 3 11/12/22 13:23 100 Nasal Cannula 3 11/12/22 09:25 Room Air 11/12/22 09:25 100 Room Air PG Care Time/CCT Total # of Minutes Spent Total Time Spent with Patient: Total time spent is greater than 50% in coordination of care (as documented) at patient's floor/unit and/or counseling patient: Coding Level of Care Code 44434 IN/OBS CONSULT LVL 4,60M Diagnoses Myelopathy concurrent with and due to spinal stenosis of thoracic region M48.04; G99.2 Atrial fibrillation I48.19 Atrial fibrillation type: persistent (not longstanding) Hypertension I10 Rheumatoid arthritis M06.9 BPH loc w/o ur obs/LUTS N40.0 Trauma of palate S09.93XA (2) Atrial fibrillation Atrial fibrillation type: persistent (not longstanding) Qualified Code(s): I48.19 - Other persistent atrial fibrillation
[2022-11-12] MEDS ORDERED: HYDROCODONE/ACETAMOPHEN 5/325MG TAB PO PRN (17:02)
[2022-11-12] MEDS ORDERED: ACETAMINOPHEN 325 MG TAB PO PRN (17:03)
[2022-11-12] MEDS: HYDROCODONE/ACETAMOPHEN 5/325MG TAB PO PRN ×2 (19:42→23:50)
[2022-11-12] MEDS: ceFAZolin 2000MG 2,000 MG/15 ML SYR IV SCH (19:43)
[2022-11-12] MEDS: CALCIUM 600MG + VIT D 400 IU TAB PO SCH (21:46)
[2022-11-12] MEDS: DOCUSATE SODIUM/SENNA 50/8.6MG TAB PO SCH (21:47)
[2022-11-13] MEDS: ceFAZolin 2000MG 2,000 MG/15 ML SYR IV SCH (03:06)
[2022-11-13] MEDS: POLYETHYLENE (MIRALAX) 17 GM PACK PO SCH ×2 (06:18→12:02)
[2022-11-13 07:47] LABS: Hematocrit (blood only) 31.1 % (42.0-52.0); Hemoglobin 10.8 g/dl (14.0-18.0); Mean Corpuscular Hgb Conc 34.7 g/dL (32.0-36.0); Mean Platelet Volume 9.7 fL (9.4-12.4); Platelet Count 220 K/uL (130-400); RDW Standard Deviation 50.6 fL (36.4-46.3); Red Blood Count 3.38 M/uL (4.70-6.10); White Blood Count 9.32 K/ul (4.8-10.8)
[2022-11-13 08:11] LABS: BUN Creatinine Ratio 28.4 (10-20); Calcium 8.5 mg/dl (8.6-10.3); Creatinine Clr Calc Pharmacy 67.6 ml/min; Est GFR (African American) 79.3 ml/min; Est GFR (Non-African American) 68.4 ml/min
[2022-11-13 08:13] LABS: Eosinophils # (auto) 0.01 K/uL (0-0.50); Eosinophils % (auto) 0.1 %; Immature Granulocytes # (auto) 0.03 K/uL (0.01-0.20); Immature Granulocytes % (auto) 0.3 %; Lymphocytes # (auto) 0.24 K/uL (1.2-3.4); Lymphocytes % (auto) 2.6 %; Monocytes # (auto) 0.45 K/uL (0.11-0.59); Monocytes % (auto) 4.8 %; Neutrophils # (auto) 8.59 K/uL (1.40-6.50); Neutrophils % (auto) 92.2 %
--- NOTE | 2022-11-13 08:43 | Hospitalist Progress Note ---
Date of Service November 13, 2022 Assessment & Plan (1) Myelopathy concurrent with and due to spinal stenosis of thoracic region: Plan: s/p thoracic decompression and fusion by Dr. Gonzales 11/12/22 - Acute/stable - low to mod risk - post op acute blood loss anemia with hgb 14->10 - VTE ppx will be covered with resumption of Eliquis 5mg BID, restart per primary orthopedic team when able from hemostasis stand point - Recommend utilization of incentive spirometer q1-2h wa for atelectasis/pna prevention (2) Atrial fibrillation: Plan: Chronic/stable - Continue Diltiazem and resume Eliquis as noted above (3) Hypertension: Plan: Chronic/stable - Controlled on Diltiazem and Lisinopril (4) Rheumatoid arthritis: Plan: Chronic/stable - Controlled on Arava and Rinvoq - I would recommend holding Arava x 2 weeks post operatively due to possibility of delayed wound healing (5) BPH loc w/o ur obs/LUTS: Plan: Chronic/stable - s/p TURP 2021 - Recently treated for UTI and hematuria - Currently w/o symptoms, f/u with urology (6) Trauma of palate: Admission and Anticipated Discharge Date Admission Date: November 12, 2022 Subjective Patient was in good spirits he still is having some numbness to his legs. His back pain was controlled. He has no other complaints or problems he is able to ambulate short distances in his room His EDWIGE drain was still having serosanguineous discharge Physical Exam Physical Exam: Patient is awake alert appropriate cardiac exam is regular without murmurs his lungs are clear Abdomen is NABS and soft his extremities have some subjective reduction in s ensation to lower legs bilaterally probably to mid ragland Results & Data Results & Data Vital Signs (Past 12 Hours) Vital Signs Temp Pulse Resp BP Pulse Ox O2 Del Method 11/13/22 07:15 98.1 F 59 L 18 137/75 97 Room Air 11/13/22 03:04 97.9 F 61 16 129/70 94 Room Air 11/12/22 23:52 97.9 F 57 L 18 132/67 96 Room Air Laboratory Results CBC reviewed postop acute blood loss anemia PRP reviewed PG Care Time/CCT Total # of Minutes Spent Total Time Spent with Patient: Total time spent is greater than 50% in coordination of care (as documented) at patient's floor/unit and/or counseling patient: Coding Level of Care Code 87989 SUB INP/OBS CARE 2/35MIN Diagnoses Myelopathy concurrent with and due to spinal stenosis of thoracic region M48.04; G99.2 Atrial fibrillation I48.19 Atrial fibrillation type: persistent (not longstanding) Hypertension I10 Rheumatoid arthritis M06.9 BPH loc w/o ur obs/LUTS N40.0 Trauma of palate S09.93XA (2) Atrial fibrillation Atrial fibrillation type: persistent (not longstanding) Qualified Code(s): I48.19 - Other persistent atrial fibrillation
[2022-11-13] MEDS: CALCIUM 600MG + VIT D 400 IU TAB PO SCH ×2 (08:47→21:33)
[2022-11-13] MEDS: dexAMETHasone 6 MG in SYRINGE 0 ML IV SCH (08:47)
[2022-11-13] MEDS: dilTIAZem HCL 120 MG CAPCR PO SCH (08:48)
[2022-11-13] MEDS: lisinopril 10 MG TAB PO SCH (08:48)
[2022-11-13] MEDS: hydroCHLOROthiazide 25 MG TAB PO SCH (08:48)
[2022-11-13] MEDS: HYDROCODONE/ACETAMOPHEN 5/325MG TAB PO PRN ×2 (08:50→19:52)
[2022-11-13] MEDS: PREGABALIN 100 MG CAP PO SCH ×3 (08:53→21:33)
--- NOTE | 2022-11-13 09:41 | Orthopedic Progress Note ---
Date of Service November 13, 2022 Assessment & Plan (1) Myelopathy concurrent with and due to spinal stenosis of thoracic region: Plan: Patient stable postop day #1. We will continue with GI and DVT prophylaxis. We will mobilize him with physical therapy. We will continue with pain control measures. He will be discharged home later this weekend. Admission and Anticipated Discharge Date Admission Date: November 12, 2022 Subjective Patient was seen bedside in room 363. He is postop day #1 status post thoracic decompression fusion from T10-T12. He is doing okay at this point. He has pain that is going along the right-hand side underneath the rib. He has been up and walking in a very limited fashion. He has been tolerating food without difficulties. He has no nausea. He denies any other numbness, tingling, paresthesias. Physical Exam Physical Exam: On exam he is alert and oriented. His dressings clean dry and intact. His EDWIGE drain is in place. His abdomen soft nontender his calves are supple nontender. His strength and sensation are grossly intact. Cardiovascular exam reveals no gross abnormalities. Results & Data Vital Signs (Past 12 Hours) Vital Signs Temp Pulse Resp BP Pulse Ox O2 Del Method 11/13/22 07:15 36.7 C 59 L 18 137/75 97 Room Air 11/13/22 03:04 36.6 C 61 16 129/70 94 Room Air 11/12/22 23:52 36.6 C 57 L 18 132/67 96 Room Air
[2022-11-13] MEDS: RINVOQ 15 MG PO SCH (12:46)
[2022-11-13] MEDS: DOCUSATE SODIUM/SENNA 50/8.6MG TAB PO SCH (21:33)
[2022-11-14] MEDS: HYDROCODONE/ACETAMOPHEN 5/325MG TAB PO PRN ×2 (05:57→18:15)
--- NOTE | 2022-11-14 08:44 | Orthopedic Progress Note ---
Date of Service November 14, 2022 Assessment & Plan (1) Myelopathy concurrent with and due to spinal stenosis of thoracic region: Plan: At this point we will continue physical therapy monitor his EDWIGE output anticipate discharge home tomorrow. Admission and Anticipated Discharge Date Admission Date: November 12, 2022 Subjective Back pain controlled leg pain improved Physical Exam Physical Exam: Patient is in the chair at the bedside is renal strength testing. Is comfortable. Results & Data Vital Signs (Past 12 Hours) Vital Signs Temp Pulse Resp BP Pulse Ox O2 Del Method 11/14/22 07:32 36.8 C 61 16 122/68 96 Room Air 11/13/22 21:36 36.5 C 56 L 18 168/73 H 96 Room Air
[2022-11-14] MEDS: dilTIAZem HCL 120 MG CAPCR PO SCH (09:18)
[2022-11-14] MEDS: CALCIUM 600MG + VIT D 400 IU TAB PO SCH ×2 (09:19→20:02)
[2022-11-14] MEDS: lisinopril 10 MG TAB PO SCH (09:19)
[2022-11-14] MEDS: RINVOQ 15 MG PO SCH (09:19)
[2022-11-14] MEDS: hydroCHLOROthiazide 25 MG TAB PO SCH (09:19)
[2022-11-14] MEDS: dexAMETHasone 6 MG in SYRINGE 0 ML IV SCH (09:20)
[2022-11-14] MEDS: PREGABALIN 100 MG CAP PO SCH ×3 (09:22→20:02)
--- NOTE | 2022-11-14 16:00 | Communication Note ---
Date of Service: November 14, 2022 Patient was seen he was in good spirits he has no medical complaints or problems he has improved with his neuropathy of his legs but from previous injury to his left ankle and foot he may need to wear his work boots to ambulate in the hallways prior to going home. He continues with EDWIGE drain with serosanguineous discharge but is anticipated to go home on 15 November This time there is no medical contraindication to that plan
[2022-11-14] MEDS: DOCUSATE SODIUM/SENNA 50/8.6MG TAB PO SCH (20:02)
[2022-11-15] MEDS: RINVOQ 15 MG PO SCH (07:53)
[2022-11-15] MEDS: lisinopril 10 MG TAB PO SCH (07:54)
[2022-11-15] MEDS: hydroCHLOROthiazide 25 MG TAB PO SCH (07:54)
[2022-11-15] MEDS: dilTIAZem HCL 120 MG CAPCR PO SCH (07:54)
[2022-11-15] MEDS: CALCIUM 600MG + VIT D 400 IU TAB PO SCH (07:54)
[2022-11-15] MEDS: dexAMETHasone 6 MG in SYRINGE 0 ML IV SCH (07:55)
[2022-11-15] MEDS: HYDROCODONE/ACETAMOPHEN 5/325MG TAB PO PRN (07:56)
[2022-11-15] MEDS: PREGABALIN 100 MG CAP PO SCH ×2 (07:56→13:23)
--- NOTE | 2022-11-15 10:42 | Discharge Summary ---
Date of Service November 15, 2022 Principal Diagnosis Thoracic spinal stenosis with myelopathy Discharge Data Allergies Allergy/AdvReac Type Severity Reaction Status Date / Time No Known Allergies Allergy Verified 11/12/22 09:22 Consultations 11/12/22 15:00 Consult Hospitalist Routine Procedures Performed Operation Date: 11/12/22 10:35 Actual Procedures p T10-T12 Decompression, instrumented fusion, Spinal Cord Monitoring(Not Applicable) - Carlos A Gonzales DO Ordered Studies 11/12/22 10:35 FL thoracic spine 2V Routine Hospital Course (1) Myelopathy concurrent with and due to spinal stenosis of thoracic region: Patient underwent thoracic decompression fusion tolerated this well was taken to orthopedic for postoperative. Postop day 1 he was up and ambulating Trell postop day #2 on postop day or 3 his leg function has improved significantly. His pain was well controlled. EDWIGE drain decreasing probably. Subsequent discharge home. Discharge orders instructions found in chart for further review. Total Time Total Time Spent Total Time Spent (In Minutes): 20 minutes Discharge Plan Discharge Items Patient Disposition: Home - Self-Care Reason For Visit: Other Spondylsis with Myelopathy, Thoracic Region Discharge Diagnosis: thoracic spinal stenosis with myelopathy Activity: As commented below Non-emergency contact: Primary Care Provider Call non-emergency contact if: you have any medication questions Follow-up/Referrals: Dc Chin [Primary Care Provider] - Diet: Regular Addtl Attending Provider Instructions: ACTIVITY RECOMMENDATIONS: SELF CARE INSTRUCTIONS AFTER THORACIC/LUMBAR FUSIONS 1. You may walk to your tolerance. It is good exercise for your legs and back. Expect some back and intermittent leg aches and pains. 2. You may perform "counter-top" level activities (make a sandwich, delio with a project, etc.). 3. No bending or lifting of more than 10 pounds or back twisting of any nature (roll like a log when turning in bed). 4. You may ride in a car for 20-30 minutes at a time. No driving until after your first visit with your doctor. 5. Frequent changes of position and restricting sitting to 30 minutes at a time will help limit the amount of back spasms and stiffness you may experience. 6. You may discontinue the use of ambulatory aids (cane, crutches, etc.) once your strength and confidence allow. 7. You may fire boat engineer the shower and let water strike your incision when you arrive home at least once daily. Do not take a tub bath, sit in a hot tub or go into a swimming pool until after your first recheck in the office. SPECIAL CARE INSTRUCTIONS: VERY IMPORTANT TO READ AND REVIEW A. Your surgical incision has been closed with a cosmetic suture under the skin that will dissolve in about 6 weeks. In 14 days, you can use a pair of clean scissors and cut the suture that is left outside of the skin at the ends of your incision. 1. The small skin tapes can be removed 7 days after surgery if they have not fallen off by that point. 2. You may keep the wound open to air as much as possible to promote healing after post-op day number 5 unless told otherwise by your doctor. 3. If you think the wound looks like it is becoming infected (redness or worsening drainage) and/or you are experiencing fever, chill or worsening back pain and muscle spasms, contact the office so that we may evaluate you as soon as possible. B. Complications are uncommon, but please contact us if you have any signs or symptoms of: 1. wound infection (fever higher than 102.5 degrees F, redness, separation of wound, drainage, or increasing pain from the incision) 2. blood clots in legs (pain, swelling, redness and warmth in legs) 3. urinary tract infection (fever higher than 102.5 degrees F, burning upon urination or increased frequency of urination) 4. nerve problems (inability to walk on your toes or heels, numbness, loss of bowel or bladder control) 5. any other symptoms that concern you C. Please call the office at if you have any concerns or questions about your operation or recovery. D. No smoking! Smoking drastically decreases the chance of a solid fusion. E. Do not take any anti-inflammatory medications (Indocin, Advil, Motrin, Aspirin, Naprosyn, etc.) as these may inhibit the chance of a solid fusion. Tylenol is okay to take for pain. MANAGING PAIN AFTER SPINAL SURGERY 1. Narcotic medication is intended for short-term use and will be provided for surgical pain. Surgical pain usually lasts for a period of 4-6 weeks. Narcotic medication includes Percocet, Vicodin, Darvocet, Tylenol #3 or Lortab. 2. Longer-term pain is more appropriately treated with non-narcotic medication such as Tylenol ES. 3. Muscle spasm is not appropriately treated with narcotics. Muscle relaxers such as Soma, Flexeril or Skelaxin can be used along with Tylenol ES. 4. Remember that we all live with some "aches and pains". This is not unusual or uncommon after an injury or as we get older. a. Back pain is expected and may include muscle spasms for 4 to 6 weeks after surgery. The pain should gradually improve. If the pain worsens for no apparent reason, please contact the office. b. Intermittent leg pain may also be experienced and should not be concerned about unless it worsens for no apparent reason. If so, please contact the office. 5. We will provide appropriate medication within the normal guidelines of their prescribed use. We will also be very cautious and aware of potential abuse and extended duration of patients' medication needs. a. Pain medications are for your comfort and to assist with sleep and rest so that the tissue can heal. They are not provided in order to return to normal activity and should not be used through the day. To do so or worsening pain at night can result from ongoing tissue damage and development of tolerance to the prescribed medicine. 6. Please allow 2-3 days to process refills. Prescriptions will not be mailed but must be picked up at the office. FOLLOW UP VISIT: Keep your scheduled follow-up appointment. Any questions, please call the office at . Pending Studies at Discharge: No Stand-Alone Forms: My [facility], Smoking Cessation Medications and [place] Order Prescriptions: New tramadol 50 mg tablet 50 mg PO Q6H PRN (Reason: pain, moderate) Qty: 30 0RF hydrocodone-acetaminophen 5-300 mg tablet 1 tab PO Q6H PRN (Reason: pain) Qty: 30 0RF Continued pregabalin [Lyrica] 100 mg capsule 100 mg PO TID Qty: 90 5RF hydrochlorothiazide 25 mg tablet 25 mg PO QAM diltiazem HCl 120 mg capsule,extended release 24hr 120 mg PO QAM lisinopril 10 mg tablet 10 mg PO QAM Qty: 30 leflunomide [Arava] 20 mg Tablet 20 mg PO QAM calcium carb and citrate-vitD3 [Citracal-D3 Slow Release] 600 mg calcium- 500 unit Tablet Extended Release 1 tab PO BID [employer] 1.5 billion cell Capsule 1 cap PO QAM Rinvoq 15 mg tablet extended release 24 hr 15 mg PO QAM hydrocodone-acetaminophen 5-325 mg tablet 1 tab PO TID PRN (Reason: Pain) ondansetron HCl 4 mg tablet 4 mg PO Q6H PRN (Reason: nausea and vomiting) Qty: 10 0RF Discontinued Eliquis 5 mg tablet 5 mg PO BID Discharge Orders: Discharge Order (Routine); Ordered 11/15/22 Ordered By: Carlos A Gonzales Admission Data Admit Date/Time: 11/12/22 13:13 Attending Provider: Carlos A Gonzales Admit Provider: Carlos A Gonzales Primary Care Provider: Dc Chin Other Providers: Celestine Melo ; Eh Lan
== END 2022-11-15 13:33 | disposition home or self-care (01) | DRG 460 ==
LOC: ASU 08:56 → 3W 13:13

== ENCOUNTER 2022-11-18 15:09 | Inpatient (IN) ==
--- NOTE | 2022-11-18 15:20 | ED Triage Note ---
Date of Service November 18, 2022 History of Present Illness This patient was briefly evaluated while in triage. An abbreviated physical exam was performed. This patient is a 72-year-old Male who presents to the ED for evaluation of intractable back pain s/p thoracic decompression fusion by Dr. Gonzales on 3. Patient discharged from hospital 11/15. He reports he cannot get his pain under control despite tramadol and hydrocodone. Denies lower extremity weakness/numbness/tingling, bowel/bladder incontinence, saddle paresthesias. Physical Exam Constitutional: alert and oriented x3. no acute distress. HEENT: normocephalic, atraumatic. normal conjunctiva.EOM's grossly intact. Respiratory: lungs are clear to auscultation without wheezes, rhonchi, or rales bilaterally. equal chest rise. normal respiratory effort, no accessory muscle use. Cardiovascular: normal heart sounds without murmur. regular rate and rhythm. GI: abdomen is soft, nontender. No palpable masses. No rebound tenderness or guarding. No CVA tenderness MSK: moves all 4 extremities spontaneously Psych:appropriate mood and affect. Initial orders for labs and / or imaging were placed and patient was placed in the waiting area until a bed is available. Please see further documentation for the full ED course.
[2022-11-18 16:14] LABS: Basophils # (auto) 0.03 K/uL (0-0.2); Basophils % (auto) 0.4 %; Eosinophils # (auto) 0.08 K/uL (0-0.50); Eosinophils % (auto) 1.1 %; Hematocrit (blood only) 37.6 % (42.0-52.0); Immature Granulocytes # (auto) 0.28 K/uL (0.01-0.20); Immature Granulocytes % (auto) 3.8 %; Lymphocytes # (auto) 1.17 K/uL (1.2-3.4); Lymphocytes % (auto) 15.9 %; Mean Corpuscular Hgb Conc 34.6 g/dL (32.0-36.0); Mean Corpuscular Volume 92.6 fL (80.0-100.0); Mean Platelet Volume 10.1 fL (9.4-12.4); Monocytes # (auto) 0.59 K/uL (0.11-0.59); Neutrophils # (auto) 5.23 K/uL (1.40-6.50); Neutrophils % (auto) 70.8 %; Platelet Count 308 K/uL (130-400); RDW Coefficient of Variation 15.1 % (11.5-14.5); RDW Standard Deviation 50.9 fL (36.4-46.3); Red Blood Count 4.06 M/uL (4.70-6.10); White Blood Count 7.38 K/ul (4.8-10.8)
[2022-11-18 16:31] LABS: Alanine Aminotransferase 14 U/L (7-52); Albumin Globulin Ratio 1.5 (0.9-2); Albumin Level 4.1 gm/dl (3.4-5.0); Alkaline Phosphatase 78 U/L (34-104); Anion Gap 8 (3-11); BUN Creatinine Ratio 41.8 (10-20); Bilirubin,Total 0.4 mg/dl (0.2-1.0); Blood Urea Nitrogen 33 mg/dl (6-23); Calcium 9.4 mg/dl (8.6-10.3); Carbon Dioxide 28 mmol/L (21-32); Chloride 101 mmol/L (98-107); Est GFR (African American) 105.4 ml/min; Globulin 2.7 gm/dl (2.5-4.0); Glucose 88 mg/dl (70-99(Fasting)); Sodium 137 mmol/L (136-145); Total Protein 6.8 gm/dl (6.0-8.3)
[2022-11-18] MEDS ORDERED: MoRPHine SULFATE 4 MG/ML 1 ML CARP\\VIAL IV STA (16:54)
[2022-11-18] MEDS ORDERED: METHOCARBAMOL 750 MG TABLET PO ONE (16:55)
--- NOTE | 2022-11-18 17:03 | Emergency Department Note ---
Impression & Plan Postoperative back pain, Ambulatory dysfunction ED Provider Note HISTORY OF PRESENT ILLNESS: Patient is a 72-year-old male presenting with left back and left-sided flank pain. Patient had thoracic spinal fusion last week. He reports that for the last 48 hours he has been having excruciating pain in the left mid and lower back and left flank. He states that he is unable to get up and get around secondary to the constant sharp pain in this area. He denies any recent falls. Denies any numbness or tingling down his legs. Denies any fevers. Denies any bowel or bladder incontinence. Denies any saddle anesthesia. He reports pain is significantly worse with standing up or attempting to walk. Denies any chest pain or shortness of breath. Denies any dysuria or hematuria. ROS: as above PHYSICAL EXAM: Constitutional: Patient appears in no acute distress. HENT: Head: Normocephalic and atraumatic. Eyes: EOMI, PERRL Mouth/Throat: Mucous membranes moist. Neck: Trachea midline. Neck supple. Cardiovascular: RRR, No murmurs, rubs or gallops. Intact distal pulses. Pulmonary/Chest: No respiratory distress. Breath sounds clear and equal bilaterally. No wheezes or rales. Abdominal: BS +. Abdomen soft, no tenderness, rebound or guarding. Back: No reproducible midline spinal tenderness. Surgical incision in the thoracic midline spine that has Steri-Strips in place. Incision appears clean, dry and intact. Patient has no reproducible tenderness to palpation of the left paraspinal muscles or left flank. No CVA tenderness. Patient is able to straight leg raise bilaterally Musculoskeletal: No edema, tenderness or deformity noted. Skin: Warm and dry. No rash, erythema, pallor or cyanosis Psychiatric: Appropriate mood and affect for situation. Neurological: Alert and keenly responsive. CN II-XII grossly intact, moving all extremities equally and fully. MDM: - Vitals signs stable. - History obtained via patient. Patient presents with left-sided back pain. Patient had a thoracic spinal fusion last week. Reports in the last 48 hours he been having excruciating pain on his left thoracic and low back radiating around into his left flank. Denies any dysuria or hematuria. Reports he is unable to get up and get around and has been lying in bed at home. He has been taking tramadol and [place] without any relief of symptoms. Denies any saddle anesthesia. Denies any bowel or bladder incontinence - Chronic conditions affecting care: HTN; DVT; spinal stenosis - Differential diagnoses include, but are not limited to: hardware malfunction; spinal infection; UTI; pyelonephritis - Order placed for continuous cardiac monitoring. At this time, monitor showed rate of 60 bpm with normal sinus rhythm, per my interpretation. - External medical records reviewed. Operative report from 11/13/2019 was reviewed. Patient had thoracic decompression of T9-T12. Had a posterior spinal fusion of T10-T12 - Laboratory workup interpreted by myself showed normal WBC; stable electrolytes - UA showed WBCs, but no bacteria. - CT thoracic and lumbar spine wo contrast negative for acute pathology. - Patient given 4 mg IV morphine, 750 mg PO robaxin and lidocaine patch in ER. On reassessment, patient reports continued pain. - Discussed results with patient at bedside. He expresses concern about going home given his inability to get around without significant and excruciating pain. Will admit to hospital service for further pain management and physical therapy evaluation. - Discussion was had with director social about patient's case and need for admission. - Hospitalist, Dr. Hernandez, consulted for admission for pain control and PT/OT. - Patient admitted to [facility] service for further evaluation and management. ASSESSMENT AND PLAN: Diagnosis: Back pain postoperatively; ambulatory dysfunction Plan: admit Past Med/Surg History Medical History Atrial fibrillation Initial episode in setting of acute illness (2016), recurrence (06/2021) Follows with [facility]/Dr. Carter On Eliquis Barretts esophagus Follows GI routinely BCC (basal cell carcinoma) s/p excision /Mohns procdure BPH loc w/o ur obs/LUTS Chronic back pain Degenerative disc disease DVT (deep venous thrombosis) hx of right leg s/p achilles tendon repair 5+ yrs ago On Eliquis GERD (gastroesophageal reflux disease) controlled History of COVID-19 approximately 2 yrs ago > not hospitalized 09/22/22- mild cough- symptoms resolved Hx of squamous cell carcinoma of skin S/p excision Hx pulmonary embolism s/p achilles tendon surgery (5+ years ago) Hypertension Kidney stones hx Peripheral neuropathy Rheumatoid arthritis Follows with rheum Sleep apnea no device Surgical History H/O transurethral resection of prostate TURP (08/21/21): LMA#5 at [facility]. No issues noted per post-op anesthesia progress note. History of back surgery lumbar History of carpal tunnel release of both wrists History of colonoscopy History of cystoscopy with stone basketing for kidney stones History of elbow surgery left History of esophagogastroduodenoscopy (EGD) History of lithotripsy ESWL (02/2020 - [facility] [place]) History of Mohs micrographic surgery for skin cancer from head and left sabianist History of revision of total replacement of left knee joint History of tooth extraction History of total knee replacement bilateral Hx of foot surgery left with hardware at [facility] [place] in Mar 2022 > still has some swelling present S/P Achilles tendon repair right Family History Daughter Slow to wake up after anesthesia Social History Smoking Status: Never smoker Second Hand Exposure: No; Do You Dip or Chew Tobacco: No (hx of quit 2012); Hx Alcohol Use: No Hx Substance Use: No Preferred Language: Bolivian Communication Ability: Effective Nursing Home Admissions Director Required: No Beliefs That Will Affect Care: None Current Living Situation: Spouse Feels Safe at Home: Yes Assistive Devices: Cane and Walker Allergies Allergies Allergy/AdvReac Type Severity Reaction Status Date / Time No Known Allergies Allergy Verified 11/12/22 09:22 Home Meds Home Medications Medication Instructions Recorded Confirmed diltiazem HCl 120 mg 120 mg PO QAM 04/04/19 11/18/22 capsule,extended release 24 hr hydrochlorothiazide 25 mg tablet 25 mg PO QAM 04/04/19 11/18/22 lisinopril 10 mg tablet 10 mg PO QAM #30 tabs 04/04/19 11/18/22 calcium carb,cit ER 600 mg-vit D3 1 tab PO BID 02/01/20 11/18/22 12.5 mcg (500 unit) tablet,ext.rel (Citracal-D3 Slow Release) leflunomide 20 mg tablet (Arava) 20 mg PO QAM 02/01/20 11/18/22 Lactobacills gasseri-Bifidobac 1 cap PO QAM 04/28/21 11/18/22 bifidum,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 (Tetragenetics) upadacitinib 15 mg tablet,extended 15 mg PO QAM 08/13/21 11/18/22 release 24 hr (Rinvoq) apixaban 5 mg tablet (Eliquis) 5 mg PO BID 11/18/22 11/18/22 Previous Rx's Medication Instructions Recorded pregabalin 100 mg capsule (Lyrica) 100 mg PO TID #90 caps 08/31/22 hydrocodone 5 mg-acetaminophen 300 1 tab PO Q6H PRN pain #30 tabs 11/13/22 mg tablet tramadol 50 mg tablet 50 mg PO Q6H PRN pain, moderate 11/13/22 #30 tabs Results & Data (ED) Vital Signs Vital Signs - 24 hr 11/18/22 15:13 11/18/22 17:10 11/18/22 18:50 Temperature 36.5 C Temperature Source Temporal Artery Scan Pulse Rate 68 Pulse Rate [Apical] 67 61 Respiratory Rate 20 18 18 Respiratory Effort / Characteristics Non-Labored Spontaneous Non-Labored Respiratory Depth Normal Normal Blood Pressure 125/66 Blood Pressure [Left Arm] 136/75 123/85 Blood Pressure Mean 85 Blood Pressure Mean [Left Arm] 95 97 Pulse Oximetry 98 94 96 Oxygen Delivery Method Room Air Room Air Room Air Sepsis New/Unexplained Change in Mental Status No Sepsis Action Taken by Nursing No Action Required Laboratory Data 11/18/22 15:43 11/18/22 15:43 Lab Results 11/18/22 11/18/22 11/18/22 Range/Units 15:43 15:43 17:01 WBC 7.38 (4.8-10.8) K/ul RBC 4.06 L (4.70-6.10) M/uL Hgb 13.0 L (14.0-18.0) g/dl Hct 37.6 L (42.0-52.0) % MCV 92.6 (80.0-100.0) fL MCH 32.0 (25.0-34.0) pg MCHC 34.6 (32.0-36.0) g/dL RDW Std Deviation 50.9 H (36.4-46.3) fL RDW Coeff of Flora 15.1 H (11.5-14.5) % Plt Count 308 (130-400) K/uL MPV 10.1 (9.4-12.4) fL Immature Gran % (Auto) 3.8 % Neut % (Auto) 70.8 % Lymph % (Auto) 15.9 % Davidson % (Auto) 8.0 % Eos % (Auto) 1.1 % Baso % (Auto) 0.4 % Neut # (Auto) 5.23 (1.40-6.50) K/uL Lymph # (Auto) 1.17 L (1.2-3.4) K/uL Davidson # (Auto) 0.59 (0.11-0.59) K/uL Eos # (Auto) 0.08 (0-0.50) K/uL Baso # (Auto) 0.03 (0-0.2) K/uL Immature Gran # (Auto) 0.28 H (0.01-0.20) K/uL Sodium 137 (136-145) mmol/L Potassium TNP 4.0 Chloride 101 (98-107) mmol/L Carbon Dioxide 28 (21-32) mmol/L Anion Gap 8 (3-11) BUN 33 H (6-23) mg/dl Creatinine 0.79 (0.6-1.4) mg/dl Est Cr Clr Drug Dosing Not Reportable Est GFR ( Amer) 105.4 ml/min Est GFR (Non-Af Amer) 91.0 ml/min BUN/Creatinine Ratio 41.8 H (10-20) Glucose 88 (70-99(Fasting)) mg/dl Calcium 9.4 (8.6-10.3) mg/dl Total Bilirubin 0.4 (0.2-1.0) mg/dl AST TNP 16 ALT 14 (7-52) U/L Alkaline Phosphatase 78 (34-104) U/L Total Protein 6.8 (6.0-8.3) gm/dl Albumin 4.1 (3.4-5.0) gm/dl Globulin 2.7 (2.5-4.0) gm/dl Albumin/Globulin Ratio 1.5 (0.9-2) Urine Color Urine Appearance (Clear) Urine pH (4.5-7.5) Ur Specific Magee (1.000-1.030) Urine Protein (Negative) Urine Glucose (UA) (Negative) Urine Ketones (Negative) Urine Blood (Negative) Urine Nitrite (Negative) Urine Bilirubin (Negative) Urine Urobilinogen (Negative) Ur Leukocyte Esterase (Negative) Urine WBC (Auto) (0-5) /hpf Urine RBC (Auto) (0-4) /hpf U Hyaline Cast (Auto) (0-5) /lpf U Epithel Cells (Auto) (0-5) /lpf Urine Bacteria (Auto) (Negative) 11/18/22 Range/Units 18:53 WBC (4.8-10.8) K/ul RBC (4.70-6.10) M/uL Hgb (14.0-18.0) g/dl Hct (42.0-52.0) % MCV (80.0-100.0) fL MCH (25.0-34.0) pg MCHC (32.0-36.0) g/dL RDW Std Deviation (36.4-46.3) fL RDW Coeff of Flora (11.5-14.5) % Plt Count (130-400) K/uL MPV (9.4-12.4) fL Immature Gran % (Auto) % Neut % (Auto) % Lymph % (Auto) % Davidson % (Auto) % Eos % (Auto) % Baso % (Auto) % Neut # (Auto) (1.40-6.50) K/uL Lymph # (Auto) (1.2-3.4) K/uL Davidson # (Auto) (0.11-0.59) K/uL Eos # (Auto) (0-0.50) K/uL Baso # (Auto) (0-0.2) K/uL Immature Gran # (Auto) (0.01-0.20) K/uL Sodium (136-145) mmol/L Potassium Chloride (98-107) mmol/L Carbon Dioxide (21-32) mmol/L Anion Gap (3-11) BUN (6-23) mg/dl Creatinine (0.6-1.4) mg/dl Est Cr Clr Drug Dosing Est GFR ( Amer) ml/min Est GFR (Non-Af Amer) ml/min BUN/Creatinine Ratio (10-20) Glucose (70-99(Fasting)) mg/dl Calcium (8.6-10.3) mg/dl Total Bilirubin (0.2-1.0) mg/dl AST ALT (7-52) U/L Alkaline Phosphatase (34-104) U/L Total Protein (6.0-8.3) gm/dl Albumin (3.4-5.0) gm/dl Globulin (2.5-4.0) gm/dl Albumin/Globulin Ratio (0.9-2) Urine Color Yellow Urine Appearance Clear (Clear) Urine pH 5.5 (4.5-7.5) Ur Specific Magee 1.020 (1.000-1.030) Urine Protein Negative (Negative) Urine Glucose (UA) Negative (Negative) Urine Ketones Negative (Negative) Urine Blood Negative (Negative) Urine Nitrite Negative (Negative) Urine Bilirubin Negative (Negative) Urine Urobilinogen Negative (Negative) Ur Leukocyte Esterase 2+ H (Negative) Urine WBC (Auto) >30 H (0-5) /hpf Urine RBC (Auto) 0-4 (0-4) /hpf U Hyaline Cast (Auto) 1-5 (0-5) /lpf U Epithel Cells (Auto) 0-5 (0-5) /lpf Urine Bacteria (Auto) Negative (Negative) Administered Medications Lidocaine (Lidocaine 5% 1 Patch) 1 patch TD QAM JOAN Stop: 12/18/22 16:59 Last Admin: 11/18/22 17:12 Dose: 1 patch Documented By: GORDON Discontinued Medications Methocarbamol (Methocarbamol 750 Mg Tablet) 750 mg PO ONCE ONE Stop: 11/18/22 16:56 Last Admin: 11/18/22 17:57 Dose: 750 mg Documented By: GORDON Morphine Sulfate (Morphine Sulfate 4 Mg/Ml 1 Ml Carp\Vial) 4 mg IV NOW STA Stop: 11/18/22 16:55 Last Admin: 11/18/22 17:12 Dose: 4 mg Documented By: GORDON Imaging Data Radiologist's Impression: Lumbar Spine CT 11/18/22 16:54 CT lumbar spine wo con CLINICAL HISTORY: recent surgery; back pain radiating to left side TECHNIQUE: Multidetector row helical CT of the lumbar spine was performed without administration of intravenous contrast. Coronal and sagittal reformations were obtained. Automated dose lowering techniques and/or adjustment according to patient size were utilized for this exam. Comparison: Comparison is made to CT abdomen pelvis 09/12/2022 FINDINGS: Posterior fixation hardware is seen spanning L2-S1. No acute fractures are identified. Degenerative changes are noted in the visual ized spine. Scoliosis is seen. Incidentally noticed is a focus of air in the bladder, correlation with recent rotation is recommended. IMPRESSION: Degenerative changes without evidence of acute bony injury. ACT 112: Negative or not required by law. Electronically signed by: Carmine Ac M.D. 11/18/2022 7:[address] 11/18/22 16:54 CT thoracic spine wo con CLINICAL HISTORY: recent surgery; back pain radiating to left side TECHNIQUE: Multidetector row helical CT of the thoracic spine was performed without administration of intravenous contrast. Coronal and sagittal reformations were obtained. Automated dose lowering techniques and/or adjustment according to patient size were utilized for this exam. CT DOSE: 1796.26 mGy.cm Comparison: Comparison is made to CT abdomen pelvis 09/12/2022 FINDINGS: Incidentally noted, there appear to be 13 rib-bearing vertebrae redemonstration of an oblique fracture about the superior aspect of the T11 vertebral body. Subacute to chronic bilateral rib fractures are unchanged from prior exam. Fi xation hardware is again seen spanning L2-S1. Degenerative changes are seen in the thoracic spine. Vertebral body alignment is within normal limits. Dependent atelectasis is seen. IMPRESSION: No acute abnormality is seen. Multilevel degenerative changes and posterior fixation hardware are again seen. ACT 112: Negative or not required by law. Electronically signed by: Carmine Ac M.D. 11/18/2022 6:45 PM Discharge Plan Visit Data Chief Complaint: Back Injury/Pain Stated Complaint: PAIN IN HIS L SIDE BACK, NAUSEA, JUST HAD SURGERY ED Provider: Charleen Sevilla Discharge Problem: Postoperative back pain, Ambulatory dysfunction Forms Stand Alone Forms: My [employer] Prescriptions Prescriptions: No Action pregabalin [Lyrica] 100 mg capsule 100 mg PO TID Qty: 90 5RF hydrochlorothiazide 25 mg tablet 25 mg PO QAM diltiazem HCl 120 mg capsule,extended release 24hr 120 mg PO QAM lisinopril 10 mg tablet 10 mg PO QAM Qty: 30 leflunomide [Arava] 20 mg Tablet 20 mg PO QAM calcium carb and citrate-vitD3 [Citracal-D3 Slow Release] 600 mg calcium- 500 unit Tablet Extended Release 1 tab PO BID [employer] 1.5 billion cell Capsule 1 cap PO QAM Rinvoq 15 mg tablet extended release 24 hr 15 mg PO QAM Eliquis 5 mg tablet 5 mg PO BID Rx Instructions: ok'd to restart today tramadol 50 mg tablet 50 mg PO Q6H PRN (Reason: pain, moderate) Qty: 30 0RF hydrocodone-acetaminophen 5-300 mg tablet 1 tab PO Q6H PRN (Reason: pain) Qty: 30 0RF Referrals Referrals: Dc Chin [Primary Care Provider] -
[2022-11-18] MEDS: LIDOCAINE 5% 1 PATCH TD SCH (17:12)
--- NOTE | 2022-11-18 18:47 | CT Scan Report ---
CT thoracic spine wo con CLINICAL HISTORY: recent surgery; back pain radiating to left side TECHNIQUE: Multidetector row helical CT of the thoracic spine was performed without administration of intravenous contrast. Coronal and sagittal reformations were obtained. Automated dose lowering techn iques and/or adjustment according to patient size were utilized for this exam. CT DOSE: 1796.26 mGy.cm Comparison: Comparison is made to CT abdomen pelvis 09/12/2022 FINDINGS: Incidentally noted, there appear to be 13 rib-bearing vertebrae redemonstration of an oblique fractur e about the superior aspect of the T11 vertebral body. Subacute to chronic bilateral rib fractures ar e unchanged from prior exam. Fixation hardware is again seen spanning L2-S1. Degenerative changes are seen in the thoracic spine. Vertebral body alignment is within normal limits. Dependent atelectasis is seen. IMPRESSION: No acute abnormality is seen. Multilevel degenerative changes and posterior fixation hardware are aga in seen. ACT 112: Negative or not required by law. Electronically signed by: Carmine Ac M.D. 11/18/2022 6:45 PM
[2022-11-18 19:10] LABS: Appearance Urine Clear (Clear); Bacteria Urine Automated Negative (Negative); Bilirubin Urine Negative (Negative); Blood Urine Negative (Negative); Color Urine Yellow; Epithelial Cell Urine Auto 0-5 /lpf (0-5); Glucose Urine UA Negative (Negative); Ketones Urine Negative (Negative); Leukocyte Esterase Urine 2+ (Negative); Nitrite Urine Negative (Negative); Protein Urine Negative (Negative); RBC Urine Automated 0-4 /hpf (0-4); Urobilinogen Urine Negative (Negative); WBC Urine Automated >30 /hpf (0-5); pH Urine 5.5 (4.5-7.5)
--- NOTE | 2022-11-18 19:16 | CT Scan Report ---
CT lumbar spine wo con CLINICAL HISTORY: recent surgery; back pain radiating to left side TECHNIQUE: Multidetector row helical CT of the lumbar spine was performed without administration of i ntravenous contrast. Coronal and sagittal reformations were obtained. Automated dose lowering techniq ues and/or adjustment according to patient size were utilized for this exam. Comparison: Comparison is made to CT abdomen pelvis 09/12/2022 FINDINGS: Posterior fixation hardware is seen spanning L2-S1. No acute fractures are identified. Degenerative changes are noted in the visualized spine. Scoliosis is seen. Incidentally noticed is a focus of air in the bladder, correlation with recent rotation is r ecommended. IMPRESSION: Degenerative changes without evidence of acute bony injury. ACT 112: Negative or not required by law. Electronically signed by: Carmine Ac M.D. 11/18/2022 7:13 PM
--- NOTE | 2022-11-18 20:21 | History & Physical Report ---
Date of Service November 18, 2022 Assessment & Plan (1) Postoperative back pain: Plan: 72 yo male s/p T10-T12 decompression and fusion performed on 11/12/[address] Gonzales presenting with severe back pain. Patient is afebrile, HD stable, non- toxic in appearance. Stable H/H. CT imaging with hardware in place, normal post-operative changes. No evidence of bleed or infection. Patient has been taking his Tramadol and Hydrocodone at home with minimal improvement in pain. He reports he is unable to stand or ambulate due to pain. Noted to have an oblique fracture about the superior aspect of the T11 vertebral body which was previously noted. Also with subacute to chronic bilateral rib fractures unchanged from prior exam (patient reports a fall from the tractor in early October) -Admit to medical -Check X-ray left hip -Continue Tramadol 50mg po q 6 hours -Hydrocodone/Acetaminophen 2 tabs po q 4 hours PRN -Morphine as needed for moderate to severe pain -Lidoderm patch -Continue Lyrica 100mg po TID -PT/OT evaluation -Bowel regimen with Senna and Miralax (2) Ambulatory dysfunction: Plan: Secondary to pain as above. Patient denies focal numbness/tingling or weakness. No recent falls. -Maintain fall precautions -PT/OT evaluation -Pain control (3) Atrial fibrillation: Plan: Rate controlled -Continue Apixaban 5mg po BID -Continue Diltiazem (4) Rheumatoid arthritis: Plan: Chronic. Stable (5) Hypertension: Plan: Blood pressure well controlled -Continue Lisinopril -Continue HCTZ -Monitor F/E/N - Heplock. Electrolytes WNL. Regular diet as tolerated Ppx - On Apixaban for h/o AF Code - Full per discussion with patient Dispo - Admit to medical History of Present Illness Chief Complaint: Left hip and flank pain Primary Care Provider: Dc Chin Curt Starr is a pleasant 72yo male with history of atrial fibrillation on Eliquis anticoagulation, GERD and RA presenting with severe back pain. Patient was recently had T10-T12 decompression and fusion performed by Dr. Gonzales on 11/12/22 due to thoracic spinal stenosis with myelopathy. The surgery was well tolerated with no complications identified. Patient reports he was overall doing well in the hospital. He was able to ambulate without discomfort. He was discharged home in stable condition on Wednesday11/15/22. He was given prescriptions for Tramadol 50mg po q6 hours PRN and hydrocodone/acetaminophen 5- 300mg po q 6 hours PRN. Patient reports taking one Hydrocodone tablet on Wednesday evening 11/15/22. On Wednesday AM he woke with severe discomfort. His pain is mostly located in his left side, flank and hip as well as back. It is positional in nature and worse with standing. Pain has been persistent despite Tramadol and Hydrocodone. He reports he is barely able to get out of bed. No fever, chills, incontinence, numbness, tingling or weakness. No falls. No additional complaints such as chest pain, cough, SOB, vomiting or diarrhea. No additional complaints at this time. Patient has not In the ER he is afebrile, HD stable, NAD. He was administered Morphine 4mg IV + Lidoderm patch and Methocarbamol and reports some improvement in the pain. ER Course: Lidoderm patch Methocarbamol 750mg po Morphine 4mg IV Allergies Allergy/AdvReac Type Severity Reaction Status Date / Time No Known Allergies Allergy Verified 11/12/22 09:22 Home Medications Medication Instructions Recorded Confirmed Type diltiazem HCl 120 mg 120 mg PO QAM 04/04/19 11/18/22 History capsule,extended release 24 hr hydrochlorothiazide 25 mg tablet 25 mg PO QAM 04/04/19 11/18/22 History lisinopril 10 mg tablet 10 mg PO QAM #30 tabs 04/04/19 11/18/22 History calcium carb,cit ER 600 mg-vit D3 1 tab PO BID 02/01/20 11/18/22 History 12.5 mcg (500 unit) tablet,ext.rel (Citracal-D3 Slow Release) leflunomide 20 mg tablet (Arava) 20 mg PO QAM 02/01/20 11/18/22 History Lactobacills gasseri-Bifidobac 1 cap PO QAM 04/28/21 11/18/22 History bifidum,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 (Kanbox) upadacitinib 15 mg tablet,extended 15 mg PO QAM 08/13/21 11/18/22 History release 24 hr (Rinvoq) pregabalin 100 mg capsule (Lyrica) 100 mg PO TID #90 caps 08/31/22 11/18/22 Rx hydrocodone 5 mg-acetaminophen 300 1 tab PO Q6H PRN pain #30 tabs 11/13/22 11/18/22 Rx mg tablet tramadol 50 mg tablet 50 mg PO Q6H PRN pain, moderate 11/13/22 11/18/22 Rx #30 tabs apixaban 5 mg tablet (Eliquis) 5 mg PO BID 11/18/22 11/18/22 History Past Med/Surg History Medical History Atrial fibrillation Initial episode in setting of acute illness (2016), recurrence (06/2021) Follows with [facility]/Dr. Carter On Eliquis Barretts esophagus Follows GI routinely BCC (basal cell carcinoma) s/p excision /Mohns procdure BPH loc w/o ur obs/LUTS Chronic back pain Degenerative disc disease DVT (deep venous thrombosis) hx of right leg s/p achilles tendon repair 5+ yrs ago On Eliquis GERD (gastroesophageal reflux disease) controlled History of COVID-19 approximately 2 yrs ago > not hospitalized 09/22/22- mild cough- symptoms resolved Hx of squamous cell carcinoma of skin S/p excision Hx pulmonary embolism s/p achilles tendon surgery (5+ years ago) Hypertension Kidney stones hx Peripheral neuropathy Rheumatoid arthritis Follows with rheum Sleep apnea no device Surgical History H/O transurethral resection of prostate TURP (08/21/21): LMA#5 at [facility]. No issues noted per post-op anesthesia progress note. History of back surgery lumbar History of carpal tunnel release of both wrists History of colonoscopy History of cystoscopy with stone basketing for kidney stones History of elbow surgery left History of esophagogastroduodenoscopy (EGD) History of lithotripsy ESWL (02/[address] - [facility] [place]) History of Mohs micrographic surgery for skin cancer from head and left sikhism History of revision of total replacement of left knee joint History of tooth extraction History of total knee replacement bilateral Hx of foot surgery left [place] [facility] > still has some swelling present S/P Achilles tendon repair right Family History Daughter Slow to wake up after anesthesia Social History Smoking Status: Never smoker Second Hand Exposure: No; Do You Dip or Chew Tobacco: No (hx of quit 2012); Hx Alcohol Use: No Hx Substance Use: No Preferred Language: Maori Communication Ability: Effective Aircraft Stress Analyst Required: No Beliefs That Will Affect Care: None Current Living Situation: Spouse Feels Safe at Home: Yes Assistive Devices: Cane and Walker Review of Systems Review of Systems: All systems reviewed & are unremarkable except as noted in HPI & below Physical Exam Physical Exam: General: patient resting comfortably, NAD, non-toxic in appearance, AA&O x 4 Skin: warm, dry, intact, no rashes or lesions HEENT: NC/AT, PERRL, EOMI, anicteric sclera, conjunctiva without injection, external ear normal to inspection and nontender, nares patent, moist mucus membranes, dentition intact, no oropharyngeal lesions, neck supple, trachea midline, no LAD, no thyromegaly, no JVD Heart: +S1/S2, regular, no m/r/g Lungs: equal air entry bilaterally, no rales/rhonchi/wheezes Abd: +BS, soft, NT/ND, no masses/organomegaly/ascites Back incision well approximated, no bleeding, drainage or dehiscence noted Ext: warm, 2+ pulses in UE/LE bilaterally, no clubbing/cyanosis or edema Neuro: nonfocal, patient AA&O x 4, speech intact, no facial droop, moving all extremities on command with equal strength 5/5 Results & Data Results & Data Vital Signs (Past 12 Hours) Vital Signs Temp Pulse Pulse Resp BP BP Pulse Ox 11/18/22 18:50 61 18 123/85 96 11/18/22 17:10 67 18 136/75 94 11/18/22 15:13 36.5 C 68 20 125/66 98 O2 Del Method 11/18/22 18:50 Room Air 11/18/22 17:10 Room Air 11/18/22 15:13 Room Air Laboratory Results Laboratory Results WBC 7.38 K/ul (4.8-10.8) 11/18/22 15:43 RBC 4.06 M/uL (4.70-6.10) L 11/18/22 15:43 Hgb 13.0 g/dl (14.0-18.0) L 11/18/22 15:43 Hct 37.6 % (42.0-52.0) L 11/18/22 15:43 MCV 92.6 fL (80.0-100.0) 11/18/22 15:43 MCH 32.0 pg (25.0-34.0) 11/18/22 15:43 MCHC 34.6 g/dL (32.0-36.0) 11/18/22 15:43 RDW Std Deviation 50.9 fL (36.4-46.3) H 11/18/22 15:43 RDW Coeff of [place]ora 15.1 % (11.5-14.5) H 11/18/22 15:43 Plt Count 308 K/uL (130-400) 11/18/22 15:43 MPV 10.1 fL (9.4-12.4) 11/18/22 15:43 Immature Gran % (Auto) 3.8 % 11/18/22 15:43 Neut % (Auto) 70.8 % 11/18/22 15:43 Lymph % (Auto) 15.9 % 11/18/22 15:43 [place] % (Auto) 8.0 % 11/18/22 15:43 Eos % (Auto) 1.1 % 11/18/22 15:43 Baso % (Auto) 0.4 % 11/18/22 15:43 Neut # (Auto) 5.23 K/uL (1.40-6.50) 11/18/22 15:43 Lymph # (Auto) 1.17 K/uL (1.2-3.4) L 11/18/22 15:43 [place] # (Auto) 0.59 K/uL (0.11-0.59) 11/18/22 15:43 Eos # (Auto) 0.08 K/uL (0-0.50) 11/18/22 15:43 Baso # (Auto) 0.03 K/uL (0-0.2) 11/18/22 15:43 Immature Gran # (Auto) 0.28 K/uL (0.01-0.20) H 11/18/22 15:43 Sodium 137 mmol/L (136-145) 11/18/22 15:43 Potassium 4.0 mmol/L (3.5-5.1) 11/18/22 17:01 Chloride 101 mmol/L (98-107) 11/18/22 15:43 Carbon Dioxide 28 mmol/L (21-32) 11/18/22 15:43 Anion Gap 8 (3-11) 11/18/22 15:43 BUN 33 mg/dl (6-23) H 11/18/22 15:43 Creatinine 0.79 mg/dl (0.6-1.4) 11/18/22 15:43 Est Cr Clr Drug Dosing Not Reportable 11/18/22 15:43 Est GFR ( Amer) 105.4 ml/min 11/18/22 15:43 Est GFR (Non-Af Amer) 91.0 ml/min 11/18/22 15:43 BUN/Creatinine Ratio 41.8 (10-20) H 11/18/22 15:43 Glucose 88 mg/dl (70-99(Fasting)) 11/18/22 15:43 Calcium 9.4 mg/dl (8.6-10.3) 11/18/22 15:43 Total Bilirubin 0.4 mg/dl (0.2-1.0) 11/18/22 15:43 AST 16 U/L (13-39) 11/18/22 17:01 ALT 14 U/L (7-52) 11/18/22 15:43 Alkaline Phosphatase 78 U/L (34-104) 11/18/22 15:43 Total Protein 6.8 gm/dl (6.0-8.3) 11/18/22 15:43 Albumin 4.1 gm/dl (3.4-5.0) 11/18/22 15:43 Globulin 2.7 gm/dl (2.5-4.0) 11/18/22 15:43 Albumin/Globulin Ratio 1.5 (0.9-2) 11/18/22 15:43 Urine Color Yellow 11/18/22 18:53 Urine Appearance Clear (Clear) 11/18/22 18:53 Urine pH 5.5 (4.5-7.5) 11/18/22 18:53 Ur Specific [place] 1.020 (1.000-1.030) 11/18/22 18:53 Urine Protein Negative (Negative) 11/18/22 18:53 Urine Glucose (UA) Negative (Negative) 11/18/22 18:53 Urine Ketones Negative (Negative) 11/18/22 18:53 Urine Blood Negative (Negative) 11/18/22 18:53 Urine Nitrite Negative (Negative) 11/18/22 18:53 Urine Bilirubin Negative (Negative) 11/18/22 18:53 Urine Urobilinogen Negative (Negative) 11/18/22 18:53 Ur Leukocyte Esterase 2+ (Negative) H 11/18/22 18:53 Urine WBC (Auto) >30 /hpf (0-5) H 11/18/22 18:53 Urine RBC (Auto) 0-4 /hpf (0-4) 11/18/22 18:53 U Hyaline Cast (Auto) 1-5 /lpf (0-5) 11/18/22 18:53 U Epithel Cells (Auto) 0-5 /lpf (0-5) 11/18/22 18:53 Urine Bacteria (Auto) Negative (Negative) 11/18/22 18:53 SARS-CoV-2, RNA, NAAT NEGATIVE (NEGATIVE) 11/18/22 19:[address] 11/18/22 16:54 CT lumbar spine wo con CLINICAL HISTORY: recent surgery; back pain radiating to left side TECHNIQUE: Multidetector row helical CT of the lumbar spine was performed without administration of intravenous contrast. Coronal and sagittal reformations were obtained. Automated dose lowering techniques and/or adjustment according to patient size were utilized for this exam. Comparison: Comparison is made to CT abdomen pelvis 09/12/2022 FINDINGS: Posterior fixation hardware is seen spanning L2-S1. No acute fractures are identified. Degenerative changes are noted in the visualized spine. Scoliosis is seen. Incidentally noticed is a focus of air in the bladder, correlation with recent rotation is recommended. IMPRESSION: Degenerative changes without evidence of acute bony injury. ACT 112: Negative or not required by law. Electronically signed by: Carmine Ac M.D. 11/18/2022 7:[address] 11/18/22 16:54 CT thoracic spine wo con CLINICAL HISTORY: recent surgery; back pain radiating to left side TECHNIQUE: Multidetector row helical CT of the thoracic spine was performed without administration of intravenous contrast. Coronal and sagittal reformations were obtained. Automated dose lowering techniques and/or adjustment according to patient size were utilized for this exam. CT DOSE: 1796.26 mGy.cm Comparison: Comparison is made to CT abdomen pelvis 09/12/2022 FINDINGS: Incidentally noted, there appear to be 13 rib-bearing vertebrae redemonstration of an oblique fracture about the superior aspect of the T11 vertebral body. Subacute to chronic bilateral rib fractures are unchanged from prior exam. Fixation hardware is again seen spanning L2-S1. Degenerative changes are seen in the thoracic spine. Vertebral body alignment is within normal limits. Dependent atelectasis is seen. IMPRESSION: No acute abnormality is seen. Multilevel degenerative changes and posterior fixation hardware are again seen. ACT 112: Negative or not required by law. Electronically signed by: Carmine Ac M.D. 11/18/2022 6:45 PM Code Status & VTE Plan VTE Prophylaxis Plan VTE Prophylaxis will be ordered: Yes PG Care Time/CCT Total # of Minutes Spent Total Time Spent with Patient: Total time spent is greater than 50% in coordination of care (as documented) at patient's floor/unit and/or counseling patient: Coding Level of Care Code 77458 INT INP/OBS CARE 3/75MIN Diagnoses Postoperative back pain G89.18; M54.9 Ambulatory dysfunction R26.2 Atrial fibrillation I48.19 Atrial fibrillation type: persistent (not longstanding) Rheumatoid arthritis M06.9 Hypertension I10 (3) Atrial fibrillation Atrial fibrillation type: persistent (not longstanding) Qualified Code(s): I48.19 - Other persistent atrial fibrillation
[2022-11-18] MEDS ORDERED: PREGABALIN 100 MG CAP PO STA (21:54)
[2022-11-18] MEDS ORDERED: MoRPHine SULFATE 2 MG/ML CARP IV PRN (23:07)
[2022-11-18] MEDS ORDERED: traMADol HCL 50 MG TABLET PO PRN (23:07)
[2022-11-18] MEDS ORDERED: ONDANSETRON INJ 2 MG/ML 2 ML VIAL IV PRN (23:07)
[2022-11-18] MEDS ORDERED: HYDROCODONE/ACETAMOPHEN 5/325MG TAB PO PRN (23:07)
[2022-11-18] MEDS ORDERED: POLYETHYLENE (MIRALAX) 17 GM PACK PO PRN (23:07)
[2022-11-18] MEDS ORDERED: DOCUSATE SODIUM 100 MG CAP PO PRN (23:07)
[2022-11-18] MEDS: MoRPHine SULFATE 4 MG/ML 1 ML CARP\\VIAL IV PRN (23:24)
[2022-11-18] MEDS: APIXABAN 5 MG TABLET PO SCH (23:42)
--- NOTE | 2022-11-19 06:49 | XRay Report ---
XR hip LT 2V w pelvis HISTORY: 72 years-old Male pain, left hip acute left-sided hip pain status post trauma COMPARISON: CT abdomen and pelvis 09/12/2022 TECHNIQUE: AP view of the pelvis with 2 views of the left hip FINDINGS: Posterior interbody sandy and screw fusion hardware with discectomy changes of the lumbar spine with bi lateral iliac bones. No evidence of hardware complication on these images submitted. Demineralized ap pearance of the bones. There is mild osteoarthritis of the hips. No acute fracture, dislocation or av ascular necrosis identified. Calcifications of the prostate. IMPRESSION: No acute fracture or dislocation. ACT 112: Negative or not required by law. The above report was generated using voice recognition software. It may contain grammatical, syntax o r spelling errors. Electronically signed by: Vcitorino Gusman M.D. 11/19/2022 6:48 AM
[2022-11-19 08:50] LABS: Hematocrit (blood only) 33.6 % (42.0-52.0); Hemoglobin 11.7 g/dl (14.0-18.0); Mean Corpuscular Hemoglobin 32.1 pg (25.0-34.0); Mean Corpuscular Hgb Conc 34.8 g/dL (32.0-36.0); Mean Corpuscular Volume 92.1 fL (80.0-100.0); Mean Platelet Volume 10.1 fL (9.4-12.4); Platelet Count 248 K/uL (130-400); RDW Coefficient of Variation 15.4 % (11.5-14.5); RDW Standard Deviation 50.4 fL (36.4-46.3); Red Blood Count 3.65 M/uL (4.70-6.10); White Blood Count 8.34 K/ul (4.8-10.8)
[2022-11-19 09:28] LABS: BUN Creatinine Ratio 42.2 (10-20); Creatinine Clr Calc Pharmacy 90.2 ml/min; Est GFR (African American) 103.3 ml/min; Est GFR (Non-African American) 89.2 ml/min; Potassium 4.1 mmol/L (3.5-5.1)
[2022-11-19] MEDS: ACETAMINOPHEN 500 MG TAB PO SCH ×3 (09:36→22:07)
[2022-11-19] MEDS: lisinopril 10 MG TAB PO SCH (09:37)
[2022-11-19] MEDS: LEFLUNOMIDE 10 MG TAB PO SCH (09:37)
[2022-11-19] MEDS: hydroCHLOROthiazide 25 MG TAB PO SCH (09:38)
[2022-11-19] MEDS: dilTIAZem HCL 120 MG CAPCR PO SCH (09:38)
[2022-11-19] MEDS: APIXABAN 5 MG TABLET PO SCH ×2 (09:38→20:12)
[2022-11-19] MEDS: PREGABALIN 100 MG CAP PO SCH ×3 (09:39→20:12)
[2022-11-19] MEDS: SENNA 8.6 MG TAB PO SCH (10:37)
[2022-11-19] MEDS: MoRPHine SULFATE 4 MG/ML 1 ML CARP\\VIAL IV PRN (11:32)
[2022-11-19] MEDS: LIDOCAINE 5% 1 PATCH TD SCH (14:08)
--- NOTE | 2022-11-19 17:29 | Hospitalist Progress Note ---
Date of Service November 19, 2022 Assessment & Plan (1) Postoperative back pain: Plan: 72 M with history of AF, RA, thoracic spinal stenosis with myelopathy s/p T10- T12 decompression and fusion on 11/12/[address] Gonzales, presenting with severe back pain. Admitted for pain management, reevaluation by orthopedic surgery. Left hip, flank, back pain/thoracic spinal stenosis + myelopathy -T10-T12 decompression/fusion on 11/12 as above. Pain control regimen at discharge: Tramadol 50 mg p.o. every 6 hours as needed, hydrocodone- acetaminophen 5-300 mg p.o. every 6 hours as needed. -Normal postoperative changes on CT. No evidence of bleed or hematoma. No evidence of infection. -No acute fracture on spine CT (thoracic, lumbar), XR hip left. -Managed at home on tramadol, hydrocodone with minimal improvement in pain. -Pain appears musculoskeletal in nature. No evidence of nerve damage, or re- injury on physical exam. Also suspect miscommunication/nonadherence to pain control regimen. * Pain control regimen: Scheduled p.o. Tylenol 1000 mg every 8 hours; as needed, tiered scale IV morphine for breakthrough pain; lidocaine patch daily * Continue home pregabalin 100 mg p.o. 3 times daily * Notified orthopedic surgery of rehospitalization, given recent procedure. May place formal consult if needed. Ambulatory dysfunction -Secondary to aforementioned flank/back pain. -No focal numbness or weakness. * PT/OT evaluation: Recommend return home with home health physical therapy follow-up. * Coordinate with CM pending discussion with orthopedic surgery. Atrial fibrillation -Chronic; managed at home on diltiazem 120 mg p.o. every morning, Eliquis 5 mg twice daily. * Continue home regimen. Hypertension -Chronic; managed at home on lisinopril 10 mg daily, hydrochlorothiazide 25 mg every morning. * Continue home regimen. * Trend vitals. Consider holding if hypotensive during admission Rheumatoid arthritis -Chronic, stable; managed at home on leflunomide 20 mg daily, upadacitinib 50 mg daily * Continue home regimen (patient brought home upadacitinib, entered into formulary). Code: Full code Dispo: Med-Surg FEN/GI: Regular DVT Prophylaxis: Eliquis 5 mg twice daily PT/OT: Yes. Recommend discharge home with home health PT follow-up. Consults: None. But may consider orthopedic surgery. Case Management: Yes. Helping to coordinate home health PT. (2) Ambulatory dysfunction: (3) Atrial fibrillation: (4) Rheumatoid arthritis: Admission and Anticipated Discharge Date Admission Date: November 18, 2022 Supervising Physician Co-Signing Physician Notes Attending attestation Pt seen and examined in concert with Dr. Hernandez. In agreement with the documented findings as noted in the resident documentation with any exceptions or additions as noted here. Patient resting in chair with minimal pain with fixed position. Onset of pain with twisting or bending which is described as sharp and radiating to the lateral back without neuropathic type pattern or quality. Predominantly on the left, though does occur on the other side intermittently with certain movements. Reports does not tolerate oxycodone 2/2 constipation but does OK on hydrocodone and morphine. On examination, S1/S2 nl RRR no MCG. CTAB. Abd NT/ND BS+ve. Minimal TTP though lidocaine patch in place at area of maximal TTP may contribute to same. Negative modified SLR. Str 5/5 throughout bilateral LE, though dorsiflexion of the left foot is decreased (4/5) which is chronic per patient. Intractable lower back pain s/p recent spinal fusion - pain control as noted, monitor for BM issues. Agree w/ notify ortho spine (consult if needed) and encourage interaction w/ PT. Sx most consistent with MSK/postop pain though low threshold for further imaging or similar. Else see resident documentation as noted. Subjective Received IV morphine 3 mg x 2 doses overnight for residual pain. This morning, patient is seated in bed in no apparent distress. He reports lingering but improving left flank pain without radiation from below his rib to his hip on his left. He denies dysuria, fevers, chills, shortness of breath, nausea. He is upset at the lack of clear instructions provided by Dr. Gonzales's staff prior to his discharge. Review of Systems Review of Systems: All systems reviewed & are unremarkable except as noted in HPI & below Physical Exam Physical Exam: General: No acute distress HEENT: PERRLA. Normal conjunctiva, anicteric sclera. Oropharynx normal. Respiratory: Normal respiratory effort, CTABL. Cardiovascular: RRR without murmurs, gallops, or rubs. No pedal edema. GI: Soft abdomen with normal bowel sounds heard on auscultation. Left flank tenderness to mild/moderate palpation at the level of L1-L4, at the inferior border of 12th rib, and directly superior to iliac crest. Results & Data Results & Data Vital Signs (Past 12 Hours) Vital Signs Temp Pulse Resp BP Pulse Ox O2 Del Method 11/19/22 14:31 36.5 C 56 L 17 102/51 L 99 Room Air 11/19/22 07:51 36.9 C 62 16 113/69 95 Room Air Resident Activity Tracking Resident Involvement: Resident Care Provided Care Provided: Adult Hospital Medicine (3) Atrial fibrillation Atrial fibrillation type: persistent (not longstanding) Qualified Code(s): I48.19 - Other persistent atrial fibrillation
[2022-11-20] MEDS: ACETAMINOPHEN 500 MG TAB PO SCH (06:05)
[2022-11-20 08:17] LABS: BUN Creatinine Ratio 40.9 (10-20); Creatinine Clr Calc Pharmacy 85.1 ml/min; Est GFR (African American) 100.9 ml/min
[2022-11-20] MEDS: lisinopril 10 MG TAB PO SCH (09:11)
[2022-11-20] MEDS: SENNA 8.6 MG TAB PO SCH (09:11)
[2022-11-20] MEDS: dilTIAZem HCL 120 MG CAPCR PO SCH (09:11)
[2022-11-20] MEDS: LEFLUNOMIDE 10 MG TAB PO SCH (09:11)
[2022-11-20] MEDS: UPADACITINIB PO SCH (09:12)
[2022-11-20] MEDS: APIXABAN 5 MG TABLET PO SCH ×2 (09:17→21:27)
[2022-11-20] MEDS: LIDOCAINE 5% 1 PATCH TD SCH (09:19)
[2022-11-20] MEDS: PREGABALIN 100 MG CAP PO SCH ×3 (09:25→21:27)
[2022-11-20] MEDS: hydroCHLOROthiazide 25 MG TAB PO SCH (09:58)
[2022-11-20] MEDS ORDERED: HYDROcodone/ACETAMINOPHEN 10/325 TAB PO STA (10:41)
--- NOTE | 2022-11-20 16:46 | Hospitalist Progress Note ---
Date of Service November 20, 2022 Assessment & Plan (1) Postoperative back pain: Plan: 72 M with history of AF, RA, thoracic spinal stenosis with myelopathy s/p T10- T12 decompression and fusion on 11/12/[address] Gonzales, presenting with severe left low back pain. Left hip, flank, back pain/thoracic spinal stenosis + myelopathy -T10-T12 decompression/fusion on 11/12 as above. Pain control regimen at last discharge: Tramadol 50 mg p.o. every 6 hours as needed, hydrocodone- acetaminophen 5-325 mg p.o. every 6 hours as needed. -Normal postoperative changes on CT. No evidence of bleed or hematoma. No evidence of infection. -No acute fracture on spine CT (thoracic, lumbar), XR hip left. -Managed at home on tramadol, hydrocodone with minimal improvement in pain. -Pain appears musculoskeletal in nature. No evidence of nerve damage, or re- injury on physical exam. Also suspect miscommunication/ partial adherence to pain control regimen. * Pain control regimen: [place] 10/325 q6h prn (changed from prn IV morphine) for severe pain. lidocaine patch. Add Flexeril 10mg qhs (considered muscle spasm). * Continue home pregabalin 100 mg PO TID * Ortho spine consult placed Ambulatory dysfunction -Secondary to aforementioned flank/back pain. -No focal numbness or weakness. -PT/OT evaluation: Recommend return home with home health physical therapy follow-up. Atrial fibrillation -Continue home diltiazem 120 mg p.o. every morning, Eliquis 5 mg twice daily. Hypertension -Continue home lisinopril 10 mg daily, hydrochlorothiazide 25 mg every morning. Rheumatoid arthritis -Continue home leflunomide 20 mg daily, upadacitinib 50 mg daily Code: Full code Dispo: Med-Surg FEN/GI: Regular Anticoagulation: Eliquis 5 mg twice daily (2) Ambulatory dysfunction: (3) Atrial fibrillation: (4) Rheumatoid arthritis: Admission and Anticipated Discharge Date Admission Date: November 18, 2022 Supervising Physician Co-Signing Physician Notes ATTESTATION I also saw the patient and confirmed page portions of the history and exam. I agree with the impression and plan in the resident documentation, and as summarized below. EXAM 131/78, 83, 18, 36.7, 96% on room air He is pleasant alert. Seems to be in minimal pain at rest, but rather exquisite pain with specific movements. Location of pain is left lateral mid to lower lumbar; he is resistant to rotation; no rash appreciated in this area; nontender with palpation; musculature seems somewhat increased tonicity DATA Labs Hemoglobin 11.7, platelet count 248 Sodium 137, potassium 4.0, BUN 36, creatinine 0.88 IMPRESSION & PLAN Left lumbar back pain Status post T10-T12 decompression/fusion on 11/12/2022 Continue no [place] 10/325 p.o. every 8 Lidocaine patch Trial of muscle relaxant Consult orthopedics Additional per resident documentation Subjective Patient complained of left low back pain that goes to the inguinal and buttock area but does not radiate down the leg. He rated it 5-6 out of 10 at rest. However with movement he has sharp pains that bring him to the ground. He states that the pain medications have not been helping sufficiently. Review of Systems Review of Systems: All systems reviewed & are unremarkable except as noted in HPI & below Physical Exam Physical Exam: General: Grossly A&O. NAD. Cooperative. HEENT: Atraumatic, normocephalic. Pulm: CTAB. -wheezes, -rales, -rhonchi. No respiratory distress. Cardiac: RRR, -mrg. Radial pulses intact and symmetrical. Abdominal: Nontender, nondistended, soft. Msk: Tender area appears to be at left low back paraspinal area. Results & Data Results & Data Vital Signs (Past 12 Hours) Vital Signs Temp Pulse Pulse Resp BP Pulse Ox O2 Del Method 11/20/22 14:25 36.7 C 83 18 131/78 96 Room Air 11/20/22 09:22 76 11/20/22 07:46 36.6 C 54 L 18 119/78 97 Room Air Resident Activity Tracking Resident Involvement: Resident Care Provided Care Provided: Adult Hospital Medicine (3) Atrial fibrillation Atrial fibrillation type: persistent (not longstanding) Qualified Code(s): I48.19 - Other persistent atrial fibrillation
[2022-11-20] MEDS ORDERED: HYDROCODONE/ACETAMOPHEN 5/325MG TAB PO STA (17:02)
[2022-11-20] MEDS: CYCLOBENZAPRINE HCL 10 MG TAB PO SCH (21:27)
--- NOTE | 2022-11-21 06:10 | Hospitalist Progress Note ---
Date of Service November 21, 2022 Assessment & Plan (1) Postoperative back pain: Plan: 72 M with history of AF, RA, thoracic spinal stenosis with myelopathy s/p T10- T12 decompression and fusion on 11/12/[address] Gonzales, presenting with severe left low back pain. Left hip, flank, back pain/thoracic spinal stenosis + myelopathy -T10-T12 decompression/fusion on 11/12 as above. Pain control regimen at last discharge: Tramadol 50 mg p.o. every 6 hours as needed, hydrocodone- acetaminophen 5-325 mg p.o. every 6 hours as needed. -Normal postoperative changes on CT. No evidence of bleed or hematoma. No evidence of infection. -No acute fracture on spine CT (thoracic, lumbar), XR hip left. -Managed at home on tramadol, hydrocodone with minimal improvement in pain. -Pain appears musculoskeletal in nature. No evidence of nerve damage, or re- injury on physical exam. Also suspect miscommunication/ partial adherence to pain control regimen. * Pain control regimen: [place] 10/325 q6h prn (changed from prn IV morphine) for severe pain. lidocaine patch. Added Flexeril 10mg qhs (considered muscle spasm). * Continue home pregabalin 100 mg PO TID * Ortho spine consult placed: reviewed CTs, reassuring. The pain is most likely from post-surgical inflammation in setting of steroids wearing off and chronic arthritis. * Discussed w/ ortho spine team: Ok to give corticosteroids. * Plan: Decadron IV 10mg x1. Afterwards, prednisone 40mgx4,30mgx4,20mgx3,10mgx2 for 2 week taper. Ambulatory dysfunction -Secondary to aforementioned flank/back pain. -No focal numbness or weakness. -PT/OT evaluation: Recommend return home with preexisting home health PT. Atrial fibrillation -Continue home diltiazem 120 mg p.o. every morning, Eliquis 5 mg twice daily. Hypertension -Continue home lisinopril 10 mg daily, hydrochlorothiazide 25 mg every morning. Rheumatoid arthritis -Continue home leflunomide 20 mg daily, upadacitinib 50 mg daily Code: Full code Dispo: Med-Surg FEN/GI: Regular Anticoagulation: Eliquis 5 mg twice daily (2) Ambulatory dysfunction: (3) Atrial fibrillation: (4) Rheumatoid arthritis: Admission and Anticipated Discharge Date Admission Date: November 18, 2022 Supervising Physician Co-Signing Physician Notes ATTESTATION I also saw the patient and confirmed page portions of the history and exam. I agree with the impression and plan in the resident documentation, and as summarized below. EXAM 117/71, 54, 16, 36.6, 96% room air He is pleasant alert. Again, seems to be in minimal pain at rest, but rather exquisite pain with specific movements. Location of pain is left lateral mid to lower lumbar, similar to yesterday. DATA Labs No new lab work IMPRESSION & PLAN Left lumbar back pain Status post T10-T12 decompression/fusion on 11/12/2022 Continue no [place] 10/325 p.o. every 8 Continue Flexeril Single dose IV Decadron, then p.o. prednisone taper Lidocaine patch Consult orthopedics Additional per resident documentation Subjective Patient reports that his symptoms are unchanged from yesterday. He slept well. The Flexeril did not noticeably help the pain. His pain is still at the 5-6 out of 10 left low back/gluteal/inguinal area pain. It is positional. No fevers, chills, paresthesias. Review of Systems Review of Systems: All systems reviewed & are unremarkable except as noted in HPI & below Physical Exam Physical Exam: General: Grossly A&O. NAD. Cooperative. HEENT: Atraumatic, normocephalic. Pulm: CTAB. -wheezes, -rales, -rhonchi. No respiratory distress. Cardiac: RRR, -mrg. Abdominal: Nontender, nondistended, soft. Msk: Neg SLR on L (raised to 20 deg). TTP at left low paraspinal area. Results & Data Results & Data Vital Signs (Past 12 Hours) Vital Signs Temp Pulse Resp BP Pulse Ox O2 Del Method 11/20/22 19:32 37.0 C 57 L 16 126/74 97 Room Air Resident Activity Tracking Resident Involvement: Resident Care Provided Care Provided: Adult Hospital Medicine (3) Atrial fibrillation Atrial fibrillation type: persistent (not longstanding) Qualified Code(s): I48.19 - Other persistent atrial fibrillation
[2022-11-21] MEDS: HYDROCODONE/ACETAMOPHEN 5/325MG TAB PO PRN ×3 (07:19→19:51)
[2022-11-21] MEDS: APIXABAN 5 MG TABLET PO SCH ×2 (08:05→20:50)
[2022-11-21] MEDS: hydroCHLOROthiazide 25 MG TAB PO SCH (08:06)
[2022-11-21] MEDS: dilTIAZem HCL 120 MG CAPCR PO SCH (08:06)
[2022-11-21] MEDS: LEFLUNOMIDE 10 MG TAB PO SCH (08:06)
[2022-11-21] MEDS: lisinopril 10 MG TAB PO SCH (08:06)
[2022-11-21] MEDS: LIDOCAINE 5% 1 PATCH TD SCH (08:07)
[2022-11-21] MEDS: UPADACITINIB PO SCH (08:07)
[2022-11-21] MEDS: PREGABALIN 100 MG CAP PO SCH ×3 (08:09→20:50)
[2022-11-21] MEDS: SENNA 8.6 MG TAB PO SCH (08:11)
--- NOTE | 2022-11-21 08:17 | Orthopedic Consultation ---
Date of Consultation November 21, 2022 Assessment & Plan (1) Postoperative back pain: Patient is likely experiencing rebound inflammation once the steroids are worn out from his previous surgery. I recommend continue with pain control measures to ambulate with physical therapy. There is no need for any surgical intervention at this point. If he does not progress he may need discharge to rehab facility for further levels of care. History of Present Illness Attending Physician: Toño Bravo DO History of Present Illness Patient is well-known to our practice he previously undergone an L2-S1 decompression fusion. 9 days ago he had undergone a T10-T12 decompression and instrumented fusion for thoracic myelopathy he presented to the emergency room 3 days ago with uncontrolled left-sided flank pain the pain spreads across the lower portion of his back sometimes on the right sometimes on the left he is not experiencing pain going further down the legs. He had CT scans of the thoracic and lumbar spine performed which were reviewed. Today he states the pain is still there but not quite as intense as it was however. He denies any other numbness, tingling, paresthesias Allergies Allergy/AdvReac Type Severity Reaction Status Date / Time No Known Allergies Allergy Verified 11/12/22 09:22 Home Medications Medication Instructions Recorded Confirmed Type diltiazem HCl 120 mg 120 mg PO QAM 04/04/19 11/18/22 History capsule,extended release 24 hr hydrochlorothiazide 25 mg tablet 25 mg PO QAM 04/04/19 11/18/22 History lisinopril 10 mg tablet 10 mg PO QAM #30 tabs 04/04/19 11/18/22 History calcium carb,cit ER 600 mg-vit D3 1 tab PO BID 02/01/20 11/18/22 History 12.5 mcg (500 unit) tablet,ext.rel (Citracal-D3 Slow Release) leflunomide 20 mg tablet (Arava) 20 mg PO QAM 02/01/20 11/18/22 History Lactobacills gasseri-Bifidobac 1 cap PO QAM 04/28/21 11/18/22 History bifidum,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 ([employer]) upadacitinib 15 mg tablet,extended 15 mg PO QAM 08/13/21 11/18/22 History release 24 hr (Rinvoq) pregabalin 100 mg capsule (Lyrica) 100 mg PO TID #90 caps 08/31/22 11/18/22 Rx hydrocodone 5 mg-acetaminophen 300 1 tab PO Q6H PRN pain #30 tabs 11/13/2211/02 Rx mg tablet tramadol 50 mg tablet 50 mg PO Q6H PRN pain, moderate 11/13/22 11/18/22 Rx #30 tabs apixaban 5 mg tablet (Eliquis) 5 mg PO BID 11/18/22 11/18/22 History Patient History Medical History Atrial fibrillation Initial episode in setting of acute illness (2016), recurrence (06/2021) Follows with [facility]/Dr. Carter On Eliquis Barretts esophagus Follows GI routinely BCC (basal cell carcinoma) s/p excision /[facility] procdure BPH loc w/o ur obs/LUTS Chronic back pain Degenerative disc disease DVT (deep venous thrombosis) hx of right leg s/p achilles tendon repair 5+ yrs ago On Eliquis GERD (gastroesophageal reflux disease) controlled History of COVID-19 approximately 2 yrs ago > not hospitalized 09/22/22- mild cough- symptoms resolved Hx of squamous cell carcinoma of skin S/p excision Hx pulmonary embolism s/p achilles tendon surgery (5+ years ago) Hypertension Kidney stones hx Peripheral neuropathy Rheumatoid arthritis Follows with rheum Sleep apnea no device Surgical History H/O transurethral resection of prostate TURP (08/21/21): LMA#5 at [facility]. No issues noted per post-op anesthesia progress note. History of back surgery lumbar History of carpal tunnel release of both wrists History of colonoscopy History of cystoscopy with stone basketing for kidney stones History of elbow surgery left History of esophagogastroduodenoscopy (EGD) History of lithotripsy ESWL (02/2020 [place] [facility] [place] History of Mohs micrographic surgery for skin cancer from head and left restorationist History of revision of total replacement of left knee joint History of tooth extraction History of total knee replacement bilateral Hx of foot surgery left with hardware at [facility] [place] in Mar 2022 > still has some swelling present S/P Achilles tendon repair right Family History Daughter Slow to wake up after anesthesia Social History Smoking Status: Never smoker Second Hand Exposure: No; Do You Dip or Chew Tobacco: No (Quit 2012); Tobacco Cessation Education Requested by Patient: No Hx Alcohol Use: No Hx Substance Use: No Preferred Language: Nicaraguan Communication Ability: Effective Pediatric Orthodontist Required: No Beliefs That Will Affect Care: None Current Living Situation: Spouse Other Information That Helps Us Care for You: No Feels Safe at Home: Yes Safety Concerns: Feels Safe At This Time Assistive Devices: Cane and Walker Physical Exam Physical Exam: On exam he is alert and oriented his incision is healing nicely his strength and sensation are both intact in both lower extremities. He has no CVA tenderness. Cardiovascular exam reveals no gross abnormalities. Visual nelson are grossly intact. His abdomen soft nontender his calves are supple nontender. Results & Data Vital Signs (Past 12 Hours) Vital Signs Temp Pulse Resp BP Pulse Ox O2 Del Method 11/21/22 07:23 Room Air 11/21/22 07:17 36.8 C 63 16 122/76 98 Room Air Diagnostic Findings CT scans of the thoracic and lumbar spine were reviewed. Serial instrumentation place from T10-T12 and from L2-S1. There is no evidence of hardware failure. He has multilevel spondylosis with anterior ankylosing at multiple levels throughout the thoracic spine. No acute fractures subluxations or hardware failure noted.
[2022-11-21] MEDS ORDERED: dexAMETHasone**PF** 10 MG/ML VIAL IV ONE (15:26)
--- NOTE | 2022-11-21 15:26 | Discharge Summary ---
Date of Service November 21, 2022 Admission HPI Per Admitting Provider Curt Starr is a pleasant 72yo male with history of atrial fibrillation on Eliquis anticoagulation, GERD and RA presenting with severe back pain. Patient was recently had T10-T12 decompression and fusion performed by Dr. Gonzales on 11/12/22 due to thoracic spinal stenosis with myelopathy. The surgery was well tolerated with no complications identified. Patient reports he was overall doing well in the hospital. He was able to ambulate without discomfort. He was discharged home in stable condition on Wednesday11/15/22. He was given prescriptions for Tramadol 50mg po q6 hours PRN and hydrocodone/acetaminophen 5- 300mg po q 6 hours PRN. Patient reports taking one Hydrocodone tablet on Wednesday evening 11/15/22. On Wednesday AM he woke with severe discomfort. His pain is mostly located in his left side, flank and hip as well as back. It is positional in nature and worse with standing. Pain has been persistent despite Tramadol and Hydrocodone. He reports he is barely able to get out of bed. No fever, chills, incontinence, numbness, tingling or weakness. No falls. No additional complaints such as chest pain, cough, SOB, vomiting or diarrhea. No additional complaints at this time. Patient has not In the ER he is afebrile, HD stable, NAD. He was administered Morphine 4mg IV + Lidoderm patch and Methocarbamol and reports some improvement in the pain. ER Course: Lidoderm patch Methocarbamol 750mg po Morphine 4mg IV Admission Exam Per Admitting Provider General: patient resting comfortably, NAD, non-toxic in appearance, AA&O x 4 Skin: warm, dry, intact, no rashes or lesions HEENT: NC/AT, PERRL, EOMI, anicteric sclera, conjunctiva without injection, external ear normal to inspection and nontender, nares patent, moist mucus membranes, dentition intact, no oropharyngeal lesions, neck supple, trachea midline, no LAD, no thyromegaly, no JVD Heart: +S1/S2, regular, no m/r/g Lungs: equal air entry bilaterally, no rales/rhonchi/wheezes Abd: +BS, soft, NT/ND, no masses/organomegaly/ascites Back incision well approximated, no bleeding, drainage or dehiscence noted Ext: warm, 2+ pulses in UE/LE bilaterally, no clubbing/cyanosis or edema Neuro: nonfocal, patient AA&O x 4, speech intact, no facial droop, moving all extremities on command with equal strength 5/5 Principal Diagnosis left low back pain, postop Discharge Data Allergies Allergy/AdvReac Type Severity Reaction Status Date / Time No Known Allergies Allergy Verified 11/12/22 09:22 Consultations 11/18/22 19:53 ED Decision to Admit Stat 11/20/22 14:17 Consult Orthopedic Surgery Routine Ordered Studies 11/18/22 16:54 CT lumbar spine wo con Stat CT thoracic spine wo con Stat Hospital Course (1) Postoperative back pain: 72 M with history of AF, RA, thoracic spinal stenosis with myelopathy s/p T10- T12 decompression and fusion on 11/12/[address] Gonzales, presenting with severe left low back pain. Left hip, flank, back pain/thoracic spinal stenosis + myelopathy -T10-T12 decompression/fusion on 11/12 as above. Pain control regimen at last discharge: Tramadol 50 mg p.o. every 6 hours as needed, hydrocodone- acetaminophen 5-325 mg p.o. every 6 hours as needed. -Normal postoperative changes on CT. No evidence of bleed or hematoma. No evidence of infection. -No acute fracture on spine CT (thoracic, lumbar), XR hip left. -Managed at home on tramadol, hydrocodone with minimal improvement in pain. -Pain appears musculoskeletal in nature. No evidence of nerve damage, or re- injury on physical exam. Also suspect miscommunication/ partial adherence to pain control regimen. * Pain control regimen: [place] 10/325 q6h prn (changed from prn IV morphine) for severe pain. lidocaine patch. Added Flexeril 10mg qhs (considered muscle spasm). * Continue home pregabalin 100 mg PO TID * Ortho spine consult placed: recommends Ambulatory dysfunction -Secondary to aforementioned flank/back pain. -No focal numbness or weakness. -PT/OT evaluation: Recommend return home with home health physical therapy follow-up. Atrial fibrillation -Continue home diltiazem 120 mg p.o. every morning, Eliquis 5 mg twice daily. Hypertension -Continue home lisinopril 10 mg daily, hydrochlorothiazide 25 mg every morning. Rheumatoid arthritis -Continue home leflunomide 20 mg daily, upadacitinib 50 mg daily Code: Full code Dispo: Med-Surg FEN/GI: Regular Anticoagulation: Eliquis 5 mg twice daily (2) Ambulatory dysfunction: (3) Atrial fibrillation: (4) Rheumatoid arthritis: Discharge Plan Discharge Items Reason For Visit: SEVERE BACK PAIN Follow-up/Referrals: Dc Chin [Primary Care Provider] - Medications and DC Order Prescriptions: No Action pregabalin [Lyrica] 100 mg capsule 100 mg PO TID Qty: 90 5RF hydrochlorothiazide 25 mg tablet 25 mg PO QAM diltiazem HCl 120 mg capsule,extended release 24hr 120 mg PO QAM lisinopril 10 mg tablet 10 mg PO QAM Qty: 30 leflunomide [Arava] 20 mg Tablet 20 mg PO QAM calcium carb and citrate-vitD3 [Citracal-D3 Slow Release] 600 mg calcium- 500 unit Tablet Extended Release 1 tab PO BID Balanced 1.5 billion cell Capsule 1 cap PO QAM Rinvoq 15 mg tablet extended release 24 hr 15 mg PO QAM Eliquis 5 mg tablet 5 mg PO BID Rx Instructions: ok'd to restart today tramadol 50 mg tablet 50 mg PO Q6H PRN (Reason: pain, moderate) Qty: 30 0RF hydrocodone-acetaminophen 5-300 mg tablet 1 tab PO Q6H PRN (Reason: pain) Qty: 30 0RF Admission Data Admit Date/Time: 11/18/22 20:18 Attending Provider: Toño Bravo Admit Provider: Balbina Hernandez Primary Care Provider: Dc Chin Other Providers: Balbina Hernandez ; Carlos A Gonzales
[2022-11-21] MEDS ORDERED: PANTOprazole 40 MG TAB PO ONE (15:27)
[2022-11-21] MEDS ORDERED: DEXAMETHASONE IV ONE (15:45)
[2022-11-21] MEDS: CYCLOBENZAPRINE HCL 10 MG TAB PO SCH (20:50)
[2022-11-22] MEDS: HYDROCODONE/ACETAMOPHEN 5/325MG TAB PO PRN ×4 (01:24→19:53)
--- NOTE | 2022-11-22 08:00 | Orthopedic Progress Note ---
Date of Service November 22, 2022 Assessment & Plan (1) Chronic back pain: Plan: Patient is stable at this point. His pain is improving to a degree. We will continue with pain control measures. GI and DVT prophylaxis. Hopefully he will be able to go home early next week. Admission and Anticipated Discharge Date Admission Date: November 18, 2022 Subjective Patient was seen bedside in room 350. He is doing better today. While he is still having left flank pain he is not having alf radicular complaints. He has started a course of steroids which seem to be helping. He denies any other numbness, tingling, or paresthesias. Physical Exam Physical Exam: On exam he is alert and oriented. His lower extreme motor exam reveals no focal atrophy his strength and sensation are both intact. His calves are supple nontender his abdomen soft and nontender. His gait was observed and he is stable. Cardiovascular exam reveals no gross abnormalities Results & Data Vital Signs (Past 12 Hours) Vital Signs Temp Pulse Resp BP Pulse Ox O2 Del Method 11/22/22 07:34 Room Air 11/22/22 07:10 36.4 C L 69 16 121/70 96 Room Air
[2022-11-22] MEDS: UPADACITINIB PO SCH (08:07)
[2022-11-22] MEDS: LEFLUNOMIDE 10 MG TAB PO SCH (08:08)
[2022-11-22] MEDS: dilTIAZem HCL 120 MG CAPCR PO SCH (08:08)
[2022-11-22] MEDS: lisinopril 10 MG TAB PO SCH (08:08)
[2022-11-22] MEDS: hydroCHLOROthiazide 25 MG TAB PO SCH (08:08)
[2022-11-22] MEDS: APIXABAN 5 MG TABLET PO SCH ×2 (08:08→19:54)
[2022-11-22] MEDS: SENNA 8.6 MG TAB PO SCH (08:09)
[2022-11-22] MEDS: PREGABALIN 100 MG CAP PO SCH ×3 (08:09→19:54)
[2022-11-22] MEDS: LIDOCAINE 5% 1 PATCH TD SCH (08:09)
[2022-11-22] MEDS: predniSONE 20 MG TAB PO SCH (11:57)
--- NOTE | 2022-11-22 14:35 | Hospitalist Progress Note ---
Date of Service November 22, 2022 Assessment & Plan (1) Postoperative back pain: Plan: 72 M with history of AF, RA, thoracic spinal stenosis with myelopathy s/p T10- T12 decompression and fusion on 11/12/[address] Gonzales, admitted to [facility] on 11/18 for post-operative pain. Left Lumbar Back Pain/thoracic spinal stenosis T10-T12 decompression/fusion on 11/12 as above. Pain control regimen at last discharge: Tramadol 50 mg p.o. every 6 hours as needed, hydrocodone- acetaminophen 5-325 mg p.o. every 6 hours as needed. -Normal postoperative changes on CT. No evidence of bleed or hematoma. No evidence of infection. -No acute fracture on spine CT (thoracic, lumbar), XR hip left. -Managed at home on tramadol, hydrocodone with minimal improvement in pain. -Pain appears musculoskeletal in nature. No evidence of nerve damage, or re- injury on physical exam. Also suspect miscommunication/ partial adherence to pain control regimen. * Pain control regimen: [place] 10/325 q6h prn (changed from prn IV morphine) for severe pain. lidocaine patch. Continue Flexeril 10mg qhs * Continue home pregabalin 100 mg PO TID * Ortho spine consult placed: reviewed CTs, reassuring. The pain is most likely from post-surgical inflammation in setting of steroids wearing off and chronic arthritis. * S/p Decadron 10mg IV on 11/21 - continue with Prednisone 6-day taper (60mg/40mg/20mg two days each) Ambulatory dysfunction -Secondary to aforementioned back pain. -No focal numbness or weakness. -PT/OT evaluation: Recommend return home with preexisting home health PT. Atrial fibrillation -Continue home diltiazem 120 mg p.o. every morning, Eliquis 5 mg twice daily. Hypertension -Continue home lisinopril 10 mg daily, hydrochlorothiazide 25 mg every morning. Rheumatoid arthritis -Continue home leflunomide 20 mg daily, upadacitinib 50 mg daily Code: Full code Dispo: Med-Surg, PT/OT recommend home on discharge FEN/GI: Regular DVT ppx: Eliquis 5 mg twice daily (2) Ambulatory dysfunction: (3) Atrial fibrillation: (4) Rheumatoid arthritis: Admission and Anticipated Discharge Date Admission Date: November 18, 2022 Supervising Physician Co-Signing Physician Notes ATTESTATION I also saw the patient and confirmed page portions of the history and exam. I agree with the impression and plan in the resident documentation, and as summarized below. Marginal improvement today. He still does not feel ready to go home. EXAM 136/71, 65, 16, 36.9, 90% on room air Pleasant and alert. Minimal pain at rest, but rather exquisite pain with specific movements. Location of pain is left lateral mid to lower lumbar. DATA Labs No new lab work IMPRESSION & PLAN Left lumbar back pain Status post T10-T12 decompression/fusion on 11/12/2022 Continue no [place] 10/325 p.o. every 8 Continue Flexeril Begin prednisone taper Lidocaine patch Appreciate orthopedic consultation Additional per resident documentation Subjective Patient getting [place] Q6H with control of pain unless he moves around. Review of Systems Review of Systems: All systems reviewed & are unremarkable except as noted in HPI & below Physical Exam Physical Exam: General: A&Ox3. NAD. Cooperative. HEENT: Atraumatic, normocephalic. Pulm: CTAB A&P. -wheezes, -rales, -rhonchi. Symmetrical chest rise. No increase work of breathing. No respiratory distress. Cardiac: RRR, -mrg. Radial pulses intact and symmetrical. Abdominal: soft, non-tender, non-distended, BS x 4 Skin: warm, dry, no rash Results & Data Results & Data Vital Signs (Past 12 Hours) Vital Signs Temp Pulse Resp BP Pulse Ox O2 Del Method 11/22/22 07:34 Room Air 11/22/22 07:10 36.4 C L 69 16 121/70 96 Room Air Resident Activity Tracking Resident Involvement: Resident Care Provided Care Provided: Adult Hospital Medicine (3) Atrial fibrillation Atrial fibrillation type: persistent (not longstanding) Qualified Code(s): I48.19 - Other persistent atrial fibrillation
[2022-11-22] MEDS: CYCLOBENZAPRINE HCL 10 MG TAB PO SCH (19:53)
[2022-11-23] MEDS: HYDROCODONE/ACETAMOPHEN 5/325MG TAB PO PRN ×4 (02:09→20:36)
[2022-11-23] MEDS: PREGABALIN 100 MG CAP PO SCH ×3 (08:13→20:35)
[2022-11-23] MEDS: lisinopril 10 MG TAB PO SCH (08:14)
[2022-11-23] MEDS: predniSONE 20 MG TAB PO SCH (08:14)
[2022-11-23] MEDS: dilTIAZem HCL 120 MG CAPCR PO SCH (08:14)
[2022-11-23] MEDS: LEFLUNOMIDE 10 MG TAB PO SCH (08:14)
[2022-11-23] MEDS: UPADACITINIB PO SCH (08:14)
[2022-11-23] MEDS: LIDOCAINE 5% 1 PATCH TD SCH (08:15)
[2022-11-23] MEDS: APIXABAN 5 MG TABLET PO SCH ×2 (08:15→20:35)
[2022-11-23] MEDS: hydroCHLOROthiazide 25 MG TAB PO SCH (08:15)
[2022-11-23] MEDS: SENNA 8.6 MG TAB PO SCH (08:15)
--- NOTE | 2022-11-23 09:32 | Orthopedic Progress Note ---
Date of Service November 23, 2022 Assessment & Plan (1) Postoperative back pain: Plan: I suspect majority of symptom complex or significant sprain strain phenomenon of the musculature as he is has a new gait pattern. He is improving with steroids and modest activity. We will continue to observe hopefully discharge home next few days. Admission and Anticipated Discharge Date Admission Date: November 18, 2022 Subjective Patient's back pain is improving from his mental status. He denies any leg pain. Has been able to ambulate with his walker. Physical Exam Physical Exam: On exam incisions healing well. I had him get out of bed he is able to stand for me without marked discomfort. Is good strength testing. Results & Data Vital Signs (Past 12 Hours) Vital Signs Temp Pulse Resp BP Pulse Ox O2 Del Method 11/23/22 07:42 Room Air 11/23/22 07:26 36.5 C 62 16 134/79 98 Room Air 11/22/22 23:30 Room Air 11/22/22 22:17 36.9 C 83 18 148/81 H 96 Room Air
--- NOTE | 2022-11-23 15:15 | Hospitalist Progress Note ---
Date of Service November 23, 2022 Assessment & Plan (1) Postoperative back pain: Plan: 72 M with history of AF, RA, thoracic spinal stenosis with myelopathy s/p T10- T12 decompression and fusion on 11/12/[address] Gonzales, admitted to [facility] on 11/18 for post-operative pain. Left Lumbar Back Pain/thoracic spinal stenosis T10-T12 decompression/fusion on 11/12 as above. Pain control regimen at last discharge: Tramadol 50 mg po q6h prn, [place] 5-325 mg po q6h prn. -Normal postoperative changes on CT. No evidence of bleed or hematoma. No evidence of infection. -No acute fracture on spine CT (thoracic, lumbar), XR hip left. -Managed at home on tramadol, hydrocodone with minimal improvement in pain. -Pain appears musculoskeletal in nature. No evidence of nerve damage, or re- injury on physical exam. Also suspect miscommunication/ partial adherence to pain control regimen. * Pain control regimen: [place] 10/325 q6h prn (changed from prn IV morphine) for severe pain. Lidocaine patch. Continue Flexeril 10mg qhs * Continue home pregabalin 100 mg PO TID * Ortho spine consult placed: reviewed CTs, reassuring. The pain is most likely from post-surgical inflammation in setting of steroids wearing off and chronic arthritis. * S/p Decadron 10mg IV on 11/21 - continue with Prednisone 6-day taper (60mg/40mg/20mg two days each). Ambulatory dysfunction -Secondary to aforementioned back pain. -No focal numbness or weakness. -PT/OT evaluation: Recommend return home with preexisting home health PT. Atrial fibrillation -Continue home diltiazem 120 mg p.o. every morning, Eliquis 5 mg twice daily. Hypertension -Continue home lisinopril 10 mg daily, hydrochlorothiazide 25 mg every morning. Rheumatoid arthritis -Continue home leflunomide 20 mg daily, upadacitinib 50 mg daily Code: Full code Dispo: Med-Surg, PT/OT recommend home on discharge FEN/GI: Regular DVT ppx: Eliquis 5mg bid (2) Ambulatory dysfunction: (3) Atrial fibrillation: (4) Rheumatoid arthritis: Admission and Anticipated Discharge Date Admission Date: November 18, 2022 Supervising Physician Co-Signing Physician Notes I personally examined the patient and verified all page points of history and exam, discussed case, and agree with decision making with Dr Bennett. Still having some pain. Ortho input appreciated. Vitals noted. Breathing unlabored. No distress. Otherwise as above. Postop back painpain control, PT/movement, hopefully home soon. Subjective Patient seen at bedside this morning. Back pain mildly improving. Mostly hurts during ambulation. Steroids helping. Denies fever. Normal BMs and urination. Review of Systems Review of Systems: All systems reviewed & are unremarkable except as noted in HPI & below Physical Exam Physical Exam: General: AOx3. NAD. Cooperative. HEENT: Atraumatic, normocephalic. Pulm: CTAB. -wheezes, -rales, -rhonchi. Symmetrical chest rise. No increase work of breathing. No respiratory distress. Cardiac: RRR, -mrg. Radial pulses intact and symmetrical. Abdominal: soft, nontender, nondistended Skin: warm, dry, no rash Results & Data Results & Data Vital Signs (Past 12 Hours) Vital Signs Temp Pulse Resp BP Pulse Ox O2 Del Method 11/23/22 14:47 36.6 C 61 16 134/70 98 Room Air 11/23/22 07:42 Room Air 11/23/22 07:26 36.5 C 62 16 134/79 98 Room Air Resident Activity Tracking Resident Involvement: Resident Care Provided Care Provided: Adult Hospital Medicine (3) Atrial fibrillation Atrial fibrillation type: persistent (not longstanding) Qualified Code(s): I48.19 - Other persistent atrial fibrillation
--- NOTE | 2022-11-23 19:05 | Billing Data ---
Date of Service November 23, 2022 Coding Level of Care Code 46725 SUB INP/OBS CARE
[2022-11-23] MEDS: CYCLOBENZAPRINE HCL 10 MG TAB PO SCH (20:35)
[2022-11-24] MEDS: HYDROCODONE/ACETAMOPHEN 5/325MG TAB PO PRN ×3 (06:34→19:43)
--- NOTE | 2022-11-24 07:11 | Hospitalist Progress Note ---
Date of Service November 24, 2022 Assessment & Plan (1) Postoperative back pain: Plan: 72 M with history of AF, RA, thoracic spinal stenosis with myelopathy s/p T10- T12 decompression and fusion on 11/12/[address] Gonzales, admitted to [facility] on 11/18 for post-operative pain. Left Lumbar Back Pain/thoracic spinal stenosis T10-T12 decompression/fusion on 11/12 as above. Pain control regimen at last discharge: Tramadol 50 mg po q6h prn, [place] 5-325 mg po q6h prn. -Normal postoperative changes on CT. No evidence of bleed or hematoma. No evidence of infection. -No acute fracture on spine CT (thoracic, lumbar), XR hip left. -Managed at home on tramadol, hydrocodone with minimal improvement in pain. -Pain appears musculoskeletal in nature. No evidence of nerve damage, or re- injury on physical exam. Also suspect miscommunication/ partial adherence to pain control regimen. * Pain control regimen: [place] 10/325 q6h prn (changed from prn IV morphine) for severe pain. Lidocaine patch. Continue Flexeril 10mg qhs * Continue home pregabalin 100 mg PO TID * Ortho spine consult placed: reviewed CTs, reassuring. The pain is most likely from post-surgical inflammation in setting of steroids wearing off and chronic arthritis. * S/p Decadron 10mg IV on 11/21 - continue with Prednisone 6-day taper (60mg/40mg/20mg two days each). Ambulatory dysfunction -Secondary to aforementioned back pain. -No focal numbness or weakness. -PT/OT evaluation: Recommend return home with preexisting home health PT. Atrial fibrillation -Continue home diltiazem 120 mg p.o. every morning, Eliquis 5 mg twice daily. Hypertension -Continue home lisinopril 10 mg daily, hydrochlorothiazide 25 mg every morning. Rheumatoid arthritis -Continue home leflunomide 20 mg daily, upadacitinib 50 mg daily Code: Full code Dispo: Med-Surg, PT/OT recommend home on discharge FEN/GI: Regular DVT ppx: Eliquis 5mg bid (2) Ambulatory dysfunction: (3) Atrial fibrillation: (4) Rheumatoid arthritis: Admission and Anticipated Discharge Date Admission Date: November 18, 2022 Supervising Physician Co-Signing Physician Notes I personally examined the patient and verified all page points of history and exam, discussed case, and agree with decision making with Dr Bennett. pain improving. Ortho input once again appreciated. Vitals noted. Breathing unlabored. No distress. Otherwise as above. Postop back painpain control improving, PT/movement, hopefully home tomorrow Subjective Patient seen at bedside this morning. Back pain better than yesterday. Steroids seem to be helping. Denies fever. Normal BMs and urination. Review of Systems Review of Systems: All systems reviewed & are unremarkable except as noted in HPI & below Physical Exam Physical Exam: General: AOx3. NAD. Cooperative. HEENT: Atraumatic, normocephalic. Pulm: CTAB. -wheezes, -rales, -rhonchi. Symmetrical chest rise. No increase work of breathing. No respiratory distress. Cardiac: RRR, -mrg. Radial pulses intact and symmetrical. Abdominal: soft, nontender, nondistended Skin: warm, dry, no rash Results & Data Results & Data Vital Signs (Past 12 Hours) Vital Signs Temp Pulse Resp BP Pulse Ox O2 Del Method 11/24/22 07:04 36.5 C 55 L 18 158/79 H 98 Room Air 11/23/22 21:36 36.6 C 57 L 16 135/72 98 Room Air Laboratory Results 11/24/22 11/24/22 Range/Units 06:52 06:52 WBC 9.93 (4.8-10.8) K/ul RBC 3.57 L (4.70-6.10) M/uL Hgb 11.4 L (14.0-18.0) g/dl Hct 33.8 L (42.0-52.0) % MCV 94.7 (80.0-100.0) fL MCH 31.9 (25.0-34.0) pg MCHC 33.7 (32.0-36.0) g/dL RDW Std Deviation 51.5 H (36.4-46.3) fL RDW Coeff of [place] 14.7 H (11.5-14.5) % Plt Count 255 (130-400) K/uL MPV 10.1 (9.4-12.4) fL Immature Gran % (Auto) 1.2 % Neut % (Auto) 84.3 % Lymph % (Auto) 8.8 % [place] % (Auto) 5.6 % Eos % (Auto) 0.0 % Baso % (Auto) 0.1 % Neut # (Auto) 8.37 H (1.40-6.50) K/uL Lymph # (Auto) 0.87 L (1.2-3.4) K/uL [place] # (Auto) 0.56 (0.11-0.59) K/uL Eos # (Auto) 0.00 (0-0.50) K/uL Baso # (Auto) 0.01 (0-0.2) K/uL Immature Gran # (Auto) 0.12 (0.01-0.20) K/uL Sodium 136 (136-145) mmol/L Potassium 5.0 (3.5-5.1) mmol/L Chloride 103 (98-107) mmol/L Carbon Dioxide 28 (21-32) mmol/L Anion Gap 5 (3-11) BUN 41 H (6-23) mg/dl Creatinine 0.95 (0.6-1.4) mg/dl Est Cr Clr Drug Dosing 78.8 ml/min Est GFR ( Amer) 93.6 ml/min Est GFR (Non-Af Amer) 80.8 ml/min BUN/Creatinine Ratio 43.2 H (10-20) Glucose 89 (70-99(Fasting)) mg/dl Calcium 9.5 (8.6-10.3) mg/dl Resident Activity Tracking Resident Involvement: Resident Care Provided Care Provided: Adult [facility] (3) Atrial fibrillation Atrial fibrillation type: persistent (not longstanding) Qualified Code(s): I48.19 - Other persistent atrial fibrillation
[2022-11-24 07:57] LABS: Basophils # (auto) 0.01 K/uL (0-0.2); Basophils % (auto) 0.1 %; Hematocrit (blood only) 33.8 % (42.0-52.0); Hemoglobin 11.4 g/dl (14.0-18.0); Immature Granulocytes # (auto) 0.12 K/uL (0.01-0.20); Immature Granulocytes % (auto) 1.2 %; Lymphocytes # (auto) 0.87 K/uL (1.2-3.4); Lymphocytes % (auto) 8.8 %; Mean Corpuscular Hemoglobin 31.9 pg (25.0-34.0); Mean Corpuscular Hgb Conc 33.7 g/dL (32.0-36.0); Mean Corpuscular Volume 94.7 fL (80.0-100.0); Mean Platelet Volume 10.1 fL (9.4-12.4); Monocytes # (auto) 0.56 K/uL (0.11-0.59); Monocytes % (auto) 5.6 %; Neutrophils # (auto) 8.37 K/uL (1.40-6.50); Neutrophils % (auto) 84.3 %; Platelet Count 255 K/uL (130-400); RDW Coefficient of Variation 14.7 % (11.5-14.5); RDW Standard Deviation 51.5 fL (36.4-46.3); Red Blood Count 3.57 M/uL (4.70-6.10); White Blood Count 9.93 K/ul (4.8-10.8)
[2022-11-24] MEDS: UPADACITINIB PO SCH (08:14)
[2022-11-24] MEDS: PREGABALIN 100 MG CAP PO SCH ×3 (08:14→19:44)
[2022-11-24] MEDS: SENNA 8.6 MG TAB PO SCH (08:15)
[2022-11-24] MEDS: lisinopril 10 MG TAB PO SCH (08:15)
[2022-11-24] MEDS: predniSONE 20 MG TAB PO SCH (08:15)
[2022-11-24] MEDS: hydroCHLOROthiazide 25 MG TAB PO SCH (08:15)
[2022-11-24] MEDS: dilTIAZem HCL 120 MG CAPCR PO SCH (08:15)
[2022-11-24] MEDS: LIDOCAINE 5% 1 PATCH TD SCH (08:15)
[2022-11-24] MEDS: LEFLUNOMIDE 10 MG TAB PO SCH (08:15)
[2022-11-24] MEDS: APIXABAN 5 MG TABLET PO SCH ×2 (08:15→19:44)
[2022-11-24 08:22] LABS: BUN Creatinine Ratio 43.2 (10-20); Calcium 9.5 mg/dl (8.6-10.3); Creatinine Clr Calc Pharmacy 78.8 ml/min; Est GFR (African American) 93.6 ml/min; Est GFR (Non-African American) 80.8 ml/min
--- NOTE | 2022-11-24 10:16 | Orthopedic Progress Note ---
Date of Service November 24, 2022 Assessment & Plan (1) Postoperative back pain: Plan: At this time is responding to steroids. I suspect the majority of his pain is in fact muscular in nature. I suspect he will be ready for discharge home tomorrow on a continued taper dose of steroids. Admission and Anticipated Discharge Date Admission Date: November 18, 2022 Subjective Patient's back and leg pain is steadily improving. He is tolerating standing and walking much better. Physical Exam Physical Exam: On exam he is standing with me in the room for exam. He has good strength testing. Incision is healing properly. There is no swelling. Results & Data Vital Signs (Past 12 Hours) Vital Signs Temp Pulse Resp BP Pulse Ox O2 Del Method 11/24/22 07:04 36.5 C 55 L 18 158/79 H 98 Room Air
--- NOTE | 2022-11-24 18:29 | Billing Data ---
Date of Service November 24, 2022 Coding Level of Care Code 67196 SUB INP/OBS CARE
[2022-11-24] MEDS: CYCLOBENZAPRINE HCL 10 MG TAB PO SCH (19:45)
[2022-11-25] MEDS: APIXABAN 5 MG TABLET PO SCH (08:07)
[2022-11-25] MEDS: hydroCHLOROthiazide 25 MG TAB PO SCH (08:08)
[2022-11-25] MEDS: SENNA 8.6 MG TAB PO SCH (08:08)
[2022-11-25] MEDS: dilTIAZem HCL 120 MG CAPCR PO SCH (08:09)
[2022-11-25] MEDS: predniSONE 20 MG TAB PO SCH (08:09)
[2022-11-25] MEDS: lisinopril 10 MG TAB PO SCH (08:09)
[2022-11-25] MEDS: LEFLUNOMIDE 10 MG TAB PO SCH (08:10)
[2022-11-25] MEDS: UPADACITINIB PO SCH (08:11)
[2022-11-25] MEDS: LIDOCAINE 5% 1 PATCH TD SCH (08:12)
[2022-11-25] MEDS: PREGABALIN 100 MG CAP PO SCH ×2 (08:18→13:58)
[2022-11-25] MEDS ORDERED: ONDANSETRON 4 MG OD TAB PO PRN (11:23)
--- NOTE | 2022-11-25 12:28 | Orthopedic Progress Note ---
Date of Service November 25, 2022 Assessment & Plan (1) Postoperative back pain: Plan: This time the patient has improved substantially throughout his hospital stay. From orthopedic standpoint he is safe to return home and will follow-up as scheduled in our office. Admission and Anticipated Discharge Date Admission Date: November 18, 2022 Subjective Back pain is improved substantially throughout his hospital stay. His leg symptoms continue to improve. Physical Exam Physical Exam: On exam he is in the chair at the bedside is good strength testing. Appears comfortable. Results & Data Vital Signs (Past 12 Hours) Vital Signs Temp Pulse Resp BP Pulse Ox O2 Del Method 11/25/22 07:02 36.4 C L 65 18 148/82 H 98 Room Air
--- NOTE | 2022-11-25 12:36 | Discharge Summary ---
Date of Service November 25, 2022 Principal Diagnosis postop left low back pain Discharge Exam General: AOx3. NAD. Cooperative. HEENT: Atraumatic, normocephalic. Pulm: CTAB. -wheezes, -rales, -rhonchi. Symmetrical chest rise. No increase work of breathing. No respiratory distress. Cardiac: RRR, -mrg. Radial pulses intact and symmetrical. Abdominal: soft, nontender, nondistended Discharge Data Allergies Allergy/AdvReac Type Severity Reaction Status Date / Time No Known Allergies Allergy Verified 11/12/22 09:22 Consultations 11/18/22 19:53 ED Decision to Admit Stat 11/20/22 14:17 Consult Orthopedic Surgery Routine Ordered Studies Laboratory Results WBC 9.93 K/ul (4.8-10.8) 11/24/22 06:52 RBC 3.57 M/uL (4.70-6.10) L 11/24/22 06:52 Hgb 11.4 g/dl (14.0-18.0) L 11/24/22 06:52 Hct 33.8 % (42.0-52.0) L 11/24/22 06:52 MCV 94.7 fL (80.0-100.0) 11/24/22 06:52 MCH 31.9 pg (25.0-34.0) 11/24/22 06:52 MCHC 33.7 g/dL (32.0-36.0) 11/24/22 06:52 RDW Std Deviation 51.5 fL (36.4-46.3) H 11/24/22 06:52 RDW Coeff of [place]ora 14.7 % (11.5-14.5) H 11/24/22 06:52 Plt Count 255 K/uL (130-400) 11/24/22 06:52 MPV 10.1 fL (9.4-12.4) 11/24/22 06:52 Immature Gran % (Auto) 1.2 % 11/24/22 06:52 Neut % (Auto) 84.3 % 11/24/22 06:52 Lymph % (Auto) 8.8 % 11/24/22 06:52 [place] % (Auto) 5.6 % 11/24/22 06:52 Eos % (Auto) 0.0 % 11/24/22 06:52 Baso % (Auto) 0.1 % 11/24/22 06:52 Neut # (Auto) 8.37 K/uL (1.40-6.50) H 11/24/22 06:52 Lymph # (Auto) 0.87 K/uL (1.2-3.4) L 11/24/22 06:52 [place] # (Auto) 0.56 K/uL (0.11-0.59) 11/24/22 06:52 Eos # (Auto) 0.00 K/uL (0-0.50) 11/24/22 06:52 Baso # (Auto) 0.01 K/uL (0-0.2) 11/24/22 06:52 Immature Gran # (Auto) 0.12 K/uL (0.01-0.20) 11/24/22 06:52 Sodium 136 mmol/L (136-145) 11/24/22 06:52 Potassium 5.0 mmol/L (3.5-5.1) 11/24/22 06:52 Chloride 103 mmol/L (98-107) 11/24/22 06:52 Carbon Dioxide 28 mmol/L (21-32) 11/24/22 06:52 Anion Gap 5 (3-11) 11/24/22 06:52 BUN 41 mg/dl (6-23) H 11/24/22 06:52 Creatinine 0.95 mg/dl (0.6-1.4) 11/24/22 06:52 Est Cr Clr Drug Dosing 78.8 ml/min 11/24/22 06:52 Est GFR ( Amer) 93.6 ml/min 11/24/22 06:52 Est GFR (Non-Af Amer) 80.8 ml/min 11/24/22 06:52 BUN/Creatinine Ratio 43.2 (10-20) H 11/24/22 06:52 Glucose 89 mg/dl (70-99(Fasting)) 11/24/22 06:52 Calcium 9.5 mg/dl (8.6-10.3) 11/24/22 06:52 Total Bilirubin 0.4 mg/dl (0.2-1.0) 11/18/22 15:43 AST 16 U/L (13-39) 11/18/22 17:01 ALT 14 U/L (7-52) 11/18/22 15:43 Alkaline Phosphatase 78 U/L (34-104) 11/18/22 15:43 Total Protein 6.8 gm/dl (6.0-8.3) 11/18/22 15:43 Albumin 4.1 gm/dl (3.4-5.0) 11/18/22 15:43 Globulin 2.7 gm/dl (2.5-4.0) 11/18/22 15:43 Albumin/Globulin Ratio 1.5 (0.9-2) 11/18/22 15:43 Urine Color Yellow 11/18/22 18:53 Urine Appearance Clear (Clear) 11/18/22 18:53 Urine pH 5.5 (4.5-7.5) 11/18/22 18:53 Ur Specific [place] 1.020 (1.000-1.030) 11/18/22 18:53 Urine Protein Negative (Negative) 11/18/22 18:53 Urine Glucose (UA) Negative (Negative) 11/18/22 18:53 Urine Ketones Negative (Negative) 11/18/22 18:53 Urine Blood Negative (Negative) 11/18/22 18:53 Urine Nitrite Negative (Negative) 11/18/22 18:53 Urine Bilirubin Negative (Negative) 11/18/22 18:53 Urine Urobilinogen Negative (Negative) 11/18/22 18:53 Ur Leukocyte Esterase 2+ (Negative) H 11/18/22 18:53 Urine WBC (Auto) >30 /hpf (0-5) H 11/18/22 18:53 Urine RBC (Auto) 0-4 /hpf (0-4) 11/18/22 18:53 U Hyaline Cast (Auto) 1-5 /lpf (0-5) 11/18/22 18:53 U Epithel Cells (Auto) 0-5 /lpf (0-5) 11/18/22 18:53 Urine Bacteria (Auto) Negative (Negative) 11/18/22 18:53 SARS-CoV-2, RNA, NAAT NEGATIVE (NEGATIVE) 11/18/22 19:[address] 11/18/22 16:54 CT lumbar spine wo con CLINICAL HISTORY: recent surgery; back pain radiating to left side TECHNIQUE: Multidetector row helical CT of the lumbar spine was performed without administration of intravenous contrast. Coronal and sagittal reformations were obtained. Automated dose lowering techniques and/or adjustment according to patient size were utilized for this exam. Comparison: Comparison is made to CT abdomen pelvis 09/12/2022 FINDINGS: Posterior fixation hardware is seen spanning L2-S1. No acute fractures are identified. Degenerative changes are noted in the visualized spine. Scoliosis is seen. Incidentally noticed is a focus of air in the bladder, correlation with recent rotation is recommended. IMPRESSION: Degenerative changes without evidence of acute bony injury. ACT 112: Negative or not required by law. Electronically signed by: Carmine Ac M.D. 11/18/2022 7:[address] 11/18/22 16:54 CT thoracic spine wo con CLINICAL HISTORY: recent surgery; back pain radiating to left side TECHNIQUE: Multidetector row helical CT of the thoracic spine was performed without administration of intravenous contrast. Coronal and sagittal reformations were obtained. Automated dose lowering techniques and/or adjustment according to patient size were utilized for this exam. CT DOSE: 1796.26 mGy.cm Comparison: Comparison is made to CT abdomen pelvis 09/12/2022 FINDINGS: Incidentally noted, there appear to be 13 rib-bearing vertebrae redemonstration of an oblique fracture about the superior aspect of the T11 vertebral body. Subacute to chronic bilateral rib fractures are unchanged from prior exam. Fixation hardware is again seen spanning L2-S1. Degenerative changes are seen in the thoracic spine. Vertebral body alignment is within normal limits. Dependent atelectasis is seen. IMPRESSION: No acute abnormality is seen. Multilevel degenerative changes and posterior fixation hardware are again seen. ACT 112: Negative or not required by law. Electronically signed by: Carmine Ac M.D. 11/18/2022 6:45 PM Hip/Pelvis X-Ray 11/18/22 23:07 XR hip LT 2V w pelvis HISTORY: 72 years-old Male pain, left hip acute left-sided hip pain status post trauma COMPARISON: CT abdomen and pelvis 09/12/2022 TECHNIQUE: AP view of the pelvis with 2 views of the left hip FINDINGS: Posterior interbody sandy and screw fusion hardware with discectomy changes of the lumbar spine with bilateral iliac bones. No evidence of hardware complication on these images submitted. Demineralized appearance of the bones. There is mild osteoarthritis of the hips. No acute fracture, dislocation or avascular necrosis identified. Calcifications of the prostate. IMPRESSION: No acute fracture or dislocation. ACT 112: Negative or not required by law. The above report was generated using voice recognition software. It may contain grammatical, syntax or spelling errors. Electronically signed by: Victorino Gusman M.D. 11/19/2022 6:48 AM Hospital Course (1) Postoperative back pain: 72 M with history of AF, RA, thoracic spinal stenosis with myelopathy s/p T10- T12 decompression and fusion on 11/12/[address] Gonzales, admitted to [facility] on 11/18 for post-operative pain. Left Lumbar Back Pain/thoracic spinal stenosis, improving T10-T12 decompression/fusion on 11/12 as above. Pain control regimen at last discharge: Tramadol 50 mg po q6h prn, [place] 5-325 mg po q6h prn. -Normal postoperative changes on CT. No evidence of bleed or hematoma. No evidence of infection. -No acute fracture on spine CT (thoracic, lumbar), XR hip left. -Managed at home on tramadol, hydrocodone with minimal improvement in pain. -Pain appears musculoskeletal in nature. No evidence of nerve damage, or re- injury on physical exam. Also suspect miscommunication/ partial adherence to pain control regimen. * Pain control regimen: [place] 10/325 q6h prn (changed from prn IV morphine) for severe pain. Lidocaine patch. Continue Flexeril 10mg qhs * Continue home pregabalin 100 mg PO TID * Ortho spine consult placed: reviewed CTs, reassuring. The pain is most likely from post-surgical inflammation in setting of steroids wearing off and chronic arthritis. * S/p Decadron 10mg IV on 11/21 - continue with Prednisone taper. -On discharge, cont. flexeril 10mg qhs prn, norco 5mg q6h prn, tramadol 50mg q6h prn, pregabalin 100mg tid, prednisone taper (starting 11/26/22: 40mg x3 days, 20mg x3 days) Ambulatory dysfunction -Secondary to aforementioned back pain. -No focal numbness or weakness. -PT/OT evaluation: Recommend return home with preexisting home health PT. Atrial fibrillation -Continue home diltiazem 120 mg p.o. every morning, Eliquis 5 mg twice daily. Hypertension -Continue home lisinopril 10 mg daily, hydrochlorothiazide 25 mg every morning. Rheumatoid arthritis -Continue home leflunomide 20 mg daily, upadacitinib 50 mg daily (2) Ambulatory dysfunction: (3) Atrial fibrillation: (4) Rheumatoid arthritis: Total Time Total Time Spent Total Time Spent (In Minutes): <30 Discharge Plan Discharge Items Patient Disposition: Home - Self-Care Reason For Visit: SEVERE BACK PAIN Discharge Diagnosis: postop left low back pain Activity: Per Instructions section Non-emergency contact: Primary Care Provider Call non-emergency contact if: you have any medication questions and your symptoms worsen Follow-up/Referrals: Carlos A Gonzales DO [Surgeon] - Dc Chin [Primary Care Provider] - 12/03/22 9:00 am (hospital discharge follow up within 1 week) Diet: Heart Healthy Addtl Attending Provider Instructions: Hi Mr. Starr, You admitted to [facility] for management of your severe left low back pain after recent back surgery. Dr. Gonzales's physician construction project assistant site in the hospital and reviewed the CT scans; that showed that your hardware status was intact and there is no new fractures. The cause of your pain is thought to be secondary to inflammation after surgery and after the steroids have worn off. Prednisone taper. Start this on 11/26/22.. 40mg/day x 3 days. 20mg/day x 3 days. Flexeril 10mg nightly for 2 weeks. Caution: may cause drowsiness. Protonix 40 mg daily (while on prednisone). No NSAIDs (ibuprofen, Advil, motrin) because of increased bleeding risk on Eliquis. The as needed [place] 5 mg tablets will be prescribed. You may take 1 to 2 tablets every 6 hours depending on your symptoms, but the timing is flexible (for example, can take 4 hours apart; try to time with taking it 30-60min before activity that you know will flare up the pain). Avoid exceeding 3250mg Tylenol in a 24 hour period. Each tablet of [place] 5mg has 325mg Tylenol. Please follow-up with your PCP within 1 week. Please also follow with Dr. Gonzales's office. Contact PCP if your symptoms worsen, or if any new symptoms or questions. If severe or emergent symptoms, please visit the ER. Pending Studies at Discharge: No Stand-Alone Forms: My [facility], Smoking Cessation Medications and DC Order Prescriptions: New cyclobenzaprine 10 mg Tablet 10 mg PO HS Qty: 10 0RF Continued pregabalin [Lyrica] 100 mg capsule 100 mg PO TID Qty: 90 5RF hydrochlorothiazide 25 mg tablet 25 mg PO QAM diltiazem HCl 120 mg capsule,extended release 24hr 120 mg PO QAM lisinopril 10 mg tablet 10 mg PO QAM Qty: 30 leflunomide [Arava] 20 mg Tablet 20 mg PO QAM calcium carb and citrate-vitD3 [Citracal-D3 Slow Release] 600 mg calcium- 500 unit Tablet Extended Release 1 tab PO BID [employer] 1.5 billion cell Capsule 1 cap PO QAM Rinvoq 15 mg tablet extended release 24 hr 15 mg PO QAM Eliquis 5 mg tablet 5 mg PO BID Rx Instructions: ok'd to restart today Discontinued tramadol 50 mg tablet 50 mg PO Q6H PRN (Reason: pain, moderate) Qty: 30 0RF hydrocodone-acetaminophen 5-300 mg tablet 1 tab PO Q6H PRN (Reason: pain) Qty: 30 0RF Discharge Orders: Discharge Order (Routine); Ordered 11/25/22 Ordered By: Carlos A Gonzales Admission Data Admit Date/Time: 11/18/22 20:18 Attending Provider: Morales Herron Admit Provider: Balbina Hernandez Primary Care Provider: Dc Chin Other Providers: Balbina Hernandez ; Carlos A Gonzales Other Interventions: Discharge Summary Assessment (RN) Last Done: 11/25/22 13:35 Supervising Physician Co-Signing Physician Notes I personally examined the patient and verified all page points of history and exam, discussed case, and agree with decision making with Dr Bennett. pain improving. Ortho input once again appreciated. would like to go home. Vitals noted. Breathing unlabored. No distress. Otherwise as above. Postop back painpain control improving, PT/movement, safe for home, outpt f/u Resident Activity Tracking Resident Involvement: Resident Care Provided Care Provided: Adult Hospital Medicine
[2022-11-25] MEDS: HYDROCODONE/ACETAMOPHEN 5/325MG TAB PO PRN (13:57)
--- NOTE | 2022-11-25 19:29 | Billing Data ---
Date of Service November 25, 2022 Coding Level of Care Code 89543 IN/OBS DISCH 30 MIN/LESS
[2022-11-26] MEDS ORDERED: predniSONE 20 MG TAB PO SCH (09:00)
== END 2022-11-25 14:00 | disposition home or self-care (01) | DRG 948 ==
LOC: ED 15:09 → SUATTDRO 20:18 → 3W 20:18

== ENCOUNTER 2024-01-13 08:37 | Inpatient (IN) ==
--- NOTE | 2023-12-31 10:48 | PAT Medication Instructions ---
Medication Instructions Date of Service December 31, 2023 Home Medications Medication Instructions Recorded hydrocodone 5 mg-acetaminophen 325 1 tab PO Q6H PRN pain #15 tabs 06/29/23 mg tablet pregabalin 100 mg capsule (Lyrica) 100 mg PO TID #90 caps 09/28/23 leflunomide 20 mg tablet (Arava) 20 mg PO QAM #90 tabs 11/11/23 diltiazem HCl 120 mg capsule,extended release 24 hr (Cardizem CD) 240 mg PO QAM hydrochlorothiazide 25 mg tablet 25 mg PO QAM lisinopril 10 mg tablet 20 mg PO QAM calcium carb,cit ER 600 mg-vit D3 12.5 mcg (500 unit) tablet,ext.rel (Citracal- D3 Slow Release) 1 tab PO QAM Lactobacills gasseri-Bifidobac bifidum,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 (Systancia) 1 cap PO QAM upadacitinib 15 mg tablet,extended release 24 hr (Rinvoq) 15 mg PO QAM warfarin 5 mg tablet 2.5 mg PO HS hydrocodone 5 mg-acetaminophen 325 mg tablet 1 tab PO Q6H PRN pain pregabalin 100 mg capsule (Lyrica) 100 mg PO TID leflunomide 20 mg tablet (Arava) 20 mg PO QAM ASK your prescriber and surgeon warfarin 5 mg tablet 2.5 mg PO HS upadacitinib 15 mg tablet,extended release 24 hr (Rinvoq) 15 mg PO QAM leflunomide 20 mg tablet (Arava) 20 mg PO QAM DO NOT take the morning of surgery hydrochlorothiazide 25 mg tablet 25 mg PO QAM lisinopril 10 mg tablet 20 mg PO QAM calcium carb,cit ER 600 mg-vit D3 12.5 mcg (500 unit) tablet,ext.rel (Citracal- D3 Slow Release) 1 tab PO QAM Lactobacills gasseri-Bifidobac bifidum,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 (Systancia) 1 cap PO QAM Take morning of surgery With a small sip of water, OTHERWISE NOTHING TO EAT OR DRINK AFTER MIDNIGHT: diltiazem HCl 120 mg capsule,extended release 24 hr (Cardizem CD) 240 mg PO QAM hydrocodone 5 mg-acetaminophen 325 mg tablet 1 tab PO Q6H PRN pain (if needed) pregabalin 100 mg capsule (Lyrica) 100 mg PO TID Take evening before surgery hydrocodone 5 mg-acetaminophen 325 mg tablet 1 tab PO Q6H PRN pain (if needed) pregabalin 100 mg capsule (Lyrica) 100 mg PO TID Other Notes If you have any questions please call us at [phone] or [phone] or [phone] or [phone]
--- NOTE | 2024-01-04 08:53 | Anesthesiology Consultation ---
Date of Service January 04, 2024 Assessment & Plan (1) Encounter for pre-operative examination: - awaiting surgeon ordered medical clearance. - check coags STAT am DOS. 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 Surgeon's office made aware-Brie confirmed surgeon is aware. Dr. Sibley advised nothing additional needed from anesthesia standpoint. - positioning caution: left leg, chronic orthopedic dysfunction. OR aware. Chart Review Chart Review: Pending: Refer to Additional Notes / Consult section and Patient seen in Pre Admission Testing Teaching & Discussion Pre-Anesthesia Teaching/Discussion Notes: Instructed NPO after midnight before surgery, except medications with 15 cc of water. Medication instructions provided according to the PAT guidelines. History Surgery Operation Date: 01/13/24 10:05 Proposed Procedures p T12-L1 Decompression and Fusion, T10-T12 Hardware Removal, Spinal Cord Monitoring - Carlos A Gonzales DO Height/Weight Height: 5 ft 7 in Weight: 91.3 kg Allergies Allergy/AdvReac Type Severity Reaction Status Date / Time No Known Allergies Allergy Verified 12/31/23 08:07 Medications Home Medications Medication Instructions Recorded Confirmed Last Taken diltiazem HCl 120 mg 240 mg PO QAM 04/04/19 12/31/23 06/29/23 05:00 capsule,extended release 24 hr (Cardizem CD) hydrochlorothiazide 25 mg tablet 25 mg PO QAM 04/04/19 12/31/23 06/28/23 06:30 lisinopril 10 mg tablet 20 mg PO QAM #30 tabs 04/04/19 12/31/23 06/28/23 06:30 calcium carb,cit ER 600 mg-vit D3 1 tab PO QAM 02/01/20 12/31/23 06/28/23 06:30 12.5 mcg (500 unit) tablet,ext.rel (Citracal-D3 Slow Release) Lactobacills gasseri-Bifidobac 1 cap PO QAM 04/28/21 12/31/23 06/28/23 06:30 bifidum,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 ([employer]) upadacitinib 15 mg tablet,extended 15 mg PO QAM 08/13/21 12/31/23 06/28/23 06:30 release 24 hr (Rinvoq) warfarin 5 mg tablet 2.5 mg PO HS 06/07/23 12/31/23 06/24/23 hydrocodone 5 mg-acetaminophen 325 1 tab PO Q6H PRN pain #15 tabs 06/29/23 12/31/23 Unknown mg tablet pregabalin 100 mg capsule (Lyrica) 100 mg PO TID #90 caps 09/28/23 12/31/23 Unknown leflunomide 20 mg tablet (Arava) 20 mg PO QAM #90 tabs 11/11/23 12/31/23 Unknown Past Medical History Medical History (Updated 01/04/24 @ 09:12 by Jennifer Sargent PA-C) Atrial fibrillation dx approx 2019 > warfarin for this > no pacer > follows with Dr. Alli Tejeda esophagus Degenerative disc disease GERD (gastroesophageal reflux disease) controlled per pt History of BPH History of COVID-19 09/2022 History of kidney stones (~2020) Hx of deep venous thrombosis hx of right leg > s/p achilles tendon repair > approx 2013 On AC Hx of squamous cell carcinoma of skin multiple, s/p excision Hx pulmonary embolism s/p achilles tendon surgery 2013 Neuropathy legs and feet, hands On anticoagulant therapy Rheumatoid arthritis Follows with rheum Sleep apnea no device Trauma of palate h/o 11/2022 per hospitalist note Patient denies h/o stroke, seizures, heart attack, heart failure, DM, HTN, or b lood transfusions. Exercise / Class Metabolic Activity II 4-5 Yardwork/Stairs/Walk up hill (denies chest discomfort or shortness of breath with one flight of stairs) Past Family History Family History Daughter Slow to wake up after anesthesia Past Surgical History Surgical History H/O transurethral resection of prostate TURP (08/21/21): LMA#5 at [facility]. No issues noted per post-op anesthesia progress note. History of back surgery lumbar/ lower thoracic History of carpal tunnel release of both wrists History of colonoscopy History of cystoscopy with stone basketing for kidney stones History of elbow surgery left History of esophagogastroduodenoscopy (EGD) History of lithotripsy History of Mohs micrographic surgery for skin cancer from head and left jew History of revision of total replacement of left knee joint History of tooth extraction History of total knee replacement bilateral Hx of basal cell carcinoma excision s/p excision /Mohns procdure Hx of foot surgery left with hardware at [facility] in Mar 2022 S/P Achilles tendon repair right Past Anesthesia History No Family Hx of Anesthesia Complications and Other (palate trauma noted in [facility] records after 11/2022 surgery) History of PONV No Hx of PONV and No Hx of Motion Sickness Social History Smoking Status: Never smoker tobacco type: cigarettes Do You Dip or Chew Tobacco: No (quit 20 yrs ago) Hx Alcohol Use: No Hx Substance Use: No substance use type: does not use Review of Systems Palpitations-denies associated chest discomfort, shortness of breath, dizziness or lightheadedness. Patient denies chest pain, shortness of breath, dyspnea on exertion, fever, chills, cough, wheezing, or palpitations. Physical Exam Vital Signs Vitals BP 119/81 P 90 TEMP 97.9 SP02 97% on RA RESP 18 Physical Patient resting comfortably in chair in no acute distress, alert and oriented, responding appropriately throughout visit Mildly limited cervical extension range of motion without pain TMD 3.5 finger breadths Mallampati Score 3 Dentition: several broken teeth, denies loose teeth, caps/crowns, implants or bridges Lungs: normal respiratory effort. Good air movement, clear throughout to auscultation, no adventitious breath sounds Cardiac: irregularly irregular rhythm with regular rate, no murmurs noted Carotid arteries: negative bruit bilat Lab Results Anesthesia Preop Results Results Anesthesia Widget: WBC 6.88 K/ul (4.8-10.8) 01/04/24 Hgb 12.8 g/dl (14.0-18.0) L 01/04/24 Hct 37.3 % (42.0-52.0) L 01/04/24 Plt 269 K/uL (130-400) 01/04/24 Na 139 mmol/L (136-145) 01/04/24 K 4.1 mmol/L (3.5-5.1) 01/04/24 Cl 103 mmol/L (98-107) 01/04/24 CO2 31 mmol/L (21-32) 01/04/24 BUN 24 mg/dl (6-23) H 01/04/24 Creat 0.92 mg/dl (0.6-1.4) 01/04/24 Glucose Level 114 mg/dl (70-99(Fasting)) H 01/04/24 PT 37.0 Seconds (9.0-12.0) H 01/04/24 PTT 47 Seconds (21-31) H 01/04/24 INR 3.8 (0.9-1.1) H 01/04/24 Urine Color Yellow 01/04/24 Urine Appearance Clear (Clear) 01/04/24 Urine pH 5.5 (4.5-7.5) 01/04/24 Urine Specific [place] 1.018 (1.000-1.030) 01/04/24 Urine Protein Trace (Negative) H 01/04/24 Urine Glucose (UA) Negative (Negative) 01/04/24 Urine Ketones Negative (Negative) 01/04/24 Urine Blood Negative (Negative) 01/04/24 Urine Nitrite Negative (Negative) 01/04/24 Urine Bilirubin Negative (Negative) 01/04/24 Urine Urobilinogen Negative (Negative) 01/04/24 Urine Leukocyte Esterase 2+ (Negative) H 01/04/24 Urine WBC (Auto) >50 /hpf (0-5) H 01/04/24 Urine RBC (Auto) 0-2 /hpf (0-2) 01/04/24 Urine Hyaline Casts (Auto) 0-2 /lpf (0-2) 01/04/24 Urine Epithelial Cells (Auto) 0-2 /hpf (0-2) 01/04/24 Urine Bacteria (Auto) None Seen (None Seen) 01/04/24 Blood Type B Positive 01/04/24 Antibody Screen NEGATIVE 01/04/24 Testing Electrocardiogram Date: 01/04/24 Afib, rate 91 bpm Nonspecific T wave abnormality Chest X-Ray Date: 01/04/24 No acute chest disease. Echocardiogram Date: 06/02/23 EF 55-60% Normal LV wall motion Mildly dilated RV and LA Mildly to moderately dilated RA Mild mitral regurgitation Mild tricuspid regurgitation Mildly dilated aortic root at 4.0 cm Trivial pericardial effusion identified circumferential to the heart Cervical Spine Date: 01/04/24 Degenerative changes without evidence of acute abnormality. Other Testing Abdomen pelvis CT 05/24/23 No acute abnormalities to explain back pain, in particular no evidence of acute fracture. There is an 8 mm obstructing calculus in the distal right ureter located just above the vesicoureteral junction seen on image #297. There is no upstream hydronephrosis. Follow-up with urology is recommended. There is a 2.6 cm indeterminate low-attenuation focus in the left aspect of the prostate gland seen on image #322. Correlation with serum PSA levels is recommended.
[2024-01-13] MEDS: GABAPENTIN 300 MG CAP PO SCH (09:11)
[2024-01-13] MEDS: ACETAMINOPHEN 500 MG TAB PO SCH (09:11)
[2024-01-13] MEDS: CeleBREX 200 MG CAP PO SCH (09:11)
[2024-01-13] MEDS: LR 60ML/HR IV SCH (09:11)
[2024-01-13] MEDS: LR 15ML/HR IV SCH (09:20)
[2024-01-13 09:25] LABS: INR 1.2 (0.9-1.1); Partial Thromboplastin Ratio 1.1; Partial Thromboplastin Time 30 Seconds (21-31); Prothrombin Time 12.4 Seconds (9.0-12.0)
[2024-01-13] MEDS ORDERED: ePHEDrine sulfate 50 MG/ML AMP IV PRN (09:42)
[2024-01-13] MEDS ORDERED: ATROPINE SULFATE 0.1 MG/ML 10ML SYR IV PRN (09:42)
[2024-01-13] MEDS ORDERED: HYDROmorphone INJ 1 MG/ML SYRINGE IV PRN (09:42)
[2024-01-13] MEDS ORDERED: ONDANSETRON INJ 2 MG/ML 2 ML VIAL IV PRN (09:42)
--- NOTE | 2024-01-13 10:12 | History & Physical Bridge Note ---
Date of Service January 13, 2024 History & Physical Bridge Note I have examined the patient, reviewed the History & Physical and in the interval since the performance of the History & Physical I have noted the following changes of clinical significance: no changes noted
--- NOTE | 2024-01-13 10:13 | History & Physical Report ---
Date of Service January 13, 2024 Assessment & Plan (1) Neurogenic claudication due to lumbar spinal stenosis: Plan: T12-L1 decompression and fusion, hardware removal T10-T12 History of Present Illness Chief Complaint: Back and bilateral leg pain follow-up Primary Care Provider: Dc Chin This is a 73-year-old male well-known to me the presents with marked decline in status with back and bilateral leg pain. The course of nonoperative care is here for surgical invention. Allergies Allergy/AdvReac Type Severity Reaction Status Date / Time No Known Allergies Allergy Verified 01/13/24 09:03 Home Medications Medication Instructions Recorded Confirmed Type diltiazem HCl 120 mg 240 mg PO QAM 04/04/19 01/13/24 History capsule,extended release 24 hr (Cardizem CD) hydrochlorothiazide 25 mg tablet 25 mg PO QAM 04/04/19 01/13/24 History lisinopril 10 mg tablet 20 mg PO QAM #30 tabs 04/04/19 01/13/24 History calcium carb,cit ER 600 mg-vit D3 1 tab PO QAM 02/01/20 01/13/24 History 12.5 mcg (500 unit) tablet,ext.rel (Citracal-D3 Slow Release) Lactobacills gasseri-Bifidobac 1 cap PO QAM 04/28/21 01/13/24 History bifidum,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 ([employer]) upadacitinib 15 mg tablet,extended 15 mg PO QAM 08/13/21 01/13/24 History release 24 hr (Rinvoq) warfarin 5 mg tablet 2.5 mg PO HS 06/07/23 01/13/24 History hydrocodone 5 mg-acetaminophen 325 1 tab PO Q6H PRN pain #15 tabs 06/29/23 01/13/24 Rx mg tablet pregabalin 100 mg capsule (Lyrica) 100 mg PO TID #90 caps 09/28/23 01/13/24 Rx leflunomide 20 mg tablet (Arava) 20 mg PO QAM #90 tabs 11/11/23 01/13/24 Rx Past Med/Surg History Problem List (Updated 01/13/24 @ 10:12 by Carlos A Gonzales DO) Neurogenic claudication due to lumbar spinal stenosis Idiopathic polyneuropathy Ambulatory dysfunction (Acute) Postoperative back pain (Acute) Myelopathy concurrent with and due to spinal stenosis of thoracic region Encounter for pre-operative examination Neuropathy BPH w urinary obs/LUTS Lumbar radiculopathy Left carpal tunnel syndrome Cervical radiculopathy Pre-op testing Chronic back pain GERD (gastroesophageal reflux disease) controlled Hypertension Nephrolithiasis BPH loc w/o ur obs/LUTS Atrial fibrillation (Acute) Initial episode in setting of acute illness (2016), recurrence (06/2021) Follows with [facility]/Dr. Carter On AC Rhomboid pain (Acute) Rheumatoid arthritis involving knee with positive rheumatoid factor Lumbar stenosis with neurogenic claudication Osteoarthritis (Acute) Rheumatoid arthritis (Acute) Arthralgia (Acute) Pulmonary embolism (Chronic) Medical History (Updated 01/13/24 @ 10:12 by Carlos A Gonzales DO) GERD (gastroesophageal reflux disease) controlled per pt Neuropathy legs and feet, hands Trauma of palate h/o 11/2022 per hospitalist note History of BPH Atrial fibrillation dx approx 2019 > warfarin for this > no pacer > follows with Dr. Carson History of kidney stones (~2020) Hx of deep venous thrombosis hx of right leg > s/p achilles tendon repair > approx 2013 On AC On anticoagulant therapy Sleep apnea no device History of COVID-19 09/2022 Hx of squamous cell carcinoma of skin multiple, s/p excision Rheumatoid arthritis Follows with rheum Degenerative disc disease Barretts esophagus Hx pulmonary embolism s/p achilles tendon surgery 2013 Surgical History Hx of basal cell carcinoma excision s/p excision /Mohns procdure Hx of foot surgery [place] with [place] [facility] [place] History of tooth extraction History of carpal tunnel release of both wrists H/O transurethral resection of prostate TURP (08/21/21): LMA#5 at [facility]. No issues noted per post-op anesthesia progress note. History of lithotripsy History of cystoscopy with stone basketing for kidney stones History of Mohs micrographic surgery for skin cancer from head and left jainism History of revision of total replacement of left knee joint History of total knee replacement bilateral History of back surgery lumbar/ lower thoracic History of esophagogastroduodenoscopy (EGD) History of colonoscopy S/P Achilles tendon repair right History of elbow surgery left Family History Daughter Slow to wake up after anesthesia Social History Smoking Status: Never smoker Second Hand Exposure: No; Do You Dip or Chew Tobacco: No (quit 20 yrs ago); Tobacco Cessation Education Requested by Patient: No Hx Alcohol Use: No Hx Substance Use: No Preferred Language: Divehi Communication Ability: Effective Assemblies And Installations Inspector Required: No Beliefs That Will Affect Care: None Current Living Situation: Spouse Other Information That Helps Us Care for You: No Feels Safe at Home: Yes Safety Concerns: Feels Safe At This Time Assistive Devices: Cane and Glasses Physical Exam Physical Exam: Patient is alert and oriented heart regular rhythm lungs clear Results & Data Results & Data Vital Signs (Past 12 Hours) Vital Signs Temp Pulse Resp BP Pulse Ox O2 Del Method 01/13/24 08:57 36.9 C 85 20 125/81 98 Room Air
[2024-01-13] MEDS ORDERED: PROPOFOL IV EMULSION 10 MG/ML 20 ML VIAL IV ONE (10:31)
[2024-01-13] MEDS ORDERED: fentaNYL citrate PF 100 MCG/2 ML VIAL ONE ×2 (10:31→12:30)
[2024-01-13] MEDS ORDERED: DEXAMETHASONE SOD INJ 4 MG/ML VIAL ONE (10:31)
[2024-01-13] MEDS ORDERED: LIDOCAINE 2% 2 ML VIAL/AMP(20MG/ML) INFIL ONE (10:31)
[2024-01-13] MEDS ORDERED: ONDANSETRON INJ 2 MG/ML 2 ML VIAL ONE (10:31)
[2024-01-13] MEDS ORDERED: ROCURONIUM BROMIDE 10 MG/ML 5 ML VIAL IV ONE (10:31)
[2024-01-13] MEDS ORDERED: MIDAZOLAM HCL 1 MG/ML 2ML VIAL ONE (10:31)
[2024-01-13] MEDS: ceFAZolin 2000MG 2,000 MG/15 ML SYR IV SCH ×2 (10:37→20:25)
[2024-01-13] MEDS ORDERED: PHENYLEPHRINE HCL 10 MG/ML VIAL ONE (11:31)
[2024-01-13] MEDS: ceFAZolin 330 MG/ML 1 GM VIAL ONE (11:35)
[2024-01-13] MEDS: BUPIVACAINE/EPINEPHRINE 0.25% 1:200,000 30 ML VIAL ONE (11:35)
[2024-01-13] MEDS: FLOSEAL HEMOSTATIC MATRIX 10ML TOP ONE (13:13)
[2024-01-13] MEDS ORDERED: SUGAMMADEX SODIUM 200 MG/2 ML VIAL IV ONE (13:19)
--- NOTE | 2024-01-13 13:25 | Operative Report ---
Post Operative Report Pre & Post Diagnosis Operation Date: 01/13/24 10:05 Pre-Op Diagnosis: (1) Neurogenic claudication due to lumbar spinal stenosis: Post-Op Diagnosis: (1) Neurogenic claudication due to lumbar spinal stenosis: I identified the patient and participated in the time-out.: Yes Procedure Operation Date: 01/13/24 10:05 Actual Procedures #1 removal of posterior instrumentation T10-T12. #2 exploration of fusion T10- T12. #3 decompression T12-L1 L1-L2 with bilateral medial facetectomies and foraminotomies. #4 posterior spinal fusion T12-L2. #5 placement posterior segmental instrumentation T10-L1 with connectors at L to L3. #6 interbody fusion T12-L1. #7 placement spiral by 26 mm x 2 at T12-L1. #8 placement locally harvested morselized autograft and posterior gutters. #9 placement infuse collagen sponge, with Koros bone graft in the posterior gutters and Morpheus bone graft in the interbody space. Surgeon Carlos A Gonzales, Pharmacy District Manager Ellen Elizabeth Estimated Blood Loss 450 Findings Consistent with Post-Op Diagnosis Specimens None Indications This is a 73-year-old male with a presents with above-mentioned diagnosis of failed course of nonoperative care is here for surgical invention. Description of Procedure Patient was met with identified informed consent obtained. Patient was then taken to the operative suite underwent patient placed in a prone position on the Bo table on top of the Jacob frame. All bony promises well-padded eyes inspected to ensure no external pressure placed upon the. This point the lumbar spine was prepped and draped in normal sterile fashion. Sharp dissection with assistance of Bovie cautery performed down to and exposing the instrumentation at [id number] as well as the lamina of the T12-L1 instrumentation at L2-L3. I then proceeded to move the hardware at [id number] and the connector at L2 to expose the proximal component of the sandy from the distal construct. I explored the fusion mass from T10-T12 noting it to be mature and intact. Pedicle screws were then placed in T10-T11 and L1 bilaterally with assistance of fluoroscopy. Then performed complete laminectomy with bilateral medial facetectomies and foraminotomies of L1 and L2 addressing all spinal stenosis. By way of transforaminal approach on the right complete discectomy of the T12-L1 was performed endplates could do subcortical bleeding bone and to 11 x 26 mm spiral cage is filled with Morpheus bone graft tapped into position. Process rods were then contoured and locked into place bilaterally utilizing connectors on the exposed sandy at L 2 L3. Infuse collagen sponge, with Koros bone graft was then placed in the posterior gutters. 15 round EDWIGE drain inserted. The incision was then closed with 1 Vicryl to fascia 2-0 Vicryl subcutaneously and 4 Monocryl for final closure. Steri-Strips sterile dressing placed. Patient waken taken to PACU stable condition. Please note spinal cord monitoring visualized at the procedure no changes noted. Chanelle Elizabeth was present at the entire procedure involved in patient positioning complex portion of the surgery and final skin closure. I attest to the content of the Intraoperative Record and any orders documented therein. Any exceptions are noted below.
--- NOTE | 2024-01-13 13:56 | Fluoroscopy Report ---
FL thoracic spine 2V CLINICAL HISTORY: T12-L1 DECOMPRESSION AND FUSION T10-T12 HW REMOVAL COMPARISON STUDY: None. FLUOROSCOPY TIME: 23 seconds FLUOROSCOPY IMAGES: 2 Ka,r: 16.8 mGy FINDINGS: 2 fluoroscopic spot images of the thoracolumbar spine were submitted for review. The exact levels are difficult to assess on this spot image. There is posterior decompression and fusion within the thoracolumbar spine. The hardware appears intact. There has been removal of a set of pedicle scr ew heads. IMPRESSION: Fluoroscopic assistance as above. ACT 112: Negative or not required by law. Electronically signed by: Kevin Payne M.D. 01/13/2024 1:54 PM
[2024-01-13] MEDS: fentaNYL citrate PF 100 MCG/2 ML VIAL IV PRN (14:04)
--- NOTE | 2024-01-13 14:59 | Anesthesiology Progress Note ---
Date of Service January 13, 2024 Anesthesia Post Procedure Vital Signs Vital Signs: Temp Pulse Pulse Resp BP Pulse Ox O2 Del Method 01/13/24 14:35 75 15 127/75 100 Oxymask 01/13/24 14:25 75 14 124/86 100 Oxymask 01/13/24 14:15 74 13 122/79 100 Oxymask 01/13/24 14:05 77 13 111/73 98 Oxymask 01/13/24 13:55 75 12 97/60 L 96 Oxymask 01/13/24 13:47 36.7 C 77 16 97/60 L 96 Oxymask 01/13/24 08:57 36.9 C 85 20 125/81 98 Room Air O2 Flow Rate 01/13/24 14:35 3 01/13/24 14:25 5 01/13/24 14:15 5 01/13/24 14:05 5 01/13/24 13:55 7 01/13/24 13:47 9 01/13/24 08:57 Pain Intensity Medial Back: Pain Intensity: 4 Transfer of Care Handoff Completed per policy Notes Mental Status: alert / awake / arousable and participated in evaluation Patient Amnestic to Procedure: Yes Nausea / Vomiting: adequately controlled Pain: adequately controlled Airway Patency, RR, SpO2: stable & adequate BP & HR: stable & adequate Hydration State: stable & adequate Anesthetic Complications: no major complications apparent
[2024-01-13] MEDS ORDERED: DO NOT ADMINISTER PNEUMOCOCCAL VACCINE PRN (15:15)
[2024-01-13] MEDS ORDERED: DO NOT ADMINISTER FLU VACCINE PRN (15:15)
[2024-01-13] MEDS ORDERED: FAMOTIDINE 20 MG TAB PO PRN (15:15)
[2024-01-13] MEDS ORDERED: ONDANSETRON 4 MG OD TAB PO PRN (15:15)
[2024-01-13] MEDS ORDERED: HYDROmorphone INJ 0.5 MG/0.5 ML SYR IV PRN (15:15)
[2024-01-13] MEDS ORDERED: ACETAMINOPHEN 500 MG TAB PO PRN (15:15)
[2024-01-13] MEDS ORDERED: MAGNESIUM HYDROXIDE SUSP 30 ML UDC PO PRN (15:15)
[2024-01-13] MEDS ORDERED: SOD PHOSPHATE/SOD BIPHOSPHATE ENEMA 132 ML BTL PR PRN (15:15)
[2024-01-13] MEDS ORDERED: ALUMINUM/MAGNESIUM SUSP 30 ML UDC PO PRN (15:15)
[2024-01-13] MEDS ORDERED: hydrOXYzine HCl 25 MG TAB PO PRN (15:15)
[2024-01-13] MEDS ORDERED: PROMETHAZINE HCL 12.5 MG in SODIUM CHLORIDE 0.9% 50 ML IV PRN (15:15)
[2024-01-13] MEDS ORDERED: NALOXONE HCL 0.4 MG/1 ML VIAL/CARP IV PRN (15:15)
[2024-01-13] MEDS ORDERED: LORazepam 0.5 MG TAB PO PRN (15:15)
[2024-01-13] MEDS ORDERED: METOCLOPRAMIDE HCL INJ 5 MG/ML 2 ML VIAL IV PRN (15:15)
[2024-01-13] MEDS ORDERED: diphenhydrAMINE Capsule 25 MG CAP PO PRN (15:15)
[2024-01-13] MEDS: LACTATED RINGER'S 1,000 ML IV SCH (15:26)
[2024-01-13] MEDS: PREGABALIN 100 MG CAP PO SCH (15:26)
[2024-01-13] MEDS: HYDROmorphone INJ 1 MG/ML SYRINGE IV PRN (15:27)
--- NOTE | 2024-01-13 15:58 | Hospitalist Consultation ---
Date of Consultation January 13, 2024 Assessment & Plan (1) Neurogenic claudication due to lumbar spinal stenosis: VTE / Pain / bowel management per primary ortho spine team (2) Postoperative back pain: CT abdomen pelvis to assess for ureterolithiasis seen on CT pelvis in December to see if this is contributing (3) Asymptomatic bacteriuria: Started on Augmentin 01/11. Urine culture grew enterococcus faecalis - appears to be colonized given almost always grown on urine culture since 2019 Despite not symptomatic recommend continuing treatment due to new hardware placed with operation. Start Amoxicillin 500mg PO TID following perioperative antibiotics (4) Hypertension: Hold lisinopril and hydrochlorothiazide pending serial BP measurements (5) Atrial fibrillation: Restart warfarin when ok from orthopedic perspective Continue rate control with diltiazem (6) Rheumatoid arthritis: Hold Arava to help healing History of Present Illness Reason for Consultation: medical management Attending Physician: Carlos A Gonzales, DO History of Present Illness Curt Starr is a 73 year old male POD#0 removal of posterior instrumentations and thoraco lumbar decompression with posterior spinal fusion performed by Dr Gonzales earlier today. He reports ongoing sever pain since the surgery on the right side of his back and abdomen. Severity 8/10. From his right side of his back radiating around the front. Much worse the last month. Of note he had a CT pelvis on December 16 which incidentally showed a 5mm calculus in the right ureterovesicular junction - he notes never passing a kidney stone by himself and not knowing about this result. He was diagnosed with "UTI" 2 days prior to this operation on routine urine pre-op test. He denies having any fever, chills, dysuria, change in frequency, color or smell of his urine. He started Augmentin the day before the operation (took 2 doses total). Allergies Allergy/AdvReac Type Severity Reaction Status Date / Time No Known Allergies Allergy Verified 01/13/24 09:03 Home Medications Medication Instructions Recorded Confirmed Type diltiazem HCl 120 mg 240 mg PO QAM 04/04/19 01/13/24 History capsule,extended release 24 hr (Cardizem CD) hydrochlorothiazide 25 mg tablet 25 mg PO QAM 04/04/19 01/13/24 History lisinopril 10 mg tablet 20 mg PO QAM #30 tabs 04/04/19 01/13/24 History calcium carb,cit ER 600 mg-vit D3 1 tab PO QAM 02/01/20 01/13/24 History 12.5 mcg (500 unit) tablet,ext.rel (Citracal-D3 Slow Release) Lactobacills gasseri-Bifidobac 1 cap PO QAM 04/28/21 01/13/24 History bifidum,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 ([employer]) upadacitinib 15 mg tablet,extended 15 mg PO QAM 08/13/21 01/13/24 History release 24 hr (Rinvoq) warfarin 5 mg tablet 2.5 mg PO HS 06/07/23 01/13/24 History hydrocodone 5 mg-acetaminophen 325 1 tab PO Q6H PRN pain #15 tabs 06/29/23 01/13/24 Rx mg tablet pregabalin 100 mg capsule (Lyrica) 100 mg PO TID #90 caps 09/28/23 01/13/24 Rx leflunomide 20 mg tablet (Arava) 20 mg PO QAM #90 tabs 11/11/23 01/13/24 Rx Patient History Medical History (Updated 01/13/24 @ 16:13 by Celestine Melo MD) GERD (gastroesophageal reflux disease) controlled per pt Neuropathy legs and feet, hands Trauma of palate h/o 11/2022 per hospitalist note History of BPH Atrial fibrillation dx approx 2019 > warfarin for this > no pacer > follows with Dr. Carson History of kidney stones (~2020) Hx of deep venous thrombosis hx of right leg > s/p achilles tendon repair > approx 2013 On AC On anticoagulant therapy Sleep apnea no device History of COVID-19 09/2022 Hx of squamous cell carcinoma of skin multiple, s/p excision Rheumatoid arthritis Follows with rheum Degenerative disc disease Barretts esophagus Hx pulmonary embolism s/p achilles tendon surgery 2013 Surgical History Hx of basal cell carcinoma excision s/p excision /[place]ohns procdure Hx of foot surgery left with hardware at [facility] [place] in Mar 2022 History of tooth extraction History of carpal tunnel release of both wrists H/O transurethral resection of prostate TURP (08/21/21): LMA#5 at [facility]. No issues noted per post-op anesthesia progress note. History of lithotripsy History of cystoscopy with stone basketing for kidney stones History of Mohs micrographic surgery for skin cancer from head and left mormonism History of revision of total replacement of left knee joint History of total knee replacement bilateral History of back surgery lumbar/ lower thoracic History of esophagogastroduodenoscopy (EGD) History of colonoscopy S/P Achilles tendon repair right History of elbow surgery left Family History Daughter Slow to wake up after anesthesia Social History Smoking Status: Never smoker Second Hand Exposure: No; Do You Dip or Chew Tobacco: No (quit 20 yrs ago); Tobacco Cessation Education Requested by Patient: No Hx Alcohol Use: No Hx Substance Use: No Preferred Language: Kittitian Communication Ability: Effective Personal Computer Network Engineer Required: No Beliefs That Will Affect Care: None Current Living Situation: Spouse Other Information That Helps Us Care for You: No Feels Safe at Home: Yes Safety Concerns: Feels Safe At This Time Assistive Devices: Cane and Glasses Review of Systems Review of Systems: All systems reviewed & are unremarkable except as noted in HPI & below Physical Exam Constitutional: WD/WN, vitals as above Respiratory: normal respiratory effort, lungs clear to auscultation Cardiovascular: Rate/Rhythm: regular rate and + irregularly irregular Heart Sounds: no murmur Extremities: normal capillary refill; no pedal edema Gastrointestinal (Abdomen): Inspection/Auscultation: abdomen normal to inspection; abdomen not distended Percussion/Palpation: + abdomen tender (RLQ pain) and abdomen soft; no guarding and abdomen not rigid Musculoskeletal: normal b/l ankle dorsi and plantarflexion Skin: no rashes, warm and dry Results & Data Results & Data Vital Signs (Past 12 Hours) Vital Signs Temp Pulse Pulse Resp BP Pulse Ox O2 Del Method 01/13/24 15:35 36.4 C L 80 18 139/69 94 Nasal Cannula 01/13/24 15:05 36.5 C 73 19 118/78 96 Nasal Cannula 01/13/24 14:35 75 15 127/75 100 Oxymask 01/13/24 14:25 75 14 124/86 100 Oxymask 01/13/24 14:15 74 13 122/79 100 Oxymask 01/13/24 14:05 77 13 111/73 98 Oxymask 01/13/24 13:55 75 12 97/60 L 96 Oxymask 01/13/24 13:47 36.7 C 77 16 97/60 L 96 Oxymask 01/13/24 08:57 36.9 C 85 20 125/81 98 Room Air O2 Flow Rate 01/13/24 15:35 2 01/13/24 15:05 2 01/13/24 14:35 3 01/13/24 14:25 5 01/13/24 14:15 5 01/13/24 14:05 5 01/13/24 13:55 7 01/13/24 13:47 9 01/13/24 08:57 Laboratory Results Abnormal lab results 01/13/24 Range/Units 08:55 PT 12.4 H (9.0-12.0) Seconds INR 1.2 H (0.9-1.1) PG Care Time/CCT Total # of Minutes Spent Total Time Spent with Patient: Total time spent is greater than 50% in coordination of care (as documented) at patient's floor/unit and/or counseling patient: Coding Level of Care Code 50675 IN/OBS CONSULT LVL 4,60M Diagnoses Neurogenic claudication due to lumbar spinal stenosis M48.062 Postoperative back pain G89.18; M54.9 Asymptomatic bacteriuria R82.71 Hypertension I10 Atrial fibrillation I48.19 Atrial fibrillation type: persistent (not longstanding) Rheumatoid arthritis, involving unspecified site, unspecified whether rheumatoid factor present M06.9 Rheumatoid arthritis location: unspecified site Rheumatoid factor presence: unspecified presence (5) Atrial fibrillation Atrial fibrillation type: persistent (not longstanding) Qualified Code(s): I48.19 - Other persistent atrial fibrillation (6) Rheumatoid arthritis Rheumatoid arthritis location: unspecified site Rheumatoid factor presence: unspecified presence Qualified Code(s): M06.9 - Rheumatoid arthritis, unspecified
[2024-01-13] MEDS: ONDANSETRON INJ 2 MG/ML 2 ML VIAL IV PRN (17:17)
[2024-01-13] MEDS: ACETAMINOPHEN 1,000 MG/100 ML VIAL IV PRN (17:17)
[2024-01-13] MEDS: oxyCODONE HCL IR 5 MG TAB (IMMEDIATE RELEASE) PO PRN (17:26)
[2024-01-13] MEDS: LORazepam 0.5 MG in SYRINGE 0.25 ML IV PRN (19:41)
[2024-01-13] MEDS: DOCUSATE SODIUM/SENNA 50/8.6MG TAB PO SCH (20:24)
--- NOTE | 2024-01-13 23:11 | CT Scan Report ---
Exam(s): CT ABDOMEN + PELVIS Without Contrast EXAM: CT Abdomen and Pelvis Without Intravenous Contrast CLINICAL HISTORY: Reason for exam: Right flank pain,5 mm calculus on prior CT pelvis. TECHNIQUE: Axial computed tomography images of the abdomen and pelvis without intravenous contrast. CTDI is 26.32 mGy and DLP is 1396.96 mGy-cm. Automated exposure control was utilized for the study. A dose lowering technique was utilized adhering to the principles of ALARA. COMPARISON: No relevant prior studies available. FINDINGS: Lung bases: Perihilar and bibasilar atelectasis with trace effusions. ABDOMEN: Liver: Punctate calcifications within the liver dome. Gallbladder and bile ducts: Unremarkable. No calcified stones. No ductal dilation. Pancreas: Unremarkable. No ductal dilation. Spleen: Unremarkable. No splenomegaly. Adrenals: Unremarkable. No mass. Kidneys and ureters: Punctate nonobstructing left renal calculi. No hydronephrosis. Stomach and bowel: Unremarkable. No obstruction. No mucosal thickening. PELVIS: Appendix: No findings to suggest acute appendicitis. Bladder: Castorena catheter within the decompressed urinary bladder. No stones. Reproductive: Small right hydrocele. ABDOMEN and PELVIS: Intraperitoneal space: Unremarkable. No free air. No significant fluid collection. Bones/joints: Extensive postsurgical changes in the thoracolumbar spine with severe multilevel degenerative changes including disc space narrowing prosthetic and bulky osteophytes. Spinal stimulator knee noted with subcutaneous gas and edema in the soft tissues posterior to lower thoracic spine. No acute fracture. No dislocation. Soft tissues: See above. Vasculature: Unremarkable. No abdominal aortic aneurysm. Lymph nodes: Unremarkable. No enlarged lymph nodes. Other findings: Bilateral pericaval and cortical cysts measuring up to 3 cm. No follow-up imaging required. IMPRESSION: Punctate nonobstructing left renal calculi. No hydronephrosis. Electronically signed by: Miesha Tobin MD 01/13/24 23:09 PM
[2024-01-14] MEDS: POLYETHYLENE (MIRALAX) 17 GM PACK PO SCH (04:04)
[2024-01-14] MEDS: AMOXICILLIN 500 MG CAP PO SCH (08:23)
[2024-01-14] MEDS: dexAMETHasone 6 MG in SYRINGE 0 ML IV SCH (08:24)
[2024-01-14] MEDS: dilTIAZem HCL 240 MG CAPCR PO SCH (08:25)
[2024-01-14] MEDS: LEFLUNOMIDE 10 MG TAB PO SCH (08:25)
[2024-01-14] MEDS: CALCIUM 600MG + VIT D 400 IU TAB PO SCH (08:25)
--- NOTE | 2024-01-14 08:27 | Hospitalist Progress Note ---
Date of Service January 14, 2024 Assessment & Plan (1) Neurogenic claudication due to lumbar spinal stenosis: Plan: s/p #1 removal of posterior instrumentation T10-T12. #2 exploration of fusion T10-T12. #3 decompression T12-L1 L1-L2 with bilateral medial facetectomies and foraminotomies. #4 posterior spinal fusion T12-L2. #5 placement posterior segmental instrumentation T10-L1 with connectors at L to L3. #6 interbody fusion T12-L1. #7 placement spiral by 26 mm x 2 at T12-L1. #8 placement locally harvested morselized autograft and posterior gutters. #9 placement infuse collagen sponge, with Koros bone graft in the posterior gutters and Morpheus bone graft in the interbody space. with Dr Gonzales on 01/12 EBL 450cc WBC wnl Hgb 12.8--> 9.7, acute blood loss anemia from surgery as well as dilutional aspect from IVF EBL 450cc, EDWIGE output 395cc recorded and about ~60-70cc on exam at present time Pain control, bowel regimen - suppository if needed DVT proph: lilli lawrence, coumadin on hold but per patient report per primary can resume in AM Monitor labs/exam on repeat (2) Postoperative back pain: Plan: CT abdomen pelvis to assess for ureterolithiasis seen on CT pelvis in December to see if this is contributing which it could be but seems more related to incisoinal pain on exam today Bowel regimen as above, pain control per primary continues on amox for +urine cx as below (3) Asymptomatic bacteriuria: Plan: Started on Augmentin 01/11. Urine culture grew enterococcus faecalis - appears to be colonized given almost always grown on urine culture since 2019 Despite not symptomatic recommend continuing treatment due to new hardware placed with operation. Started/continued Amoxicillin 500mg PO TID following perioperative antibiotics (4) Hypertension: Plan: Hold lisinopril and hydrochlorothiazide for now given acute blood loss as above and BUN/Cr 33/1.06 however no lightheaded/dizziness reported and likely able to resume in AM but will continue to monitor. BP presently 120/74 (5) Atrial fibrillation: Plan: Restart warfarin when ok from orthopedic perspective, per patient likely able to resume on Wednesday but will verify w/ Dr Gonzales Continue rate control with diltiazem Mag checked for completeness, LOW 1.6- 2gm IV ordered and will monitor w/ AM labs to ensure staying stable (6) Rheumatoid arthritis: Plan: Hold Arava to help healing Plan Hospitalist service will follow along. Please call with questions/concerns. Admission and Anticipated Discharge Date Admission Date: January 13, 2024 Supervising Physician Co-Signing Physician Notes The patient was not seen by me. The chart was reviewed. Case discussed with TIBURCIO Yao. Agree with assessment and plan Subjective Eval this morning, sitting up in the chair. Worked with therapy, reports first time up out of bed since procedure and a little sore. Castorena to be removed this morning. Passing some gas but not much, he is hesitant to strain and put more pressure on his back. Discussed w/ RN and continuing miralax but if no BM or increased flatus would admin suppository this afternoon. Denies fever/chills, no chest pain/shortness of breath. He reports they emptied the EDWIGE this morning and is slowing and Dr Gonzales said to wait to resume his coumadin until tomorrow. Questions/concerns addressed at this time. Physical Exam Constitutional: WD/WN, vitals as above Respiratory: normal respiratory effort, lungs clear to auscultation Cardiovascular: Rate/Rhythm: regular rate and + irregularly irregular Heart Sounds: no murmur Extremities: normal capillary refill; no pedal edema Gastrointestinal (Abdomen): Inspection/Auscultation: + abdomen distended and normal bowel sounds Percussion/Palpation: abdomen nontender, no guarding and abdomen not rigid Musculoskeletal: normal b/l ankle dorsi and plantarflexion EDWIGE output ~75cc bloody drainage L foot in boot Skin: no rashes, warm and dry Psychiatric: A+Ox3, euthymic affect Results & Data Results & Data Vital Signs (Past 12 Hours) Vital Signs Temp Pulse Pulse Resp BP Pulse Ox O2 Del Method 01/14/24 08:07 36.7 C 82 16 120/74 96 Room Air 01/14/24 07:18 Room Air 01/14/24 07:18 36.7 C 87 20 113/72 96 Room Air 01/14/24 03:15 36.6 C 85 16 110/69 98 Room Air 01/13/24 22:30 36.5 C 84 16 110/80 95 Room Air 01/13/24 20:50 Room Air Laboratory Results 01/14/24 Range/Units 09:11 WBC 8.75 (4.8-10.8) K/ul RBC 3.06 L (4.70-6.10) M/uL Hgb 9.7 L (14.0-18.0) g/dl Hct 29.3 L (42.0-52.0) % MCV 95.8 (80.0-100.0) fL MCH 31.7 (25.0-34.0) pg MCHC 33.1 (32.0-36.0) g/dL RDW Std Deviation 53.4 H (36.4-46.3) fL RDW Coeff of Flora 15.4 H (11.5-14.5) % Plt Count 236 (130-400) K/uL MPV 10.0 (9.4-12.4) fL Immature Gran % (Auto) 0.3 % Neut % (Auto) 93.8 % Lymph % (Auto) 2.4 % [place] % (Auto) 3.4 % Eos % (Auto) 0.0 % Baso % (Auto) 0.1 % Neut # (Auto) 8.20 H (1.40-6.50) K/uL Lymph # (Auto) 0.21 L (1.20-3.40) K/uL [place] # (Auto) 0.30 (0.11-0.59) K/uL Eos # (Auto) 0.00 (0.00-0.50) K/uL Baso # (Auto) 0.01 (0.00-0.20) K/uL Immature Gran # (Auto) 0.03 (0.01-0.20) K/uL Absolute Nucleated RBC 0.02 (0.00-0.12) K/uL Nucleated RBC % (auto) 0.2 % PT 11.8 (9.0-12.0) Seconds INR 1.1 (0.9-1.1) Sodium 136 (136-145) mmol/L Potassium 4.1 (3.5-5.1) mmol/L Chloride 101 (98-107) mmol/L Carbon Dioxide 27 (21-32) mmol/L Anion Gap 8 (3-11) BUN 33 H (6-23) mg/dl Creatinine 1.06 (0.6-1.4) mg/dl Est Cr Clr Drug Dosing 68.5 ml/min Est GFR ( Amer) 81.4 ml/min Est GFR (Non-Af Amer) 70.3 ml/min BUN/Creatinine Ratio 31.1 H (10-20) Glucose 198 H (70-99(Fasting)) mg/dl Calcium 8.4 L (8.6-10.3) mg/dl Magnesium 1.6 L (1.7-2.4) mg/dl Diagnostic Findings Thoracic Spine X-Ray 01/13/24 10:05 FL thoracic spine 2V CLINICAL HISTORY: T12-L1 DECOMPRESSION AND FUSION T10-T12 HW REMOVAL COMPARISON STUDY: None. FLUOROSCOPY TIME: 23 seconds FLUOROSCOPY IMAGES: 2 Ka,r: 16.8 mGy FINDINGS: 2 fluoroscopic spot images of the thoracolumbar spine were submitted for review. The exact levels are difficult to assess on this spot image. There is posterior decompression and fusion within the thoracolumbar spine. The hardware appears intact. There has been removal of a set of pedicle screw heads. IMPRESSION: Fluoroscopic assistance as above. ACT 112: Negative or not required by law. Electronically signed by: Kevin Payne M.D. 01/13/2024 1:54 PM Abdomen/Pelvis CT 01/13/24 17:10 Exam(s): CT ABDOMEN + PELVIS Without Contrast EXAM: CT Abdomen and Pelvis Without Intravenous Contrast CLINICAL HISTORY: Reason for exam: Right flank pain,5 mm calculus on prior CT pelvis. TECHNIQUE: Axial computed tomography images of the abdomen and pelvis without intravenous contrast. CTDI is 26.32 mGy and DLP is 1396.96 mGy-cm. Automated exposure control was utilized for the study. A dose lowering technique was utilized adhering to the principles of ALARA. COMPARISON: No relevant prior studies available. FINDINGS: Lung bases: Perihilar and bibasilar atelectasis with trace effusions. ABDOMEN: Liver: Punctate calcifications within the liver dome. Gallbladder and bile ducts: Unremarkable. No calcified stones. No ductal dilation. Pancreas: Unremarkable. No ductal dilation. Spleen: Unremarkable. No splenomegaly. Adrenals: Unremarkable. No mass. Kidneys and ureters: Punctate nonobstructing left renal calculi. No hydronephrosis. Stomach and bowel: Unremarkable. No obstruction. No mucosal thickening. PELVIS: Appendix: No findings to suggest acute appendicitis. Bladder: Castorena catheter within the decompressed urinary bladder. No stones. Reproductive: Small right hydrocele. ABDOMEN and PELVIS: Intraperitoneal space: Unremarkable. No free air. No significant fluid collection. Bones/joints: Extensive postsurgical changes in the thoracolumbar spine with severe multilevel degenerative changes including disc space narrowing prosthetic and bulky osteophytes. Spinal stimulator knee noted with subcutaneous gas and edema in the soft tissues posterior to lower thoracic spine. No acute fracture. No dislocation. Soft tissues: See above. Vasculature: Unremarkable. No abdominal aortic aneurysm. Lymph nodes: Unremarkable. No enlarged lymph nodes. Other findings: Bilateral pericaval and cortical cysts measuring up to 3 cm. No follow-up imaging required. IMPRESSION: Punctate nonobstructing left renal calculi. No hydronephrosis. Electronically signed by: Miesha Tobin MD 01/13/24 23:09 PM PG Care Time/CCT Total # of Minutes Spent Total Time Spent with Patient: Total time spent is greater than 50% in coordination of care (as documented) at patient's floor/unit and/or counseling patient: Coding Level of Care Code 37029 SUB INP/OBS CARE 3/50MIN Diagnoses Neurogenic claudication due to lumbar spinal stenosis M48.062 Postoperative back pain G89.18; M54.9 Asymptomatic bacteriuria R82.71 Hypertension I10 Atrial fibrillation I48.19 Atrial fibrillation type: persistent (not longstanding) Rheumatoid arthritis, involving unspecified site, unspecified whether rheumatoid factor present M06.9 Rheumatoid arthritis location: unspecified site Rheumatoid factor presence: unspecified presence (5) Atrial fibrillation Atrial fibrillation type: persistent (not longstanding) Qualified Code(s): I48.19 - Other persistent atrial fibrillation (6) Rheumatoid arthritis Rheumatoid arthritis location: unspecified site Rheumatoid factor presence: unspecified presence Qualified Code(s): M06.9 - Rheumatoid arthritis, unspecified
[2024-01-14 09:32] LABS: Hematocrit (blood only) 29.3 % (42.0-52.0); Hemoglobin 9.7 g/dl (14.0-18.0); Mean Corpuscular Hemoglobin 31.7 pg (25.0-34.0); Mean Corpuscular Hgb Conc 33.1 g/dL (32.0-36.0); Mean Corpuscular Volume 95.8 fL (80.0-100.0); Nucleated RBC # (auto) 0.02 K/uL (0.00-0.12); Nucleated RBC % (auto) 0.2 %; Platelet Count 236 K/uL (130-400); RDW Coefficient of Variation 15.4 % (11.5-14.5); RDW Standard Deviation 53.4 fL (36.4-46.3); Red Blood Count 3.06 M/uL (4.70-6.10); White Blood Count 8.75 K/ul (4.8-10.8)
[2024-01-14 09:49] LABS: BUN Creatinine Ratio 31.1 (10-20); Calcium 8.4 mg/dl (8.6-10.3); Creatinine Clr Calc Pharmacy 68.5 ml/min; Est GFR (African American) 81.4 ml/min; Est GFR (Non-African American) 70.3 ml/min; Magnesium 1.6 mg/dl (1.7-2.4); Potassium 4.1 mmol/L (3.5-5.1)
[2024-01-14 09:57] LABS: Basophils # (auto) 0.01 K/uL (0.00-0.20); Basophils % (auto) 0.1 %; Immature Granulocytes # (auto) 0.03 K/uL (0.01-0.20); Immature Granulocytes % (auto) 0.3 %; Lymphocytes # (auto) 0.21 K/uL (1.20-3.40); Lymphocytes % (auto) 2.4 %; Monocytes % (auto) 3.4 %; Neutrophils % (auto) 93.8 %
[2024-01-14 09:58] LABS: INR 1.1 (0.9-1.1); Prothrombin Time 11.8 Seconds (9.0-12.0)
[2024-01-14] MEDS: MAGNESIUM SULFATE / D5W 1 GM/100 ML BAG IV SCH (11:12)
--- NOTE | 2024-01-14 11:45 | Orthopedic Progress Note ---
Date of Service January 14, 2024 Assessment & Plan (1) Neurogenic claudication due to lumbar spinal stenosis: Plan: This time continue physical therapy monitor EDWIGE output anticipate discharge home in the next few days. Will reinitiate Coumadin tomorrow. Admission and Anticipated Discharge Date Admission Date: January 13, 2024 Subjective Back pain improving. He is ambulating well with physical therapy. Physical Exam Physical Exam: On exam he is in the chair at bedside. Discussed when to testing. Was comfortable. Results & Data Vital Signs (Past 12 Hours) Vital Signs Temp Pulse Pulse Resp BP Pulse Ox O2 Del Method 01/14/24 08:07 36.7 C 82 16 120/74 96 Room Air 01/14/24 07:18 Room Air 01/14/24 07:18 36.7 C 87 20 113/72 96 Room Air 01/14/24 03:15 36.6 C 85 16 110/69 98 Room Air Queries Orthopedic Spine Obesity: Yes
[2024-01-14] MEDS: bisacodyL 10 MG SUPP PR PRN (17:35)
[2024-01-15 06:11] LABS: Hematocrit (blood only) 27.4 % (42.0-52.0); Hemoglobin 9.2 g/dl (14.0-18.0); Mean Corpuscular Hemoglobin 31.5 pg (25.0-34.0); Mean Corpuscular Hgb Conc 33.6 g/dL (32.0-36.0); Mean Corpuscular Volume 93.8 fL (80.0-100.0); Mean Platelet Volume 9.9 fL (9.4-12.4); Platelet Count 214 K/uL (130-400); RDW Coefficient of Variation 14.8 % (11.5-14.5); RDW Standard Deviation 50.4 fL (36.4-46.3); Red Blood Count 2.92 M/uL (4.70-6.10); White Blood Count 10.29 K/ul (4.8-10.8)
[2024-01-15 06:21] LABS: Calcium 8.4 mg/dl (8.6-10.3); Creatinine Clr Calc Pharmacy 70.5 ml/min; Est GFR (African American) 84.3 ml/min; Est GFR (Non-African American) 72.7 ml/min; Potassium 4.5 mmol/L (3.5-5.1)
[2024-01-15 06:30] LABS: Prothrombin Time 11.2 Seconds (9.0-12.0)
[2024-01-15] MEDS: lisinopril 20 MG TAB PO SCH (08:39)
--- NOTE | 2024-01-15 08:42 | Hospitalist Progress Note ---
Date of Service January 15, 2024 Assessment & Plan (1) Neurogenic claudication due to lumbar spinal stenosis: Plan: s/p #1 removal of posterior instrumentation T10-T12. #2 exploration of fusion T10-T12. #3 decompression T12-L1 L1-L2 with bilateral medial facetectomies and foraminotomies. #4 posterior spinal fusion T12-L2. #5 placement posterior segmental instrumentation T10-L1 with connectors at L to L3. #6 interbody fusion T12-L1. #7 placement spiral by 26 mm x 2 at T12-L1. #8 placement locally harvested morselized autograft and posterior gutters. #9 placement infuse collagen sponge, with Koros bone graft in the posterior gutters and Morpheus bone graft in the interbody space. with Dr Gonzales on 01/12 EBL 450cc WBC wnl, afebrile Hgb 12.8--> 9.7 --> 9.2. acute blood loss anemia from surgery as well as dilutional aspect from IVF. Slowing down. EBL 450cc, EDWIGE output 395cc + 215cc Pain control, bowel regimen - suppository if needed, +BM 01/13 documented DVT proph: lilli lawrence, coumadin on hold but per patient report per primary can resume in AM Wednesday Monitor labs/exam on repeat 01/14 improving, message to Dr Gonzales about resuming his coumadin (takes 2.5mg/5mg alternating doses, in the evening) - starting back 2.5mg for today, pharmacy to adjust for alternating dosing lisinopril resumed, HCTZ remains on hold for now +BM following suppository last evening and continue pain control/bowel regimen continued inpatient stay, possible dc next 24-48hr per primary Hospitalist service can follow along. Please call with any questions/concerns. (2) Postoperative back pain: Plan: CT abdomen pelvis to assess for ureterolithiasis seen on CT pelvis in December to see if this is contributing which it could be but seems more related to incisoinal pain on exam today Bowel regimen as above, pain control per primary continues on amox for +urine cx as below (3) Asymptomatic bacteriuria: Plan: Started on Augmentin 01/11. Urine culture grew enterococcus faecalis - appears to be colonized given almost always grown on urine culture since 2019 Despite not symptomatic recommend continuing treatment due to new hardware placed with operation. Started/continued Amoxicillin 500mg PO TID following perioperative antibiotics (4) Hypertension: Plan: Hold lisinopril and hydrochlorothiazide for now given acute blood loss anemia as above w/ elevated BUN, Cr stable 1.06 Resumed lisinopril for today, BP 126/78 but without any hypotension. HCTZ remains on hold until examined but suspect likely able to resume in AM to prevent dehydration (5) Atrial fibrillation: Plan: Restart warfarin when ok from orthopedic perspective- per primary, plans for Wednesday Continue rate control with diltiazem Mag checked for completeness, LOW 1.6- 2gm IV ordered and 2.0 on AM labs (6) Rheumatoid arthritis: Plan: Hold Arava to help healing - patient reports issues w/ holding for too long. Discussed w/ primary and they want 2 weeks holding. Pt to f/u PCP/rheum if any ongoing issues but suspect steroids keeping at bay for now (7) Hypomagnesemia: Plan: checked w/ his afib, low 1.6 on 01/13 and IV replacement ordered. Normalized 2.0 on repeat Plan Hospitalist service will follow along. Please call with questions/concerns. Admission and Anticipated Discharge Date Admission Date: January 13, 2024 Supervising Physician Co-Signing Physician Notes The patient was not seen by me. The chart was reviewed. Case discussed with TIBURCIO Yao. Agree with assessment and plan Subjective Eval this morning, sitting up in the chair. Pain improved/controlled. Moved his bowels after suppository and held off miralax this morning. Forgot to ask Dr Gonzales about resuming his coumadin which he takes 5mg/2.5mg alternating and I will message Dr Gonzales about resuming. Patient reports he takes in the evening. He is also wondering about his rinvoq which has been on hold. He does have problems when off for a period of time but did discuss benefit for wound healing with on hold but will message primary if able to resume any sooner. No CP/SOB, lightheaded/dizziness, EDWIGE output slowed. Lisinopril resumed and plan for HCTZ in AM pending labs/exam. Questions/concerns addressed at this time. Physical Exam Constitutional: WD/WN, vitals as above sitting up in chair, much improved today, NAD, moved bowels overnight Respiratory: normal respiratory effort, lungs clear to auscultation Cardiovascular: Rate/Rhythm: regular rate and + irregularly irregular Heart Sounds: no murmur Extremities: normal capillary refill; no pedal edema Gastrointestinal (Abdomen): Inspection/Auscultation: normal bowel sounds; abdomen not distended Percussion/Palpation: abdomen nontender, no guarding and abdomen not rigid Musculoskeletal: dressing to spine c/d/i normal ankle dorsi/plantarflexion EDWIGE output ~75cc bloody drainage L foot in boot Skin: no rashes, warm and dry Psychiatric: A+Ox3, euthymic affect Results & Data Results & Data Vital Signs (Past 12 Hours) Vital Signs Temp Pulse Resp BP Pulse Ox O2 Del Method 01/15/24 07:30 36.6 C 82 16 126/78 97 Room Air 01/14/24 21:32 36.6 C 72 18 142/70 H 94 Room Air Laboratory Results 01/15/24 Range/Units 05:26 WBC 10.29 (4.8-10.8) K/ul RBC 2.92 L (4.70-6.10) M/uL Hgb 9.2 L (14.0-18.0) g/dl Hct 27.4 L (42.0-52.0) % MCV 93.8 (80.0-100.0) fL MCH 31.5 (25.0-34.0) pg MCHC 33.6 (32.0-36.0) g/dL RDW Std Deviation 50.4 H (36.4-46.3) fL RDW Coeff of Flora 14.8 H (11.5-14.5) % Plt Count 214 (130-400) K/uL MPV 9.9 (9.4-12.4) fL PT 11.2 (9.0-12.0) Seconds INR 1.0 (0.9-1.1) Sodium 137 (136-145) mmol/L Potassium 4.5 (3.5-5.1) mmol/L Chloride 103 (98-107) mmol/L Carbon Dioxide 27 (21-32) mmol/L Anion Gap 7 (3-11) BUN 33 H (6-23) mg/dl Creatinine 1.03 (0.6-1.4) mg/dl Est Cr Clr Drug Dosing 70.5 ml/min Est GFR ( Amer) 84.3 ml/min Est GFR (Non-Af Amer) 72.7 ml/min BUN/Creatinine Ratio 32.0 H (10-20) Glucose 123 H (70-99(Fasting)) mg/dl Calcium 8.4 L (8.6-10.3) mg/dl Magnesium 2.0 (1.7-2.4) mg/dl PG Care Time/CCT Total # of Minutes Spent Total Time Spent with Patient: Total time spent is greater than 50% in coordination of care (as documented) at patient's floor/unit and/or counseling patient: Coding Level of Care Code 16619 SUB INP/OBS CARE 3/50MIN Diagnoses Neurogenic claudication due to lumbar spinal stenosis M48.062 Postoperative back pain G89.18; M54.9 Asymptomatic bacteriuria R82.71 Hypertension I10 Atrial fibrillation I48.19 Atrial fibrillation type: persistent (not longstanding) Rheumatoid arthritis, involving unspecified site, unspecified whether rheumatoid factor present M06.9 Rheumatoid arthritis location: unspecified site Rheumatoid factor presence: unspecified presence Hypomagnesemia E83.42 (5) Atrial fibrillation Atrial fibrillation type: persistent (not longstanding) Qualified Code(s): I48.19 - Other persistent atrial fibrillation (6) Rheumatoid arthritis Rheumatoid arthritis location: unspecified site Rheumatoid factor presence: unspecified presence Qualified Code(s): M06.9 - Rheumatoid arthritis, unspecified
--- NOTE | 2024-01-15 08:57 | Orthopedic Progress Note ---
Date of Service January 15, 2024 Assessment & Plan (1) Neurogenic claudication due to lumbar spinal stenosis: Plan: At this time continue physical therapy monitor his EDWIGE output. He may discharge home Wednesday or Wednesday pending his progress. Admission and Anticipated Discharge Date Admission Date: January 13, 2024 Subjective Back pain controlled leg pain improved Physical Exam Physical Exam: On exam patient seen in bed peers comfortable. Discussed with the testing. Results & Data Vital Signs (Past 12 Hours) Vital Signs Temp Pulse Resp BP Pulse Ox O2 Del Method 01/15/24 07:30 36.6 C 82 16 126/78 97 Room Air 01/14/24 21:32 36.6 C 72 18 142/70 H 94 Room Air Queries Orthopedic Spine Acute Posthemorrhagic Anemia: Yes Obesity: Yes
[2024-01-15] MEDS ORDERED: Nursing to Pharmacy Communication SCH (15:00)
[2024-01-15] MEDS ORDERED: WARFARIN SOD 2.5 MG TAB PO SCH ×2 (16:00)
[2024-01-15] MEDS: WARFARIN SOD 2.5 MG TAB PO SCH (21:00)
[2024-01-16 06:22] LABS: BUN Creatinine Ratio 43.4 (10-20); Calcium 8.5 mg/dl (8.6-10.3); Creatinine Clr Calc Pharmacy 95.6 ml/min; Est GFR (African American) 106.4 ml/min; Est GFR (Non-African American) 91.8 ml/min; Magnesium 1.9 mg/dl (1.7-2.4); Potassium 4.2 mmol/L (3.5-5.1)
[2024-01-16 06:58] LABS: Prothrombin Time 10.9 Seconds (9.0-12.0)
--- NOTE | 2024-01-16 08:19 | Hospitalist Progress Note ---
Date of Service January 16, 2024 Assessment & Plan (1) Neurogenic claudication due to lumbar spinal stenosis: Plan: s/p #1 removal of posterior instrumentation T10-T12. #2 exploration of fusion T10-T12. #3 decompression T12-L1 L1-L2 with bilateral medial facetectomies and foraminotomies. #4 posterior spinal fusion T12-L2. #5 placement posterior segmental instrumentation T10-L1 with connectors at L to L3. #6 interbody fusion T12-L1. #7 placement spiral by 26 mm x 2 at T12-L1. #8 placement locally harvested morselized autograft and posterior gutters. #9 placement infuse collagen sponge, with Koros bone graft in the posterior gutters and Morpheus bone graft in the interbody space. with Dr Gonzales on 01/12 EBL 450cc WBC wnl, afebrile Hgb 12.8--> 9.7 --> 9.2. acute blood loss anemia from surgery as well as dilutional aspect from IVF. Slowing down. EBL 450cc, EDWIGE output 395cc + 215cc + 120cc Pain control, bowel regimen. Moving his bowels. Having primary change pain meds to hydrocodone per patient request DVT proph: lilli lawrence, coumadin resumed per schedule at home alternating 2.5/5mg dosing Hospitalist service will sign off at this time. Please call with any questions/concerns. (2) Postoperative back pain: Plan: CT abdomen pelvis to assess for ureterolithiasis seen on CT pelvis in December to see if this is contributing which it could be but seems more related to incisional pain on exam today Bowel regimen as above, pain control per primary continues on amox for +urine cx as below (3) Asymptomatic bacteriuria: Plan: Started on Augmentin 01/11. Urine culture grew enterococcus faecalis - appears to be colonized given almost always grown on urine culture since 2019 Despite not symptomatic recommend continuing treatment due to new hardware placed with operation. Started/continued Amoxicillin 500mg PO TID following perioperative antibiotics (4) Hypertension: Plan: BP stable 123/76 Lisinopril resumed day prior, HCTZ resumed for today and can continue monitor for any issues (5) Atrial fibrillation: Plan: Continues rate control with diltiazem, coumadin resumed 01/15 2.5/5mg alternating doses per patient Mag checked for completeness, LOW 1.6 and 2gm IV ordered and 2.0 on repeat. Stable 1.9 on repeat and ordered additional 1gm IV to keep closer to 2 w/ his afib and resumption of coumadin 01/14 as above (6) Rheumatoid arthritis: Plan: Hold Arava to help healing - patient reports issues w/ holding for too long. Discussed w/ primary and they want 2 weeks holding. Pt to f/u PCP/rheum if any ongoing issues but suspect steroids keeping at bay for now (7) Hypomagnesemia: Plan: resolved but additinal 1gm to keep closer to 2 while INR subtherapeutic/resumed as above Plan Hospitalist service will sign off but can chart check in am. Please call with questions/concerns. Admission and Anticipated Discharge Date Admission Date: January 13, 2024 Supervising Physician Co-Signing Physician Notes The patient was not seen by me. The chart was reviewed. Case discussed with TIBURCIO Yao. Agree with assessment and plan Subjective Eval this morning, sitting up in bed. Seen by Dr Gonzales's PA Ellen this morning. Some pain this morning but slept flat in bed which he hadn't been able to do before. Moving his bowels, switching from oxycodone to hydrocodone per primary service. Patient reports he used the oxy for short acting control but tends to bind him up and not as much with the hydrocodone which he has at home. No fever/chills, chest pain shortness of breath. Reports went home early last operation and he had to come back and spend a week her for pain control and will be staying overnight. Coumadin resumed per usual schedule, EDWIGE removal to be tomorrow. HCTZ resumed but discussed dr Gonzales would like his RA med held at least 2 weeks for wound healing and rec he follow up with PCP/rheum for any management as needed during this time. Questions/concerns addressed at this time. Physical Exam Constitutional: WD/WN, vitals as above sitting up in bed, NAD Respiratory: normal respiratory effort, lungs clear to auscultation Cardiovascular: Rate/Rhythm: regular rate and + irregularly irregular Heart Sounds: no murmur Extremities: normal capillary refill; no pedal edema Gastrointestinal (Abdomen): Inspection/Auscultation: normal bowel sounds; abdomen not distended Percussion/Palpation: abdomen nontender, no guarding and abdomen not rigid Musculoskeletal: dressing to spine c/d/i normal ankle dorsi/plantarflexion EDWIGE output stable L foot in boot Skin: no rashes, warm and dry Psychiatric: A+Ox3, euthymic affect Results & Data Results & Data Vital Signs (Past 12 Hours) Vital Signs Temp Pulse Resp BP Pulse Ox O2 Del Method 01/15/24 22:21 Room Air 01/15/24 20:24 36.8 C 87 16 150/85 H 99 Room Air Laboratory Results 01/16/24 Range/Units 05:27 PT 10.9 (9.0-12.0) Seconds INR 1.0 (0.9-1.1) Sodium 136 (136-145) mmol/L Potassium 4.2 (3.5-5.1) mmol/L Chloride 106 (98-107) mmol/L Carbon Dioxide 26 (21-32) mmol/L Anion Gap 4 (3-11) BUN 33 H (6-23) mg/dl Creatinine 0.76 (0.6-1.4) mg/dl Est Cr Clr Drug Dosing 95.6 ml/min Est GFR ( Amer) 106.4 ml/min Est GFR (Non-Af Amer) 91.8 ml/min BUN/Creatinine Ratio 43.4 H (10-20) Glucose 110 H (70-99(Fasting)) mg/dl Calcium 8.5 L (8.6-10.3) mg/dl Magnesium 1.9 (1.7-2.4) mg/dl PG Care Time/CCT Total # of Minutes Spent Total Time Spent with Patient: Total time spent is greater than 50% in coordination of care (as documented) at patient's floor/unit and/or counseling patient: Coding Level of Care Code 01899 SUB INP/OBS CARE 2/35MIN Diagnoses Neurogenic claudication due to lumbar spinal stenosis M48.062 Postoperative back pain G89.18; M54.9 Asymptomatic bacteriuria R82.71 Hypertension I10 Atrial fibrillation I48.19 Atrial fibrillation type: persistent (not longstanding) Rheumatoid arthritis, involving unspecified site, unspecified whether rheumatoid factor present M06.9 Rheumatoid arthritis location: unspecified site Rheumatoid factor presence: unspecified presence Hypomagnesemia E83.42 (5) Atrial fibrillation Atrial fibrillation type: persistent (not longstanding) Qualified Code(s): I48.19 - Other persistent atrial fibrillation (6) Rheumatoid arthritis Rheumatoid arthritis location: unspecified site Rheumatoid factor presence: unspecified presence Qualified Code(s): M06.9 - Rheumatoid arthritis, unspecified
--- NOTE | 2024-01-16 08:29 | Orthopedic Progress Note ---
Date of Service January 16, 2024 Assessment & Plan (1) Neurogenic claudication due to lumbar spinal stenosis: Plan: Curt is postoperative day 3 status post hard removal T10-12, decompression T12-L1, instrumented fusion T10-L2. He is doing well. Will continue with ambulation today. Maintain EDWIGE drain. Will change his medications to hydrocodone for pain control. DVT prophylaxis is in the form teds and SCDs. Work on aggressive bowel regimen. Anticipate discharge home tomorrow Admission and Anticipated Discharge Date Admission Date: January 13, 2024 Ronaldo Elias is postoperative day 3 status post hard removal T10-12, decompression T12-L1, instrumented fusion from T10-L2. He is doing well. EDWIGE drain output last shift was 40 cc. He is ambulate in the hallways. No complaints. He is requesting that his oxycodone be changed to hydrocodone as this seems to be more effective for him. Denies any leg pain or paresthesias Review of Systems Review of Systems: All systems reviewed & are unremarkable except as noted in HPI & below Physical Exam Physical Exam: He is up and ambulatory around the room in a very stooped posture alert and oriented x 3 Brace on left foot Strength unchanged bilateral lower extremities Thoracolumbar dressing is clean dry and intact with functioning EDWIGE drain Results & Data Vital Signs (Past 12 Hours) Vital Signs O2 Del Method 01/15/24 22:21 Room Air Queries Orthopedic Spine Acute Posthemorrhagic Anemia: Yes Obesity: Yes
[2024-01-16] MEDS: hydroCHLOROthiazide 25 MG TAB PO SCH (10:36)
[2024-01-16] MEDS: MAGNESIUM SULFATE / D5W 1 GM/100 ML BAG IV ONE (10:40)
[2024-01-16] MEDS: HYDROCODONE/ACETAMOPHEN 5/325MG TAB PO PRN (13:32)
[2024-01-16] MEDS ORDERED: WARFARIN SOD 5 MG TAB PO SCH (16:00)
[2024-01-16] MEDS ORDERED: WARFARIN SOD 2.5 MG TAB PO SCH (16:00)
[2024-01-16] MEDS: WARFARIN SOD 5 MG TAB PO SCH (21:20)
--- NOTE | 2024-01-17 09:00 | Discharge Summary ---
Date of Service January 17, 2024 Admission HPI Per Admitting Provider This is a 73-year-old male well-known to me the presents with marked decline in status with back and bilateral leg pain. The course of nonoperative care is here for surgical invention. Principal Diagnosis Lumbar spinal stenosis with neurogenic claudication Discharge Data Allergies Allergy/AdvReac Type Severity Reaction Status Date / Time No Known Allergies Allergy Verified 01/13/24 09:03 Consultations 01/13/24 15:15 Consult Hospitalist Routine Procedures Performed Operation Date: 01/13/24 10:05 Actual Procedures p T12-L1 Decompression and Fusion, Spinal Cord Monitoring(Not Applicable) - Carlos A Gonzales DO s T10-T12 Hardware Removal, (Not Applicable) - Carlos A Gonzales DO Ordered Studies 01/13/24 10:05 FL thoracic spine 2V Routine 01/13/24 17:10 CT Abdomen and Pelvis [CT abd pelvis wo con] Stat Hospital Course (1) Neurogenic claudication due to lumbar spinal stenosis: Patient went thoracolumbar decompression fusion trial as well as taken to orthopedic for postoperative. Postoperatively progressed well. Tolerating physical therapy. EDWIGE drain decreasing. Excellent strength testing. Subsidy discharged home. Discharge orders instructions from the chart for further view. Total Time Total Time Spent Total Time Spent (In Minutes): 20 minutes Discharge Plan Discharge Items Patient Disposition: Home - Self-Care Reason For Visit: Lumbar Pain, Spinal Instability Discharge Diagnosis: Lumbar spinal stenosis with instability Activity: As commented below Non-emergency contact: Primary Care Provider Call non-emergency contact if: you have any medication questions Follow-up/Referrals: Dc Chin [Primary Care Provider] - Diet: Regular Addtl Attending Provider Instructions: ACTIVITY RECOMMENDATIONS: SELF CARE INSTRUCTIONS AFTER THORACIC/LUMBAR FUSIONS 1. You may walk to your tolerance. It is good exercise for your legs and back. Expect some back and intermittent leg aches and pains. 2. You may perform "counter-top" level activities (make a sandwich, delio with a project, etc.). 3. No bending or lifting of more than 10 pounds or back twisting of any nature (roll like a log when turning in bed). 4. You may ride in a car for 20-30 minutes at a time. No driving until after your first visit with your doctor. 5. Frequent changes of position and restricting sitting to 30 minutes at a time will help limit the amount of back spasms and stiffness you may experience. 6. You may discontinue the use of ambulatory aids (cane, crutches, etc.) once your strength and confidence allow. 7. You may labor standards director the shower and let water strike your incision when you arrive home at least once daily. Do not take a tub bath, sit in a hot tub or go into a swimming pool until after your first recheck in the office. SPECIAL CARE INSTRUCTIONS: VERY IMPORTANT TO READ AND REVIEW A. Your surgical incision has been closed with a cosmetic suture under the skin that will dissolve in about 6 weeks. In 14 days, you can use a pair of clean scissors and cut the suture that is left outside of the skin at the ends of your incision. 1. The small skin tapes can be removed 7 days after surgery if they have not fallen off by that point. 2. You may keep the wound open to air as much as possible to promote healing after post-op day number 5 unless told otherwise by your doctor. 3. If you think the wound looks like it is becoming infected (redness or worsening drainage) and/or you are experiencing fever, chill or worsening back pain and muscle spasms, contact the office so that we may evaluate you as soon as possible. B. Complications are uncommon, but please contact us if you have any signs or symptoms of: 1. wound infection (fever higher than 102.5 degrees F, redness, separation of wound, drainage, or increasing pain from the incision) 2. blood clots in legs (pain, swelling, redness and warmth in legs) 3. urinary tract infection (fever higher than 102.5 degrees F, burning upon urination or increased frequency of urination) 4. nerve problems (inability to walk on your toes or heels, numbness, loss of bowel or bladder control) 5. any other symptoms that concern you C. Please call the office at if you have any concerns or questions about your operation or recovery. D. No smoking! Smoking drastically decreases the chance of a solid fusion. E. Do not take any anti-inflammatory medications (Indocin, Advil, Motrin, Aspirin, Naprosyn, etc.) as these may inhibit the chance of a solid fusion. Tylenol is okay to take for pain. MANAGING PAIN AFTER SPINAL SURGERY 1. Narcotic medication is intended for short-term use and will be provided for surgical pain. Surgical pain usually lasts for a period of 4-6 weeks. Narcotic medication includes Percocet, Vicodin, Darvocet, Tylenol #3 or Lortab. 2. Longer-term pain is more appropriately treated with non-narcotic medication such as Tylenol ES. 3. Muscle spasm is not appropriately treated with narcotics. Muscle relaxers such as Soma, Flexeril or Skelaxin can be used along with Tylenol ES. 4. Remember that we all live with some "aches and pains". This is not unusual or uncommon after an injury or as we get older. a. Back pain is expected and may include muscle spasms for 4 to 6 weeks after surgery. The pain should gradually improve. If the pain worsens for no apparent reason, please contact the office. b. Intermittent leg pain may also be experienced and should not be concerned about unless it worsens for no apparent reason. If so, please contact the office. 5. We will provide appropriate medication within the normal guidelines of their prescribed use. We will also be very cautious and aware of potential abuse and extended duration of patients' medication needs. a. Pain medications are for your comfort and to assist with sleep and rest so that the tissue can heal. They are not provided in order to return to normal activity and should not be used through the day. To do so or worsening pain at night can result from ongoing tissue damage and development of tolerance to the prescribed medicine. 6. Please allow 2-3 days to process refills. Prescriptions will not be mailed but must be picked up at the office. FOLLOW UP VISIT: Keep your scheduled follow-up appointment. Any questions, please call the office at . Pending Studies at Discharge: No Stand-Alone Forms: [facility], Smoking Cessation Medications and DC Order Prescriptions: New tramadol 50 mg tablet 50 mg PO Q6H PRN (Reason: pain, moderate) Qty: 30 0RF oxycodone 5 mg tablet 5 mg PO Q6H PRN (Reason: pain) Qty: 30 0RF Continued pregabalin [Lyrica] 100 mg capsule 100 mg PO TID Qty: 90 5RF leflunomide [Arava] 20 mg tablet 20 mg PO QAM Qty: 90 0RF warfarin 5 mg tablet 2.5 mg PO HS Patient Comments: alternates between 5mg and 2.5mg every other day hydrochlorothiazide 25 mg tablet 25 mg PO QAM diltiazem HCl [Cardizem CD] 120 mg capsule,extended release 24hr 240 mg PO QAM lisinopril 10 mg tablet 20 mg PO QAM Qty: 30 calcium carb and citrate-vitD3 [Citracal-D3 Slow Release] 600 mg calcium- 500 unit Tablet Extended Release 1 tab PO QAM Aspyra 1.5 billion cell Capsule 1 cap PO QAM Rinvoq 15 mg tablet extended release 24 hr 15 mg PO QAM hydrocodone-acetaminophen 5-325 mg tablet 1 tab PO Q6H PRN (Reason: pain) Qty: 15 0RF Discharge Orders: Discharge Order (Routine); Ordered 01/17/24 Ordered By: Carlos A Gonzales Admission Data Admit Date/Time: 01/13/24 13:30 Attending Provider: Carlos A Gonzales Admit Provider: Carlos A Gonzales Primary Care Provider: Dc Chin Other Providers: Celestine Melo
== END 2024-01-17 12:50 | disposition home or self-care (01) | DRG 454 ==
LOC: ASU 08:37 → 3E 13:30